=== PATIENT | female | born 1940 | race Caucasian/White ===

== ENCOUNTER 2016-03-03 14:52 | Emergency (ER) | payer OTHER ==
[~2016-03-03] VITALS: Ht 167.6 cm; Wt 75.0 kg
[2016-03-03 14:55] VITALS: BP 178/78; PULSE 103; RESP 14; TEMP 98.2; O2SAT 95
--- NOTE | 2016-03-03 16:08 | PD ---
Physical Exam Time Seen by Provider: 16:04 Narrative 75 year old female presents to ED for evaluation of R arm pain and swelling. Diagnosed with clavicle fracture 4 days ago, but had been injured months ago. Pt was placed in a sling and noticed RUE redness and swelling worsening since last night. [place] chilled no fever. Nausea with vomiting over last 24 hours. Hx of R hip replacement, htn, hypercholesteremia, hypothyroid, copd, gerd. Data Data Last Documented VS Vital Signs Date Time Temp Pulse Resp B/P Pulse Ox O2 Delivery O2 Flow Rate FiO2 03/03/16 18:22 75 18 166/72 96 Room Air 03/03/16 14:55 98.2 Orders Electrocardiogram (03/03/16 16:08) Complete Blood Count With Diff (03/03/16 16:08) Comprehensive Metabolic Panel (03/03/16 16:08) Prothrombin Time / Inr (Pt) (03/03/16 16:08) Act Partial Throm Time (Ptt) (03/03/16 16:08) Lactic Acid Sepsis Protocol (03/03/16 16:08) Magnesium (Mg) (03/03/16 16:08) Ckmb (Isoenzyme) Profile (03/03/16 16:08) Troponin I (03/03/16 16:08) Urinalysis - C+S If Indicated (03/03/16 16:08) Influenzae A/B Antigen (03/03/16 16:08) Blood Culture (03/03/16 16:08) Chest, Single Ap (03/03/16 16:08) Us Arm Venous Doppler (03/03/16 ) Ct Thorax/ Chest W Iv Contrast (03/03/16 17:42) Acetamin-Hydrocod 325-10 Mg ([place] 10-32 (03/03/16 19:15) Labs Laboratory Tests Test 03/03/16 18:30 Lactic Acid Level 2.4 mmol/L MDM Medical Record Reviewed: Yes Supervised Visit with OLYA: No Narrative Course WORK UP INITIATED IN TRIAGE Condition: Stable Minerva Christian Mar 03, 2016 16:07
--- NOTE | 2016-03-03 17:26 | RADRPT ---
EXAM DATE/TIME: 03/03/2016 17:10 [facility] COMPARISON: No previous studies available for comparison. INDICATIONS : Fever and short of breath. MEDICAL HISTORY : Tuberculosis. SURGICAL HISTORY : None. ENCOUNTER: Initial ACUITY: 3 days PAIN SCORE: 2/10 LOCATION: Bilateral chest FINDINGS: A single view of the chest demonstrates the lungs to be symmetrically aerated without evidence of mas s, infiltrate or effusion. The cardiomediastinal contours are unremarkable. Osseous structures are intact. CONCLUSION: Normal examination for a patient of this age. Doni Hopson MD on March 03, 2016 at 17:24 Board Certified Radiologist. This report was verified electronically.
--- NOTE | 2016-03-03 17:33 | RADRPT ---
EXAM DATE/TIME: 03/03/2016 16:36 [facility] COMPARISON: No previous studies available for comparison. INDICATIONS : Swelling. MEDICAL HISTORY : Pain in right arm. SURGICAL HISTORY : Back surgery. ENCOUNTER: Initial ACUITY: 4 - 6 months PAIN SCORE: 9/10 LOCATION: Right arm FINDINGS: There is spontaneous flow documented in the brachial, basilic, cephalic, axillary, and subclavian vei ns. The vessels are compressible and augmentation response is documented. No filling defects are se en. The flow is phasic with respiration. Direction of flow in the jugular vein is caudal. CONCLUSION: No evidence of DVT. No evidence of superficial thrombosis. Екатерина Velez MD on March 03, 2016 at 17:30 Board Certified Radiologist. This report was verified electronically.
[2016-03-03 18:22] VITALS: BP 166/72; PULSE 75; RESP 18; O2SAT 96
--- NOTE | 2016-03-03 18:42 | PD ---
HPI Chief Complaint: Injury Time Seen by Provider: 17:42 Travel History International Travel<30 days: No Contact w/Intl Traveler<30days: No Traveled to known affect area: No History of Present Illness HPI 75-year-old female with history of asthma, previous MD, had a fall several weeks ago, and has had a hip fracture, states that a few days ago she felt a crack in her clavicle area and had been seen, was found to have a clavicle fracture, and over last few days she has had increased swelling on her clavicle area and increased swelling of her right arm. She denies any chest pains, shortness of breath, fevers, or any other symptoms. She and daughter concerned that the right arm is swelling and the right clavicle area swelling. Modifying Factors: None Associated Signs & Symptoms: Swelling of the right clavicle area and arm swelling after clavicle fracture Risk Factors: None PFSH Past Medical History Asthma: Yes Blood Disorders: No Myocardial Infarction: Yes (10 years ago 2006?) Tetanus Vaccination: > 5 Years Influenza Vaccination: No ?: Not Past Surgical History Appendectomy: Yes Cholecystectomy: Yes Hysterectomy: Yes Social History Alcohol Use: No Tobacco Use: Yes (ppd) Substance Use: No Allergies-Medications (Allergen,Severity, Reaction): Coded Allergies: Penicillin (Verified Allergy, Unknown, RASH, 03/03/16) Reported Meds & Prescriptions Reported Meds & Active Scripts Active Review of Systems Except as stated in HPI: all other systems reviewed are Neg Physical Exam Narrative GENERAL: Well-nourished, well-developed elderly white female patient in no acute distress. SKIN: Warm and dry. HEAD: Normocephalic. EYES: No scleral icterus. No injection or drainage. NECK: Supple, trachea midline. CARDIOVASCULAR: Regular rate and rhythm without murmurs, gallops, or rubs. CHEST: There is significant edema, erythema, tenderness on palpation of the right clavicle area especially above the clavicle. No retractions or use of accessory muscles. RESPIRATORY: Breath sounds equal bilaterally. No accessory muscle use. GASTROINTESTINAL: Abdomen soft, non-tender, nondistended. MUSCULOSKELETAL: No cyanosis, or edema. BACK: Nontender without obvious deformity. No CVA tenderness. EXTREMITIES: Right arm is notable for significant edema, neurovascularly intact. Data Data Last Documented VS Vital Signs Date Time Temp Pulse Resp B/P Pulse Ox O2 Delivery O2 Flow Rate FiO2 1/18/17 18:22 75 18 166/72 96 Room Air 03/03/16 14:55 98.2 Orders Electrocardiogram (03/03/16 16:08) Complete Blood Count With Diff (03/03/16 16:08) Comprehensive Metabolic Panel (03/03/16 16:08) Prothrombin Time / Inr (Pt) (03/03/16 16:08) Act Partial Throm Time (Ptt) (03/03/16 16:08) Lactic Acid Sepsis Protocol (03/03/16 16:08) Magnesium (Mg) (03/03/16 16:08) Ckmb (Isoenzyme) Profile (03/03/16 16:08) Troponin I (03/03/16 16:08) Urinalysis - C+S If Indicated (03/03/16 16:08) Influenzae A/B Antigen (03/03/16 16:08) Blood Culture (03/03/16 16:08) Chest, Single Ap (03/03/16 16:08) Us Arm Venous Doppler (03/03/16 ) Ct Thorax/ Chest W Iv Contrast (03/03/16 17:42) MDM Medical Decision Making Medical Screen Exam Complete: Yes Emergency Medical Condition: Yes Medical Record Reviewed: Yes Interpretation(s) Last 24 hours Impressions Chest X-Ray 03/03/16 1608 Signed Impressions: Service Date/Time: Thursday, March 03, 2016 17:10 - CONCLUSION: Normal examination for a patient of this age. Doni Hopson MD Upper Extremity Ultrasound 03/03/16 0000 Signed Impressions: Service Date/Time: Thursday, March 03, 2016 16:36 - CONCLUSION: No evidence of DVT. No evidence of superficial thrombosis. Екатерина Velez MD Differential Diagnosis Right clavicle area swelling, tenderness, edemareactive changes secondary to clavicle fracture versus osteomyelitis versus abscess formation versus DVT of the right arm Narrative Course Patient was initially seen by nurse practitioner and initial lab work was ordered and ultrasound ordered. Chest x-ray and ultrasound did not show any signs of acute changes. CT was ordered for further evaluation of the area. Physician Communication Physician Communication Case is signed out to Dr. Desai at 7 PM pending workup. Diagnosis Primary Impression: Pain of right clavicle Condition: Stable Wing Justice MD Mar 03, 2016 18:42
[2016-03-03 19:00] VITALS: BP 144/73; PULSE 81; RESP 18; O2SAT 97
[2016-03-03] MEDS ORDERED: ACETAMINOPHEN/HYDROcodone 325 MG/10 MG TAB PO ONE (19:15)
--- NOTE | 2016-03-03 19:58 | PD ---
Physical Exam Date Seen by Provider: Mar 03, 2016 Time Seen by Provider: 19:10 Narrative Care assumed at 1900 pending evaluation of a right shoulder injury. Patient reports she fell 3 days ago and injured her right shoulder. She comes in today complaining with increasing pain, swelling, redness. On exam, she has a pretty significant swelling over the right midclavicular area with erythema and warmth of the overlying skin. She is distally neurovascularly intact. She has limited range of motion of her right shoulder secondary to pain. Data Data Last Documented VS Vital Signs Date Time Temp Pulse Resp B/P Pulse Ox O2 Delivery O2 Flow Rate FiO2 03/03/16 18:22 75 18 166/72 96 Room Air 03/03/16 14:55 98.2 Orders Electrocardiogram (03/03/16 16:08) Complete Blood Count With Diff (03/03/16 16:08) Comprehensive Metabolic Panel (03/03/16 16:08) Prothrombin Time / Inr (Pt) (03/03/16 16:08) Act Partial Throm Time (Ptt) (03/03/16 16:08) Lactic Acid Sepsis Protocol (03/03/16 16:08) Magnesium (Mg) (03/03/16 16:08) Ckmb (Isoenzyme) Profile (03/03/16 16:08) Troponin I (03/03/16 16:08) Urinalysis - C+S If Indicated (03/03/16 16:08) Influenzae A/B Antigen (03/03/16 16:08) Blood Culture (03/03/16 16:08) Chest, Single Ap (03/03/16 16:08) Us Arm Venous Doppler (03/03/16 ) Ct Thorax/ Chest W Iv Contrast (03/03/16 17:42) Acetamin-Hydrocod 325-10 Mg ([place] 10-32 (03/03/16 19:15) Lactic Acid Sepsis Protocol (03/03/16 20:42) Blood Culture (03/03/16 20:42) Cefepime Inj (Maxipime Inj) (03/03/16 20:45) Iohexol 350 Inj (Omnipaque 350 Inj) (03/03/16 21:04) Labs Laboratory Tests Test 03/03/16 03/03/16 03/03/16 03/03/16 18:30 18:50 18:51 21:10 Lactic Acid Level 2.4 mmol/L 1.2 mmol/L White Blood Count 9.2 TH/MM3 Red Blood Count 4.28 MIL/MM3 Hemoglobin 11.6 GM/DL Hematocrit 35.5 % Mean Corpuscular Volume 82.9 FL Mean Corpuscular Hemoglobin 27.1 PG Mean Corpuscular Hemoglobin 32.7 % Concent Red Cell Distribution Width 19.5 % Platelet Count 230 TH/MM3 Mean Platelet Volume 10.0 FL Neutrophils (%) (Auto) 64.4 % Lymphocytes (%) (Auto) 22.9 % Monocytes (%) (Auto) 10.7 % Eosinophils (%) (Auto) 1.1 % Basophils (%) (Auto) 0.9 % Neutrophils # (Auto) 5.9 TH/MM3 Lymphocytes # (Auto) 2.1 TH/MM3 Monocytes # (Auto) 1.0 TH/MM3 Eosinophils # (Auto) 0.1 TH/MM3 Basophils # (Auto) 0.1 TH/MM3 CBC Comment AUTO DIFF Differential Comment AUTO DIFF CONFIRMED Prothrombin Time 10.1 SEC Prothromb Time International 0.9 RATIO Ratio Activated Partial 22.3 SEC Thromboplast Time Sodium Level 134 MEQ/L Potassium Level 3.9 MEQ/L Chloride Level 99 MEQ/L Carbon Dioxide Level 27.7 MEQ/L Anion Gap 7 MEQ/L Blood Urea Nitrogen 9 MG/DL Creatinine 0.69 MG/DL Estimat Glomerular Filtration 83 ML/MIN Rate Random Glucose 118 MG/DL Calcium Level 8.0 MG/DL Magnesium Level 1.7 MG/DL Total Bilirubin 0.1 MG/DL Aspartate Amino Transf 19 U/L (AST/SGOT) Alanine Aminotransferase 18 U/L (ALT/SGPT) Alkaline Phosphatase 147 U/L Total Creatine Kinase 72 U/L Troponin I 0.02 NG/ML Total Protein 6.1 GM/DL Albumin 2.5 GM/DL Urine Color YELLOW Urine Turbidity CLEAR Urine pH 5.5 Urine Specific [place] 1.009 Urine Protein NEG mg/dL Urine Glucose (UA) 300 mg/dL Urine Ketones NEG mg/dL Urine Occult Blood SMALL Urine Nitrite NEG Urine Bilirubin NEG Urine Urobilinogen LESS THAN 2.0 MG/DL Urine Leukocyte Esterase NEG Urine RBC 1 /hpf Urine WBC 1 /hpf Urine Squamous Epithelial <1 /hpf Cells Microscopic Urinalysis Comment CATH-CULT NOT IND MDM Medical Record Reviewed: Yes (I have a record from [facility] from February 29, 2016. Patient was seen there with a clavicular fracture. She had plain films that confirmed the fracture. She was discharged on Percocet and with a sling. There is no mention in their records of a mass in her lungs.) Supervised Visit with OLYA: No Narrative Course Patient is here for evaluation of right shoulder injury. She has a negative chest x-ray but a midclavicular fracture is visible on the chest x-ray. Right upper extremity ultrasound was negative for DVT. She has a CT of the shoulder pending. She also has routine lab work pending. CBC has a normal white count of 9.2. Lactic acid level is elevated at 2.4. Electrolytes are normal. UA is negative. Since her lactic acid level is elevated and since she has redness and warmth of the skin over her right clavicle, I will go ahead and give her a dose of cefepime. Her CT shows a spiculated mass in the left upper lobe compatible with bronchogenic carcinoma. She also has a 6 mm nodule in the left lower lobe. I do not believe that this is a known diagnosis. The patient has not recently been seen at this facility. She has most recently been seen at [facility] in [facility]. We are attempting to obtain those records. The patient does report that she feels perfectly fine going home. She states that she has a good relationship with her primary care physician and can see him right away should of this. She states that she has never been told anything about a mass in her lungs. She denies any respiratory difficulty. Her only complaint is her shoulder. I will recheck her lactic acid level. If it is trending down, I feel comfortable sending her home. Repeat lactic acid is 1.2. Diagnosis Primary Impression: Pain of right clavicle Additional Impressions: Mass of left lung Cellulitis of chest wall Patient Instructions: Cellulitis (ED), General Instructions Additional Instruction: See your doctor without fail in the near future regarding a mass noted in your left lung on CT scan. Med/Other Pt SpecificInfo: Prescription(s) given Scripts Cephalexin (Keflex)500 Mg Xic052 Mg PO Q8H #30 CAP Ref 0 Prov:Jasmin Desai MD 03/03/16 Disposition: DISCHARGE HOME Condition: Stable Jasmin Desai MD Mar 03, 2016 19:58
[2016-03-03 20:16] LABS: BLOOD, URINE SMALL (NEG); COMMENT (UR) CATH-CULT NOT IND; CULTURE IF INDICATED CATH CULTURE NOT IND; GLUCOSE,URINE 300 mg/dL (NEG); KETONE, URINE NEG (NEG); NITRITE,URINE NEG (NEG); PH, URINE 5.5 (5.0-8.5); SQUAMOUS EPITHELIAL CELL URINE <1 /hpf (0-5); URINE COLOR YELLOW (YELLW/STRAW)
[2016-03-03 20:17] LABS: AUTOMATED NEUTROPHIL # 5.9 TH/MM3 (1.8-7.7); BASOPHIL # 0.1 TH/MM3 (0-0.2); BASOPHIL % 0.9 % (0.0-2.0); EOSINOPHIL # 0.1 TH/MM3 (0-0.4); EOSINOPHIL % 1.1 % (0.0-4.0); HEMATOCRIT 35.5 % (35.0-46.0); LYMPH % 22.9 % (9.0-44.0); LYMPHOCYTE # 2.1 TH/MM3 (1.0-4.8); MEAN CELL VOLUME 82.9 FL (80.0-100.0); MEAN CORPUSCULAR HEMOGLOBIN 27.1 PG (27.0-34.0); MEAN CORPUSCULAR HGB CONC 32.7 % (32.0-36.0); MONO % 10.7 % (0.0-8.0); NEUT % 64.4 % (16.0-70.0); PLATELET COUNT 230 TH/MM3 (150-450); RED BLOOD COUNT 4.28 MIL/MM3 (4.00-5.30); RED CELL DISTRIBUTION WIDTH 19.5 % (11.6-17.2); WHITE BLOOD COUNT 9.2 TH/MM3 (4.0-11.0)
[2016-03-03 20:19] LABS: HEMO FLAGS AUTO DIFF
[2016-03-03 20:28] LABS: APTT (PATIENT) 22.3 SEC (24.3-30.1); INTERNATIONAL NORMALIZED RATIO 0.9 RATIO; PROTHROMBIN TIME - PATIENT 10.1 SEC (9.8-11.6)
[2016-03-03 20:36] LABS: ANION GAP 7 MEQ/L (5-15); AST (GOT) 19 U/L (15-37); BICARBONATE 27.7 MEQ/L (21.0-32.0); BLOOD UREA NITROGEN 9 MG/DL (7-18); CHLORIDE 99 MEQ/L (98-107); GLOMERULAR FILTRATION RATE 83 ML/MIN (>89); MAGNESIUM 1.7 MG/DL (1.5-2.5); POTASSIUM 3.9 MEQ/L (3.5-5.1); SODIUM (NA) 134 MEQ/L (136-145)
[2016-03-03 20:40] LABS: ALKALINE PHOSPHATASE 147 U/L (45-117); ALT (GPT) 18 U/L (10-53); TOTAL BILIRUBIN ADULT 0.1 MG/DL (0.2-1.0)
[2016-03-03] MEDS ORDERED: CEFEPIME INJ 2,000 MG in SODIUM CHLORIDE 0.9% INJ 100 ML IV ONE (20:45)
[2016-03-03 20:47] LABS: CREATINE KINASE 72 U/L (26-192)
[2016-03-03 21:00] VITALS: BP 140/72; PULSE 85; RESP 18
[2016-03-03 21:00] LABS: SCAN/DIFF AUTO DIFF CONFIRMED
[2016-03-03] MEDS ORDERED: IOHEXOL 350 MG/ML 10 ML VIAL (for RAD DIAG) IV ONE (21:04)
[2016-03-03 21:10] LABS: LACTIC ACID GHOST NOT REPORTABLE
--- NOTE | 2016-03-03 21:13 | RADRPT ---
EXAM DATE/TIME: 03/03/2016 20:58 [facility] COMPARISON: No previous studies available for comparison. INDICATIONS : Right clavicle swelling and known fracture. Evaluate for abscess. IV CONTRAST: 70 cc Omnipaque 350 (iohexol) IV RADIATION DOSE: 9.08 CTDIvol (mGy) MEDICAL HISTORY : Myocardial infarction. asthma SURGICAL HISTORY : Cholecystectomy. ENCOUNTER: Initial ACUITY: 1 day PAIN SCALE: 10/10 LOCATION: Right chest TECHNIQUE: Volumetric scanning of the chest was performed. Using automated exposure control and adjustment of t he mA and/or kV according to patient size, radiation dose was kept as low as reasonably achievable to obtain optimal diagnostic quality images. FINDINGS: LUNGS: There is a mass in the left upper lobe abutting the mediastinum measuring 3.5 x 3.3 x 3.3 cm. Moderat e emphysema. There is a 6 mm nodule in superior segment left lower lobe. PLEURA: There is no pleural thickening or pleural effusion. MEDIASTINUM: The heart and great vessels demonstrate no acute abnormality. There is no mediastinal or hilar lymph adenopathy. AXILLAE: Within normal limits. No lymphadenopathy. SKELETAL: Within normal limits for patient age. MISCELLANEOUS: The visualized upper abdominal organs demonstrate no acute abnormality. CONCLUSION: 1. Spiculated mass left upper lobe abutting the mediastinum consistent with bronchogenic carcinoma. 2. 6 mm nodule in the superior segment left lower lobe. 3. Emphysema without infiltrate. Baljit Rockwell MD on March 03, 2016 at 21:06 Board Certified Radiologist. This report was verified electronically.
[2016-03-03] MEDS ORDERED: CEPH-460 PO (22:23)
--- NOTE | 2016-03-04 21:11 | EKG ---
Date Performed: 03/03/2016 Time Performed: 17:51:08 PTAGE: 75 years EKG: Sinus rhythm NORMAL ECG PREVIOUS TRACING : 03/25/2002 21.12 DOCTOR: Jose Antonio Patten Interpretating Date/Time 03/04/2016 21:05:02
[2016-03-04] MEDS ORDERED: OMEP20TA PO (22:57)
[2016-03-04] MEDS ORDERED: PRIM250T5 PO (23:27)
[2016-03-04] MEDS ORDERED: MIRT30TA PO (23:27)
[2016-03-04] MEDS ORDERED: LEVO100T5 PO (23:27)
[2016-03-04] MEDS ORDERED: DICY20TA10 PO (23:27)
[2016-03-04] MEDS ORDERED: AMLO10TA2 PO (23:27)
[2016-03-04] MEDS ORDERED: AMIT10TA6 PO (23:27)
[2016-03-04] MEDS ORDERED: LISI40TA PO (23:27)
[2016-03-04] MEDS ORDERED: DONE10TA7 PO (23:27)
[2016-03-04] MEDS ORDERED: QUET1TAB8 PO (23:27)
[2016-03-04] MEDS ORDERED: ATOR1TAB18 PO (23:27)
[2016-03-04] MEDS ORDERED: LANTINJ SQ (23:29)
[2016-03-04] MEDS ORDERED: VENTAER INH (23:29)
[2016-04-12] MEDS ORDERED: HYDR-3583 PO (14:30)
[2016-04-12] MEDS ORDERED: LORA1TAB12 PO (14:33)
[2016-04-12] MEDS ORDERED: IPRA0.02 NEB (14:35)
== END 2016-03-03 23:31 | disposition home or self-care (01) ==
LOC: NEPC 14:52
DX: M25.511 Pain in right shoulder (principal); R91.8 Other nonspecific abnormal finding of lung field; L03.313 Cellulitis of chest wall; R11.2 Nausea with vomiting, unspecified; I10 Essential (primary) hypertension; E78.00 Pure hypercholesterolemia, unspecified; E03.9 Hypothyroidism, unspecified; J44.9 Chronic obstructive pulmonary disease, unspecified; K21.9 Gastro-esophageal reflux disease without esophagitis; Z96.641 Presence of right artificial hip joint; F17.200 Nicotine dependence, unspecified, uncomplicated; X58.XXXD Exposure to other specified factors, subsequent encounter; M79.601 Pain in right arm
CPT/HCPCS: 71010; 71260; 80053; 81001; 82550; 83605; 83735; 84484; 85025; 85610; 85730; 87040; 87804; 93005; 93971; 96365; 99284; J0692; Q9967

== ENCOUNTER 2016-03-04 20:37 | Observation (INO) | payer OTHER ==
[~2016-03-04] VITALS: Ht 162.6 cm; Wt 62.0 kg
[~2016-03-04 20:37] MED LIST: CEPH-460 PO
[2016-03-04 20:39] VITALS: TEMP 98.4
[2016-03-04 21:37] VITALS: BP 181/82; PULSE 72; RESP 16; O2SAT 95
--- NOTE | 2016-03-04 21:39 | PD ---
HPI Chief Complaint: Injury Time Seen by Provider: 21:00 Travel History International Travel<30 days: No Contact w/Intl Traveler<30days: No Traveled to known affect area: No History of Present Illness HPI 75 year-old female presents to the emergency room via ambulance for evaluation of shortness of breath and worsening right clavicle pain. Patient states her pain started several months ago after she tripped and fell on her right side. At that time she broke her right hip. She states since then she has had right clavicle achiness. About 3 days ago, she bent over and picked up her small dog and heard a pop in her clavicle. Since then she has had worsening clavicle pain and swelling. Clavicle pain is worsened with any range of motion of the right upper extremity since she has now been using it normally. Pain is also worsened with deep breathing. She went to [facility] where she states they "didn't do anything" and told her that there is nothing that could be done for her fracture and discharged her with Percocet. She has run out of Percocet. Patient tried to follow-up with orthopedic surgeon but she called several different offices and none had availability. She came to this emergency room yesterday where she had a thorough workup and was discharged with sling and prescriptions for Keflex. What brought her in again today is worsening right upper extremity redness and swelling. She took one dose of Keflex and states it did not improve her symptoms which concerned her. Patient has not been wearing her sling as instructed because she lost it. Patient has history of hyperlipidemia, depression, hypertension, tremors, GERD, hypothyroidism, and headaches. According to the note written yesterday, medical records were obtained from [facility] which showed patient had a chest x-ray with positive clavicle fracture. PFSH Past Medical History Asthma: Yes Blood Disorders: No Musculoskeletal: Yes (right collar bone fx) Myocardial Infarction: Yes (10 years ago 2006?) Past Surgical History Appendectomy: Yes Cholecystectomy: Yes Hysterectomy: Yes Social History Alcohol Use: No Tobacco Use: Yes (ppd) Substance Use: No Allergies-Medications (Allergen,Severity, Reaction): Coded Allergies: Penicillin (Verified Allergy, Unknown, RASH, 03/05/16) Reported Meds & Prescriptions Reported Meds & Active Scripts Active Reported Ventolin Hfa 18 GM Inh (Albuterol Sulfate) 90 Mcg/Act Aer 2 Puff INH Q4-6H PRN Quetiapine (Quetiapine Fumarate) 100 Mg Tab 100 Mg PO HS Lisinopril 40 Mg Tab 40 Mg PO DAILY Levothyroxine (Levothyroxine Sodium) 100 Mcg Tab 100 Mcg PO DAILY Amlodipine (Amlodipine Besylate) 10 Mg Tab 10 Mg PO DAILY Atorvastatin (Atorvastatin Calcium) 80 Mg Tab 80 Mg PO DAILY PRN Dicyclomine (Dicyclomine HCl) 20 Mg Tab 20 Mg PO QID Mirtazapine 30 Mg Tab 30 Mg PO HS Donepezil 10 Mg Tab 10 Mg PO BID Amitriptyline (Amitriptyline HCl) 10 Mg Tab 10 Mg PO BID Primidone 250 Mg Tab 250 Mg PO TID Omeprazole 20 Mg Tab 20 Mg PO DAILY Review of Systems Except as stated in HPI: all other systems reviewed are Neg Physical Exam Narrative GENERAL: Well-developed, well-nourished elderly female in no acute distress. Afebrile. Ambulatory. SKIN: Warm and dry. Erythema of the forearm and hand. No increased warmth. HEAD: Atraumatic. Normocephalic. EYES: Pupils equal and round. No scleral icterus. No injection or drainage. CARDIOVASCULAR: Regular rate and rhythm. No murmur appreciated. RESPIRATORY: No accessory muscle use. Clear to auscultation. Breath sounds equal bilaterally. CHEST: Nontender throughout without deformity or crepitance. No retractions or use of accessory muscles. MUSCULOSKELETAL: No obvious deformities. No clubbing. No cyanosis. Moderate to severe edema of the right upper extremity. 2+ radial pulse. Radial, ulnar, and median nerves intact. Slight decreased strength in the right upper extremity. NEUROLOGICAL: Awake and alert. No obvious cranial nerve deficits. Motor grossly within normal limits. Normal speech. PSYCHIATRIC: Appropriate mood and affect; insight and judgment normal. Data Data Last Documented VS Vital Signs Date Time Temp Pulse Resp B/P Pulse Ox O2 Delivery O2 Flow Rate FiO2 03/04/16 22:12 75 15 141/60 95 Nasal Cannula 03/04/16 21:37 2 03/04/16 20:39 98.4 Orders Chest, Single Ap (03/04/16 ) Basic Metabolic Panel (Bmp) (03/04/16 22:00) Complete Blood Count With Diff (03/04/16 22:00) Iv Access Insert/Monitor (03/04/16 22:00) Clindamycin Inj (Cleocin Inj) (03/04/16 22:00) Splint Or Brace Apply/Monitor (03/04/16 22:05) Admit Order (Ed Use Only) (03/04/16 23:16) Labs Laboratory Tests Test 03/04/16 22:00 White Blood Count 7.5 TH/MM3 Red Blood Count 4.48 MIL/MM3 Hemoglobin 12.0 GM/DL Hematocrit 37.1 % Mean Corpuscular Volume 82.8 FL Mean Corpuscular Hemoglobin 26.9 PG Mean Corpuscular Hemoglobin 32.4 % Concent Red Cell Distribution Width 19.8 % Platelet Count 254 TH/MM3 Mean Platelet Volume 9.5 FL Neutrophils (%) (Auto) 57.7 % Lymphocytes (%) (Auto) 28.1 % Monocytes (%) (Auto) 10.4 % Eosinophils (%) (Auto) 2.5 % Basophils (%) (Auto) 1.3 % Neutrophils # (Auto) 4.3 TH/MM3 Lymphocytes # (Auto) 2.1 TH/MM3 Monocytes # (Auto) 0.8 TH/MM3 Eosinophils # (Auto) 0.2 TH/MM3 Basophils # (Auto) 0.1 TH/MM3 CBC Comment DIFF FINAL Differential Comment Sodium Level 137 MEQ/L Potassium Level 4.6 MEQ/L Chloride Level 102 MEQ/L Carbon Dioxide Level 30.6 MEQ/L Anion Gap 4 MEQ/L Blood Urea Nitrogen 8 MG/DL Creatinine 0.68 MG/DL Estimat Glomerular Filtration 84 ML/MIN Rate Random Glucose 157 MG/DL Calcium Level 8.2 MG/DL MDM Medical Decision Making Medical Screen Exam Complete: Yes Emergency Medical Condition: Yes Medical Record Reviewed: Yes Differential Diagnosis Cellulitis versus clavicle fracture versus pneumothorax Narrative Course 75-year-old female presents to the emergency room for evaluation of shortness of breath and worsening right clavicle pain. She has no history of clavicle fracture that possibly occurred 3 days ago after patient picked up her small dog. She denies any recent trauma or fall. Patient was here yesterday for the same and had a full workup including ultrasound of the right upper extremity, chest CT with contrast, and lab work. CT showed significant amounts of the left upper lobe and 6 mm nodule in the superior segment of the left lower lobe, insistent with bronchogenic carcinoma. Patient was made aware findings yesterday. Ultrasound yesterday was negative. She had a mildly elevated lactic acid yesterday but recheck was within normal limits. Patient endorses worsening edema and redness since that time. She had a dose of IV antibiotics yesterday and was discharged with Keflex. Physical exam reveals moderate to severe edema of the right upper extremity. Right upper extremity is neurovascularly intact with 2+ radial pulse. Radial, ulnar, and median nerves intact. Arm is tender to palpation. Vital signs stable. Patient is 97% on room air. Repeat chest x-ray shows no pneumothorax. CBC and BMP are unremarkable. Patient was given another dose of IV antibiotics today and arm was wrapped and placed in sling to decreased edema. She'll be admitted for cellulitis and pain control. My attending physician spoke to the admitting physician who agrees to accept the patient. Diagnosis Primary Impression: Cellulitis of left upper extremity Admitting Information Admitting Physician Requests: Observation Scripts Prednisone 20 Mg Tab40 Mg PO DAILY #1 TAB Prov:Colt Bowen 03/06/16 Insulin Glargine Inj (Lantus Solostar Pen Inj)300 Unit/3 Ml Pen8 Units SQ HS # 0 PEN Ref 0 Prov:Colt Bowen 03/06/16 Clindamycin 300 Mg Otc672 Mg PO TID #21 CAP Ref 0 Prov:Colt Bowen 03/06/16 Hydrocodone-Acetaminophen 5-325 mg Tab1 Tab PO Q6HR PRN (pain) #28 TAB Prov:Juan Jose Farrell MD 03/06/16 Condition: Stable Kat Ahn Mar 04, 2016 21:39
--- NOTE | 2016-03-04 21:41 | RADRPT ---
EXAM DATE/TIME: 03/04/2016 21:15 [facility] COMPARISON: CT THORAX W CONTRAST, March 03, 2016, 20:58. CHEST SINGLE AP, March 03, 2016, 17:10. INDICATIONS : Short of breath. MEDICAL HISTORY : None. SURGICAL HISTORY : None. ENCOUNTER: Initial ACUITY: 2 days PAIN SCORE: 8/10 LOCATION: Bilateral chest FINDINGS: A single view of the chest demonstrates the lungs to be symmetrically aerated without evidence of mas s, infiltrate or effusion. The cardiomediastinal contours are unremarkable. Osseous structures are intact. CONCLUSION: No acute cardiopulmonary disease demonstrated. 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 No evidence of developing pneumonia. Chinedu Macias MD on March 04, 2016 at 21:39 Board Certified Radiologist. This report was verified electronically.
[2016-03-04] MEDS ORDERED: CLINDAMYCIN INJ 600 MG in SODIUM CHLORIDE 0.9% INJ 100 ML IV ONE (22:00)
[2016-03-04 22:12] VITALS: BP 141/60; PULSE 75; RESP 15; O2SAT 95
[2016-03-04 22:18] LABS: AUTOMATED NEUTROPHIL # 4.3 TH/MM3 (1.8-7.7); BASOPHIL # 0.1 TH/MM3 (0-0.2); BASOPHIL % 1.3 % (0.0-2.0); EOSINOPHIL # 0.2 TH/MM3 (0-0.4); EOSINOPHIL % 2.5 % (0.0-4.0); HEMATOCRIT 37.1 % (35.0-46.0); HEMO FLAGS DIFF FINAL; LYMPH % 28.1 % (9.0-44.0); LYMPHOCYTE # 2.1 TH/MM3 (1.0-4.8); MEAN CELL VOLUME 82.8 FL (80.0-100.0); MEAN CORPUSCULAR HEMOGLOBIN 26.9 PG (27.0-34.0); MEAN CORPUSCULAR HGB CONC 32.4 % (32.0-36.0); MONO % 10.4 % (0.0-8.0); NEUT % 57.7 % (16.0-70.0); PLATELET COUNT 254 TH/MM3 (150-450); RED BLOOD COUNT 4.48 MIL/MM3 (4.00-5.30); RED CELL DISTRIBUTION WIDTH 19.8 % (11.6-17.2); WHITE BLOOD COUNT 7.5 TH/MM3 (4.0-11.0)
[2016-03-04 22:36] LABS: BICARBONATE 30.6 MEQ/L (21.0-32.0); POTASSIUM 4.6 MEQ/L (3.5-5.1)
[2016-03-04] MEDS ORDERED: OMEP20TA PO (22:57)
--- NOTE | 2016-03-04 23:25 | HHI.HP ---
[facility] Service [facility] Primary Care Physician Katlyn Heaton MD Admission Diagnosis R upper extremity cellulitis Diagnoses: Chief Complaint: Right upper extremity swelling and erythema, right clavicle fracture Travel History International Travel<30 Days: No Contact w/Intl Traveler <30 Da: No Traveled to Known Affected Are: No History of Present Illness The patient is a 75-year-old female with a medical history significant for asthma, coronary artery disease, COPD, tobacco abuse, hypertension, depression. She presented to the emergency room with complaint of worsening right arm swelling and erythema. The patient was seen in the emergency room yesterday for the same. However she reports that the swelling over the right clavicle and swelling and erythema of the arm is getting worse. Patient has been unable to obtain a follow-up appointment with an orthopedic surgeon. The patient was diagnosed with cellulitis yesterday and was given Keflex. She took one dose of the Keflex but did not note any improvement. Patient states she lost her sling and has not been wearing it as instructed. Since arrival to the emergency room , she was put in a new sling. The arm has been wrapped. She denies fevers but endorsed chills. Review of Systems Constitutional: DENIES: Fever, Chills Musculoskeletal: COMPLAINS OF: Joint pain, Joint Swelling Integumentary: COMPLAINS OF: Rash Other All other systems reviewed and are negative. Past Family Social History Past Medical History asthma, coronary artery disease, COPD, tobacco abuse, hypertension, depression Past Surgical History Appendectomy Cholecystectomy Hysterectomy Reported Medications Reported Meds & Active Scripts Active Keflex (Cephalexin) 500 Mg Cap 500 Mg PO Q8H Reported Lantus Solostar Pen Inj (Insulin Glargine) 300 Unit/3 Ml Pen 3 Ml SQ Ventolin Hfa 18 GM Inh (Albuterol Sulfate) 90 Mcg/Act Aer 2 Puff INH Q4-6H PRN Quetiapine (Quetiapine Fumarate) 100 Mg Tab 100 Mg PO HS Lisinopril 40 Mg Tab 40 Mg PO DAILY Levothyroxine (Levothyroxine Sodium) 100 Mcg Tab 100 Mcg PO DAILY Amlodipine (Amlodipine Besylate) 10 Mg Tab 10 Mg PO DAILY Atorvastatin (Atorvastatin Calcium) 80 Mg Tab 80 Mg PO DAILY PRN Dicyclomine (Dicyclomine HCl) 20 Mg Tab 20 Mg PO QID Mirtazapine 30 Mg Tab 30 Mg PO HS Donepezil 10 Mg Tab 10 Mg PO BID Amitriptyline (Amitriptyline HCl) 10 Mg Tab 10 Mg PO BID Primidone 250 Mg Tab 250 Mg PO TID Omeprazole 20 Mg Tab 20 Mg PO DAILY Allergies: Coded Allergies: Penicillin (Verified Allergy, Unknown, RASH, 03/03/16) Family History Reviewed and noncontributory. Social History Patient smokes a pack of cigarettes per day. She denies alcohol or illicit drugs. Physical Exam Vital Signs Vital Signs Date Time Temp Pulse Resp B/P Pulse Ox O2 Delivery O2 Flow Rate FiO2 03/04/16 22:12 75 15 141/60 95 Nasal Cannula 03/04/16 21:37 72 16 181/82 95 Nasal Cannula 2 03/04/16 20:39 98.4 Physical Exam GENERAL: This is a well-nourished, well-developed patient, in no apparent distress. SKIN: Right upper extremity with erythema extending up to the shoulders. There is erythema over the medial clavicle. HEAD: Atraumatic. Normocephalic. EYES: Pupils equal round and reactive. ENT: Nose without drainage. Uvula midline. Airway patent. NECK: Trachea midline. No JVD or lymphadenopathy. Supple, nontender, no meningeal signs. CARDIOVASCULAR: Regular rate and rhythm without murmurs, gallops, or rubs. RESPIRATORY: Clear to auscultation. Breath sounds equal bilaterally. No wheezes , rales, or rhonchi. GASTROINTESTINAL: Abdomen soft, non-tender, nondistended. No hepato-splenomegaly , or palpable masses. No guarding. MUSCULOSKELETAL: Right arm is in a sling. Neurovascularly intact distally. Limited range of motion of the right shoulder due to pain. NEUROLOGICAL: Awake and alert. Normal speech. Laboratory Laboratory Tests Test 03/04/16 22:00 White Blood Count 7.5 Red Blood Count 4.48 Hemoglobin 12.0 Hematocrit 37.1 Mean Corpuscular Volume 82.8 Mean Corpuscular Hemoglobin 26.9 Mean Corpuscular Hemoglobin 32.4 Concent Red Cell Distribution Width 19.8 Platelet Count 254 Mean Platelet Volume 9.5 Neutrophils (%) (Auto) 57.7 Lymphocytes (%) (Auto) 28.1 Monocytes (%) (Auto) 10.4 Eosinophils (%) (Auto) 2.5 Basophils (%) (Auto) 1.3 Neutrophils # (Auto) 4.3 Lymphocytes # (Auto) 2.1 Monocytes # (Auto) 0.8 Eosinophils # (Auto) 0.2 Basophils # (Auto) 0.1 CBC Comment DIFF FINAL Differential Comment Sodium Level 137 Potassium Level 4.6 Chloride Level 102 Carbon Dioxide Level 30.6 Anion Gap 4 Blood Urea Nitrogen 8 Creatinine 0.68 Estimat Glomerular Filtration 84 Rate Random Glucose 157 Calcium Level 8.2 Result Diagram: 03/04/16219903/04/162199 Imaging Last Impressions Chest X-Ray 03/04/16 0000 Signed Impressions: Service Date/Time: , March 04, 2016 21:15 - CONCLUSION: No acute cardiopulmonary disease demonstrated. 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 No evidence of developing pneumonia. Chinedu Macias MD Assessment and Plan Problem List: (1) Right clavicle fracture ICD Code: S42.001A Status: Acute (2) Cellulitis of right upper extremity ICD Code: L03.113 Status: Acute (3) Mass of left lung ICD Code: R91.8 Status: Acute (4) Diabetes ICD Code: E11.9 Status: Acute (5) Hypertension ICD Code: I10 Status: Acute (6) Dementia ICD Code: F03.90 Status: Acute (7) Hypothyroid ICD Code: E03.9 Status: Acute Assessment and Plan 75-year-old female with: Right upper extremity cellulitis and edema: Suspect dependent edema due to restriction of shoulder movement from clavicle fracture, now with cellulitis. No signs of systemic infection - Continue clindamycin. - Wrap arm to help with edema. Right clavicle fracture: - Consult Orthopedics. - Pain control. Mass of left lung: The patient understand this needs to be followed up outpatient with Pulmonology. She understand she will need a biopsy for definitive diagnosis. - I stressed the importance of following up outpatient. Consider discussing with her daughter in AM to ensure clear understanding. Diabetes: Sliding scale insulin with Accu-Cheks. Continue home medications for the chronic conditions listed under the problem list including hypothyroidism, dementia, hypertension GI prophylaxis: Stool softener PRN constipation. DVT PPx: SCDs Discussed Condition With Dr. Johnson. Maritza Saleh MD Mar 04, 2016 23:25
[2016-03-04] MEDS ORDERED: LISI40TA PO (23:27)
[2016-03-04] MEDS ORDERED: PRIM250T5 PO (23:27)
[2016-03-04] MEDS ORDERED: ATOR1TAB18 PO (23:27)
[2016-03-04] MEDS ORDERED: LEVO100T5 PO (23:27)
[2016-03-04] MEDS ORDERED: MIRT30TA PO (23:27)
[2016-03-04] MEDS ORDERED: AMLO10TA2 PO (23:27)
[2016-03-04] MEDS ORDERED: AMIT10TA6 PO (23:27)
[2016-03-04] MEDS ORDERED: QUET1TAB8 PO (23:27)
[2016-03-04] MEDS ORDERED: DICY20TA10 PO (23:27)
[2016-03-04] MEDS ORDERED: DONE10TA7 PO (23:27)
[2016-03-04] MEDS ORDERED: VENTAER INH (23:29)
[2016-03-04] MEDS ORDERED: LANTINJ SQ (23:29)
[2016-03-05] VITALS (8 sets, daily range): BP systolic 135–178; BP diastolic 60–86; PULSE 70–93; RESP 14–24; TEMP 97.8–98.8; O2SAT 91–98
[2016-03-05] MEDS ORDERED: SODIUM CHLORIDE 0.9% FLUSH 5 ML FLUSH IV PRN (05:30)
[2016-03-05] MEDS ORDERED: GLUCAGON 1 MG/ML VIAL OTHER PRN (05:45)
[2016-03-05] MEDS ORDERED: RESP: ALBUTEROL 2.5 MG/IPRATROPIUM 0.5 MG NEB (PRN) NEB (05:45)
[2016-03-05] MEDS ORDERED: DEXTROSE 50% IN WATER 50 ML VIAL(D50) IV PUSH PRN (05:45)
[2016-03-05] MEDS ORDERED: ATORVASTATIN 80 MG TAB PO PRN (05:45)
[2016-03-05] MEDS: CLINDAMYCIN INJ 600 MG in SODIUM CHLORIDE 0.9% INJ 100 ML IV SCH ×3 (06:20→22:00)
[2016-03-05] MEDS: LEVOTHYROXINE SODIUM 100 MCG TAB PO SCH (06:20)
[2016-03-05] MEDS ORDERED: INSULIN ASPART SUPPLEMENTAL SCALE SQ SCH (07:00)
[2016-03-05] MEDS: SODIUM CHLORIDE 0.9% FLUSH 5 ML FLUSH IV SCH ×2 (08:23→21:00)
[2016-03-05] MEDS ORDERED: NALOXONE HCL 0.4 MG/ML AMP IV PRN (09:45)
[2016-03-05] MEDS ORDERED: ENALAPRILAT 1.25 MG/ML VIAL IV PRN (10:00)
[2016-03-05] MEDS ORDERED: hydrALAZINE HCL 20 MG/ML VIAL IV PRN (10:00)
[2016-03-05] MEDS ORDERED: ACETAMINOPHEN 325 MG TAB PO PRN (10:00)
[2016-03-05] MEDS ORDERED: BISACODYL 10 MG SUPP PR PRN (10:00)
[2016-03-05] MEDS ORDERED: cloNIDine HCL 0.1 MG TAB PO PRN (10:00)
[2016-03-05] MEDS: ACETAMINOPHEN/HYDROcodone 325 MG/5 MG TAB PO PRN ×2 (10:10→15:06)
[2016-03-05] MEDS: LISINOPRIL 20 MG TAB PO SCH (10:10)
[2016-03-05] MEDS: DOCUSATE SODIUM 100 MG CAP PO SCH ×2 (10:10→22:00)
[2016-03-05] MEDS: DONEPEZIL HCL 5 MG TAB PO SCH ×2 (10:37→21:00)
[2016-03-05] MEDS: DICYCLOMINE HCL 20 MG TAB PO SCH ×4 (10:37→21:00)
[2016-03-05] MEDS: INSULIN ASPART SUPPLEMENTAL SCALE SQ SCH ×3 (11:00→21:00)
[2016-03-05] MEDS ORDERED: MAGNESIUM HYDROXIDE SUSP 30 ML CUP PO PRN (11:00)
[2016-03-05] MEDS ORDERED: SENNOSIDES 8.6 MG TAB PO PRN (11:00)
[2016-03-05] MEDS ORDERED: ONDANSETRON HCL 4 MG/2 ML VIAL IVP PRN (11:00)
--- NOTE | 2016-03-05 11:04 | HHI.PR ---
Subjective Remarks Follow up for RUE cellulitis and right clavicle fracture. The patient reports continue pain at the right clavicle and right arm, currently in sling. No fevers but does report chills. She also complains of some shortness of breath and wheezing over the past 2 days. She has hx of COPD. Objective Vitals Vital Signs Date Time Temp Pulse Resp B/P Pulse Ox O2 Delivery O2 Flow Rate FiO2 03/05/16 08:17 98.0 92 22 178/78 96 Room Air 03/05/16 06:08 83 24 154/67 95 Room Air 03/05/16 01:38 70 14 166/81 95 Nasal Cannula 2 03/04/16 22:12 75 15 141/60 95 Nasal Cannula 03/04/16 21:37 72 16 181/82 95 Nasal Cannula 2 03/04/16 20:39 98.4 Result Diagram: 03/04/16219903/04/162199 Imaging Last Impressions Chest X-Ray 03/04/16 0000 Signed Impressions: Service Date/Time: February 21:15 - CONCLUSION: No acute cardiopulmonary disease demonstrated. 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 No evidence of developing pneumonia. Chinedu Macias MD Objective Remarks GENERAL: Well-nourished, well-developed elderly female patient in [facility]. SKIN: Warm and dry. Right posterior upper arm with erythema/edema/warmth. HEAD: Normocephalic. Atraumatic. EYES: Pupils equal and round. No scleral icterus. No injection or drainage. ENT: No nasal bleeding or discharge. Mucous membranes pink and moist. NECK: Supple. Trachea midline. CARDIOVASCULAR: Regular rate and rhythm. S1, S2 noted. No murmur appreciated. RESPIRATORY: No accessory muscle use. Diffuse expiratory wheezing. Breath sounds equal bilaterally. GASTROINTESTINAL: Abdomen soft, non-tender, nondistended. Normoactive bowel sounds x4. MUSCULOSKELETAL: No obvious deformities. Right arm in sling, right clavicle TTP with overlying edema, RUE with diffuse edema and ecchymosis. NEUROLOGICAL: Awake and alert. No obvious cranial nerve deficits. Motor grossly within normal limits. Normal speech. PSYCHIATRIC: Appropriate mood and affect; insight and judgment normal. Medications and IVs Current Medications Medications (Trade) Dose Ordered Sig/Shade Route Start Time Stop Time Status Last Admin (NS Flush) 2 ml BID IV 03/05/16 09:00 03/05/16 08:23 (NS Flush) 2 ml UNSCH PRN IV 03/05/16 05:30 ([place] 5-325 Mg) 1 tab Q4H PRN PO 03/05/16 05:30 03/05/16 10:10 (Elavil) 10 mg BID PO 03/05/16 09:00 03/05/16 12:19 (Lipitor) 80 mg DAILY PRN PO 03/05/16 05:45 03/05/16 10:10 (Bentyl) 20 mg QID PO 03/05/16 09:00 03/05/16 10:37 (Aricept) 10 mg BID PO 03/05/16 09:00 03/05/16 10:37 (Synthroid) 100 mcg DAILY@06 PO 03/05/16 06:00 03/05/16 06:20 (Prinivil) 40 mg DAILY PO 03/05/16 09:00 03/05/16 10:10 (Mysoline) 250 mg TID PO 03/05/16 09:00 03/05/16 12:19 (D50w (Vial) Inj) 25 ml UNSCH PRN IV PUSH 03/05/16 05:45 Glucagon 1 mg 1 mg UNSCH PRN OTHER 03/05/16 05:45 (Cleocin Inj/NS Inj) 104 ml @ 208 mls/hr Q8H IV 03/05/16 06:00 03/05/16 06:20 (Vasotec Inj) 1.25 mg Q6H PRN IV 03/05/16 10:00 (Apresoline Inj) 10 mg Q6H PRN IV 03/05/16 10:00 (Catapres) 0.1 mg Q6H PRN PO 03/05/16 10:00 (Tylenol) 650 mg Q4H PRN PO 03/05/16 10:00 (Zofran Inj) 4 mg Q6H PRN IVP 03/05/16 11:00 (Dulcolax Supp) 10 mg DAILY PRN AL 03/05/16 10:00 (Colace) 100 mg Q12H PO 03/05/16 10:00 03/05/16 10:10 (Milk Of Magnesia Liq) 30 ml Q12H PRN PO 03/05/16 11:00 (Senokot) 17.2 mg Q12H PRN PO 03/05/16 11:00 (Narcan Inj) 0.4 mg UNSCH PRN IV 03/05/16 09:45 (Norvasc) 10 mg DAILY PO 03/06/16 09:00 (Remeron) 30 mg HS PO 03/05/16 21:00 (Protonix) 20 mg DAILY PO 03/06/16 09:00 (SEROquel) 100 mg HS PO 03/05/16 21:00 (Levemir Inj) 16 units HS SQ 03/05/16 21:00 Urinary Catheter: No Vascular Central Line Catheter: No A/P Problem List: (1) Right clavicle fracture ICD Code: S42.001A Status: Acute (2) Cellulitis of right upper extremity ICD Code: L03.113 Status: Acute (3) Mass of left lung ICD Code: R91.8 Status: Acute (4) Diabetes ICD Code: E11.9 Status: Acute (5) Hypertension ICD Code: I10 Status: Acute (6) Dementia ICD Code: F03.90 Status: Acute (7) Hypothyroid ICD Code: E03.9 Status: Acute Assessment and Plan 75-year-old female with hx of asthma, CAD, COPD, tobacco abuse, HTN, depression , presents with: Right upper extremity cellulitis and edema: Suspect dependent edema due to restriction of shoulder movement from clavicle fracture, now with cellulitis on posterior RUE. No signs of systemic infection. Continue clindamycin. Right clavicle fracture: Consult Orthopedics, recommends conservative management, f/up in 1 week for repeat imaging. Pain control with [place] prn. Continue Sling. Elevation. Mass of left lung: The patient understand this needs to be followed up outpatient with Pulmonology. She understand she will need a biopsy for definitive diagnosis. I again stressed the importance of following up outpatient. COPD Exacerbation: with wheezing on exam, SOB x2days. Start on Duonebs qid shade and Albuterol neb q4h prn. Give Prednisone 40mg daily x3days. Diabetes: Resume patient's Lantus 16u hs. Sliding scale insulin with Accu- Cheks. Check HgbA1c. HTN: chronic, continue patient's Lisinopril, Norvasc. Hypothyroidism: chronic, continue patient's levothyroxine. HLD: chronic, continue patient's statin. Depression: chronic, continue patient's amitriptyline, mirtazapine, seroquel. Dementia: chronic, continue patient's Aricept. GI prophylaxis: Stool softener PRN constipation. DVT PPx: SCDs Written by Kati Yap, acting as scribe for Dr. Farrell on 03/05/16 at 11: 04. The documentation accurately reflects the work performed [id number] by me on at 1104 Kati Yap PA-C Mar 05, 2016 11:04 Juan Jose Farrell MD Mar 05, 2016 17:51
[2016-03-05] MEDS ORDERED: RESP: ALBUTEROL 0.63 MG/3 ML NEB (PRN) NEB (11:15)
[2016-03-05] MEDS: RESP: ALBUTEROL 2.5 MG/IPRATROPIUM 0.5 MG NEB (SCH) NEB ×3 (12:00→20:00)
[2016-03-05] MEDS: PRIMIDONE 250 MG TAB PO SCH ×4 (12:01→18:15)
[2016-03-05] MEDS: AMITRIPTYLINE HCL 10 MG TAB PO SCH ×2 (12:19→21:00)
--- NOTE | 2016-03-05 16:28 | MB ---
cc: PEREZ DEMARCO M.D. DATE OF CONSULTATION: 03/05/2016. REASON FOR CONSULTATION: Right clavicle fracture. HISTORY OF PRESENT ILLNESS: The patient is a 75-year-old female who has history of significant COPD, tobacco abuse, coronary artery disease, asthma, hypertension and depression. The patient has a somewhat complex history. She describes to me that several months ago she had an injury which required operative fixation of her right hip by Dr. Deras then had noted some problems with the back which required cement stabilization. She says that she "maybe injured the right shoulder at that time", although upon questioning she tells me that she did not have a lot of pain about the right shoulder up until about four days ago when she said she was bending over to waste picker her little dog and felt a pop. She presented to [facility]. She was diagnosed with cellulitis and a chest x-ray had diagnosed her with a clavicle fracture. She denies any numbness or tingling radiating to the right upper extremity but she does describe swelling about the right upper extremity which she says does seem to be getting better with motion of the fingers. REVIEW OF SYSTEMS: A twelve-point review of systems is negative except as noted in the history of present illness. PAST MEDICAL HISTORY: Medical history is as above. PAST SURGICAL HISTORY: 1. Appendectomy. 2. Cholecystectomy. 3. Hysterectomy. 4. Right hip surgery. FAMILY HISTORY: Noncontributory. MEDICATIONS: See the chart. ALLERGIES: PENICILLIN. SOCIAL HISTORY: The patient smokes a pack a day. PHYSICAL EXAMINATION: VITAL SIGNS: The patient's temperature is 98.0, pulse 75, blood pressure 141/60. GENERAL: She is awake, alert and oriented x3. She is not any significant distress, but when she does breathe, she does so with a deep breath as if she does have some trouble with achieving a full breath and this is consistent with her diagnosis of COPD. She is rather thin. She is wearing a sling. HEAD, EYES, EARS, NOSE, THROAT: Head is atraumatic. Extraocular muscles intact. Oropharynx is clear with moist mucous membranes. NECK: The neck is supple. HEART: Regular rate and rhythm. LUNGS: Clear to auscultation. ABDOMEN: The abdomen is soft, nontender and nondistended. RIGHT UPPER EXTREMITY: Evaluation of the clavicle shows that she has in the medial third of the clavicle some swelling of at least a mild degree with some minimal to mild overlying hyperemia. There is no evidence of penetration of the skin from the bone or impending penetration. The right upper extremity does have swelling of at least a mild degree. She actually moves the fingers well on the right hand. She has 2+ radial pulse. Normal sensation about the right upper extremity. LABORATORY DATA: White cell count 7.5, hematocrit 37.1, platelets 254,000. Creatinine is 0.68. IMAGING STUDIES: Chest x-ray: I reviewed the results of the images and also of the report and shows that the medial third of the clavicle has a transverse fracture which is mildly to moderately displaced. IMPRESSION: 1. Right clavicle fracture of the medial third mildly to moderately displaced likely acute. 2. Recent history of cellulitis of the right upper extremity, minimal. 3. COPD. DECISION-MAKING: I feel that we can proceed with conservative management for the clavicle fracture. She will continue with the sling. I advised her to continue to work on digital range of motion to help reduce swelling in the hand. She is being treated for a mild cellulitis by the admitting physician. I would like to see this patient in the office about a week to repeat x-rays of the right clavicle two views. The patient understands that if there is further displacement, then surgical management could be considered. All questions have been answered. MD DANNY Puga/MYNOR /3:13 PM /4:12 PM
[2016-03-05 16:47] LABS: HEMOGLOBIN A1a 0.9 %; HEMOGLOBIN A1b 0.9 %; HEMOGLOBIN Ao 82.5 %; HEMOGLOBIN F 1.2 %; HEMOGLOBIN LA1C 2.2 %; HEMOGLOBIN P3 7.5 %
[2016-03-05] MEDS: predniSONE 20 MG TAB PO SCH (19:06)
[2016-03-05] MEDS ORDERED: MIRTAZAPINE 15 MG TAB PO SCH (21:00)
[2016-03-05] MEDS ORDERED: INSULIN DETEMIR 100 UNITS/ML VIAL SQ SCH (21:00)
[2016-03-05] MEDS ORDERED: QUEtiapine FUMARATE 100 MG TAB PO SCH (21:00)
[2016-03-06 03:41] VITALS: BP 167/71; PULSE 67; RESP 18; TEMP 97.9; O2SAT 96
[2016-03-06] MEDS: ACETAMINOPHEN/HYDROcodone 325 MG/5 MG TAB PO PRN (06:00)
[2016-03-06] MEDS: LEVOTHYROXINE SODIUM 100 MCG TAB PO SCH (06:00)
[2016-03-06] MEDS: CLINDAMYCIN INJ 600 MG in SODIUM CHLORIDE 0.9% INJ 100 ML IV SCH (06:00)
[2016-03-06] MEDS: INSULIN ASPART SUPPLEMENTAL SCALE SQ SCH (07:00)
[2016-03-06 07:25] VITALS: RESP 16
[2016-03-06] MEDS: RESP: ALBUTEROL 2.5 MG/IPRATROPIUM 0.5 MG NEB (SCH) NEB ×2 (07:42→11:56)
[2016-03-06] MEDS: predniSONE 20 MG TAB PO SCH (08:45)
[2016-03-06] MEDS: AMITRIPTYLINE HCL 10 MG TAB PO SCH (08:46)
[2016-03-06] MEDS: DONEPEZIL HCL 5 MG TAB PO SCH (08:46)
[2016-03-06] MEDS: PRIMIDONE 250 MG TAB PO SCH (08:46)
[2016-03-06] MEDS: DOCUSATE SODIUM 100 MG CAP PO SCH (08:46)
[2016-03-06] MEDS: LISINOPRIL 20 MG TAB PO SCH (08:46)
[2016-03-06] MEDS: DICYCLOMINE HCL 20 MG TAB PO SCH (08:46)
[2016-03-06] MEDS ORDERED: PANTOPRAZOLE SOD 20 MG DELAYED RELEASE TAB PO SCH (09:00)
[2016-03-06] MEDS: SODIUM CHLORIDE 0.9% FLUSH 5 ML FLUSH IV SCH (09:00)
[2016-03-06] MEDS ORDERED: HYDR-3516 PO (09:24)
--- NOTE | 2016-03-06 09:25 | HHI.DCPOC ---
Discharge Care Plan Diagnosis: (1) Cellulitis of right upper extremity (2) Right clavicle fracture Your Health Problems Are: Difficulty with ADL Exercise Tolerance Goals to Promote Your Health * To prevent worsening of your condition and complications * To maintain your health at the optimal level Directions to Meet Your Goals Take your medications as prescribed Follow your dietary instruction Follow activity as directed Keep your appointments as scheduled Take your immunizations and boosters as scheduled If your symptoms worsen call your PCP, if no PCP go to Urgent Care Center or Emergency Room Smoking is Dangerous to Your Health. Avoid second hand smoke Call the 24-hour hour crisis hotline for domestic abuse at Juan Jose Farrell MD Mar 06, 2016 09:25
--- NOTE | 2016-03-06 09:26 | HHI.FF ---
Face to Face Verification Diagnosis: (1) Right clavicle fracture (2) Cellulitis of right upper extremity Physical Therapy Order: Evaluate and Treat, Improve ambulation, Strength and gait training I have seen patient Lupe Craig on 03/06/16. My clinical findings support the need for the requested home health care services because: Deconditioned w/ increased weakness I certify that my clinical findings support that this patient is homebound because: Unsafe to leave home unassisted Juan Jose Farrell MD Mar 06, 2016 09:26
--- NOTE | 2016-03-06 09:27 | HHI.PR ---
Subjective Remarks Follow up for RUE cellulitis and clavicle fracture. Patient feels well today. She's been ambulating. She denies any shortness of breath. She says she checks her blood sugars 3 or 4 times a week and has never noted any hypoglycemia. She reports right upper extremity swelling has improved. She lives at home with her daughter. Objective Vitals Vital Signs Date Time Temp Pulse Resp B/P Pulse Ox O2 Delivery O2 Flow Rate FiO2 03/06/16 07:25 16 03/06/16 03:41 97.9 67 18 167/71 96 03/05/16 23:10 98.8 78 20 167/86 91 03/05/16 20:15 97.8 80 20 147/60 91 03/05/16 17:30 97.8 81 19 138/62 97 03/05/16 16:24 93 22 135/63 98 Room Air 03/05/16 12:05 83 18 141/63 94 Room Air Result Diagram: 03/04/16219903/04/162199 Imaging Last Impressions Chest X-Ray 03/04/16 0000 Signed Impressions: Service Date/Time: February 21:15 - CONCLUSION: No acute cardiopulmonary disease demonstrated. 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 No evidence of developing pneumonia. Chinedu Macias MD Objective Remarks GENERAL: Well-developed well-nourished. In no acute distress. SKIN: Warm and dry. Erythema in the right upper extremity. HEENT: Normocephalic. Pupils equal and round. Mucous membranes pink and moist. CARDIOVASCULAR: Regular rate and rhythm. No murmur appreciated. RESPIRATORY: No accessory muscle use. Clear to auscultation. Breath sounds equal bilaterally. No wheezing. GASTROINTESTINAL: Abdomen soft, non-tender, nondistended. Bowel sounds x4. MUSCULOSKELETAL: Right upper extremity in a sling with improving erythema and edema. No clubbing or cyanosis. No edema. NEUROLOGICAL: Awake and alert. No focal neurological deficits. Moves upper and lower extremities spontaneously. Normal speech. PSYCHIATRIC: Appropriate mood and affect; insight and judgment normal. A/P Problem List: (1) Right clavicle fracture ICD Code: S42.001A Status: Acute (2) Cellulitis of right upper extremity ICD Code: L03.113 Status: Acute (3) Mass of left lung ICD Code: R91.8 Status: Acute (4) Diabetes ICD Code: E11.9 Status: Acute (5) Hypertension ICD Code: I10 Status: Acute (6) Dementia ICD Code: F03.90 Status: Acute (7) Hypothyroid ICD Code: E03.9 Status: Acute Assessment and Plan 75-year-old female with hx of asthma, CAD, COPD, tobacco abuse, HTN, depression , presents with: Right upper extremity cellulitis and edema: Suspect dependent edema due to restriction of shoulder movement from clavicle fracture, now with cellulitis on posterior RUE. No signs of systemic infection. Improving. Continue clindamycin. Right clavicle fracture: Consult Orthopedics, recommends conservative management, f/up in 1 week for repeat imaging. Pain control with [place] prn. Continue Sling. Elevation. PT eval. Mass of left lung: The patient understand this needs to be followed up outpatient with Pulmonology. Importance of follow-up emphasized to the patient. COPD Exacerbation: with wheezing on exam, SOB x2days. Started on Duonebs qid marga and Albuterol neb q4h prn. Giving Prednisone 40mg daily x3days. Improving. Diabetes: Well controlled. Hemoglobin A1c 5.5. Recommend to decrease patient' s Lantus 16u hs to 8 units and follow-up with PCP. Sliding scale insulin with Accu-Cheks. HTN: chronic, continue patient's Lisinopril, Norvasc. Hypothyroidism: chronic, continue patient's levothyroxine. HLD: chronic, continue patient's statin. Depression: chronic, continue patient's amitriptyline, mirtazapine, seroquel. Dementia: chronic, continue patient's Aricept. GI prophylaxis: Stool softener PRN constipation. DVT PPx: SCDs Written by Colt Bowen, acting as scribe for Dr. Farrell on 03/06/16 at 09:24. The documentation accurately reflects the work performed [id number] by me on at 0924. Discharge Planning Discharge home with home health care Condition on discharge: Improved Heart healthy diabetic Diet as tolerated Regular activity Rx written: [place], clinda and prednisone Follow-up with primary care physician and orthopedic surgery in 3 days Colt Bowen Mar 06, 2016 09:27 Juan Jose Farrell MD Mar 06, 2016 15:14
[2016-03-06] MEDS ORDERED: INFLUENZA VIRUS VACCINE (QUADRIVALENT) 0.5 ML SYR IM ONE (10:00)
[2016-03-06] MEDS ORDERED: PRED20 PO (10:42)
[2016-03-06] MEDS ORDERED: CLIN1CAP6 PO (10:42)
[2016-03-06] MEDS ORDERED: LANTINJ SQ (10:42)
[2016-04-12] MEDS ORDERED: HYDR-3583 PO (14:30)
[2016-04-12] MEDS ORDERED: LORA1TAB12 PO (14:33)
[2016-04-12] MEDS ORDERED: IPRA0.02 NEB (14:35)
== END 2016-03-06 12:50 | disposition home or self-care (01) ==
LOC: NEPC 20:37 → NEDA 23:17 → NEDH 03-05 03:19 → UNDODISOB 03-05 14:22 → NEPGCP 03-05 17:25
PROVIDERS: ADMIT Internal Medicine; ATTEND Internal Medicine
DX: S42.001A Fracture of unspecified part of right clavicle, initial encounter for closed fracture (principal); L03.113 Cellulitis of right upper limb; L03.114 Cellulitis of left upper limb; R91.8 Other nonspecific abnormal finding of lung field; E11.9 Type 2 diabetes mellitus without complications; I10 Essential (primary) hypertension; I25.10 Atherosclerotic heart disease of native coronary artery without angina pectoris; I25.2 Old myocardial infarction; F03.90 Unspecified dementia, unspecified severity, without behavioral disturbance, psychotic disturbance, mood disturbance, and anxiety; F32.9 Major depressive disorder, single episode, unspecified; E03.9 Hypothyroidism, unspecified; J44.1 Chronic obstructive pulmonary disease with (acute) exacerbation; J45.909 Unspecified asthma, uncomplicated; E78.5 Hyperlipidemia, unspecified; K21.9 Gastro-esophageal reflux disease without esophagitis; F17.210 Nicotine dependence, cigarettes, uncomplicated; Z23 Encounter for immunization; Z79.84 Long term (current) use of oral hypoglycemic drugs; W19.XXXA Unspecified fall, initial encounter
CPT/HCPCS: 71010; 80048; 82948; 83036; 85025; 94640; 94664; 96365; 97162; 99285; G0378; G8987; G8988; J1815; J2405; J7512; Q2038; 90686

== ENCOUNTER → 2016-03-30 | Outpatient (CLI) | payer OTHER ==
[~2016-03-30] MED LIST changes: +AMIT10TA6 PO; +AMLO10TA2 PO; +ASPI-110 PO; +ATOR1TAB18 PO; +CARV3.125 PO; -CEPH-460 PO; +CLIN1CAP6 PO; +DICY20TA10 PO; +DOCU1CAP39 PO; +DONE10TA7 PO; +FLUC200T2 PO; +FOLI1TAB4 PO; +HYDR-3366 PO; +HYDR-3516 PO; +HYDR-3583 PO; +HYDR25TA5 PO; +IPRA0.02 NEB; +IPRASOL NEB; +LACT PO; +LANTINJ SQ; +LEVA500T PO; +LEVO100T5 PO; +LEVOTAB PO; +LISI40TA PO; +LORA1TAB12 PO; +METH2.5T PO; +MIRT30TA PO; +NOVOLOGSS SQ; +OMEP20TA PO; +OYST250T4 PO; +PRED10 PO; +PRED20 PO; +PRIM250T5 PO; +QUET1TAB8 PO; +SENN8.6T15 PO; +VENTAER INH; +VITA100064 PO; +WALKER WHEELS/F1 MIS; +WHEEMIS3; +XARE10TA PO; +ZITHTAB PO; +ZOFR4TAB PO; +ZOFR4TAB3 SL
--- NOTE | 2016-04-06 14:43 | RADRPT ---
EXAM DATE/TIME: 03/30/2016 00:00 [facility] COMPARISON: CT THORAX W CONTRAST, March 03, 2016, 20:58. INDICATIONS : Left lung biopsy FINDINGS: Review of the recent CT of the chest demonstrates a 3.5 cm centrally located mass which appears to coles rround and possibly involve the left lower lobe bronchus. Bronchoscopy with special attention to the left lower lobe bronchus appears to be the safest way for possible diagnosis as there would be increa sed risk of excessive hemorrhage during percutaneous biopsy due to the close proximity to large centr al pulmonary vasculature. RECOMMENDATION: Bronchoscopy is recommended initially with special attention to the left lower lobe bronchus for poss ible biopsy of the centrally located mass. Darwin Dumont MD on April 06, 2016 at 14:35 Board Certified Radiologist. This report was verified electronically.
== END ==
LOC: HRAD 09:11
PROVIDERS: ATTEND Specialist
DX: R91.8 Other nonspecific abnormal finding of lung field (principal)
CPT/HCPCS: 76140

== ENCOUNTER → 2016-04-12 | Day surgery (SDC) | payer OTHER ==
--- NOTE | 2016-04-08 12:26 | MH ---
cc: ARLYN RUELAS M.D., ARJUN D. MD DATE OF ADMISSION: 04/12/2016 DATE OF : 1940 REASON FOR ADMISSION/CHIEF COMPLAINT CT-guided left hilar mass biopsy. HISTORY OF PRESENT ILLNESS Ms. Craig is a 75-year-old female who has a history of a fall. She had a broken collar bone and a hip fracture. She had hip surgery done. She also had spine surgery done. She had a CT scan of the chest done at [facility] which shows a spiculated mass in the left upper lobe abutting the mediastinum consistent with bronchogenic carcinoma. She has no fever or chills. No night sweats. No nausea or vomiting. PAST MEDICAL HISTORY 1. Hypertension. 2. Coronary artery disease status post OK. 3. Diabetes mellitus. 4. Coronary artery disease. 5. Congestive heart failure. 6. History of Crohn's disease. 7. History of depression. MEDICATIONS 1. Primidone 200 mg three times a day. 2. Lipitor 80 mg a day. 3. Lisinopril 40 mg a day. 4. Dicyclomine 20 mg a day. 5. Donepezil 10 mg a day. 6. Prilosec once a day. 7. Amlodipine 10 mg a day. 8. Levothyroxine 100 mcg a day. 10.Quetiapine 100 mg a day. 11.Lasix 40 mg a day. ALLERGIES She is allergic to PENICILLIN. SOCIAL HISTORY She has a 50-year history of smoking one pack a day, which she cut down to 10 cigarettes a day. No alcohol use. She is a retired cook. FAMILY HISTORY She is a , lives with a medical leader. She has five children. Mother with heart failure. Father with pneumonia. REVIEW OF SYSTEMS She feels weak, uses a walker. No DVT or pulmonary embolism. No seizure, stroke or epilepsy. PHYSICAL EXAMINATION GENERAL: An elderly female not in acute distress. VITAL SIGNS: Blood pressure 130/62, heart rate 71, respirations 16. Weight 146 pounds. Oxygen saturation 95%. HEENT: Pupils are equal and reactive to light. She has bilateral cataract. Oral mucosa and nasal mucosa normal. NECK: JVP not raised. CHEST: Equal bilaterally. No rhonchi. CARDIOVASCULAR: S1, S2 normal. ABDOMEN: Benign. EXTREMITIES: No edema. IMPRESSION 1. Right hilar mass concerning for bronchogenic carcinoma. 2. COPD. 3. DM. 4. Recent hip fracture. 5. Coronary artery disease status post OK. PLAN I discussed with the patient and her medical leader we will need a CT-guided biopsy. I explained the procedure and the complications including complication of anesthesia, pneumothorax requiring chest tube, bleeding complication, injury to blood vessels, lungs and nerves, arrhythmia, hypoxia, and the possibility of non-diagnostic biopsy. She will be scheduled for CT-guided biopsy at [facility]. MD LETTY Smith/DICK /11:57 PM /12:25 PM MTDD
[~2016-04-12] VITALS: Ht 162.6 cm; Wt 65.7 kg
[~2016-04-12] MED LIST changes: +*RESP: ALBUTEROL 2.5 MG/3 ML NEB (PRN) PERIprocedural Use ONLY NEB ONE; -CLIN1CAP6 PO; +EPINEPHrine HCL (1:1000) 1 MG/ML VIAL ONE; -LANTINJ SQ; +LIDOCAINE 2%/EPINEPHrine 1:100,000 30ML MDV ONE; +LIDOCAINE HCL 2% 50 ML VIAL ONE; +ONDANSETRON HCL 4 MG/2 ML VIAL IV PUSH ONE; +PROPOFOL 200 MG/20 ML AMP IV ONE; +SODIUM CHLORIDE 0.9% 20 ML VIAL ONE
[2016-04-12 14:40] VITALS: BP 184/77; PULSE 73; RESP 16; TEMP 97.8; O2SAT 95
[2016-04-12 15:01] LABS: AUTOMATED NEUTROPHIL # 2.3 TH/MM3 (1.8-7.7); BASOPHIL # 0.1 TH/MM3 (0-0.2); BASOPHIL % 1.6 % (0.0-2.0); EOSINOPHIL # 0.2 TH/MM3 (0-0.4); EOSINOPHIL % 3.7 % (0.0-4.0); HEMATOCRIT 36.4 % (35.0-46.0); HEMO FLAGS DIFF FINAL; LYMPH % 34.1 % (9.0-44.0); LYMPHOCYTE # 1.7 TH/MM3 (1.0-4.8); MEAN CELL VOLUME 81.3 FL (80.0-100.0); MEAN CORPUSCULAR HEMOGLOBIN 25.9 PG (27.0-34.0); MEAN CORPUSCULAR HGB CONC 31.9 % (32.0-36.0); MONO % 13.8 % (0.0-8.0); NEUT % 46.8 % (16.0-70.0); PLATELET COUNT 281 TH/MM3 (150-450); RED BLOOD COUNT 4.47 MIL/MM3 (4.00-5.30); RED CELL DISTRIBUTION WIDTH 18.4 % (11.6-17.2)
[2016-04-12 15:17] LABS: APTT (PATIENT) 27.3 SEC (24.3-30.1)
[2016-04-12 15:20] LABS: PROTHROMBIN TIME - PATIENT 10.6 SEC (9.8-11.6)
--- NOTE | 2016-04-12 17:22 | RADRPT ---
EXAM DATE/TIME: 04/12/2016 16:49 [facility] COMPARISON: CT THORAX W CONTRAST, March 03, 2016, 20:58. CT BIOPSY CONSULT W/OUTSIDE F ILMS, March 30, 2016, 0:00. CHEST SINGLE AP, March 04, 2016, 21:15. INDICATIONS : Evaluate for pneumothorax post bronchoscopy MEDICAL HISTORY : Lung mass SURGICAL HISTORY : None. ENCOUNTER: Initial ACUITY: 1 day PAIN SCORE: 0/10 LOCATION: Bilateral chest FINDINGS: There is no pneumothorax. Minimal consolidative changes are seen in the left base. Th e right lung is clear. Heart and pulmonary vascularity CONCLUSION: Consolidative changes in left base. Ilya Connor MD FACR on April 12, 2016 at 17:09 Board Certified Radiologist. This report was verified electronically.
[2016-04-12 19:00] VITALS: BP 159/75; PULSE 65; RESP 16; O2SAT 92
--- NOTE | 2016-04-12 22:25 | MR ---
cc: ARLYN RUELAS M.D., ARJUN D. MD DATE 04/12/2016 PROCEDURE Bronchoscopy. PREOPERATIVE DIAGNOSIS Left lung mass. POSTOPERATIVE DIAGNOSIS Mass obstructing the left lower lobe bronchus. PROCEDURE Informed consent was obtained from the patient. The procedure, including complications of anesthesia, pneumothorax requiring chest tube, bleeding complication, injury to the blood vessels, lungs, nerves, arrhythmia, Hypoxia. She consented for the procedure. The patient brought to the operating room. Under general anesthesia endotracheal tube was placed by the anesthesiologist. Bronchoscopy done through the endotracheal tube. Main carrol is sharp. Bronchoscope advanced into the right lung. Right upper, middle and lower lobe were visualized. No endobronchial or mucosal lesion was seen. Then the bronchoscope was pulled back and advanced to the left lung. There is a mass seen near the left upper lobe obstructing the entrance to the left lower lobe. Left upper lobe subsegments were present. Left lower lobe needle could not be seen. Brushing, biopsy and washings and transbronchial needle aspirations were done from the mass. She had a small amount of bleeding which was controlled with saline and epinephrine lavage. Biopsy sent for pathology. Brushings sent for cytology. Washings sent for cytology, routine culture, AFB fungal culture and transbronchial needle aspiration sent for cytology. She tolerated the procedure well. Postprocedure chest x-ray ordered to rule out pneumothorax. MD LETTY Smith/KARLIE /4:40 PM /10:12 PM [facility] CENTERLeighann
== END | disposition home or self-care (01) ==
LOC: HSDC 13:51
PROVIDERS: ATTEND Specialist
DX: C34.32 Malignant neoplasm of lower lobe, left bronchus or lung (principal); F17.210 Nicotine dependence, cigarettes, uncomplicated
CPT/HCPCS: 00520; 31623; 31629; 71010; 85025; 85610; 85730; 87015; 87070; 87102; 87116; 87205; 87206; 88112; 88305; 88341; 88342; 94664; J0171; J2405; J7613; 88307

== ENCOUNTER 2016-05-04 06:22 | Day surgery (SDC) | payer OTHER ==
[~2016-05-04] VITALS: Ht 162.6 cm; Wt 65.5 kg
[~2016-05-04 06:22] MED LIST changes: -*RESP: ALBUTEROL 2.5 MG/3 ML NEB (PRN) PERIprocedural Use ONLY NEB ONE; -ASPI-110 PO; -CARV3.125 PO; -DOCU1CAP39 PO; -EPINEPHrine HCL (1:1000) 1 MG/ML VIAL ONE; -FLUC200T2 PO; -FOLI1TAB4 PO; -HYDR-3366 PO; -HYDR-3516 PO; -HYDR25TA5 PO; -IPRASOL NEB; -LACT PO; -LEVA500T PO; -LEVOTAB PO; -LIDOCAINE 2%/EPINEPHrine 1:100,000 30ML MDV ONE; -LIDOCAINE HCL 2% 50 ML VIAL ONE; -METH2.5T PO; -NOVOLOGSS SQ; -ONDANSETRON HCL 4 MG/2 ML VIAL IV PUSH ONE; -OYST250T4 PO; -PRED10 PO; -PRED20 PO; -PROPOFOL 200 MG/20 ML AMP IV ONE; -SENN8.6T15 PO; -SODIUM CHLORIDE 0.9% 20 ML VIAL ONE; -VITA100064 PO; -WALKER WHEELS/F1 MIS; -WHEEMIS3; -XARE10TA PO; -ZITHTAB PO; -ZOFR4TAB PO; -ZOFR4TAB3 SL
[2016-05-04 06:57] VITALS: BP 189/79; PULSE 86; RESP 20; TEMP 97.6; O2SAT 92
[2016-05-04] MEDS ORDERED: SODIUM CHLORIDE 0.9% 1000 ML IV SCH (07:15)
[2016-05-04] MEDS ORDERED: MUPIROCIN 2% OINT 1 APPLIC/GM SYR EACH NARE SCH (07:15)
[2016-05-04] MEDS ORDERED: CHLORHEXIDINE GLUCONATE 2 % 1 PACK (2 CLOTHS) TOPICAL SCH (07:15)
[2016-05-04] MEDS ORDERED: VANCOMYCIN 1000 MG/NS 250 ML - implanted port/tunneled catheter IV SCH ×2 (07:15)
[2016-05-04] MEDS ORDERED: POVIDONE IODINE 5% (ANTISEPSIS KIT) 4 APPLICATIONS EACH NARE SCH (07:15)
[2016-05-04] MEDS ORDERED: ASPI-110 PO (07:17)
[2016-05-04] MEDS ORDERED: VITA100064 PO (07:17)
[2016-05-04] MEDS ORDERED: LEVOTAB PO (07:18)
[2016-05-04] MEDS ORDERED: ZOFR4TAB PO (07:18)
[2016-05-04] MEDS ORDERED: METH2.5T PO (07:18)
[2016-05-04] MEDS ORDERED: FOLI1TAB4 PO (07:18)
[2016-05-04 07:47] LABS: AUTOMATED NEUTROPHIL # 5.2 TH/MM3 (1.8-7.7); BASOPHIL # 0.1 TH/MM3 (0-0.2); BASOPHIL % 0.8 % (0.0-2.0); EOSINOPHIL # 0.1 TH/MM3 (0-0.4); EOSINOPHIL % 1.7 % (0.0-4.0); HEMATOCRIT 34.6 % (35.0-46.0); HEMO FLAGS DIFF FINAL; LYMPH % 15.9 % (9.0-44.0); LYMPHOCYTE # 1.2 TH/MM3 (1.0-4.8); MEAN CELL VOLUME 81.5 FL (80.0-100.0); MEAN CORPUSCULAR HEMOGLOBIN 26.5 PG (27.0-34.0); MEAN CORPUSCULAR HGB CONC 32.5 % (32.0-36.0); MONO % 9.3 % (0.0-8.0); NEUT % 72.3 % (16.0-70.0); PLATELET COUNT 229 TH/MM3 (150-450); RED BLOOD COUNT 4.24 MIL/MM3 (4.00-5.30); RED CELL DISTRIBUTION WIDTH 18.7 % (11.6-17.2); WHITE BLOOD COUNT 7.2 TH/MM3 (4.0-11.0)
[2016-05-04 07:59] LABS: APTT (PATIENT) 27.5 SEC (24.3-30.1)
[2016-05-04] MEDS ORDERED: LIDOCAINE 1%/EPINEPHrine 1:100,000 SOLN 20 ML VIAL ONE (08:37)
[2016-05-04] MEDS ORDERED: MIDAZOLAM HCL 5 MG/5 ML VIAL IV ONE (08:57)
[2016-05-04] MEDS ORDERED: fentaNYL CITRATE 250 MCG/5 ML AMP IV ONE (08:58)
[2016-05-04 09:30] VITALS: BP 141/65; PULSE 77; RESP 20; TEMP 97.8; O2SAT 88
[2016-05-04 09:45] VITALS: BP 155/60; PULSE 82; RESP 20; O2SAT 89
[2016-05-04 10:00] VITALS: BP 150/64; PULSE 84; RESP 20; O2SAT 89
[2016-05-04 10:30] VITALS: BP 126/59; PULSE 79; RESP 20; O2SAT 90
--- NOTE | 2016-05-04 10:41 | RADRPT ---
EXAM DATE/TIME: 05/04/2016 08:12 [facility] COMPARISON: No previous studies available for comparison. INDICATIONS : Patient with lung cancer in need of port placement for treatment. MEDICAL HISTORY : Anemia Angina Asthmia Diabetes CAD COPD HTN Thyroid disease Rheumatoid arthritis Osteoarthritis Osteoporosis Colitis Hx of Crohn's disease SURGICAL HISTORY : Cholecystectomy Colonoscopy Rt hip, Knee and collar bone surgery Sacrum Appendectomy Cholecystectomy Hiatal hernia Tonsillectomy Hysterectomy ENCOUNTER: Initial ACUITY: 2 months PAIN SCORE: 0/10 FLUORO TIME: 0.6 minutes IMAGE SERIES: 0 SEDATION TIME: 30 minutes ACCESS: Right internal jugular vein SEDATION: 1.) 5 mg midazolam (Versed) IV 2.) 250 mcg fentanyl (Sublimaze) IV Prophylactic antibiotics were administered with appropriate pre-procedure timing. Vancomycin within 2 hours of procedure, Ancef (or alternative) within 1 hour of procedure. DEVICE: 1. 8 Brazilian single lumen Nvraix-p-ysan PROCEDURE : 1. Continuous pulse oximetry and EKG monitoring. 2. Intravenous conscious sedation. 3. Ultrasound guidance for venous access. 4. Fluoroscopic guided implantable central venous port placement. The patient was placed supine. The neck was prepped in sterile fashion. Full sterile technique was u sed, including cap, mask, sterile gloves and gown, and a large sterile sheet. Hand hygiene and 2% ch lorhexidine Betadine was utilized per protocol for cutaneous antisepsis with appropriate dry time for site. The skin and subcutaneous tissues were infiltrated with local anesthetic solution. Under direct ultrasound guidance, central venous access was accomplished in the targeted vessel. The ultrasound images depicting access guidance were stored and saved to PACS for permanent record. A s ubcutaneous pocket was created using blunt dissection. The port was introduced to the pocket. The c atheter tubing was fed through a subcutaneous tunnel to the venotomy site. The catheter tubing was c ut to a suitable length and then was introduced through a valved Peel-Away sheath and positioned with catheter tubing tip at the cavo-atrial junction level. The pocket incision was closed with subcutic ular Vicryl suture. Steri-Strips were applied. The port was flushed and locked with heparin solutio n per protocol. Sterile dressing was applied to the site. The patient tolerated the procedure well. Conscious sedation was performed with the prescribed dosages and duration as above in the presence of an independent trained radiology nurse to assist in the monitoring of the patient. EKG and oximetry remained stable throughout the procedure. The patient tolerated the procedure well and there were no complications. The patient was sent to post anesthesia recovery in stable condition. CONCLUSION: Uncomplicated ultrasound and fluoroscopic guided implanted central venous port catheter placement as described in detail above. An 8 Brazilian Power port was placed. Chinedu Neri MD on May 04, 2016 at 10:37 Board Certified Radiologist. This report was verified electronically.
--- NOTE | 2016-05-04 11:28 | PD.RAD ---
Post Procedure Progress Note Pre Procedure Diagnosis: (1) Lung cancer Post Procedure Diagnosis: (1) Lung cancer Procedure Date: May 04, 2016 Supervising Radiologist: Chinedu Neri Proceduralist/Assist: RT Mary Ellen(R)(CV) Anesthesia: Local, Conscious Sedation Plan of Activity Patient to Unit: ROPU Patient Condition: Good See PACS Report for procedural detail/treatment Central Venous Access Device Procedure 1 Right Internal Jugular Infusaport Placement single lumen Trinidadian: 8 Chinedu Neri MD May 04, 2016 11:28
[2016-05-04] MEDS ORDERED: SODIUM CHLORIDE 0.9% FLUSH 5 ML FLUSH IVF PRN (11:30)
== END 2016-05-04 12:00 | disposition home or self-care (01) ==
LOC: HROP 06:22 → HRIP 06:34 → HROP 12:00
PROVIDERS: ATTEND Internal Medicine
DX: Z45.2 Encounter for adjustment and management of vascular access device (principal); C34.90 Malignant neoplasm of unspecified part of unspecified bronchus or lung; I25.10 Atherosclerotic heart disease of native coronary artery without angina pectoris; I10 Essential (primary) hypertension; J44.9 Chronic obstructive pulmonary disease, unspecified; E11.9 Type 2 diabetes mellitus without complications; E07.9 Disorder of thyroid, unspecified; M06.9 Rheumatoid arthritis, unspecified; M81.0 Age-related osteoporosis without current pathological fracture; K50.90 Crohn's disease, unspecified, without complications; Z90.710 Acquired absence of both cervix and uterus; Z79.01 Long term (current) use of anticoagulants
CPT/HCPCS: 36561; 76937; 77001; 85025; 85610; 85730; 99152; 99153; C1788; J1642; J2250; J3010; J3370; J7030; J7050

== ENCOUNTER 2016-05-17 11:41 | Emergency (ER) | payer OTHER ==
[2016-05-17] VITALS (8 sets, daily range): BP systolic 143–174; BP diastolic 63–98; PULSE 72–93; RESP 23–30; TEMP 98; O2SAT 94–99
[~2016-05-17] VITALS: Ht 162.6 cm; Wt 65.0 kg
[~2016-05-17 11:41] MED LIST changes: +ASPI-110 PO; -DICY20TA10 PO; +FOLI1TAB4 PO; +LEVOTAB PO; +METH2.5T PO; -MIRT30TA PO; -QUET1TAB8 PO; +VITA100064 PO; +ZOFR4TAB PO
--- NOTE | 2016-05-17 11:52 | PD ---
Physical Exam Date Seen by Provider: May 17, 2016 Time Seen by Provider: 11:48 Narrative 75 Y/ O WF WITH METASTATIC LUNG CA TO BONES AND POSSIBLE KIDNEY. PT EXTREMELY WEAK. TOLD TO COME TO ED FOR EVAL. TOO SICK FOR CHEMO. PT WITH N/V/ COUGHING UP BLOOD. VSS SAT 94%. PT AWAITING BED PLACEMENT. Data Data Last Documented VS Vital Signs Date Time Temp Pulse Resp B/P Pulse Ox O2 Delivery O2 Flow Rate FiO2 05/17/16 11:42 98.0 93 28 144/65 94 Room Air [facility] Medical Record Reviewed: Yes Supervised Visit with OLYA: Yes Tyler Case May 17, 2016 11:52
--- NOTE | 2016-05-17 12:22 | PD ---
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 The patient states that she has had nausea and vomiting for several weeks secondary to the cancer however over the past 3 days it has significantly worsened. States she's been unable to keep down any food or fluids even with taking Zofran and Compazine. She is also complaining of abdominal pain in the lower abdomen for the past several days. States that she' s had worsening shortness of breath over the past 4-5 days, significantly worsened this morning. She has a productive cough and feels as though she has chest congestion. She has had blood-tinged sputum, last occurred 3 days ago. Denies fever, chills, chest pain, lightheadedness, dizziness. States that she has a port in place and was scheduled to begin chemotherapy tomorrow. Oncologist is Dr. Walter. No other complaints. PFSH Past Medical History Asthma: Yes Blood Disorders: No Cancer: No Cardiovascular Problems: Yes (Chol, 3 OR's 15 yrs ago, Cath/echo done at that time, stress test 3 yrs ago) High Cholesterol: Yes COPD: Yes Diabetes: No (6) Endocrine: Yes Genitourinary: Yes (incontinence intermittenly) Hepatitis: No Hiatal Hernia: Yes 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) Musculoskeletal: Yes (R collar bone fx, R knee fx, R Hip, tailbone) Neurologic: Yes (seizures) Psychiatric: Yes (depression/anxiety) Reproductive: No Respiratory: Yes (copd) Myocardial Infarction: Yes (10 years ago 2006?) Sleep Apnea: No Thyroid Disease: Yes (on med) Past Surgical History Abdominal Surgery: Yes (lucinda, appe) AICD: No Appendectomy: Yes Body Medical Devices: rods to right hip Cardiac Surgery: No Cholecystectomy: Yes Ear Surgery: No Eye Surgery: No Genitourinary Surgery: No Gynecologic Surgery: Yes (total hysterectomy) Hysterectomy: Yes Joint Replacement: No Oral Surgery: Yes (dentures, tonsillectomy) Pacemaker: No Thoracic Surgery: No Social History Alcohol Use: No Tobacco Use: Yes (ppd) Substance Use: No Allergies-Medications (Allergen,Severity, Reaction): Coded Allergies: Grass (Verified Allergy, Unknown, RUNNY NOSE, NASAL, 05/17/16) Penicillin (Verified Allergy, Unknown, RASH, 05/17/16) Wheat (Verified Allergy, Unknown, 05/17/16) Morphine (Verified Adverse Reaction, Mild, NAUSEA, 05/17/16) Reported Meds & Prescriptions Reported Meds & Active Scripts Active Zithromax Z-Delfino (Azithromycin) 250 Mg Dspk 250 Mg PO DIRECTED 500 MG (2 tabs) day 1, then 1 tab days 2-5. Zofran Odt (Ondansetron Odt) 4 Mg Tab 4 Mg SL Q6HR PRN Reported Zofran (Ondansetron HCl) 4 Mg Tab 4 Mg PO Q6HR PRN Methotrexate 2.5 Mg Tab 7.5 Mg PO Q7D ON MONDAYS Levocetirizine 5 Mg Tab 5 Mg PO DAILY Folate (Folic Acid) 1 Mg Tab 1 Mg PO DAILY Vitamin D (Cholecalciferol) 1,000 Unit Tab 1,000 Units PO DAILY Aspirin 81 (Aspirin) 81 Mg Tabdr 81 Mg PO DAILY Ipratropium Neb (Ipratropium Moneta) 0.5 Mg/2.5 Ml Amp 0.5 Mg NEB Q8HR PRN Lorazepam 1 Mg Tab 1 Mg PO DAILY PRN Hydrocodone-Acetaminophen 10-325 mg Tab 1 Tab PO Q6H PRN Ventolin Hfa 18 GM Inh (Albuterol Sulfate) 90 Mcg/Act Aer 2 Puff INH Q4-6H PRN Lisinopril 40 Mg Tab 40 Mg PO DAILY Levothyroxine (Levothyroxine Sodium) 100 Mcg Tab 100 Mcg PO DAILY Amlodipine (Amlodipine Besylate) 10 Mg Tab 10 Mg PO DAILY Atorvastatin (Atorvastatin Calcium) 80 Mg Tab 80 Mg PO HS Donepezil 10 Mg Tab 10 Mg PO DAILY Amitriptyline (Amitriptyline HCl) 10 Mg Tab 10 Mg PO BID Primidone 250 Mg Tab 250 Mg PO TID Omeprazole 20 Mg Tab 20 Mg PO DAILY Review of Systems Except as stated in HPI: all other systems reviewed are Neg Physical Exam Narrative GENERAL: Well-nourished and well-developed elderly female patient in no acute distress. SKIN: Warm and dry. HEAD: Normocephalic and atraumatic. EYES: No injection, drainage, or hyphema noted. PERRLA. EOMI. ENT: No nasal drainage noted. Oropharynx is clear. NECK: Supple and the trachea is midline. CARDIOVASCULAR: Regular rate and rhythm. RESPIRATORY: Bilateral wheezing with crackles at bases. No accessory muscle use. Speaking in full sentences. GASTROINTESTINAL: Tenderness to palpation of right lower quadrant, left lower quadrant and right upper quadrant. No rebound tenderness or guarding. Abdomen is soft and nondistended. MUSCULOSKELETAL: No obvious deformities, swelling, cyanosis, or ecchymosis is present throughout the upper and lower extremities. Patient has full range of motion without any signs of neurovascular compromise. NEUROLOGICAL: Awake, alert, and oriented. Normal speech and gait. Cranial nerves are grossly intact. Data Data Last Documented VS Vital Signs Date Time Temp Pulse Resp B/P Pulse Ox O2 Delivery O2 Flow Rate FiO2 05/17/16 13:30 80 28 146/63 99 Nasal Cannula 2 05/17/16 11:42 98.0 Orders Electrocardiogram (05/17/16 12:18) Complete Blood Count With Diff (05/17/16 12:18) Comprehensive Metabolic Panel (05/17/16 12:18) Prothrombin Time / Inr (Pt) (05/17/16 12:18) Act Partial Throm Time (Ptt) (05/17/16 12:18) Lactic Acid Sepsis Protocol (05/17/16 12:18) Lipase (05/17/16 12:18) Urinalysis - C+S If Indicated (05/17/16 12:18) Influenzae A/B Antigen (05/17/16 12:18) Blood Culture (05/17/16 12:18) Chest, Single Ap (05/17/16 12:18) Ecg Monitoring (05/17/16 12:18) Iv Access Insert/Monitor (05/17/16 12:18) Oximetry (05/17/16 12:18) Oxygen Administration (05/17/16 12:18) Albuterol-Ipratropium Neb (Duoneb Neb) (05/17/16 12:30) Ct Pulmonary Angiogram (05/17/16 12:18) Ct Abd/Pel W Iv Contrast(Rout) (05/17/16 12:18) Ondansetron Inj (Zofran Inj) (05/17/16 13:15) Sodium Chlor 0.9% 1000 Ml Inj (Ns 1000 M (05/17/16 13:01) Hydromorphone Pf Inj (Dilaudid Pf Inj) (05/17/16 13:15) Iohexol 350 Inj (Omnipaque 350 Inj) (05/17/16 15:15) Heparin Central Flush (Heparin Central F (05/17/16 15:15) Ondansetron Inj (Zofran Inj) (05/17/16 16:15) Sodium Chlor 0.9% 1000 Ml Inj (Ns 1000 M (05/17/16 16:09) Diet Regular Basic (05/17/16 Dinner) Labs Laboratory Tests Test 05/17/16 05/17/16 05/17/16 11:30 11:37 15:30 White Blood Count 7.4 TH/MM3 Red Blood Count 4.18 MIL/MM3 Hemoglobin 11.2 GM/DL Hematocrit 34.2 % Mean Corpuscular Volume 81.7 FL Mean Corpuscular Hemoglobin 26.8 PG Mean Corpuscular Hemoglobin 32.8 % Concent Red Cell Distribution Width 18.3 % Platelet Count 248 TH/MM3 Mean Platelet Volume 8.9 FL Neutrophils (%) (Auto) 73.4 % Lymphocytes (%) (Auto) 16.7 % Monocytes (%) (Auto) 8.3 % Eosinophils (%) (Auto) 0.6 % Basophils (%) (Auto) 1.0 % Neutrophils # (Auto) 5.5 TH/MM3 Lymphocytes # (Auto) 1.2 TH/MM3 Monocytes # (Auto) 0.6 TH/MM3 Eosinophils # (Auto) 0.0 TH/MM3 Basophils # (Auto) 0.1 TH/MM3 CBC Comment DIFF FINAL Differential Comment Prothrombin Time 10.7 SEC Prothromb Time International 1.0 RATIO Ratio Activated Partial 27.4 SEC Thromboplast Time Sodium Level 135 MEQ/L Potassium Level 4.1 MEQ/L Chloride Level 99 MEQ/L Carbon Dioxide Level 26.0 MEQ/L Anion Gap 10 MEQ/L Blood Urea Nitrogen 11 MG/DL Creatinine 0.61 MG/DL Estimat Glomerular Filtration 96 ML/MIN Rate Random Glucose 136 MG/DL Calcium Level 8.5 MG/DL Total Bilirubin 0.2 MG/DL Aspartate Amino Transf 23 U/L (AST/SGOT) Alanine Aminotransferase 19 U/L (ALT/SGPT) Alkaline Phosphatase 150 U/L Total Protein 6.0 GM/DL Albumin 2.7 GM/DL Lipase 98 U/L Lactic Acid Level 1.1 mmol/L Urine Color LIGHT-YELLOW Urine Turbidity CLEAR Urine pH 5.5 Urine Specific [place] 1.008 Urine Protein NEG mg/dL Urine Glucose (UA) NEG mg/dL Urine Ketones NEG mg/dL Urine Occult Blood TRACE Urine Nitrite NEG Urine Bilirubin NEG Urine Urobilinogen LESS THAN 2.0 MG/DL Urine Leukocyte Esterase NEG Urine RBC LESS THAN 1 /hpf Urine WBC LESS THAN 1 /hpf Urine Squamous Epithelial <1 /hpf Cells Microscopic Urinalysis Comment CATH-CULT NOT IND MDM Medical Decision Making Medical Screen Exam Complete: Yes Emergency Medical Condition: Yes Differential Diagnosis Pneumonia versus diverticulitis versus colitis versus gastroenteritis versus dehydration versus electrolyte abnormality versus PE Narrative Course 75-year-old female with a history of metastatic lung cancer presents to the emergency department for evaluation of shortness of breath, cough, nausea, vomiting and abdominal pain. Patient is afebrile. She is tachycardic with a heart rate of 93 bpm. Respiratory rate is increased at 28. Oxygen saturation is 94% on room air. IV access is obtained, labs were drawn and sent. Patient is placed on cardiac telemetry and pulse oximetry monitoring. Patient is administered duo nebs, IV fluids, Zofran and pain medication. Chest x-ray has been ordered and is pending. CT pulmonary angiogram and CT of the abdomen and pelvis has been ordered and is pending. Chest x-ray shows left basilar consolidative changes. CBC shows anemia with hemoglobin 11.2, hematocrit 34.2. CMP is unremarkable, shows an elevated alkaline phosphatase. Coags are unremarkable. Influenza swab is negative. Urinalysis is unremarkable. CT pulmonary angiogram is negative for PE, shows probable obstructing mass with collapse of the left lower lobe and a left adrenal mass. COPD changes. CT of the abdomen and pelvis shows left lower lab mass consistent with known diagnosis of small cell carcinoma and presumed adrenal metastases. Labs are reassuring and imaging does not show any acute abnormalities, shows the known cancer and metastases. The patient's symptoms are likely secondary to her cancer diagnosis. I discussed this with the patient. She is feeling much better after having fluids, nebulizers and antiemetics. Lungs are now clear without wheezes. The patient would like to go home rather than be kept in the hospital which I think is reasonable. She's been able to eat a full meal and drink fluids without any emesis. She is stable for discharge to home. We'll prescribe her a short course of steroids and a Z-Delfino for her mild COPD exacerbation and antiemetics. Instructed to keep her appointment with her oncologist tomorrow and to follow up with her PCP. Patient verbalizes understanding and agreement with treatment plan. I discussed the case with my attending physician Dr. Trent who is aware of the patients history, physical examination findings, and treatment plan. Diagnosis Primary Impression: Nausea and vomiting Qualified Code: R11.2 - Non-intractable vomiting with nausea, unspecified vomiting type Additional Impressions: COPD exacerbation Metastatic lung cancer (metastasis from lung to other site) Qualified Code: C34.92 - Metastatic lung cancer (metastasis from lung to other site), left Referrals: Primary Care Physician Patient Instructions: General Instructions Additional Instructions: Use your nebulizers every 4-6 hours. Take medications as prescribed. Follow-up with your oncologist and PCP. Return to the ED for any acute worsening of symptoms. Med/Other Pt SpecificInfo: Prescription(s) given Scripts Prednisone 20 Mg Tab20 Mg PO BID 5 Days Ref 0 Prov:Brynn Trent MD 05/17/16 Azithromycin (Zithromax Z-Delfino)250 Mg [id number] Mg PO DIRECTED #1 DSPK Ref 0 500 MG (2 tabs) day 1, then 1 tab days 2-5. Prov:Brynn Trent MD 05/17/16 Ondansetron Odt (Zofran Odt)4 Mg Tab4 Mg SL Q6HR PRN (Nausea/Vomiting) #30 TAB Ref 0 Prov:Brynn Trent MD 05/17/16 Disposition: 01 DISCHARGE HOME Condition: Stable Effie Light May 17, 2016 12:22
[2016-05-17] MEDS: RESP: ALBUTEROL 2.5 MG/IPRATROPIUM 0.5 MG NEB (SCH) INH ×2 (12:35→12:36)
[2016-05-17] MEDS ORDERED: SODIUM CHLOR 0.9% 1000 ML INJ 1,000 ML IV SCH ×2 (13:01→16:09)
--- NOTE | 2016-05-17 13:07 | RADRPT ---
EXAM DATE/TIME: 05/17/2016 12:38 [facility] COMPARISON: CT BIOPSY CONSULT W/OUTSIDE FILMS, March 30, 2016, 0:00. CT THORAX W CONTRAST, March 03, 2016, 20:58. CHEST SINGLE AP, April 12, 2016, 16:49. INDICATIONS : Patient states cough. MEDICAL HISTORY : None. SURGICAL HISTORY : [id number] ENCOUNTER: Initial ACUITY: 2 days PAIN SCORE: 0/10 LOCATION: Bilateral chest FINDINGS: Right chest port is present in satisfactory position. There is consolidative change at the left base with some volume loss and leftward cardiac shift. Left upper lung is grossly clear. Right lung is robinson ssly clear. CONCLUSION: Left basilar consolidative changes. Chinedu Neri MD on May 17, 2016 at 13:03 Board Certified Radiologist. This report was verified electronically.
[2016-05-17] MEDS ORDERED: ONDANSETRON HCL 4 MG/2 ML VIAL IVP ONE ×2 (13:15→16:15)
[2016-05-17] MEDS ORDERED: HYDROmorphone HCL PF 1 MG/ML VIAL IV PUSH ONE (13:15)
[2016-05-17 13:16] LABS: AUTOMATED NEUTROPHIL # 5.5 TH/MM3 (1.8-7.7); BASOPHIL # 0.1 TH/MM3 (0-0.2); EOSINOPHIL % 0.6 % (0.0-4.0); HEMATOCRIT 34.2 % (35.0-46.0); HEMO FLAGS DIFF FINAL; LYMPH % 16.7 % (9.0-44.0); LYMPHOCYTE # 1.2 TH/MM3 (1.0-4.8); MEAN CELL VOLUME 81.7 FL (80.0-100.0); MEAN CORPUSCULAR HEMOGLOBIN 26.8 PG (27.0-34.0); MEAN CORPUSCULAR HGB CONC 32.8 % (32.0-36.0); MONO % 8.3 % (0.0-8.0); NEUT % 73.4 % (16.0-70.0); PLATELET COUNT 248 TH/MM3 (150-450); RED BLOOD COUNT 4.18 MIL/MM3 (4.00-5.30); RED CELL DISTRIBUTION WIDTH 18.3 % (11.6-17.2); WHITE BLOOD COUNT 7.4 TH/MM3 (4.0-11.0)
[2016-05-17 13:26] LABS: APTT (PATIENT) 27.4 SEC (24.3-30.1); PROTHROMBIN TIME - PATIENT 10.7 SEC (9.8-11.6)
[2016-05-17 13:36] LABS: ANION GAP 10 MEQ/L (5-15); AST (GOT) 23 U/L (15-37); BLOOD UREA NITROGEN 11 MG/DL (7-18); CHLORIDE 99 MEQ/L (98-107); GLOMERULAR FILTRATION RATE 96 ML/MIN (>89); POTASSIUM 4.1 MEQ/L (3.5-5.1); SODIUM (NA) 135 MEQ/L (136-145)
[2016-05-17 13:39] LABS: ALKALINE PHOSPHATASE 150 U/L (45-117); ALT (GPT) 19 U/L (10-53); TOTAL BILIRUBIN ADULT 0.2 MG/DL (0.2-1.0)
[2016-05-17] MEDS ORDERED: IOHEXOL 350 MG/ML 10 ML VIAL (for RAD DIAG) IV ONE (15:15)
--- NOTE | 2016-05-17 15:20 | RADRPT ---
EXAM DATE/TIME: 05/17/2016 14:43 [facility] COMPARISON: CT THORAX W CONTRAST, March 03, 2016, 20:58. CT BIOPSY CONSULT W/OUTSIDE FILMS, March 30, 2016, 0:00. INDICATIONS : Shortness of breath with chest pain. IV CONTRAST: 74 cc Omnipaque 350 (iohexol) IV ; Cumulative dose for multiple exams. RADIATION DOSE: 8.83 CTDIvol (mGy) MEDICAL HISTORY : Carcinoma, lung. Hypertension. Chronic obstructive pulmonary disease.Hiatal hernia SURGICAL HISTORY : Appendectomy. Cholecystectomy.Hysterectomy. ENCOUNTER: Initial ACUITY: 4 - 6 days PAIN SCALE: 9/10 LOCATION: chest TECHNIQUE: Volumetric scanning of the chest was performed using a pulmonary embolism protocol MIP images were re constructed. Using automated exposure control and adjustment of the mA and/or kV according to patien t size, radiation dose was kept as low as reasonably achievable to obtain optimal diagnostic quality images. FINDINGS: The examination is of good diagnostic quality. No pulmonary embolus is identified. There are the hear t is normal in size. There is no pericardial effusion. The exam demonstrates a large area of consolidation in the left lower lobe. There is abnormal appeari ng calcifications seen associated with this. There is concern for a partially calcified central mass. . Bronchoscopy is warranted for further assessment. The patient had a known mass in this area on prev ious CT dated 03/03/16. The remainder of the pulmonary parenchyma demonstrates COPD changes but is otherwise clear. The visualized bony structures demonstrate degenerative changes are otherwise intact. There is limited visualization of the upper abdomen. Of concern, the exam demonstrates a 3.5 x 2.5 cm left adrenal mass. This is concerning for metastatic disease to the left adrenal. CONCLUSION: 1. No pulmonary embolus identified. 2. Probable obstructing mass with collapse of the left lower lobe. 3. 2.4 x 3.5 cm left adrenal mass. 4. COPD changes. Felix Connor MD on May 17, 2016 at 15:13 Board Certified Radiologist. This report was verified electronically.
--- NOTE | 2016-05-17 16:07 | RADRPT ---
EXAM DATE/TIME: 05/17/2016 14:49 [facility] COMPARISON: No previous studies available for comparison. INDICATIONS : Mid abdomen pain. IV CONTRAST: 74 cc Omnipaque 350 (iohexol) IV ; Cumulative dose for multiple exams. ORAL CONTRAST: No oral contrast ingested. RADIATION DOSE: 12.11 CTDIvol (mGy) MEDICAL HISTORY : Carcinoma, lung. Hypertension. Chronic obstructive pulmonary disease.hiatal her alexis SURGICAL HISTORY : Appendectomy. Cholecystectomy. Hysterectomy. ENCOUNTER: Initial ACUITY: 4 - 6 days PAIN SCALE: 9/10 LOCATION: Abdomen TECHNIQUE: Volumetric scanning of the abdomen and pelvis was performed. Using automated exposure control and adjustment of the mA and/or kV according to patient size, radiation dose was kept as low as reasonably achievable to obtain optimal diagnostic quality images. FINDINGS: There are consolidative changes in the left lower lobe. The right lung is clear. The l iver is free of focal defects. Spleen and pancreas are unremarkable. There is a 3.4 cm left adrenal mass suspicious for a metastatic deposit. Cysts are seen in the right kidney, the largest measuring 3.8 cm. The second largest measures 2.9 cm. Extensive vascular calcifications are noted. Review of bone windows reveals degenerative changes in the thoracolumbar spine. There is no evidence of metastatic disease. The patient has had previous kyphoplasty involving the sacrum bilaterally. CONCLUSION: 1. 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 2. 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 Ilya Connor MD FACR on May 17, 2016 at 15:57 Board Certified Radiologist. This report was verified electronically.
[2016-05-17 16:12] LABS: BLOOD, URINE TRACE (NEG); GLUCOSE,URINE NEG (NEG); KETONE, URINE NEG (NEG); NITRITE,URINE NEG (NEG); PH, URINE 5.5 (5.0-8.5); SQUAMOUS EPITHELIAL CELL URINE <1 /hpf (0-5); URINE COLOR LIGHT-YELLOW (YELLW/STRAW)
[2016-05-17 16:14] LABS: COMMENT (UR) CATH-CULT NOT IND; CULTURE IF INDICATED CATH CULTURE NOT IND
[2016-05-17] MEDS ORDERED: ZITHTAB PO (17:31)
[2016-05-17] MEDS ORDERED: ZOFR4TAB3 SL (17:31)
[2016-05-17] MEDS ORDERED: PRED20 PO (17:34)
[2016-05-17] MEDS ORDERED: SODIUM CHLORIDE 0.9% FLUSH 10 ML FLUSH IVF PRN (18:15)
--- NOTE | 2016-05-18 10:47 | EKG ---
Date Performed: 05/17/2016 Time Performed: 12:50:38 PTAGE: 75 years EKG: Sinus rhythm POSSIBLE ANTERIOR MYOCARDIAL INFARCTION ABNORMAL ECG Compared to prior tracing no significant change PREVIOUS TRACING : 03/03/2016 17.51 DOCTOR: Ailyn Macias Interpretating Date/Time 05/18/2016 10:41:07
== END 2016-05-17 18:33 | disposition home or self-care (01) ==
LOC: NEPC 11:41
DX: C34.92 Malignant neoplasm of unspecified part of left bronchus or lung (principal); C79.51 Secondary malignant neoplasm of bone; F17.200 Nicotine dependence, unspecified, uncomplicated
CPT/HCPCS: 71010; 71275; 74177; 80053; 81001; 83605; 83690; 85025; 85610; 85730; 87040; 87804; 93005; 94640; 94664; 96361; 96374; 96375; 96376; 99285; J1170; J1642; J2405; J7030; Q9967

== ENCOUNTER 2016-05-25 21:53 | Inpatient (IN) | payer OTHER, MEDICARE ==
[~2016-05-25] VITALS: Ht 162.6 cm; Wt 65.0 kg
[~2016-05-25 21:53] MED LIST changes: +PRED20 PO; +ZITHTAB PO; +ZOFR4TAB3 SL
[2016-05-25 22:24] VITALS: BP 187/75; PULSE 83; RESP 20; TEMP 98.5; O2SAT 95
[2016-05-25] MEDS ORDERED: LEVA500T PO (22:39)
[2016-05-25] MEDS ORDERED: HYDROmorphone HCL PF 1 MG/ML VIAL IV PUSH ONE (22:45)
[2016-05-25] MEDS ORDERED: SODIUM CHLORIDE 0.9% FLUSH 10 ML FLUSH IV FLUSH PRN ×2 (22:45→23:45)
[2016-05-25 23:14] VITALS: BP 156/69; PULSE 76; RESP 20; TEMP 98; O2SAT 98
[2016-05-25 23:18] LABS: BASOPHIL % 0.1 % (0.0-2.0); HEMATOCRIT 32.5 % (35.0-46.0); HEMO FLAGS DIFF FINAL; LYMPH % 4.9 % (9.0-44.0); LYMPHOCYTE # 0.5 TH/MM3 (1.0-4.8); MEAN CELL VOLUME 80.2 FL (80.0-100.0); MEAN CORPUSCULAR HGB CONC 32.4 % (32.0-36.0); MONO % 3.4 % (0.0-8.0); NEUT % 91.6 % (16.0-70.0); PLATELET COUNT 256 TH/MM3 (150-450); RED BLOOD COUNT 4.06 MIL/MM3 (4.00-5.30); RED CELL DISTRIBUTION WIDTH 17.9 % (11.6-17.2); WHITE BLOOD COUNT 9.8 TH/MM3 (4.0-11.0)
[2016-05-25 23:20] LABS: APTT (PATIENT) 27.9 SEC (24.3-30.1)
[2016-05-25 23:22] LABS: BLOOD, URINE SMALL (NEG); COMMENT (UR) CATH-CULT NOT IND; CULTURE IF INDICATED CATH CULTURE NOT IND; GLUCOSE,URINE NEG (NEG); KETONE, URINE NEG (NEG); NITRITE,URINE NEG (NEG); PH, URINE 6.5 (5.0-8.5); URINE COLOR LIGHT-YELLOW (YELLW/STRAW)
[2016-05-25 23:26] LABS: ALT (GPT) 25 U/L (10-53); ANION GAP 10 MEQ/L (5-15); AST (GOT) 22 U/L (15-37); BICARBONATE 25.5 MEQ/L (21.0-32.0); BLOOD UREA NITROGEN 12 MG/DL (7-18); CHLORIDE 97 MEQ/L (98-107); GLOMERULAR FILTRATION RATE 70 ML/MIN (>89); POTASSIUM 4.5 MEQ/L (3.5-5.1); SODIUM (NA) 132 MEQ/L (136-145)
--- NOTE | 2016-05-25 23:26 | RADRPT ---
EXAM DATE/TIME: 05/25/2016 23:01 [facility] COMPARISON: CT ABDOMEN & PELVIS W CONTRAST, May 17, 2016, 14:49. INDICATIONS : Fall today. MEDICAL HISTORY : None. SURGICAL HISTORY : Left hip replacement. ENCOUNTER: Initial ACUITY: 1 day PAIN SCORE: 0/10 LOCATION: Right hip FINDINGS: Examination of the left hip was performed with AP Pelvis. Intertrochanteric fracture left proximal fe mur. There is prominent lucency likely osteopenia. There is cement seen along the sacrum bilaterally. Its medullary sera the right proximal femur.. The acetabulum is grossly intact. CONCLUSION: Mildly displaced fracture through the intertrochanteric region of the left hip. Baljit Rockwell MD on May 25, 2016 at 23:23 Board Certified Radiologist. This report was verified electronically.
[2016-05-25 23:29] LABS: ALKALINE PHOSPHATASE 139 U/L (45-117); TOTAL BILIRUBIN ADULT 0.3 MG/DL (0.2-1.0)
--- NOTE | 2016-05-25 23:32 | RADRPT ---
EXAM DATE/TIME: 05/25/2016 23:02 [facility] COMPARISON: CHEST SINGLE AP, May 17, 2016, 12:38. INDICATIONS : Shortness of breath. MEDICAL HISTORY : Carcinoma, lung. Hypertension SURGICAL HISTORY : Infusaport ENCOUNTER: Initial ACUITY: 1 day PAIN SCORE: Non-responsive. LOCATION: Bilateral chest FINDINGS: A single view of the chest demonstrates mild volume loss and left lower lobe atelectasis. [address] unchanged.The cardiomediastinal contours are unremarkable. Right clavicular fracture. CONCLUSION: Left lower lobe atelectasis unchanged. Baljit Rockwell MD on May 25, 2016 at 23:25 Board Certified Radiologist. This report was verified electronically.
--- NOTE | 2016-05-25 23:35 | PD ---
HPI Chief Complaint: Fall Time Seen by Provider: 22:31 Travel History International Travel<30 days: No Contact w/Intl Traveler<30days: No Traveled to known affect area: No History of Present Illness HPI 76-year-old female here by ambulance for evaluation of left hip pain. The patient states that she was walking with her walker when she fell on a [place], landing onto her left side/buttocks. She now has significant pain in her left hip. Pain is constant, severe, worse with movement and palpation. She denies pain in any other joint or extremity. She denies head injury or LOC. No head neck or back pain. Patient reports that last month she had her right hip repaired by Dr. Deras and prefers to see him should she have another hip fracture. 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) Musculoskeletal: Yes (R collar bone fx, R knee fx, R Hip, tailbone) Neurologic: Yes Psychiatric: Yes (depression/anxiety) Reproductive: No Respiratory: Yes Immunizations Current: Yes Myocardial Infarction: Yes (10 years ago 2006?) Seizures: Yes Sleep Apnea: No Thyroid Disease: Yes (on med) Tetanus Vaccination: Unknown Influenza Vaccination: Yes Menopausal: Yes Past Surgical History Abdominal Surgery: Yes (lucinda, appe) AICD: No Appendectomy: Yes Body Medical Devices: rods to right hip Cardiac Surgery: No Cholecystectomy: Yes Ear Surgery: No Eye Surgery: No Genitourinary Surgery: No Gynecologic Surgery: Yes (total hysterectomy) Hysterectomy: Yes Joint Replacement: No Oral Surgery: Yes (dentures) Pacemaker: No Thoracic Surgery: No Other Surgery: Yes (HIP SX) Social History Alcohol Use: No Tobacco Use: No (quit a week ago ) Substance Use: No Allergies-Medications (Allergen,Severity, Reaction): Coded Allergies: Grass (Verified Allergy, Unknown, RUNNY NOSE, NASAL, 05/17/16) Penicillin (Verified Allergy, Unknown, RASH, 05/17/16) Wheat (Verified Allergy, Unknown, 05/17/16) Morphine (Verified Adverse Reaction, Mild, NAUSEA, 05/17/16) Reported Meds & Prescriptions Reported Meds & Active Scripts Active Prednisone 20 Mg Tab 20 Mg PO BID 5 Days Zofran Odt (Ondansetron Odt) 4 Mg Tab 4 Mg SL Q6HR PRN Reported Levaquin (Levofloxacin) 500 Mg Tab 500 Mg PO DAILY Methotrexate 2.5 Mg Tab 7.5 Mg PO Q7D ON MONDAYS Levocetirizine 5 Mg Tab 5 Mg PO DAILY Folate (Folic Acid) 1 Mg Tab 1 Mg PO DAILY Vitamin D (Cholecalciferol) 1,000 Unit Tab 1,000 Units PO DAILY Ipratropium Neb (Ipratropium [place]) 0.5 Mg/2.5 Ml Amp 0.5 Mg NEB Q8HR PRN Lorazepam 1 Mg Tab 1 Mg PO DAILY PRN Hydrocodone-Acetaminophen 10-325 mg Tab 1 Tab PO Q6H PRN Ventolin Hfa 18 GM Inh (Albuterol Sulfate) 90 Mcg/Act Aer 2 Puff INH Q4-6H PRN Lisinopril 40 Mg Tab 40 Mg PO DAILY Levothyroxine (Levothyroxine Sodium) 100 Mcg Tab 100 Mcg PO DAILY Amlodipine (Amlodipine Besylate) 10 Mg Tab 10 Mg PO DAILY Atorvastatin (Atorvastatin Calcium) 80 Mg Tab 80 Mg PO HS Donepezil 10 Mg Tab 10 Mg PO DAILY Amitriptyline (Amitriptyline HCl) 10 Mg Tab 10 Mg PO BID Primidone 250 Mg Tab 250 Mg PO TID Omeprazole 20 Mg Tab 20 Mg PO DAILY Review of Systems Except as stated in HPI: all other systems reviewed are Neg Physical Exam Narrative GENERAL: Pleasant, well-developed, well-nourished, awake, alert, no acute distress. SKIN: Focused skin assessment warm/dry. No lacerations, abrasions, or ecchymosis. HEAD: Atraumatic. Normocephalic. EYES: Pupils equal and round. No scleral icterus. No injection or drainage. ENT: Mucous membranes pink and moist. NECK: Trachea midline. No JVD. No midline vertebral step-off or tenderness. CARDIOVASCULAR: Regular rate and rhythm. Distal pulses brisk and equal bilaterally. RESPIRATORY: No accessory muscle use. Clear to auscultation. Breath sounds equal bilaterally. GASTROINTESTINAL: Abdomen soft, non-tender, nondistended. Hepatic and splenic margins not palpable. MUSCULOSKELETAL: Left lower extremity with shortening and external rotation with pain at the hip with log rolling and axial loading. Left knee is without obvious deformity, without tenderness. Left foot and ankle without obvious deformity and without tenderness. NEUROLOGICAL: Awake and alert. No obvious cranial nerve deficits. Motor grossly within normal limits. Normal speech. PSYCHIATRIC: Appropriate mood and affect; insight and judgment normal. Data Data Last Documented VS Vital Signs Date Time Temp Pulse Resp B/P Pulse Ox O2 Delivery O2 Flow Rate FiO2 05/25/16 23:14 98.0 76 20 156/69 98 Nasal Cannula 2 Orders Complete Blood Count With Diff (05/25/16 22:36) Comprehensive Metabolic Panel (05/25/16 22:36) Prothrombin Time / Inr (Pt) (05/25/16 22:36) Act Partial Throm Time (Ptt) (05/25/16 22:36) Urinalysis - C+S If Indicated (05/25/16 22:36) Iv Access Insert/Monitor (05/25/16 22:36) Ecg Monitoring (05/25/16 22:36) Oximetry (05/25/16 22:36) Sodium Chloride 0.9% Flush (Ns Flush) (05/25/16 22:45) Chest, Single Ap (05/25/16 ) Hydromorphone Pf Inj (Dilaudid Pf Inj) (05/25/16 22:45) Hip, Uni(Ap&Lat) W Ap Pelvis (05/25/16 ) Urinary Catheter Insert/Apply (05/25/16 23:14) Admit Order (Ed Use Only) (05/25/16 23:35) Consult Orthopedic (05/25/16 ) Labs Laboratory Tests Test 05/25/16 05/25/16 22:45 22:50 Urine Color LIGHT-YELLOW Urine Turbidity CLEAR Urine pH 6.5 Urine Specific [place] 1.009 Urine Protein NEG mg/dL Urine Glucose (UA) NEG mg/dL Urine Ketones NEG mg/dL Urine Occult Blood SMALL Urine Nitrite NEG Urine Bilirubin NEG Urine Urobilinogen LESS THAN 2.0 MG/DL Urine Leukocyte Esterase NEG Urine RBC 3 /hpf Urine WBC LESS THAN 1 /hpf Microscopic Urinalysis Comment CATH-CULT NOT IND White Blood Count 9.8 TH/MM3 Red Blood Count 4.06 MIL/MM3 Hemoglobin 10.5 GM/DL Hematocrit 32.5 % Mean Corpuscular Volume 80.2 FL Mean Corpuscular Hemoglobin 26.0 PG Mean Corpuscular Hemoglobin 32.4 % Concent Red Cell Distribution Width 17.9 % Platelet Count 256 TH/MM3 Mean Platelet Volume 8.5 FL Neutrophils (%) (Auto) 91.6 % Lymphocytes (%) (Auto) 4.9 % Monocytes (%) (Auto) 3.4 % Eosinophils (%) (Auto) 0.0 % Basophils (%) (Auto) 0.1 % Neutrophils # (Auto) 9.0 TH/MM3 Lymphocytes # (Auto) 0.5 TH/MM3 Monocytes # (Auto) 0.3 TH/MM3 Eosinophils # (Auto) 0.0 TH/MM3 Basophils # (Auto) 0.0 TH/MM3 CBC Comment DIFF FINAL Differential Comment Prothrombin Time 11.0 SEC Prothromb Time International 1.0 RATIO Ratio Activated Partial 27.9 SEC Thromboplast Time Sodium Level 132 MEQ/L Potassium Level 4.5 MEQ/L Chloride Level 97 MEQ/L Carbon Dioxide Level 25.5 MEQ/L Anion Gap 10 MEQ/L Blood Urea Nitrogen 12 MG/DL Creatinine 0.80 MG/DL Estimat Glomerular Filtration 70 ML/MIN Rate Random Glucose 151 MG/DL Calcium Level 8.1 MG/DL Total Bilirubin 0.3 MG/DL Aspartate Amino Transf 22 U/L (AST/SGOT) Alanine Aminotransferase 25 U/L (ALT/SGPT) Alkaline Phosphatase 139 U/L Total Protein 6.0 GM/DL Albumin 2.7 GM/DL [facility] Medical Decision Making Medical Screen Exam Complete: Yes Emergency Medical Condition: Yes Differential Diagnosis Left hip fracture, pelvic fracture Narrative Course Vital signs show heart rate 83, blood pressure 187/75, pulse ox 95% on room air , oral temp of 98.5F. CBC shows WBCs 9.8, hemoglobin 10.5, hematocrit 32.5, platelets 256, neutrophils 91.6%. CMP is remarkable for sodium 132, chloride 97, otherwise essentially unremarkable. UA is not suggestive of UTI. Left hip/pelvic x-ray: Mildly displaced fracture through the intertrochanteric region of the left hip. Patient prefers to be seen by orthopedic surgeon Dr. Deras as he operated on her right hip recently. Case discussed with on-call orthopedic surgeon Dr. Mcbride who recommends medical admission with orthopedic consultation. Case discussed with hospitalist Dr. Tanner who will admit the patient to her service. Diagnosis Primary Impression: Fracture, intertrochanteric, left femur Qualified Code: S72.142A - Fracture, intertrochanteric, left femur, closed, initial encounter Admitting Information Admitting Physician Requests: Admit Shan Vora MD May 25, 2016 23:35
[2016-05-25] MEDS ORDERED: HYDROmorphone HCL PF 1 MG/ML VIAL IV PUSH PRN (23:45)
[2016-05-25] MEDS ORDERED: NALOXONE HCL 0.4 MG/ML AMP IV PRN (23:45)
[2016-05-26] VITALS (11 sets, daily range): BP systolic 138–180; BP diastolic 65–84; PULSE 81–97; RESP 16–22; TEMP 96.9–99.1; O2SAT 90–98
--- NOTE | 2016-05-26 03:05 | HHI.HP ---
[facility] Katlyn Heaton MD Admission Diagnosis closed left intertrochanteric fracture Diagnoses: Chief Complaint: fall with hip fracture Travel History International Travel<30 Days: No Contact w/Intl Traveler <30 Da: No Traveled to Known Affected Are: No History of Present Illness This is a 76 year old female patient with a past medical history which includes : anemia, angina, anxiety, arthritis, Asthma, lung cancer, CAD s/o CA, COPD, colitis, hypertension, kidney stones, migraine, osteoarthritis, osteoporosis, rheumatoid arthritis and hypothyroidism. Patient presents to the emergency department today after she had a trip and fall over her daughter's dog. Patient landed on her buttock area. Patient reports pain and inability to bear weight on her left lower extremity. Pain located permanently in the left hip area denies radiation. Hip and pelvic x-ray revealed mildly displaced fracture through the intertrochanteric region of the left hip. Patient denies feeling dizzy lightheaded chest pain shortness of breath prior to the fall. Patient denies head trauma or loss of consciousness from the bone. Patient does report she has had nausea and vomiting lately. In review of prior turning patient was seen 05/12/2016 as well as 05/17/2016 for nausea and vomiting. This nausea and vomiting appears to be chronic at this point likely secondary to lung CA. Patient does report she has shortness of breath and cough productive of white phlegm does have history COPD and lung cancer. CXR: reveals L basilar atelectasis which again appears chronic. The patient reports to his dysuria urinalysis reviewed and does not indicate urinary tract infection. Patient denies chest pain. Of note patient has right-sided port reports she was supposed to start chemotherapy tomorrow. Follows with Dr. Tracy for lung CA. Review of Systems Except as stated in HPI: all other systems reviewed are Neg Past Family Social History Past Medical History Anemia Angina Anxiety Arthritis Asthma Cancer Cardiovascular Disease Cataracts Chronic Obstructive Pulmonary Disease Colitis Heart Attack/CA Heart Disease Hemorrhoids Hypertension Kidney Stones Migraine Osteoarthritis Osteoporosis Pneumonia Rheumatoid Arthritis Thyroid Disease Past Surgical History Cataract removal Cholecystectomy Colonoscopy Hip surgery right Hysterectomy - complete Reported Medications Prednisone 20 Mg Tab 20 Mg PO BID 5 Days Zofran Odt (Ondansetron Odt) 4 Mg Tab 4 Mg SL Q6HR PRN Levaquin (Levofloxacin) 500 Mg Tab 500 Mg PO DAILY Methotrexate 2.5 Mg Tab 7.5 Mg PO Q7D ON MONDAYS Levocetirizine 5 Mg Tab 5 Mg PO DAILY Folate (Folic Acid) 1 Mg Tab 1 Mg PO DAILY Vitamin D (Cholecalciferol) 1,000 Unit Tab 1,000 Units PO DAILY Ipratropium Neb (Ipratropium [employer]) 0.5 Mg/2.5 Ml Amp 0.5 Mg NEB Q8HR PRN Lorazepam 1 Mg Tab 1 Mg PO DAILY PRN Hydrocodone-Acetaminophen 10-325 mg Tab 1 Tab PO Q6H PRN Ventolin Hfa 18 GM Inh (Albuterol Sulfate) 90 Mcg/Act Aer 2 Puff INH Q4-6H PRN Lisinopril 40 Mg Tab 40 Mg PO DAILY Levothyroxine (Levothyroxine Sodium) 100 Mcg Tab 100 Mcg PO DAILY Amlodipine (Amlodipine Besylate) 10 Mg Tab 10 Mg PO DAILY Atorvastatin (Atorvastatin Calcium) 80 Mg Tab 80 Mg PO HS Donepezil 10 Mg Tab 10 Mg PO DAILY Amitriptyline (Amitriptyline HCl) 10 Mg Tab 10 Mg PO BID Primidone 250 Mg Tab 250 Mg PO TID Omeprazole 20 Mg Tab 20 Mg PO DAILY Allergies: Coded Allergies: Grass (Verified Allergy, Unknown, RUNNY NOSE, NASAL, 05/17/16) Penicillin (Verified Allergy, Unknown, RASH, 05/17/16) Wheat (Verified Allergy, Unknown, 05/17/16) Morphine (Verified Adverse Reaction, Mild, NAUSEA, 05/17/16) Active Ordered Medications Current Medications Medications (Trade) Dose Ordered Sig/Shade Route Start Time Stop Time Status Last Admin (NS Flush) 2 ml UNSCH PRN IV FLUSH 05/25/16 23:45 (NS Flush) 2 ml BID IV FLUSH 05/26/16 09:00 (Zofran Inj) 4 mg Q6H PRN IVP 05/25/16 23:45 (Narcan Inj) 0.4 mg UNSCH PRN IV 05/25/16 23:45 (Dilaudid Pf Inj) 0.2 mg Q4H PRN IV PUSH 05/25/16 23:45 Family History mother at age 65. father at age 72. has 3 brothers: 1 brother with Spina bifida and one with DM and "heart problems " Social History . She is a daily smoker who has smoked for 40 years, reports only smokes occasional at this time. denies ETOH use Physical Exam Vital Signs Vital Signs Date Time Temp Pulse Resp B/P Pulse Ox O2 Delivery O2 Flow Rate FiO2 05/26/16 00:15 96.9 81 18 138/65 98 05/25/16 23:48 20 05/25/16 23:14 98.0 76 20 156/69 98 Nasal Cannula 2 05/25/16 23:14 20 05/25/16 22:24 98.5 83 20 187/75 95 Physical Exam GENERAL: This is a frail appearing 76 year old female patient, appears to have hip pain SKIN: No rashes, ecchymoses or lesions. Cool and dry. HEAD: Atraumatic. Normocephalic. No temporal or scalp tenderness. EYES: Extraocular motions intact. No scleral icterus. No injection or drainage. CARDIOVASCULAR: Regular rate and rhythm without murmurs, gallops, or rubs. RESPIRATORY: scattered expiratory wheezing GASTROINTESTINAL: Abdomen soft, non-tender, nondistended. No guarding. NEUROLOGICAL: Awake and alert. Sensory grossly within normal limits. Left lower extremity ROM limited secondary to pain. Normal speech. Laboratory Laboratory Tests Test 05/25/16 05/25/16 22:45 22:50 Urine Color LIGHT-YELLOW Urine Turbidity CLEAR Urine pH 6.5 Urine Specific [place] 1.009 Urine Protein NEG Urine Glucose (UA) NEG Urine Ketones NEG Urine Occult Blood SMALL Urine Nitrite NEG Urine Bilirubin NEG Urine Urobilinogen LESS THAN 2.0 Urine Leukocyte Esterase NEG Urine RBC 3 Urine WBC LESS THAN 1 Microscopic Urinalysis Comment CATH-CULT NOT IND White Blood Count 9.8 Red Blood Count 4.06 Hemoglobin 10.5 Hematocrit 32.5 Mean Corpuscular Volume 80.2 Mean Corpuscular Hemoglobin 26.0 Mean Corpuscular Hemoglobin 32.4 Concent Red Cell Distribution Width 17.9 Platelet Count 256 Mean Platelet Volume 8.5 Neutrophils (%) (Auto) 91.6 Lymphocytes (%) (Auto) 4.9 Monocytes (%) (Auto) 3.4 Eosinophils (%) (Auto) 0.0 Basophils (%) (Auto) 0.1 Neutrophils # (Auto) 9.0 Lymphocytes # (Auto) 0.5 Monocytes # (Auto) 0.3 Eosinophils # (Auto) 0.0 Basophils # (Auto) 0.0 CBC Comment DIFF FINAL Differential Comment Prothrombin Time 11.0 Prothromb Time International 1.0 Ratio Activated Partial 27.9 Thromboplast Time Sodium Level 132 Potassium Level 4.5 Chloride Level 97 Carbon Dioxide Level 25.5 Anion Gap 10 Blood Urea Nitrogen 12 Creatinine 0.80 Estimat Glomerular Filtration 70 Rate Random Glucose 151 Calcium Level 8.1 Total Bilirubin 0.3 Aspartate Amino Transf 22 (AST/SGOT) Alanine Aminotransferase 25 (ALT/SGPT) Alkaline Phosphatase 139 Total Protein 6.0 Albumin 2.7 Result Diagram: 05/25/160 05/25/16 2250 Imaging Last Impressions Hip and Pelvis X-Ray 05/25/16 0000 Signed Impressions: Service Date/Time: Wednesday, May 25, 2016 23:01 - CONCLUSION: Mildly displaced fracture through the intertrochanteric region of the left hip. Baljit Rockwell MD Chest X-Ray 05/25/16 0000 Signed Impressions: Service Date/Time: Wednesday, May 25, 2016 23:02 - CONCLUSION: Left lower lobe atelectasis unchanged. Baljit Rockwell MD Assessment and Plan Assessment and Plan This is a 76 year old female patient with a past medical history which includes : anemia, angina, anxiety, arthritis, Asthma, lung cancer, CAD s/o CA, COPD, colitis, hypertension, kidney stones, migraine, osteoarthritis, osteoporosis, rheumatoid arthritis and hypothyroidism. Patient presents to the emergency department today after she had a trip and fall over her daughter's dog. Patient landed on her buttock area. Patient reports pain and inability to bear weight on her left lower extremity. Pain located permanently in the left hip area denies radiation. Hip and pelvic x-ray revealed mildly displaced fracture through the intertrochanteric region of the left hip. Left hip fracture- acute status post fall nonweightbearing, nothing by mouth Consult orthopedic surgery- plan for surgical intervention in the morning with Dr. Braeden Cleary for pain Chronic nausea and vomiting- likely secondary to cancer patient was seen 05/12/2016 as well as 05/17/2016 for nausea and vomiting. Continue Zofran as needed for nausea and vomiting Patient had CT abdomen and pelvis with contrast May 18, 2016 left lower lobe mass consistent with known diagnosis of small cell carcinoma, presumed adrenal metastasis. No acute findings Shortness of breath and cough productive of white phlegm with history of COPD and lung cancer CXR: reveals L basilar atelectasis appears chronic. Lung CA followed by Dr. Tarcy was planning to start chemotherapy tomorrow Duo nebs every 6 hours scheduled and as needed Dysuria urinalysis reviewed and does not indicate urinary tract infection. Other chronic medical conditions which appears stable included Rheumatoid arthritis, hypertension, GERD, hypothyroidism, anxiety and hyperlipidemia- continue home medications. DVT prophylaxis with SCDs planned surgical intervention this a.m. Further DVT prophylaxis per orthopedic surgery Discussed with ER provider, nursing and patient Written by Luly Kennedy, acting as scribe for Dr. Tanner on 05/26/16 at 03: 38. All or portions of this note were transcribed by scribe [Luly Kennedy]. I, Dr. Sushma Tanner personally performed the history, physical exam, and medical decision making; and confirmed the accuracy of the information in the transcribed note. Authenticated by Dr. Sushma Tanner on 05/26/16 at 03:38. This patient is a high risk patient for surgical intervention. Likely she will have a difficult time post intubation. Physician Certification 2 Midnight Certification Type: Admission for Inpatient Services Order for Inpatient Services The services are ordered in accordance with Medicare regulations or non- Medicare payer requirements, as applicable. In the case of services not specified as inpatient-only, they are appropriately provided as inpatient services in accordance with the 2-midnight benchmark. Estimated LOS (days): 4 days is the estimated time the patient will need to remain in the hospital, assuming treatment plan goals are met and no additional complications. Post-Hospital Plan: Not yet determined Luly Kennedy May 26, 2016 03:05 Sushma Tanner MD May 26, 2016 07:04
[2016-05-26] MEDS ORDERED: LORazepam 1 MG TAB PO PRN (03:45)
[2016-05-26] MEDS: HYDROmorphone HCL PF 1 MG/ML VIAL IV PUSH PRN ×2 (04:57→08:36)
[2016-05-26] MEDS: LEVOTHYROXINE SODIUM 100 MCG TAB PO SCH (05:00)
[2016-05-26] MEDS: RESP: ALBUTEROL 2.5 MG/IPRATROPIUM 0.5 MG NEB (PRN) NEB (05:11)
[2016-05-26 07:12] LABS: AUTOMATED NEUTROPHIL # 6.8 TH/MM3 (1.8-7.7); BASOPHIL % 0.3 % (0.0-2.0); HEMATOCRIT 31.6 % (35.0-46.0); HEMO FLAGS DIFF FINAL; LYMPH % 14.6 % (9.0-44.0); LYMPHOCYTE # 1.3 TH/MM3 (1.0-4.8); MEAN CELL VOLUME 80.7 FL (80.0-100.0); MEAN CORPUSCULAR HEMOGLOBIN 25.8 PG (27.0-34.0); MONO % 8.1 % (0.0-8.0); PLATELET COUNT 249 TH/MM3 (150-450); RED BLOOD COUNT 3.91 MIL/MM3 (4.00-5.30); RED CELL DISTRIBUTION WIDTH 18.1 % (11.6-17.2); WHITE BLOOD COUNT 8.8 TH/MM3 (4.0-11.0)
[2016-05-26 07:25] LABS: BICARBONATE 25.6 MEQ/L (21.0-32.0); POTASSIUM 4.5 MEQ/L (3.5-5.1)
--- NOTE | 2016-05-26 08:38 | MB ---
cc: BARI HERRERA DATE OF CONSULTATION: 05/26/2016 REASON FOR CONSULTATION Left hip intertrochanteric fracture. CONSULTING PHYSICIAN Dr. Louis Johnson. HISTORY OF PRESENT ILLNESS Lupe is a 76-year-old female who has a history of anemia, angina, anxiety, arthritis, asthma, lung cancer, coronary artery disease, COPD, hypertension, arthritis, osteoporosis, hypothyroidism. She had a fall yesterday. She tripped over her daughter's dog. She landed on her left hip. She had immediate left hip pain. She was unable to stand or ambulate. She presented to the emergency room where x-rays revealed a left hip intertrochanteric fracture. She states that she is currently scheduled to start undergoing chemotherapy this week for her lung cancer. She is currently awake and alert on the fifth floor. Her only complaint is her left hip. Pain is worse with movement and is improved with rest. She denies any hip pain prior to her fall. PAST MEDICAL HISTORY ILLNESSES 1. Anemia. 2. Angina. 3. Coronary artery disease. 4. Asthma. 5. Cancer. 6. Cataract. 7. COPD. 8. Hypertension. 9. Migraines. 10. Osteoporosis. 11. Hypothyroidism. 12. Rheumatoid arthritis. SURGERIES 1. Cataract surgery. 2. Cholecystectomy. 3. Colonoscopy. 4. Right hip IM nail. 5. Hysterectomy. MEDICATIONS Medications include: 1. Prednisone. 2. Zofran. 3. Levaquin. 4. Folate. 5. Vitamin D. 6. Lorazepam. 7. Ventolin. 8. Lisinopril. 9. Levothyroxine. 10. Amlodipine. 11. Donepezil. 12. Amitriptyline. 13. Primidone. 14. Omeprazole. ALLERGIES PENICILLIN AND MORPHINE. FAMILY HISTORY Family history is positive for cardiac problems in her mother and father and spina bifida in her brother. SOCIAL HISTORY The patient is . She has a 40 pack-year history of smoking. She denies alcohol use. REVIEW OF SYSTEMS The patient denies headache, visual changes, neck pain, abdominal pain, nausea, vomiting or recent weight loss, numbness or tingling of extremities. She has had productive cough. She complains of left hip pain. PHYSICAL EXAMINATION GENERAL: The patient is a thin 76-year-old female in no acute distress. She is awake and alert. VITAL SIGNS: Temperature 97.6, pulse 87, respirations 22, blood pressure 180/75, O2 sat 93% on 2 liters nasal cannula. HEAD: The patient is normocephalic. Pupils are equal. NECK: Soft, nontender. Trachea is midline. ABDOMEN: Soft, nontender, nondistended. EXTREMITIES: Examination of bilateral upper extremities reveals no pain with shoulder, elbow or wrist motion. She has intact sensation in all fingers. She has good cap refill in all fingers. Skin is intact to both hands. Radial pulses are palpable. Examination of right leg reveals no significant pain with hip, knee or ankle motion. Skin is intact. Dorsalis pedis pulses palpable. Sensation is intact. Examination of left leg reveals pain with any hip motion. She has no tenderness around her knee, tibia or ankle. Skin is intact. Dorsalis pedis pulses palpable. Sensation is intact. X-RAYS X-rays of the left hip were reviewed. X-rays reveal a displaced left hip intertrochanteric fracture. IMPRESSION 1. History of lung cancer. 2. Hypertension. 3. Coronary artery disease. 4. COPD. 5. Left hip intertrochanteric fracture. 6. Osteoporosis. PLAN Treatment options were discussed with the patient. At this point I would recommend left hip reduction, intramedullary nail fixation. Risks of surgery include bleeding, infection, injuries to arteries, nerves and blood vessels, nonunion, malunion, painful hardware as well as medical complications including blood clot, stroke, heart attack and . All questions were answered. I will plan on surgery today. A mid-level provider in my office (nurse practitioner or physician dietitian assistant) may see this patient on follow-up visits and continue to implement the objectives of this plan including: Starting or adjusting medications, injections , cast application, orthotics, brace application, physical therapy, radiological studies (including x-ray, MRI, CT, ultrasound, bone scan), vascular studies, neurologic studies, specialist consultation, and proceeding with surgical management, as appropriate. MD ELISHA Kenney/JAYME /8:12 AM /8:20 AM SÁNCHEZ
[2016-05-26] MEDS ORDERED: predniSONE 20 MG TAB PO SCH (09:00)
[2016-05-26] MEDS: FOLIC ACID 1 MG TAB PO SCH (09:00)
[2016-05-26] MEDS: AMITRIPTYLINE HCL 10 MG TAB PO SCH ×2 (09:00→20:10)
[2016-05-26] MEDS: PRIMIDONE 250 MG TAB PO SCH ×3 (09:00→17:59)
[2016-05-26] MEDS: LISINOPRIL 20 MG TAB PO SCH (09:00)
[2016-05-26] MEDS: PANTOPRAZOLE SOD 20 MG DELAYED RELEASE TAB PO SCH (09:00)
[2016-05-26] MEDS: DONEPEZIL HCL 5 MG TAB PO SCH (09:00)
[2016-05-26] MEDS ORDERED: SODIUM CHLORIDE 0.9% FLUSH 10 ML FLUSH IV FLUSH SCH (09:00)
[2016-05-26] MEDS: RESP: ALBUTEROL 2.5 MG/IPRATROPIUM 0.5 MG NEB (SCH) NEB ×3 (09:11→19:40)
[2016-05-26] MEDS ORDERED: VANCOMYCIN HCL 1000 MG VIAL ONE (11:20)
[2016-05-26] MEDS ORDERED: GENTAMICIN SULFATE 80 MG/2 ML VIAL ONE (11:20)
[2016-05-26] MEDS ORDERED: ceFAZolin INJ 1,000 MG VIAL ONE (11:20)
[2016-05-26] MEDS ORDERED: BUPIVACAINE/EPINEPHRINE 0.25% PF 10 ML VIAL ONE (11:20)
[2016-05-26] MEDS ORDERED: SODIUM CHLOR 0.9% 250 ML INJ 250 ML ONE (11:21)
--- NOTE | 2016-05-26 11:35 | PD.OP ---
cc: Hermes Harris MD Operative Report Date of Surgery: May 26, 2016 Preoperative Diagnosis: Displaced left hip intertrochanteric fracture Postoperative Diagnosis: Procedure: Left hip reduction and intramedullary nail fixation Anesthesia: Gen. Surgeon: Hermes Harris Financial Service Representative(s): TALA Ferrari PA-C The surgical procedure was assisted by my physician energy assistant. My P.A. presence was necessary throughout this case for the manipulation and positioning of the surgical extremity. My P.A. was assisting me throughout the duration of this procedure. The skill set of a physician energy assistant was medically necessary to complete this procedure. During the surgical case the rn medical surgical was working at the back table and the physician energy assistant was directly assisting me. Operation and Findings: Implants used: [11]mm x [360]mm Synthes TFNA troch nail Plan of activity: Weight-bear as tolerated Patient was seen and evaluated preoperatively. The patient has significant hip pain from proximal femur fracture. The risk and benefits of surgery were discussed in depth with the patient to include bleeding, infection, nonunion, malunion, need for hip replacement, painful hardware, as well as medical competitions including blood clots, stroke, heart attack, and . Informed consent was obtained. Operative site was marked. Patient was brought to the operating room and placed on fracture table. IV sedation was administered by anesthesiologist. Timeout procedure was performed. Hip and leg were prepped with alcohol followed by DuraPrep and draped in the usual sterile fashion. IV antibiotics were given prior to incision. Procedure began with reduction of fracture. Traction was applied. The leg was manipulated to achieve reduction. Excellent reduction was achieved. Fluoroscopy was used to confirm reduction. A three inch incision was made proximal to the trochanter. Subcutaneous tissue was dissected bluntly. Guidepin was placed at the tip of the trochanter and advanced into the femoral canal. Fluoroscopy confirmed appropriate guidepin placement. A opening reamer was placed over the guidepin. A long ball tipped guide pin was now placed down the femoral canal into the center of the distal femur. The nail length was now measured. Fluoroscopy confirmed appropriate guidepin placement. Flexible reamers were now passed over the guidepin to ream the intramedullary canal. The Synthes TFNA nail was attached to the insertion handle. Nail was now placed over the guidepin into the femoral canal. Fluoroscopy confirmed appropriate nail placement. A second incision was made over the lateral thigh. Cannulas were placed through the insertion handle down to the femur. Guidepin was now placed through the femoral nail into the center of the femoral head. Fluoroscopy confirmed appropriate guidepin placement. Screw length was measured. Cannulated drill was placed over the guidepin. Appropriate length lag screw was now placed. Traction was released and compression was applied. The set screw was now tightened in dynamic mode. Next, using perfect [place] technique two distal interlocking screws were placed. Screw holes were predrilled and screw lengths were measured. Final fluoroscopy revealed well aligned fracture with well-placed hardware. Incision was closed with 3-0 Vicryl and neisha. Sterile dressings were applied. Patient was awakened and transferred to recovery room. Hermes Harris MD May 26, 2016 11:35
[2016-05-26] MEDS ORDERED: MIDAZOLAM HCL 2 MG/2 ML VIAL ONE (11:43)
[2016-05-26] MEDS ORDERED: DEXAMETHASONE SOD PHOS 4 MG/ML VIAL ONE (11:43)
[2016-05-26] MEDS ORDERED: MORPHINE SULFATE 4 MG/ML INJ IV PUSH PRN (11:45)
[2016-05-26] MEDS ORDERED: SODIUM CHLORIDE 0.9% FLUSH 5 ML FLUSH IVF PRN (11:45)
[2016-05-26] MEDS ORDERED: *RESP: ALBUTEROL 2.5 MG/3 ML NEB (PRN) PERIprocedural Use ONLY NEB ONE (12:59)
[2016-05-26] MEDS ORDERED: ERGOCALCIFEROL (VIT D2) 50,000 UNIT CAP PO ONE (13:00)
[2016-05-26] MEDS ORDERED: fentaNYL CITRATE 250 MCG/5 ML AMP ONE (13:03)
--- NOTE | 2016-05-26 13:38 | RADRPT ---
EXAM DATE/TIME: 05/26/2016 12:24 [facility] COMPARISON: No previous studies available for comparison. INDICATIONS : ORIF left femur long troch nail. MEDICAL HISTORY : Carcinoma, lung. SURGICAL HISTORY : None. ENCOUNTER: Subsequent ACUITY: 2 days PAIN SCORE: Non-responsive. LOCATION: Left femur. FINDINGS: 4 views of left femur emonstrate antegrade intramedullary sera placement with a single distal interloc mychal screw and proximal trochanteric nail across the left proximal femur fracture. There is good alig nment. CONCLUSION: Postoperative changes. Moris Bonilla MD on May 26, 2016 at 13:36 Board Certified Radiologist. This report was verified electronically.
[2016-05-26] MEDS ORDERED: DO NOT ADM ANY ANTICOAGULANT DRUGS PRN (13:45)
[2016-05-26] MEDS ORDERED: *ENALAPRILAT 1.25 MG/ML VIAL PERIprocedural Use ONLY ONE ×2 (13:50→14:32)
[2016-05-26] MEDS ORDERED: PHENYLEPH/NS 1000 MCG/10 ML SYR IV ONE (13:50)
[2016-05-26] MEDS ORDERED: ONDANSETRON HCL 4 MG/2 ML VIAL IV PUSH ONE (13:50)
[2016-05-26] MEDS ORDERED: PROPOFOL 200 MG/20 ML AMP IV ONE (13:50)
--- NOTE | 2016-05-26 14:21 | RADRPT ---
EXAM DATE/TIME: 05/26/2016 14:54 [facility] COMPARISON: No previous studies available for comparison. INDICATIONS : Shortness of breath. MEDICAL HISTORY : None. SURGICAL HISTORY : None. ENCOUNTER: Initial ACUITY: 2 days PAIN SCORE: Non-responsive. LOCATION: chest FINDINGS: Cardiomegaly with consolidative opacity in the left lower lobe. Right felipe catheter tip overlies the SVC. Right lung is clear. CONCLUSION: Left lower lobe consolidation identified. Moris Bonilla MD on May 26, 2016 at 14:09 Board Certified Radiologist. This report was verified electronically.
[2016-05-26] MEDS: CALCIUM/VITAMIN D 250 MG/125 U TAB PO SCH ×2 (16:03→17:59)
[2016-05-26] MEDS: ACETAMINOPHEN/HYDROcodone 325 MG/7.5 MG TAB PO PRN (20:10)
[2016-05-26] MEDS: ATORVASTATIN 80 MG TAB PO SCH (20:10)
[2016-05-26] MEDS: SODIUM CHLORIDE 0.9% FLUSH 5 ML FLUSH IVF SCH (20:11)
[2016-05-27] VITALS (10 sets, daily range): BP systolic 140–190; BP diastolic 63–79; PULSE 69–91; RESP 16–23; TEMP 97.5–99; O2SAT 92–98
[2016-05-27] MEDS: SODIUM CHLORIDE 0.65% NASAL SPRAY 45 ML BTL EACH NARE PRN (00:19)
[2016-05-27] MEDS: ONDANSETRON HCL 4 MG/2 ML VIAL IVP PRN ×2 (02:02→22:59)
[2016-05-27] MEDS: LEVOTHYROXINE SODIUM 100 MCG TAB PO SCH (04:07)
[2016-05-27] MEDS: ACETAMINOPHEN/HYDROcodone 325 MG/7.5 MG TAB PO PRN ×5 (04:08→20:21)
[2016-05-27 07:10] LABS: HEMATOCRIT 27.9 % (35.0-46.0); MEAN CELL VOLUME 80.7 FL (80.0-100.0); MEAN CORPUSCULAR HEMOGLOBIN 26.2 PG (27.0-34.0); MEAN CORPUSCULAR HGB CONC 32.5 % (32.0-36.0); PLATELET COUNT 159 TH/MM3 (150-450); RED BLOOD COUNT 3.46 MIL/MM3 (4.00-5.30); RED CELL DISTRIBUTION WIDTH 18.1 % (11.6-17.2); REVIEW FLAG FINAL; WHITE BLOOD COUNT 6.7 TH/MM3 (4.0-11.0)
[2016-05-27 07:20] LABS: BICARBONATE 26.4 MEQ/L (21.0-32.0); MAGNESIUM 1.7 MG/DL (1.5-2.5)
[2016-05-27] MEDS: RESP: ALBUTEROL 2.5 MG/IPRATROPIUM 0.5 MG NEB (SCH) NEB ×3 (08:42→20:07)
[2016-05-27] MEDS: SODIUM CHLORIDE 0.9% FLUSH 5 ML FLUSH IVF SCH ×2 (09:00→20:14)
[2016-05-27] MEDS: PRIMIDONE 250 MG TAB PO SCH ×3 (09:00→17:04)
[2016-05-27] MEDS: LISINOPRIL 20 MG TAB PO SCH (09:40)
[2016-05-27] MEDS: CALCIUM/VITAMIN D 250 MG/125 U TAB PO SCH ×3 (09:40→17:03)
[2016-05-27] MEDS: DONEPEZIL HCL 5 MG TAB PO SCH (09:41)
[2016-05-27] MEDS: CHOLECALCIFEROL (VIT D3) 5000 UNIT CAP PO SCH (09:41)
[2016-05-27] MEDS: AMITRIPTYLINE HCL 10 MG TAB PO SCH ×2 (09:41→20:14)
[2016-05-27] MEDS: PANTOPRAZOLE SOD 20 MG DELAYED RELEASE TAB PO SCH (09:41)
[2016-05-27] MEDS: FOLIC ACID 1 MG TAB PO SCH (09:41)
--- NOTE | 2016-05-27 10:27 | PD.ORT.PN ---
Subjective Subjective Remarks Resting comfortably with no new complaints Objective Vitals Vital Signs Date Time Temp Pulse Resp B/P Pulse Ox O2 Delivery O2 Flow Rate FiO2 05/27/16 08:42 Venturi Mask 6.00 50 05/27/16 08:00 98.5 78 22 190/79 92 05/27/16 04:01 98.3 91 16 170/64 92 05/27/16 02:32 85 05/27/16 00:14 98.6 83 17 158/63 94 05/26/16 21:22 93 Venturi Mask 05/26/16 20:49 Venturi Mask 6.00 35 05/26/16 20:49 92 Venturi Mask 05/26/16 20:48 98.9 92 16 158/69 92 05/26/16 20:27 90 05/26/16 20:18 99.1 97 16 174/84 96 05/26/16 19:40 90 Nasal Cannula 3.00 05/26/16 18:42 Nasal Cannula 3.00 05/26/16 15:46 97.9 96 17 152/65 92 05/26/16 15:35 94 15 95 Nasal Cannula 3 05/26/16 15:30 98.2 95 15 149/75 95 Nasal Cannula 3 05/26/16 15:15 93 15 150/73 94 Nasal Cannula 3 05/26/16 15:00 92 15 157/75 93 Nasal Cannula 3 05/26/16 14:45 88 15 167/78 92 Nasal Cannula 3 05/26/16 14:30 87 15 181/89 97 Bi-Pap 05/26/16 14:15 86 14 177/85 96 Bi-Pap 05/26/16 14:00 88 14 178/86 95 Bi-Pap 05/26/16 13:45 86 14 180/85 92 Bi-Pap 05/26/16 13:45 94 50 05/26/16 13:40 87 13 88 Nasal Cannula 4 05/26/16 13:30 85 13 170/69 94 Simple Mask 10 05/26/16 13:15 87 12 170/72 93 Simple Mask 10 05/26/16 13:00 88 12 165/82 93 Simple Mask 10 05/26/16 12:50 98.7 84 15 153/86 92 Simple Mask 10 I/O 05/26/16 05/26/16 05/26/16 05/27/16 05/27/16 4/13/17 07:00 15:00 23:00 07:00 15:00 23:00 Intake Total 500 ml 290 ml 570 ml Output Total 550 ml 100 ml 975 ml 950 ml Balance -550 ml 400 ml -685 ml -380 ml Intake Oral 240 ml 360 ml IV Total 50 ml 210 ml Other 500 ml Output Urine Total 550 ml 975 ml 950 ml Estimated Blood Loss 100 ml # Voids 0 # Bowel Movements 0 0 0 Result Diagram: 05/27/16 0630 05/27/16629 Imaging Last 72 hours Impressions Femur X-Ray 05/26/16 0000 Signed Impressions: Service Date/Time: Thursday, May 26, 2016 12:24 - CONCLUSION: Postoperative changes. Moris Bonilla MD Chest X-Ray 05/26/16 Signed Impressions: Service Date/Time: Thursday, May 26, 2016 14:54 - CONCLUSION: Left lower lobe consolidation identified. Moris Bonilla MD Hip and Pelvis X-Ray 05/25/16 Signed Impressions: Service Date/Time: Wednesday, May 25, 2016 23:01 - CONCLUSION: Mildly displaced fracture through the intertrochanteric region of the left hip. Baljit Rockwell MD Chest X-Ray 05/25/16 0000 Signed Impressions: Service Date/Time: Wednesday, May 25, 2016 23:02 - CONCLUSION: Left lower lobe atelectasis unchanged. Baljit Rockwell MD Objective Remarks Left lower extremity: Clean dry dressings intact. Minimal swelling. No pain with knee or ankle range of motion. Distally she has intact sensation with capillary refills Assessment & Plan Assessment and Plan Left intertrochanteric femur fracture status post intramedullary sera fixation POD 1 Weightbearing as tolerated left lower extremity Daily dressing changes beginning POD 2 Incentive spirometry Lovenox DC planning to rehabilitation Louis Patel Jr. May 27, 2016 10:27
[2016-05-27] MEDS ORDERED: WALKER WHEELS/F1 MIS (10:28)
[2016-05-27] MEDS ORDERED: XARE10TA PO (10:30)
[2016-05-27] MEDS ORDERED: HYDR-3366 PO (10:30)
[2016-05-27] MEDS: ENOXAPARIN SODIUM 30 MG/0.3 ML SYRINGE SQ SCH (12:00)
--- NOTE | 2016-05-27 17:11 | HHI.PR ---
Subjective Remarks The patient said she was having some shortness of breath. She said she has been having a cough and mucus production. She says her pain was poorly controlled at this time. She says she had a fall recently and broke her other hip as well as her tailbone. She has been ambulating with an assistive device. Discussed with nursing. Objective Vitals Vital Signs Date Time Temp Pulse Resp B/P Pulse Ox O2 Delivery O2 Flow Rate FiO2 05/27/16 12:00 97.5 69 22 171/70 97 05/27/16 08:42 Auto Vent 6.00 50 05/27/16 08:00 98.5 78 22 190/79 92 05/27/16 04:01 98.3 91 16 170/64 92 05/27/16 02:32 85 05/27/16 00:14 98.6 83 17 158/63 94 05/26/16 21:22 93 Venturi Mask 05/26/16 20:49 Venturi Mask 6.00 35 05/26/16 20:49 92 Venturi Mask 05/26/16 20:48 98.9 92 16 158/69 92 05/26/16 20:27 90 05/26/16 20:18 99.1 97 16 174/84 96 05/26/16 19:40 90 Nasal Cannula 3.00 05/26/16 18:42 Nasal Cannula 3.00 I/O 05/26/16 05/26/16 05/26/16 05/27/16 05/27/16 05/27/16 07:00 15:00 23:00 07:00 15:00 23:00 Intake Total 500 ml 290 ml 570 ml 829 ml Output Total 550 ml 100 ml 975 ml 950 ml Balance -550 ml 400 ml -685 ml -380 ml 829 ml Intake Oral 240 ml 360 ml IV Total 50 ml 210 ml 829 ml Other 500 ml Output Urine Total 550 ml 975 ml 950 ml Estimated Blood Loss 100 ml # Voids 0 # Bowel Movements 0 0 0 Result Diagram: 05/27/1630 05/27/1630 Imaging Last Impressions Femur X-Ray 05/26/16 0000 Signed Impressions: Service Date/Time: Thursday, May 26, 2016 12:24 - CONCLUSION: Postoperative changes. Moris Bonilla MD Chest X-Ray 05/26/16 0000 Signed Impressions: Service Date/Time: Thursday, May 26, 2016 14:54 - CONCLUSION: Left lower lobe consolidation identified. Moris Bonilla MD Hip and Pelvis X-Ray 05/25/16 0000 Signed Impressions: Service Date/Time: Wednesday, May 25, 2016 23:01 - CONCLUSION: Mildly displaced fracture through the intertrochanteric region of the left hip. Baljit Rockwell MD Objective Remarks GENERAL: Resting comfortably. SKIN: No rashes, ecchymoses or lesions. Cool and dry. HEAD: Atraumatic. Normocephalic. No temporal or scalp tenderness. EYES: Extraocular motions intact. No scleral icterus. No injection or drainage. CARDIOVASCULAR: Regular rate and rhythm without murmurs, gallops, or rubs. RESPIRATORY: Scattered expiratory wheezing. GASTROINTESTINAL: Abdomen soft, non-tender, nondistended. No guarding. NEUROLOGICAL: Awake and alert. Sensory grossly within normal limits. Left lower extremity ROM limited secondary to pain. Normal speech. PSYCH: Mood and affect appropriate. Procedures Left hip fracture repair. Medications and IVs Current Medications Medications (Trade) Dose Ordered Sig/Shade Route Start Time Stop Time Status Last Admin (Zofran Inj) 4 mg Q6H PRN IVP 05/25/16 23:45 05/27/16 02:02 (Narcan Inj) 0.4 mg UNSCH PRN IV 05/25/16 23:45 (Elavil) 10 mg BID PO 05/26/16 09:00 05/27/16 09:41 (Norvasc) 10 mg DAILY PO 05/26/16 09:00 05/27/16 09:41 (Lipitor) 80 mg HS PO 05/26/16 21:00 05/26/16 20:10 (Aricept) 10 mg DAILY PO 05/26/16 09:00 05/27/16 09:41 (Synthroid) 100 mcg DAILY@0600 PO 05/26/16 06:00 05/27/16 04:07 (Ativan) 1 mg DAILY PRN PO 05/26/16 03:45 05/26/16 20:10 (Mysoline) 250 mg TID PO 05/26/16 09:00 05/27/16 14:10 (Prinivil) 40 mg DAILY PO 05/26/16 09:00 05/27/16 09:40 (Protonix) 20 mg DAILY PO 05/26/16 09:00 05/27/16 09:41 (Dilaudid Pf Inj) 0.5 mg Q3HR PRN IV PUSH 05/26/16 05:00 05/26/16 08:36 (Folate) 1 mg DAILY PO 05/26/16 09:00 05/27/16 09:41 (NS Flush) 2 ml UNSCH PRN IVF 05/26/16 11:45 (NS Flush) 2 ml BID IVF 05/26/16 21:00 05/27/16 09:00 (Lovenox Inj) 30 mg Q24H SQ 05/27/16 12:00 05/27/16 12:00 (Oscal-D 250-125) 250 mg TID PO 05/26/16 14:00 05/27/16 17:03 (Benadryl) 25 mg Q6H PRN PO 05/26/16 11:45 ([place] 7.5-325 Mg) 1 tab Q3H PRN PO 05/26/16 11:45 05/27/16 17:04 ([place] 7.5-325 Mg) 2 tab Q6H PRN PO 05/26/16 11:45 (Morphine Inj) 3 mg Q3H PRN IV PUSH 05/26/16 11:45 (Vitamin D3) 5,000 units DAILY PO 05/27/16 09:00 05/27/16 09:41 ([place] Darci [place]) 2 spray Q4H PRN EACH NARE 05/26/16 20:45 05/27/16 00:19 A/P Assessment and Plan This is a 76 year old female patient with a past medical history which includes : anemia, angina, anxiety, arthritis, Asthma, lung cancer, CAD s/o VA, COPD, colitis, hypertension, kidney stones, migraine, osteoarthritis, osteoporosis, rheumatoid arthritis and hypothyroidism. Patient presents to the emergency department after she had a trip and fall over her daughter's dog. Patient reports pain and inability to bear weight on her left lower extremity. Hip and pelvic x-ray revealed mildly displaced fracture through the intertrochanteric region of the left hip. Left hip fracture Status post mechanical fall. S/p repair 05/26/16. - weightbearing, wound care and anticoagulation per orthopedic surgery. - pain control with a bowel regimen. - incentive spirometry. - physical therapy. Acute respiratory failure The pt has lung cancer and COPD. Currently on a ventimask and desaturating quite easily. CXR with left base consolidation which has been noted on prior imaging. Pt with symptoms of cough and mucous production. - transfer to ICU for closer monitoring and BiPAP if needed. - start meropenem and vancomycin to treat for post obstructive pneumonia. The pt has been recently hospitalized. - blood and sputum cultures pending. - pulmonology consult pending. - standing nebs. - start Solumedrol. - swallow eval as the pt does endorse some difficulty with swallowing. Lung cancer Pt was to start chemotherapy as an outpt. - oncology consult requested. - treatment as above. HTN Exacerbated by pain and respiratory distress. - continue antihypertensive regimen. - pain control and breathing treatments as above. - hydralazine as needed. PPx: Per orthopedic surgery. Discharge Planning Transfer to ICU as the pt desaturates easily and may need BiPAP. Louis Johnson DO May 27, 2016 17:10
[2016-05-27] MEDS ORDERED: Vancomycin Consult Pharmacy 1 EA OTHER SCH (17:45)
[2016-05-27] MEDS ORDERED: hydrALAZINE HCL 20 MG/ML VIAL IV PUSH PRN (17:45)
[2016-05-27] MEDS ORDERED: ASP: Documented allergy to Penicillins or Cephalosporins XX PRN (17:45)
[2016-05-27] MEDS ORDERED: MEROPENEM INJ 1,000 MG in SODIUM CHLORIDE 0.9% INJ 100 ML IV SCH (17:45)
[2016-05-27] MEDS ORDERED: MISCELLANEOUS PHARMACY INFORMATION XX PRN (17:45)
[2016-05-27] MEDS: methylPREDNISolone SOD SUCC 40 MG/1 ML VIAL IV PUSH SCH ×2 (19:01→23:48)
[2016-05-27] MEDS: VANCOMYCIN INJ 1,250 MG in SODIUM CHLOR 0.9% 250 ML INJ 250 ML IV SCH (19:02)
[2016-05-27] MEDS: SENNOSIDES 8.6 MG TAB PO SCH (19:08)
[2016-05-27] MEDS: DOCUSATE SODIUM 100 MG CAP PO SCH (20:14)
[2016-05-27] MEDS: CEFEPIME INJ 2,000 MG in SODIUM CHLORIDE 0.9% INJ 100 ML IV SCH (20:14)
[2016-05-27] MEDS: ATORVASTATIN 80 MG TAB PO SCH (20:14)
[2016-05-27] MEDS: HYDROmorphone HCL PF 1 MG/ML VIAL IV PUSH PRN (23:00)
[2016-05-28] VITALS (16 sets, daily range): BP systolic 113–183; BP diastolic 61–81; PULSE 57–92; RESP 17–26; TEMP 97.7–98.9; O2SAT 96–100
[2016-05-28] MEDS: ACETAMINOPHEN/HYDROcodone 325 MG/7.5 MG TAB PO PRN (02:13)
[2016-05-28] MEDS: CEFEPIME INJ 2,000 MG in SODIUM CHLORIDE 0.9% INJ 100 ML IV SCH ×3 (04:23→20:02)
[2016-05-28] MEDS: ONDANSETRON HCL 4 MG/2 ML VIAL IVP PRN ×2 (04:27→20:18)
[2016-05-28] MEDS: HYDROmorphone HCL PF 1 MG/ML VIAL IV PUSH PRN ×4 (04:27→20:18)
[2016-05-28 05:46] LABS: HEMATOCRIT 24.8 % (35.0-46.0); MEAN CELL VOLUME 80.1 FL (80.0-100.0); MEAN CORPUSCULAR HEMOGLOBIN 25.9 PG (27.0-34.0); MEAN CORPUSCULAR HGB CONC 32.3 % (32.0-36.0); PLATELET COUNT 132 TH/MM3 (150-450); RED BLOOD COUNT 3.09 MIL/MM3 (4.00-5.30); REVIEW FLAG FINAL; WHITE BLOOD COUNT 6.1 TH/MM3 (4.0-11.0)
--- NOTE | 2016-05-28 05:50 | MB ---
cc: LONI IVEY DATE OF CONSULTATION 05/27/2016 REASON FOR CONSULTATION Pneumonia. HISTORY OF PRESENT ILLNESS Mrs. Craig is a 76-year-old female with multiple medical problems including lung cancer for which she is to start chemotherapy, had fallen at home and sustained a fracture of the left hip which was surgically repaired. She did well immediately postoperatively, however, developed increasing shortness of breath, chest x-ray evidence of pneumonia. I am asked to see her at this time for same. PAST MEDICAL HISTORY 1. Lung cancer for chemotherapy as above. 2. COPD. 3. Hypertension. 4. Hypothyroidism. 5. Rheumatoid arthritis. 6. Coronary artery disease. 7. Chronic anemia. PREVIOUS SURGERIES 1. Hysterectomy. 2. Cataract surgery. 3. Cholecystectomy. 4. Colonoscopy. 5. Previous right hip intramedullary nail. MEDICATIONS AT HOME 1. Prednisone. 2. Zofran. 3. Prednisone. 4. Lorazepam. 5. Ventolin. 6. Lisinopril. 7. Levothyroxine. 8. Amlodipine. 9. Amitriptyline. 10. Primidone. 11. Omeprazole. ALLERGIES PENICILLIN. MORPHINE. SOCIAL HISTORY 40 pack years. Not smoking at present. Does not drink any alcohol. Does not use drugs. . SYSTEMS REVIEW A 12-point review of systems as per HPI and Past History, otherwise negative. PHYSICAL EXAMINATION GENERAL: The patient is alert. VITAL SIGNS: Temperature 99, pulse 80, respiration 20, blood pressure 140/70. Oxygen saturation 96% on 50% inspired oxygen fraction. HEENT: Exam unremarkable. EYES: Without icterus. NECK: Without adenopathy or thyroid enlargement. CHEST: Scattered rhonchi bilaterally. CARDIAC EXAM: PMI distant. S1, S2 audible. No murmur, no rub. ABDOMEN: Lax. Audible bowel sounds. EXTREMITIES: No clubbing, cyanosis or edema. LABORATORY DATA Chest x-ray - Left lower lobe pneumonia. White count 6.7, hemoglobin 9, hematocrit 27.9, platelets 159,000. Sodium 131, potassium 4.0. INR 1.0. BUN 7, creatinine 0.5. IMPRESSION 1. Left lower lobe pneumonia. 2. COPD. 3. Coronary artery disease. 4. Hypertension. 5. Hypothyroidism. 6. Rheumatoid arthritis. PLAN The patient has been started on antibiotic therapy and appropriately so. Bronchodilator therapy will be continued. The patient's chest x-ray will be followed and, depending on her progress, will proceed further. I do thank you for asking to partake in Mrs. Craig's care. Sincerely MD MARIAM Hernandez/BAHMAN /8:04 PM /5:32 AM
[2016-05-28] MEDS: RESP: ALBUTEROL 2.5 MG/IPRATROPIUM 0.5 MG NEB (PRN) NEB (05:58)
[2016-05-28 06:01] LABS: BICARBONATE 28.9 MEQ/L (21.0-32.0); MAGNESIUM 1.8 MG/DL (1.5-2.5); POTASSIUM 4.5 MEQ/L (3.5-5.1)
[2016-05-28] MEDS: LEVOTHYROXINE SODIUM 100 MCG TAB PO SCH (06:59)
[2016-05-28] MEDS: methylPREDNISolone SOD SUCC 40 MG/1 ML VIAL IV PUSH SCH ×3 (06:59→17:26)
[2016-05-28 07:11] LABS: CALCIUM-PROTEIN CORRECTED 9.1 MG/DL (8.5-10.1)
--- NOTE | 2016-05-28 08:10 | PD.ORT.PN ---
Subjective Subjective Remarks POD 2 s/p IMN left hip doing well. pain controlled Objective Vitals Vital Signs Date Time Temp Pulse Resp B/P Pulse Ox O2 Delivery O2 Flow Rate FiO2 05/28/16 07:00 100 Nasal Cannula 3.00 05/28/16 06:00 60 05/28/16 05:49 100 Nasal Cannula 3.00 05/28/16 04:31 97 Venturi Mask 6.00 50 05/28/16 04:00 66 05/28/16 04:00 98.4 87 19 113/81 99 05/28/16 02:00 61 05/28/16 00:00 98.9 66 20 148/61 100 05/28/16 00:00 66 05/27/16 22:00 Venturi Mask 50 05/27/16 22:00 98.5 74 23 157/67 98 05/27/16 22:00 76 05/27/16 20:58 78 05/27/16 20:09 98 Venturi Mask 6.00 50 05/27/16 19:40 98.2 77 22 154/69 96 05/27/16 18:50 Venturi Mask 05/27/16 16:00 99.0 79 23 140/77 96 05/27/16 12:00 97.5 69 22 171/70 97 05/27/16 11:30 97 Venturi Mask 50 05/27/16 08:42 Auto Vent 6.00 50 I/O 05/27/16 05/27/16 05/27/16 05/28/16 05/28/16 05/28/16 07:00 15:00 23:00 07:00 15:00 23:00 Intake Total 570 ml 1329 ml 1095 ml 644 ml Output Total 950 ml Balance -380 ml 1329 ml 1095 ml 644 ml Intake Oral 360 ml 500 ml 510 ml IV Total 210 ml 829 ml 585 ml 644 ml Output Urine Total 950 ml # Voids 3 3 5 # Bowel Movements 0 0 0 Result Diagram: 05/28/16 0516 05/28/16 0516 Imaging Last 72 hours Impressions Femur X-Ray 05/26/16 0000 Signed Impressions: Service Date/Time: Thursday, May 26, 2016 12:24 - CONCLUSION: Postoperative changes. Moris Bonilla MD Chest X-Ray 4/12/17 0000 Signed Impressions: Service Date/Time: Thursday, May 26, 2016 14:54 - CONCLUSION: Left lower lobe consolidation identified. Moris Bonilla MD Hip and Pelvis X-Ray 05/25/16 0000 Signed Impressions: Service Date/Time: Wednesday, May 25, 2016 23:01 - CONCLUSION: Mildly displaced fracture through the intertrochanteric region of the left hip. Baljit Rockwell MD Chest X-Ray 05/25/16 0000 Signed Impressions: Service Date/Time: Wednesday, May 25, 2016 23:02 - CONCLUSION: Left lower lobe atelectasis unchanged. Baljit Rockwell MD Objective Remarks Left lower extremity: Clean dry dressings intact. Minimal swelling. No pain with knee or ankle range of motion. Distally she has intact sensation with capillary refills Assessment & Plan Assessment and Plan 1) Left intertrochanteric femur fracture status post intramedullary sera fixation POD 2 Weightbearing as tolerated left lower extremity Daily dressing changes beginning POD 2 Incentive spirometry Lovenox DC planning to rehabilitation f/u with [facility] or [facility] in 2 weeks Osmar Taylor May 28, 2016 08:10
[2016-05-28] MEDS: CALCIUM/VITAMIN D 250 MG/125 U TAB PO SCH ×3 (08:17→17:26)
[2016-05-28] MEDS: PANTOPRAZOLE SOD 20 MG DELAYED RELEASE TAB PO SCH (08:17)
[2016-05-28] MEDS: SODIUM CHLORIDE 0.9% FLUSH 5 ML FLUSH IVF SCH ×2 (08:17→20:03)
[2016-05-28] MEDS: DONEPEZIL HCL 5 MG TAB PO SCH (08:18)
[2016-05-28] MEDS: DOCUSATE SODIUM 100 MG CAP PO SCH ×2 (08:18→20:02)
[2016-05-28] MEDS: CHOLECALCIFEROL (VIT D3) 5000 UNIT CAP PO SCH (08:18)
[2016-05-28] MEDS: LISINOPRIL 20 MG TAB PO SCH (08:18)
[2016-05-28] MEDS: FOLIC ACID 1 MG TAB PO SCH (08:18)
[2016-05-28] MEDS: SENNOSIDES 8.6 MG TAB PO SCH (08:18)
[2016-05-28] MEDS: AMITRIPTYLINE HCL 10 MG TAB PO SCH ×2 (08:21→20:02)
[2016-05-28] MEDS: RESP: ALBUTEROL 2.5 MG/IPRATROPIUM 0.5 MG NEB (SCH) NEB ×3 (08:52→20:42)
[2016-05-28] MEDS: PRIMIDONE 250 MG TAB PO SCH ×3 (09:00→17:26)
--- NOTE | 2016-05-28 10:36 | HHI.PR ---
Subjective Remarks The patient said that she was breathing better. She did endorse some anxiety. She also says she was constipated. She said her pain was a little bit better controlled. Nursing was at the bedside. Objective Vitals Vital Signs Date Time Temp Pulse Resp B/P Pulse Ox O2 Delivery O2 Flow Rate FiO2 05/28/16 08:54 99 Nasal Cannula 3.00 05/28/16 07:00 100 Nasal Cannula 3.00 05/28/16 06:00 60 05/28/16 05:49 100 Nasal Cannula 3.00 05/28/16 04:31 97 Venturi Mask 6.00 50 05/28/16 04:00 66 05/28/16 04:00 98.4 87 19 113/81 99 05/28/16 02:00 61 05/28/16 00:00 98.9 66 20 148/61 100 05/28/16 00:00 66 05/27/16 22:00 Venturi Mask 50 05/27/16 22:00 98.5 74 23 157/67 98 05/27/16 22:00 76 05/27/16 20:58 78 05/27/16 20:09 98 Venturi Mask 6.00 50 05/27/16 19:40 98.2 77 22 154/69 96 05/27/16 18:50 Venturi Mask 05/27/16 16:00 99.0 79 23 140/77 96 05/27/16 12:00 97.5 69 22 171/70 97 05/27/16 11:30 97 Venturi Mask 50 I/O 05/27/16 05/27/16 05/27/16 05/28/16 05/28/16 05/28/16 07:00 15:00 23:00 07:00 15:00 23:00 Intake Total 570 ml 1329 ml 1095 ml 644 ml Output Total 950 ml Balance -380 ml 1329 ml 1095 ml 644 ml Intake Oral 360 ml 500 ml 510 ml IV Total 210 ml 829 ml 585 ml 644 ml Output Urine Total 950 ml # Voids 3 3 5 # Bowel Movements 0 0 0 Result Diagram: 05/28/16 0516 05/28/16 0516 Imaging Last Impressions Femur X-Ray 05/26/16 0000 Signed Impressions: Service Date/Time: Thursday, May 26, 2016 12:24 - CONCLUSION: Postoperative changes. Moris A. Chad, MD Chest X-Ray 05/26/16 0000 Signed Impressions: Service Date/Time: Thursday, May 26, 2016 14:54 - CONCLUSION: Left lower lobe consolidation identified. Moris Bonilla MD Hip and Pelvis X-Ray 05/25/16 0000 Signed Impressions: Service Date/Time: Wednesday, May 25, 2016 23:01 - CONCLUSION: Mildly displaced fracture through the intertrochanteric region of the left hip. Baljit Rockwell MD Objective Remarks GENERAL: Resting comfortably. SKIN: No rashes, ecchymoses or lesions. Cool and dry. HEAD: Atraumatic. Normocephalic. No temporal or scalp tenderness. EYES: Extraocular motions intact. No scleral icterus. No injection or drainage. CARDIOVASCULAR: Regular rate and rhythm without murmurs, gallops, or rubs. RESPIRATORY: Scattered expiratory wheezing. GASTROINTESTINAL: Abdomen soft, non-tender, nondistended. No guarding or rebound. NEUROLOGICAL: Awake and alert. Sensory grossly within normal limits. Left lower extremity ROM limited secondary to pain. Normal speech. PSYCH: Mood and affect appropriate. Procedures Left hip fracture repair. Medications and IVs Current Medications Medications (Trade) Dose Ordered Sig/Shade Route Start Time Stop Time Status Last Admin (Zofran Inj) 4 mg Q6H PRN IVP 05/25/16 23:45 05/28/16 04:27 (Narcan Inj) 0.4 mg UNSCH PRN IV 05/25/16 23:45 (Elavil) 10 mg BID PO 05/26/16 09:00 05/28/16 08:21 (Norvasc) 10 mg DAILY PO 05/26/16 09:00 05/28/16 08:18 (Lipitor) 80 mg HS PO 05/26/16 21:00 05/27/16 20:14 (Aricept) 10 mg DAILY PO 05/26/16 09:00 05/28/16 08:18 (Synthroid) 100 mcg DAILY@0600 PO 05/26/16 06:00 05/28/16 06:59 (Mysoline) 250 mg TID PO 05/26/16 09:00 05/27/16 14:10 (Prinivil) 40 mg DAILY PO 05/26/16 09:00 05/28/16 08:18 (Protonix) 20 mg DAILY PO 05/26/16 09:00 05/28/16 08:17 (Folate) 1 mg DAILY PO 05/26/16 09:00 05/28/16 08:18 (NS Flush) 2 ml UNSCH PRN IVF 05/26/16 11:45 (NS Flush) 2 ml BID IVF 05/26/16 21:00 05/28/16 08:17 (Lovenox Inj) 30 mg Q24H SQ 05/27/16 12:00 05/27/16 12:00 (Oscal-D 250-125) 250 mg TID PO 05/26/16 14:00 05/28/16 08:17 (Benadryl) 25 mg Q6H PRN PO 05/26/16 11:45 (Walker 7.5-325 Mg) 1 tab Q3H PRN PO 05/26/16 11:45 05/28/16 02:13 (Walker 7.5-325 Mg) 2 tab Q6H PRN PO 05/26/16 11:45 (Morphine Inj) 3 mg Q3H PRN IV PUSH 05/26/16 11:45 (Vitamin D3) 5,000 units DAILY PO 05/27/16 09:00 05/28/16 08:18 ([place] Darci Childress) 2 spray Q4H PRN EACH NARE 05/26/16 20:45 05/27/16 00:19 Hydralazine HCl 10 mg 10 mg Q6HR PRN IV PUSH 05/27/16 17:45 Pharmacy Profile Note 0 ml @ 0 mls/hr UNSCH OTHER 05/27/16 17:45 (Vancomycin Inj/ NS 250 ml Inj) 250 ml @ 250 mls/hr Q24H IV 05/27/16 18:00 05/27/16 19:02 (SoluMEDROL INJ) 40 mg Q6HR IV PUSH 05/27/16 18:00 05/28/16 06:59 (Colace) 100 mg BID PO 05/27/16 21:00 05/28/16 08:18 (Senokot) 17.2 mg DAILY PO 05/27/16 18:00 05/28/16 08:18 Miscellaneous Information SPECIFIC LAB TO BE JOSE... ONCE ONCE .XX 05/30/16:45 05/30/16 17:46 (Maxipime Inj/NS Inj) 100 ml @ 200 mls/hr Q8H IV 05/27/16 20:00 05/28/16 04:23 (Dilaudid Pf Inj) 1 mg Q3HR PRN IV PUSH 05/28/16 08:15 05/28/16 08:44 (Mucinex Er) 1,200 mg BID PO 05/28/16 10:30 UNV (Miralax) 17 gm DAILY PO 05/28/16 10:30 UNV (Xanax) 0.25 mg Q6H PRN PO 05/28/16 10:30 UNV A/P Assessment and Plan This is a 76 year old female patient with a past medical history which includes : anemia, angina, anxiety, arthritis, Asthma, lung cancer, CAD s/o IA, COPD, colitis, hypertension, kidney stones, migraine, osteoarthritis, osteoporosis, rheumatoid arthritis and hypothyroidism. Patient presents to the emergency department after she had a trip and fall over her daughter's dog. Patient reports pain and inability to bear weight on her left lower extremity. Hip and pelvic x-ray revealed mildly displaced fracture through the intertrochanteric region of the left hip. Left hip fracture Status post mechanical fall. S/p repair 05/26/16. - weightbearing, wound care and anticoagulation per orthopedic surgery. Cleared for discharge by surgery. - pain control with a bowel regimen. - incentive spirometry. - physical and occupational therapy. - Follow CBC and transfuse as needed. Acute respiratory failure The pt has lung cancer and COPD. Currently on a ventimask and desaturating quite easily. CXR with left base consolidation which has been noted on prior imaging. Pt with symptoms of cough and mucous production. Pulmonology consult appreciated. - Wean oxygen and start BiPAP if needed. - start cefepime and vancomycin to treat for post obstructive pneumonia. The pt has been recently hospitalized. - blood and sputum cultures pending. - standing nebs. - Continue Solumedrol. - swallow eval as the pt does endorse some difficulty with swallowing. Lung cancer Pt was to start chemotherapy as an outpt. - oncology consult requested. - treatment as above. HTN Exacerbated by pain and respiratory distress. Relatively well-controlled 05/28. - continue antihypertensive regimen. - pain control and breathing treatments as above. - hydralazine as needed. PPx: Per orthopedic surgery. Discharge Planning Hopefully discharged to SNF in 1-2 days. Louis Johnson DO May 28, 2016 10:36
[2016-05-28] MEDS: INSULIN ASPART SUPPLEMENTAL SCALE SQ SCH ×3 (11:00→20:03)
[2016-05-28] MEDS: CARVEDILOL 3.125 MG TAB PO SCH ×2 (12:13→20:02)
[2016-05-28] MEDS: POLYETHYLENE GLYCOL 17 GM PKG PO SCH (12:13)
[2016-05-28] MEDS: ENOXAPARIN SODIUM 30 MG/0.3 ML SYRINGE SQ SCH (12:13)
[2016-05-28] MEDS: guaiFENesin E.R. 600 MG TAB PO SCH ×2 (12:14→20:02)
--- NOTE | 2016-05-28 13:02 | MB ---
cc: MARÍA FELIPE DATE OF CONSULTATION: 05/28/2016. REASON FOR CONSULTATION: Patient with a history of extensive stage small-cell lung cancer who presents with hip fracture. CHIEF COMPLAINT: Fall, leg pain, dyspnea. HISTORY OF PRESENT ILLNESS: Ms. Craig is a 76-year-old female who has history of small-cell lung cancer which was diagnosed in early 2015. She was found to have a spiculated mass in the left upper lobe abutting the mediastinum. A CT-guided biopsy confirmed small cell lung cancer. She was to begin systemic chemotherapy. Unfortunately the patient had a fall after she tripped over her daughter's dog. She landed on her hip and had excruciating pain and inability to bear weight on the left lower extremity. She presented to the emergency department and was found to have a mildly displaced fracture to the intertrochanteric region of the left hip. The patient was seen by orthopedic surgery and has undergone left intertrochanteric femur repair status post intramedullary sera fixation. The patient was desaturating with low oxygen levels and was transferred to be the intensive care unit for close observation. She is currently on Ventimask and requiring 6 liters of Ventimask to keep her oxygen levels at the 97%. I have reviewed her chest x-ray and there is a left lower lobe consolidation. She has not had any fevers since her admission. She denies any headaches, no blurry vision. No dysphagia. No chest pain, no abdominal pain. REVIEW OF SYSTEMS: A comprehensive 14-point review of systems was completed which is negative except as described in the history of present illness. PAST MEDICAL HISTORY: 1. Small-cell lung cancer. 2. Coronary artery disease. 3. COPD. 4. Tobacco abuse. 5. History of colitis. 6. Hypertension. 7. Rheumatoid arthritis. 8. Osteoarthritis. PAST SURGICAL HISTORY: 1. Cataract surgery. 2. Cholecystectomy. 3. Colonoscopy. 4. Right hip surgery. 5. Left hip surgery. 6. Complete hysterectomy. 7. Lung biopsy. MEDICATIONS: 1. Cefepime 2 grams IV q. 8 hours. 2. Vancomycin 1250 milligrams q. 24 hours. 3. Solu-Medrol 40 IV q. 6 hours. 4. Senna 17.2 milligrams one tablet p.o. daily. 5. Lovenox 30 subcutaneous daily. 6. Atorvastatin 80 milligrams p.o. at bedtime. 7. Vitamin D3 5000 units daily. 8. Brantley 7.5 / 325 milligrams one tablet p.o. q. 3 hours PRN. 9. Morphine 3 milligrams IV q. 3 hours. 10. Norvasc 10 milligrams one tablet p.o. daily. 11. Aricept 10 milligrams one tablet p.o. daily. 12. Primidone 250 milligrams one tablet p.o. twice a day. 13. Lisinopril 40 milligrams one tablet p.o. daily. 14. Protonix 20 milligrams one tablet p.o. daily. 15. Folic acid 1 milligram p.o. daily. 16. DuoNeb. 17. Levothyroxine 100 micrograms one tablet p.o. daily. 18. Zofran 4 milligrams IV q. 6 hours. 19. Narcan 0.4 IV as needed. ALLERGIES: 1. MORPHINE. 2. PENICILLIN. 3. WHEAT. FAMILY HISTORY: Family history was reviewed and is noncontributory to this admission. SOCIAL HISTORY: She is a smoker. She rarely drinks alcohol. No illicit drug use. PHYSICAL EXAMINATION: VITAL SIGNS: Blood pressure is 113/81, pulse is in the 60s, temperature is 98.4. 02 saturations are 99% now on 3 liters of nasal cannula. GENERAL: Acutely ill elderly patient in no apparent distress. HEAD, EYES, EARS, NOSE, THROAT: Pupils are equal, round and reactive to light. Extraocular muscles intact. No oral thrush. No oral lesions. NECK: The neck is supple. No jugular venous distention. No bruits. No lymphadenopathy. CHEST: Rhonchi in the left lower lobe, scattered wheezes bilateral upper lobes on inspiration and expiration. CARDIAC: S1-S2. Regular rate and rhythm. ABDOMEN: The abdomen is soft, nontender and nondistended. Bowel sounds are present. EXTREMITIES: Without any edema, erythema or cyanosis. SKIN: Without any petechiae, lesions or bruises. NEUROLOGIC: No focal deficit. LABS: WBC 6.1, hemoglobin 8, platelet count 132. Serum chemistries show sodium of 131, potassium 4.5, chloride 98, CO2 28.9, anion gap is 4, BUN is 7, creatinine is 0.49, GFR is 123 glucose is 168, calcium 7.9, total protein is 5.1. IMAGING STUDIES: Chest x-ray was reviewed. ASSESSMENT AND PLAN: This is 76-year-old female with a diagnosis of small-cell lung cancer, COPD, tobacco abuse, coronary artery disease, history of myocardial infarction, hypertension, history of osteoarthritis, history of colitis and hypothyroidism who presents to the emergency department after a fall and was found to have left hip fracture. She has undergone intramedullary sera fixation. 1. Status post fall and left hip fracture status post surgery with intramedullary sera fixation. The patient is doing okay after the surgery. Continue physical therapy. The patient will need to be discharged to rehab; however, she is currently having a pneumonia and respiratory difficulty. Will need to monitor her in the next one to two days to see if she improves. 2. Small cell lung cancer. If her oxygen saturations do not improve, we may have to give her chemotherapy while inpatient. Small cell lung cancer is highly responsive to chemotherapy. Rapid debulking of the disease in the lung may help improve her respiratory status. 3. Borderline normocytic anemia. Obtain anemia studies. Transfuse to keep hemoglobin greater than 7.5. 4. Mild thrombocytopenia. Platelet count 132,000. Continue to monitor. 5. DVT prophylaxis status post hip surgery. Continue Lovenox injections. Thank you for allowing me to participate in the care of this patient. I will continue to follow this patient along. MD DAGMAR Rinaldi/MYNOR /10:49 AM /12:44 PM SÁNCHEZ
--- NOTE | 2016-05-28 13:58 | HHI.PR ---
Subjective Remarks LESS SOB AMBULATING Objective Vital Signs Date Time Temp Pulse Resp B/P Pulse Ox O2 Delivery O2 Flow Rate FiO2 05/28/16 12:00 70 05/28/16 12:00 98.0 70 17 139/65 100 05/28/16 10:00 92 05/28/16 08:54 99 Nasal Cannula 3.00 05/28/16 08:00 78 05/28/16 08:00 97.8 78 26 183/74 96 05/28/16 07:00 100 Nasal Cannula 3.00 05/28/16 06:00 60 05/28/16 05:49 100 Nasal Cannula 3.00 05/28/16 04:31 97 Venturi Mask 6.00 50 05/28/16 04:00 66 05/28/16 04:00 98.4 87 19 113/81 99 05/28/16 02:00 61 05/28/16 00:00 98.9 66 20 148/61 100 05/28/16 00:00 66 05/27/16 22:00 Venturi Mask 50 05/27/16 22:00 98.5 74 23 157/67 98 05/27/16 22:00 76 05/27/16 20:58 78 05/27/16 20:09 98 Venturi Mask 6.00 50 05/27/16 19:40 98.2 77 22 154/69 96 05/27/16 18:50 Venturi Mask 05/27/16 16:00 99.0 79 23 140/77 96 I/O 05/27/16 05/27/16 05/27/16 05/28/16 05/28/16 05/28/16 07:00 15:00 23:00 07:00 15:00 23:00 Intake Total 570 ml 1329 ml 1095 ml 644 ml Output Total 950 ml Balance -380 ml 1329 ml 1095 ml 644 ml Intake Oral 360 ml 500 ml 510 ml IV Total 210 ml 829 ml 585 ml 644 ml Output Urine Total 950 ml # Voids 3 3 5 # Bowel Movements 0 0 0 Result Diagram: 05/28/16 0516 05/28/16 0516 Objective Remarks GENERAL: SKIN: Warm and dry. HEAD: Atraumatic. Normocephalic. EYES: Pupils equal and round. No scleral icterus. No injection or drainage. ENT: No nasal bleeding or discharge. Mucous membranes pink and moist. NECK: Trachea midline. No JVD. CARDIOVASCULAR: Regular rate and rhythm. RESPIRATORY: No accessory muscle use ,scattered ronchi CASTROINTESTINAL: Abdomen soft, non-tender, nondistended. Hepatic and splenic margins not palpable. MUSCULOSKELETAL: Extremities without clubbing, cyanosis, or edema. No obvious deformities. NEUROLOGICAL: Awake and alert. No obvious cranial nerve deficits. Motor grossly within normal limits. Five out of 5 muscle strength in the arms and legs. Normal speech. PSYCHIATRIC: Appropriate mood and affect; insight and judgment normal. Assessment and Plan Assessment and Plan ASSESSMENT pna copd PLAN O2 ANTIBIOTICS BRONCHODILATOR THERAPY Chandler Arteaga MD May 28, 2016 13:58
[2016-05-28] MEDS: VANCOMYCIN INJ 1,250 MG in SODIUM CHLOR 0.9% 250 ML INJ 250 ML IV SCH (17:26)
[2016-05-28] MEDS: ATORVASTATIN 80 MG TAB PO SCH (20:02)
[2016-05-29] VITALS (11 sets, daily range): BP systolic 135–185; BP diastolic 60–89; PULSE 58–114; RESP 14–23; TEMP 97–98.2; O2SAT 94–100
[2016-05-29] MEDS: methylPREDNISolone SOD SUCC 40 MG/1 ML VIAL IV PUSH SCH ×5 (02:35→23:19)
[2016-05-29] MEDS: ONDANSETRON HCL 4 MG/2 ML VIAL IVP PRN (02:35)
[2016-05-29] MEDS: HYDROmorphone HCL PF 1 MG/ML VIAL IV PUSH PRN ×2 (02:36→10:11)
[2016-05-29] MEDS: CEFEPIME INJ 2,000 MG in SODIUM CHLORIDE 0.9% INJ 100 ML IV SCH ×3 (03:43→20:41)
[2016-05-29] MEDS: ALPRAZolam 0.25 MG TAB PO PRN ×2 (03:44→09:48)
[2016-05-29] MEDS: diphenhydrAMINE HCL 25 MG CAP PO PRN (03:45)
[2016-05-29] MEDS: LEVOTHYROXINE SODIUM 100 MCG TAB PO SCH (06:33)
[2016-05-29 06:42] LABS: HEMATOCRIT 24.7 % (35.0-46.0); MEAN CELL VOLUME 79.9 FL (80.0-100.0); MEAN CORPUSCULAR HEMOGLOBIN 26.8 PG (27.0-34.0); MEAN CORPUSCULAR HGB CONC 33.5 % (32.0-36.0); PLATELET COUNT 165 TH/MM3 (150-450); RED BLOOD COUNT 3.09 MIL/MM3 (4.00-5.30); RED CELL DISTRIBUTION WIDTH 17.8 % (11.6-17.2); REVIEW FLAG FINAL; WHITE BLOOD COUNT 6.8 TH/MM3 (4.0-11.0)
[2016-05-29] MEDS: INSULIN ASPART SUPPLEMENTAL SCALE SQ SCH ×4 (07:00→20:37)
[2016-05-29 07:09] LABS: BICARBONATE 28.9 MEQ/L (21.0-32.0); MAGNESIUM 1.8 MG/DL (1.5-2.5); POTASSIUM 4.6 MEQ/L (3.5-5.1)
[2016-05-29] MEDS: RESP: ALBUTEROL 2.5 MG/IPRATROPIUM 0.5 MG NEB (SCH) NEB ×3 (08:02→20:25)
[2016-05-29] MEDS: DOCUSATE SODIUM 100 MG CAP PO SCH ×2 (09:46→20:36)
[2016-05-29] MEDS: POLYETHYLENE GLYCOL 17 GM PKG PO SCH (09:46)
[2016-05-29] MEDS: FOLIC ACID 1 MG TAB PO SCH (09:46)
[2016-05-29] MEDS: SODIUM CHLORIDE 0.9% FLUSH 5 ML FLUSH IVF SCH ×2 (09:46→20:41)
[2016-05-29] MEDS: CHOLECALCIFEROL (VIT D3) 5000 UNIT CAP PO SCH (09:47)
[2016-05-29] MEDS: CARVEDILOL 3.125 MG TAB PO SCH ×2 (09:47→20:37)
[2016-05-29] MEDS: PRIMIDONE 250 MG TAB PO SCH ×3 (09:47→18:54)
[2016-05-29] MEDS: CALCIUM/VITAMIN D 250 MG/125 U TAB PO SCH ×3 (09:47→18:54)
[2016-05-29] MEDS: DONEPEZIL HCL 5 MG TAB PO SCH (09:47)
[2016-05-29] MEDS: guaiFENesin E.R. 600 MG TAB PO SCH ×2 (09:47→20:37)
[2016-05-29] MEDS: AMITRIPTYLINE HCL 10 MG TAB PO SCH ×2 (09:48→20:37)
[2016-05-29] MEDS: PANTOPRAZOLE SOD 20 MG DELAYED RELEASE TAB PO SCH (09:48)
[2016-05-29] MEDS: LISINOPRIL 20 MG TAB PO SCH (09:48)
[2016-05-29] MEDS: SENNOSIDES 8.6 MG TAB PO SCH (09:48)
--- NOTE | 2016-05-29 12:03 | PD.ONC.PN ---
Subjective Subjective Remarks Afebrile overnight. patient complaining of some low back pain and shortness of breath. Per nurse, no overnight events. Objective Data Date Time Temp Pulse Resp B/P Pulse Ox O2 Delivery O2 Flow Rate FiO2 05/29/16 10:00 68 05/29/16 08:02 96 Nasal Cannula 2.00 05/29/16 08:00 97.9 60 21 171/87 94 05/29/16 08:00 60 05/29/16 07:00 95 Nasal Cannula 2.00 05/29/16 06:00 66 05/29/16 04:00 98.0 58 19 172/75 99 05/29/16 04:00 58 05/29/16 02:00 61 05/29/16 00:00 61 05/29/16 00:00 98.2 61 14 135/60 100 05/28/16 22:00 61 05/28/16 20:44 96 Nasal Cannula 2.00 05/28/16 20:00 57 05/28/16 20:00 97.7 66 25 154/75 100 05/28/16 19:00 Nasal Cannula 2.00 05/28/16 18:00 66 05/28/16 16:00 72 05/28/16 16:00 98.1 72 20 147/65 98 05/28/16 14:00 74 05/28/16 12:00 70 05/28/16 12:00 98.0 70 17 139/65 100 05/29/16 05/29/16 05/29/16 07:00 15:00 23:00 Intake Total 506 ml Balance 506 ml Result Diagram: 05/29/16 0605/29/16 0600 Laboratory Results Laboratory Tests Test 05/29/16 06:00 White Blood Count 6.8 TH/MM3 Red Blood Count 3.09 MIL/MM3 Hemoglobin 8.3 GM/DL Hematocrit 24.7 % Mean Corpuscular Volume 79.9 FL Mean Corpuscular Hemoglobin 26.8 PG Mean Corpuscular Hemoglobin 33.5 % Concent Red Cell Distribution Width 17.8 % Platelet Count 165 TH/MM3 Mean Platelet Volume 8.8 FL Sodium Level 131 MEQ/L Potassium Level 4.6 MEQ/L Chloride Level 97 MEQ/L Carbon Dioxide Level 28.9 MEQ/L Anion Gap 5 MEQ/L Blood Urea Nitrogen 9 MG/DL Creatinine 0.44 MG/DL Estimat Glomerular Filtration 139 ML/MIN Rate Random Glucose 140 MG/DL Calcium Level 8.3 MG/DL Magnesium Level 1.8 MG/DL Culture Results Microbiology Date/Time Procedure Status Source Growth 05/27/16 20:00 Aerobic Blood Culture - Preliminary Resulted Blood Other NO GROWTH IN 2 DAYS 05/27/16 20:00 Anaerobic Blood Culture - Preliminary Resulted Blood Other NO GROWTH IN 2 DAYS 05/27/16 20:15 Aerobic Blood Culture - Preliminary Resulted Blood Other NO GROWTH IN 2 DAYS 05/27/16 20:15 Anaerobic Blood Culture - Preliminary Resulted Blood Other NO GROWTH IN 2 DAYS 05/29/16 02:03 Gram Stain - Final Resulted Sputum Expectorated Sputum 05/29/16 02:03 Sputum Culture Resulted Sputum Expectorated Sputum Pending Administered Medications Medications (Trade) Dose Ordered Sig/Shade Route PRN Reason Start Time Stop Time Status Last Admin Dose Admin Ondansetron HCl (Zofran Inj) 4 mg Q6H PRN IVP NAUSEA OR VOMITING 05/25/16 23:45 05/29/16 02:35 Amitriptyline HCl (Elavil) 10 mg BID PO 05/26/16 09:00 05/29/16 09:48 Amlodipine Besylate (Norvasc) 10 mg DAILY PO 05/26/16 09:00 05/29/16 09:48 Atorvastatin Calcium (Lipitor) 80 mg HS PO 05/26/16 21:00 05/28/16 20:02 Donepezil HCl (Aricept) 10 mg DAILY PO 05/26/16 09:00 05/29/16 09:47 Levothyroxine Sodium (Synthroid) 100 mcg DAILY@0600 PO 05/26/16 06:00 05/29/16 06:33 Primidone (Mysoline) 250 mg TID PO 05/26/16 09:00 05/29/16 09:47 Lisinopril (Prinivil) 40 mg DAILY PO 05/26/16 09:00 05/29/16 09:48 Pantoprazole Sodium (Protonix) 20 mg DAILY PO 05/26/16 09:00 05/29/16 09:48 Folic Acid (Folate) 1 mg DAILY PO 05/26/16 09:00 05/29/16 09:46 IV Flush (NS Flush) 2 ml BID IVF 05/26/16 21:00 05/29/16 09:46 Enoxaparin Sodium (Lovenox Inj) 30 mg Q24H SQ 05/27/16 12:00 05/28/16 12:13 Calcium/Vitamin D (Oscal-D 250-125) 250 mg TID PO 05/26/16 14:00 05/29/16 09:47 Diphenhydramine HCl (Benadryl) 25 mg Q6H PRN PO ITCHING 05/26/16 11:45 05/29/16 03:45 Acetaminophen/ Hydrocodone Bitart ([place]son 7.5-325 Mg) 1 tab Q3H PRN PO pain 2<5 05/26/16 11:45 05/28/16 02:13 Cholecalciferol (Vitamin D3) 5,000 units DAILY PO 05/27/16 09:00 05/29/16 09:47 Sodium Chloride 2 spray 2 spray Q4H PRN EACH NARE NASAL CONGESTION 05/26/16 20:45 05/27/16 00:19 Vancomycin HCl/ Sodium Chloride (Vancomycin Inj/ NS 250 ml Inj) 250 ml @ 250 mls/hr Q24H IV 05/27/16 18:00 05/28/16 17:26 Methylprednisolone Sodium Succinate (SoluMEDROL INJ) 40 mg Q6HR IV PUSH 05/27/16 18:00 05/29/16 06:33 Docusate Sodium (Colace) 100 mg BID PO 05/27/16 21:00 05/29/16 09:46 Sennosides 17.2 mg 17.2 mg DAILY PO 05/27/16 18:00 05/29/16 09:48 Cefepime HCl/ Sodium Chloride (Maxipime Inj/NS Inj) 100 ml @ 200 mls/hr Q8H IV 05/27/16 20:00 05/29/16 03:43 Hydromorphone HCl (Dilaudid Pf Inj) 1 mg Q3HR PRN IV PUSH Breakthrough pain 05/28/16 08:15 05/29/16 10:11 Guaifenesin (Mucinex Er) 1,200 mg BID PO 05/28/16 11:00 05/29/16 09:47 Polyethylene Glycol (Miralax) 17 gm DAILY PO 05/28/16 11:00 05/29/16 09:46 Alprazolam (Xanax) 0.25 mg Q6H PRN PO Anxiety 05/28/16 10:30 05/29/16 09:48 Carvedilol (Coreg) 3.125 mg Q12HR PO 05/28/16 11:00 05/29/16 09:47 Objective Remarks GENERAL: Pleasant frail patient, sitting up in bed on 2L O2 via NC SKIN: Warm and dry. HEAD: Normocephalic. EYES: No injection or drainage. NECK: Supple, trachea midline. CARDIOVASCULAR: +S1/S2, tachy RESPIRATORY: diminished at bases, occasional rhonchi GASTROINTESTINAL: Abdomen soft, non-tender, nondistended. EXTREMITIES: No cyanosis NEUROLOGICAL: awake and alert, normal speech Assessment/Plan Problem List: (1) Metastatic lung cancer (metastasis from lung to other site) Status: Acute Plan: --diagnosed in early 2015. --She was found to have a spiculated mass in the left upper lobe abutting the mediastinum. --CT-guided biopsy confirmed small cell lung cancer. She was to begin systemic chemotherapy but was admitted with fracture -- If her oxygen saturations do not improve, we may have to give her chemotherapy while inpatient. Small cell lung cancer is highly responsive to chemotherapy. Rapid debulking of the disease in the lung may help improve her respiratory status. (2) Fracture, intertrochanteric, left femur Status: Acute Plan: --s/p intramedullary sera fixation. --will need to be discharged to rehab (3) Anemia Status: Acute Plan: --Transfuse to keep hemoglobin greater than 7.5. --await iron studies Assessment 76y/o female with a history of extensive stage small-cell lung cancer admitted with hip fracture. h/o Small-cell lung cancer. Coronary artery disease. COPD. Tobacco abuse. History of colitis. Hypertension. Rheumatoid arthritis. Osteoarthritis. HPI: the patient had a fall after she tripped over her daughter's dog. presented to the emergency department and was found to have a mildly displaced fracture to the intertrochanteric region of the left hip. The patient was seen by orthopedic surgery and has undergone left intertrochanteric femur repair status post intramedullary sera fixation. The patient was desaturating with low oxygen levels and was transferred to be the intensive care unit for close observation. chest x-ray showed a left lower lobe consolidation. Plan 1. monitor O2 saturation 2. continue Lovenox for DVT prophylaxis 3. await iron studies 4. may start chemotherapy if hypoxia persists. Attending Statement The exam, history, and the medical decision-making described in the above note were completed with the assistance of the mid-level provider. I reviewed and agree with the findings presented. I attest that I had a [id number] encounter with the patient on the same day, and personally performed and documented my assessment and findings in the medical record. Problem Qualifiers (1) Fracture, intertrochanteric, left femur: Qualified Code: S72.142A - Fracture, intertrochanteric, left femur, closed, initial encounter Dorcas Evans May 29, 2016 12:03 Evangelist Tracy MD May 29, 2016 23:59
[2016-05-29 12:17] LABS: TRANSFERRIN IRON PROFILE 181 MG/DL (200-360)
[2016-05-29] MEDS: ENOXAPARIN SODIUM 30 MG/0.3 ML SYRINGE SQ SCH (12:26)
--- NOTE | 2016-05-29 12:56 | HHI.PR ---
Subjective Remarks LESS SOB AMBULATING Objective Vital Signs Date Time Temp Pulse Resp B/P Pulse Ox O2 Delivery O2 Flow Rate FiO2 05/29/16 10:41 22 05/29/16 10:00 68 05/29/16 08:02 96 Nasal Cannula 2.00 05/29/16 08:00 97.9 60 21 171/87 94 05/29/16 08:00 60 05/29/16 07:00 95 Nasal Cannula 2.00 05/29/16 06:00 66 05/29/16 04:00 98.0 58 19 172/75 99 05/29/16 04:00 58 05/29/16 02:00 61 05/29/16 00:00 61 05/29/16 00:00 98.2 61 14 135/60 100 05/28/16 22:00 61 05/28/16 20:44 96 Nasal Cannula 2.00 05/28/16 20:00 57 05/28/16 20:00 97.7 66 25 154/75 100 05/28/16 19:00 Nasal Cannula 2.00 05/28/16 18:00 66 05/28/16 16:00 72 05/28/16 16:00 98.1 72 20 147/65 98 05/28/16 14:00 74 I/O 05/28/16 05/28/16 05/28/16 05/29/16 05/29/16 05/29/16 07:00 15:00 23:00 07:00 15:00 23:00 Intake Total 644 ml 1071 ml 565 ml 506 ml Output Total 450 ml 250 ml Balance 644 ml 621 ml 315 ml 506 ml Intake Oral 720 ml 240 ml 420 ml IV Total 644 ml 351 ml 325 ml 86 ml Output Urine Total 450 ml 250 ml # Voids 5 2 4 # Bowel Movements 0 0 0 0 Result Diagram: 05/29/16 0605/29/16 06 Objective Remarks GENERAL: SKIN: Warm and dry. HEAD: Atraumatic. Normocephalic. EYES: Pupils equal and round. No scleral icterus. No injection or drainage. ENT: No nasal bleeding or discharge. Mucous membranes pink and moist. NECK: Trachea midline. No JVD. CARDIOVASCULAR: Regular rate and rhythm. RESPIRATORY: No accessory muscle use ,scattered ronchi CASTROINTESTINAL: Abdomen soft, non-tender, nondistended. Hepatic and splenic margins not palpable. MUSCULOSKELETAL: Extremities without clubbing, cyanosis, or edema. No obvious deformities. NEUROLOGICAL: Awake and alert. No obvious cranial nerve deficits. Motor grossly within normal limits. Five out of 5 muscle strength in the arms and legs. Normal speech. PSYCHIATRIC: Appropriate mood and affect; insight and judgment normal. Assessment and Plan Assessment and Plan ASSESSMENT pna copd PLAN O2 ANTIBIOTICS BRONCHODILATOR THERAPY f/u cxray Chandler Arteaga MD May 29, 2016 12:56
--- NOTE | 2016-05-29 13:21 | HHI.PR ---
Subjective Remarks The patient said she still has some shortness of breath. She has not had a bowel movement yet. Her family was at the bedside. She said she was told she might start chemotherapy while in the hospital. Discussed with nursing. Objective Vitals Vital Signs Date Time Temp Pulse Resp B/P Pulse Ox O2 Delivery O2 Flow Rate FiO2 05/29/16 10:41 22 05/29/16 10:00 68 05/29/16 08:02 96 Nasal Cannula 2.00 05/29/16 08:00 97.9 60 21 171/87 94 05/29/16 08:00 60 05/29/16 07:00 95 Nasal Cannula 2.00 05/29/16 06:00 66 05/29/16 04:00 98.0 58 19 172/75 99 05/29/16 04:00 58 05/29/16 02:00 61 05/29/16 00:00 61 05/29/16 00:00 98.2 61 14 135/60 100 05/28/16 22:00 61 05/28/16 20:44 96 Nasal Cannula 2.00 05/28/16 20:00 57 05/28/16 20:00 97.7 66 25 154/75 100 05/28/16 19:00 Nasal Cannula 2.00 05/28/16 18:00 66 05/28/16 16:00 72 05/28/16 16:00 98.1 72 20 147/65 98 05/28/16 14:00 74 I/O 05/28/16 05/28/16 05/28/16 05/29/16 05/29/16 05/29/16 07:00 15:00 23:00 07:00 15:00 23:00 Intake Total 644 ml 1071 ml 565 ml 506 ml Output Total 450 ml 250 ml Balance 644 ml 621 ml 315 ml 506 ml Intake Oral 720 ml 240 ml 420 ml IV Total 644 ml 351 ml 325 ml 86 ml Output Urine Total 450 ml 250 ml # Voids 5 2 4 # Bowel Movements 0 0 0 0 Result Diagram: 05/29/16 0600 05/29/16 0600 Imaging Last Impressions Femur X-Ray 05/26/16 0000 Signed Impressions: Service Date/Time: Thursday, May 26, 2016 12:24 - CONCLUSION: Postoperative changes. Moris Bonilla MD Chest X-Ray 05/26/16 0000 Signed Impressions: Service Date/Time: Thursday, May 26, 2016 14:54 - CONCLUSION: Left lower lobe consolidation identified. Moris Bonilla MD Hip and Pelvis X-Ray 05/25/16 0000 Signed Impressions: Service Date/Time: Wednesday, May 25, 2016 23:01 - CONCLUSION: Mildly displaced fracture through the intertrochanteric region of the left hip. Baljit Rockwell MD Objective Remarks GENERAL: Resting comfortably. SKIN: No rashes, ecchymoses or lesions. Cool and dry. HEAD: Atraumatic. Normocephalic. No temporal or scalp tenderness. EYES: Extraocular motions intact. No scleral icterus. No injection or drainage. CARDIOVASCULAR: Regular rate and rhythm without murmurs, gallops, or rubs. RESPIRATORY: Scattered expiratory wheezing. GASTROINTESTINAL: Abdomen soft, non-tender, nondistended. No guarding or rebound. MUSCULOSKELETAL: Left lower extremity with bandages and tender to palpation. NEUROLOGICAL: Awake and alert. Sensory grossly within normal limits. Left lower extremity ROM limited secondary to pain. Normal speech. PSYCH: Mood and affect appropriate. Procedures Left hip fracture repair. Medications and IVs Current Medications Medications (Trade) Dose Ordered Sig/Shade Route Start Time Stop Time Status Last Admin (Zofran Inj) 4 mg Q6H PRN IVP 05/25/16 23:45 05/29/16 02:35 (Narcan Inj) 0.4 mg UNSCH PRN IV 05/25/16 23:45 (Elavil) 10 mg BID PO 05/26/16 09:00 05/29/16 09:48 (Norvasc) 10 mg DAILY PO 05/26/16 09:00 05/29/16 09:48 (Lipitor) 80 mg HS PO 05/26/16 21:00 05/28/16 20:02 (Aricept) 10 mg DAILY PO 05/26/16 09:00 05/29/16 09:47 (Synthroid) 100 mcg DAILY@0600 PO 05/26/16 06:00 05/29/16 06:33 (Mysoline) 250 mg TID PO 05/26/16 09:00 05/29/16 12:26 (Prinivil) 40 mg DAILY PO 05/26/16 09:00 05/29/16 09:48 (Protonix) 20 mg DAILY PO 05/26/16 09:00 05/29/16 09:48 (Folate) 1 mg DAILY PO 05/26/16 09:00 05/29/16 09:46 (NS Flush) 2 ml UNSCH PRN IVF 05/26/16 11:45 (NS Flush) 2 ml BID IVF 05/26/16 21:00 05/29/16 09:46 (Lovenox Inj) 30 mg Q24H SQ 05/27/16 12:00 05/29/16 12:26 (Oscal-D 250-125) 250 mg TID PO 05/26/16 14:00 05/29/16 12:26 (Benadryl) 25 mg Q6H PRN PO 05/26/16 11:45 05/29/16 03:45 ([place] 7.5-325 Mg) 1 tab Q3H PRN PO 05/26/16 11:45 05/28/16 02:13 ([place] 7.5-325 Mg) 2 tab Q6H PRN PO 05/26/16 11:45 (Morphine Inj) 3 mg Q3H PRN IV PUSH 05/26/16 11:45 (Vitamin D3) 5,000 units DAILY PO 05/27/16 09:00 05/29/16 09:47 ([place] Darci [place]) 2 spray Q4H PRN EACH NARE 05/26/16 20:45 05/27/16 00:19 Hydralazine HCl 10 mg 10 mg Q6HR PRN IV PUSH 05/27/16 17:45 Pharmacy Profile Note 0 ml @ 0 mls/hr UNSCH OTHER 05/27/16 17:45 (Vancomycin Inj/ NS 250 ml Inj) 250 ml @ 250 mls/hr Q24H IV 05/27/16 18:00 05/28/16 17:26 (SoluMEDROL INJ) 40 mg Q6HR IV PUSH 05/27/16 18:00 05/29/16 12:26 (Colace) 100 mg BID PO 05/27/16 21:00 05/29/16 09:46 (Senokot) 17.2 mg DAILY PO 05/27/16 18:00 05/29/16 09:48 Miscellaneous Information SPECIFIC LAB TO BE JOSE... ONCE ONCE .XX 05/30/16 17:45 05/30/16 17:46 (Maxipime Inj/NS Inj) 100 ml @ 200 mls/hr Q8H IV 05/27/16 20:00 05/29/16 12:26 (Dilaudid Pf Inj) 1 mg Q3HR PRN IV PUSH 05/28/16 08:15 05/29/16 10:11 (Mucinex Er) 1,200 mg BID PO 05/28/16 11:00 05/29/16 09:47 (Miralax) 17 gm DAILY PO 05/28/16 11:00 05/29/16 09:46 (Xanax) 0.25 mg Q6H PRN PO 05/28/16 10:30 05/29/16 09:48 (Coreg) 3.125 mg Q12HR PO 05/28/16 11:00 05/29/16 09:47 A/P Assessment and Plan This is a 76 year old female patient with a past medical history which includes : anemia, angina, anxiety, arthritis, Asthma, lung cancer, CAD s/o SD, COPD, colitis, hypertension, kidney stones, migraine, osteoarthritis, osteoporosis, rheumatoid arthritis and hypothyroidism. Patient presents to the emergency department after she had a trip and fall over her daughter's dog. Patient reports pain and inability to bear weight on her left lower extremity. Hip and pelvic x-ray revealed mildly displaced fracture through the intertrochanteric region of the left hip. Left hip fracture Status post mechanical fall. S/p repair 05/26/16. - weightbearing, wound care and anticoagulation per orthopedic surgery. Cleared for discharge by surgery. - pain control with a bowel regimen. - incentive spirometry. - physical and occupational therapy. - Follow CBC and transfuse as needed. Stable. Acute respiratory failure The pt has lung cancer and COPD. Currently on a ventimask and desaturating quite easily. CXR with left base consolidation which has been noted on prior imaging. Pt with symptoms of cough and mucous production. Pulmonology consult appreciated. - Wean oxygen and start BiPAP if needed. - start cefepime and vancomycin to treat for post obstructive pneumonia. - blood and sputum cultures pending. - standing nebs. - Continue Solumedrol. - Repeat chest x-ray pending. Lung cancer Pt was to start chemotherapy as an outpt. Oncology consult appreciated. - treatment as above. - Oncology considering starting chemotherapy inpatient. HTN Exacerbated by pain and respiratory distress. Not well-controlled 05/29. - continue antihypertensive regimen. - pain control and breathing treatments as above. - hydralazine as needed. PPx: Per orthopedic surgery. Discharge Planning Transfer to [facility]. Louis Johnson DO May 29, 2016 13:21
[2016-05-29] MEDS ORDERED: LACTULOSE SYRUP 20 GM/30 ML CUP PO ONE (13:30)
--- NOTE | 2016-05-29 14:32 | RADRPT ---
EXAM DATE/TIME: 05/29/2016 14:07 [place] COMPARISON: CHEST SINGLE AP, May 26, 2016, 14:54. INDICATIONS : Cough MEDICAL HISTORY : Carcinoma, lung. SURGICAL HISTORY : Hip fracture, Infusaport ENCOUNTER: Initial ACUITY: 4 - 6 days PAIN SCORE: 2/10 LOCATION: Bilateral chest FINDINGS: Left lung base consolidation and not changed. Right IJ [id number] is present with tip overlapping the expected region of the SVC. Heart and mediastinum are unremarkable for technique. There are ather osclerotic calcifications of the aorta due to chronic atherosclerotic disease. CONCLUSION: No change in left lung base consolidation. Chio Sanchez MD on May 29, 2016 at 14:30 Board Certified Radiologist. This report was verified electronically.
[2016-05-29] MEDS: VANCOMYCIN INJ 1,250 MG in SODIUM CHLOR 0.9% 250 ML INJ 250 ML IV SCH (18:54)
[2016-05-29] MEDS: ATORVASTATIN 80 MG TAB PO SCH (20:36)
[2016-05-29] MEDS: ACETAMINOPHEN/HYDROcodone 325 MG/7.5 MG TAB PO PRN (22:16)
[2016-05-29] MEDS: SODIUM CHLORIDE 0.65% NASAL SPRAY 45 ML BTL EACH NARE PRN (23:25)
[2016-05-29] MEDS: RESP: ALBUTEROL 2.5 MG/IPRATROPIUM 0.5 MG NEB (PRN) NEB (23:44)
[2016-05-30] VITALS (13 sets, daily range): BP systolic 147–188; BP diastolic 69–79; PULSE 53–97; RESP 19–23; TEMP 96.3–97.6; O2SAT 94–98
[2016-05-30] MEDS: ONDANSETRON HCL 4 MG/2 ML VIAL IVP PRN (03:30)
[2016-05-30] MEDS: CEFEPIME INJ 2,000 MG in SODIUM CHLORIDE 0.9% INJ 100 ML IV SCH ×3 (03:31→21:36)
[2016-05-30] MEDS: HYDROmorphone HCL PF 1 MG/ML VIAL IV PUSH PRN ×3 (03:37→17:25)
[2016-05-30] MEDS: ACETAMINOPHEN/HYDROcodone 325 MG/7.5 MG TAB PO PRN ×3 (04:20→21:37)
[2016-05-30] MEDS: methylPREDNISolone SOD SUCC 40 MG/1 ML VIAL IV PUSH SCH ×3 (05:56→17:25)
[2016-05-30] MEDS: LEVOTHYROXINE SODIUM 100 MCG TAB PO SCH (05:56)
[2016-05-30] MEDS: INSULIN ASPART SUPPLEMENTAL SCALE SQ SCH ×4 (06:02→21:35)
[2016-05-30] MEDS: RESP: ALBUTEROL 2.5 MG/IPRATROPIUM 0.5 MG NEB (SCH) NEB ×3 (07:38→19:31)
[2016-05-30] MEDS: PRIMIDONE 250 MG TAB PO SCH ×3 (08:13→17:25)
[2016-05-30] MEDS: CARVEDILOL 3.125 MG TAB PO SCH ×2 (08:13→21:37)
[2016-05-30] MEDS: SENNOSIDES 8.6 MG TAB PO SCH (08:13)
[2016-05-30] MEDS: LISINOPRIL 20 MG TAB PO SCH (08:13)
[2016-05-30] MEDS: DOCUSATE SODIUM 100 MG CAP PO SCH ×2 (08:13→21:37)
[2016-05-30] MEDS: guaiFENesin E.R. 600 MG TAB PO SCH ×2 (08:14→21:37)
[2016-05-30] MEDS: FOLIC ACID 1 MG TAB PO SCH (08:14)
[2016-05-30] MEDS: CHOLECALCIFEROL (VIT D3) 5000 UNIT CAP PO SCH (08:14)
[2016-05-30] MEDS: PANTOPRAZOLE SOD 20 MG DELAYED RELEASE TAB PO SCH (08:14)
[2016-05-30] MEDS: CALCIUM/VITAMIN D 250 MG/125 U TAB PO SCH ×3 (08:14→17:25)
[2016-05-30] MEDS: AMITRIPTYLINE HCL 10 MG TAB PO SCH ×2 (08:14→21:37)
[2016-05-30] MEDS: DONEPEZIL HCL 5 MG TAB PO SCH (08:14)
[2016-05-30] MEDS: POLYETHYLENE GLYCOL 17 GM PKG PO SCH (08:15)
[2016-05-30] MEDS: SODIUM CHLORIDE 0.9% FLUSH 5 ML FLUSH IVF SCH ×2 (09:00→21:37)
[2016-05-30] MEDS ORDERED: BISACODYL 10 MG SUPP RECTAL ONE (11:00)
--- NOTE | 2016-05-30 11:27 | HHI.PR ---
Subjective Remarks The patient said that she did not get much sleep. She said her breathing was poorly this morning. She said she still has not had a bowel movement. She says she has not been eating well. She denies any fever. Family at the bedside. Objective Vitals Vital Signs Date Time Temp Pulse Resp B/P Pulse Ox O2 Delivery O2 Flow Rate FiO2 05/30/16 10:45 97 188/76 05/30/16 08:32 Nasal Cannula 2.00 50 05/30/16 07:50 96.3 56 20 185/79 97 05/30/16 07:40 96 Nasal Cannula 2.00 05/30/16 06:31 56 05/30/16 04:00 97.2 71 23 147/69 95 05/30/16 00:00 97.1 78 21 148/69 94 05/29/16 21:20 Nasal Cannula 2.00 Humidified 05/29/16 20:29 98 Nasal Cannula 2.00 05/29/16 20:00 97.0 69 22 185/79 95 05/29/16 16:00 97.0 61 16 156/63 97 05/29/16 12:00 98.2 69 23 147/89 98 05/29/16 12:00 114 I/O 05/29/16 05/29/16 05/29/16 05/30/16 05/30/16 05/30/16 07:00 15:00 23:00 07:00 15:00 23:00 Intake Total 506 ml 786 ml 480 ml 720 ml Output Total 500 ml Balance 506 ml 286 ml 480 ml 720 ml Intake Oral 420 ml 600 ml 480 ml 720 ml IV Total 86 ml 186 ml Output Urine Total 500 ml # Voids 4 2 5 # Bowel Movements 0 0 Result Diagram: 05/29/16 0600 05/29/16 0600 Imaging Last Impressions Chest X-Ray 05/29/16 0000 Signed Impressions: Service Date/Time: Sunday, May 29, 2016 14:07 - CONCLUSION: No change in left lung base consolidation. Chio Sanchez MD Femur X-Ray 05/26/16 0000 Signed Impressions: Service Date/Time: Thursday, May 26, 2016 12:24 - CONCLUSION: Postoperative changes. Moris Bonilla MD Hip and Pelvis X-Ray 05/25/16 0000 Signed Impressions: Service Date/Time: Wednesday, May 25, 2016 23:01 - CONCLUSION: Mildly displaced fracture through the intertrochanteric region of the left hip. Baljit Rockwell MD Objective Remarks GENERAL: Resting comfortably. SKIN: No rashes, ecchymoses or lesions. Cool and dry. HEAD: Atraumatic. Normocephalic. No temporal or scalp tenderness. EYES: Extraocular motions intact. No scleral icterus. No injection or drainage. CARDIOVASCULAR: Regular rate and rhythm without murmurs, gallops, or rubs. RESPIRATORY: Diffuse expiratory wheezing. GASTROINTESTINAL: Abdomen soft, non-tender, nondistended. No guarding or rebound. MUSCULOSKELETAL: Left lower extremity with bandages and tender to palpation. NEUROLOGICAL: Awake and alert. Sensory grossly within normal limits. Left lower extremity ROM limited secondary to pain. Normal speech. PSYCH: Mood and affect appropriate. Procedures Left hip fracture repair. Medications and IVs Current Medications Medications (Trade) Dose Ordered Sig/Shade Route Start Time Stop Time Status Last Admin (Zofran Inj) 4 mg Q6H PRN IVP 05/25/16 23:45 05/30/16 03:30 (Narcan Inj) 0.4 mg UNSCH PRN IV 05/25/16 23:45 (Elavil) 10 mg BID PO 05/26/16 09:00 05/30/16 08:14 (Norvasc) 10 mg DAILY PO 05/26/16 09:00 05/30/16 08:14 (Lipitor) 80 mg HS PO 05/26/16 21:00 05/29/16 20:36 (Aricept) 10 mg DAILY PO 05/26/16 09:00 05/30/16 08:14 (Synthroid) 100 mcg DAILY@0600 PO 05/26/16 06:00 05/30/16 05:56 (Mysoline) 250 mg TID PO 05/26/16 09:00 05/30/16 08:13 (Prinivil) 40 mg DAILY PO 05/26/16 09:00 05/30/16 08:13 (Protonix) 20 mg DAILY PO 05/26/16 09:00 05/30/16 08:14 (Folate) 1 mg DAILY PO 05/26/16 09:00 05/30/16 08:14 (NS Flush) 2 ml UNSCH PRN IVF 05/26/16 11:45 (NS Flush) 2 ml BID IVF 05/26/16 21:00 05/29/16 20:41 (Lovenox Inj) 30 mg Q24H SQ 05/27/16 12:00 05/29/16 12:26 (Oscal-D 250-125) 250 mg TID PO 05/26/16 14:00 05/30/16 08:14 (Benadryl) 25 mg Q6H PRN PO 05/26/16 11:45 05/29/16 03:45 ([place] 7.5-325 Mg) 1 tab Q3H PRN PO 05/26/16 11:45 05/28/16 02:13 ([place] 7.5-325 Mg) 2 tab Q6H PRN PO 05/26/16 11:45 05/30/16 04:20 (Morphine Inj) 3 mg Q3H PRN IV PUSH 05/26/16 11:45 (Vitamin D3) 5,000 units DAILY PO 05/27/16 09:00 05/30/16 08:14 ([place] Dacri [place]) 2 spray Q4H PRN EACH NARE 05/26/16 20:45 05/29/16 23:25 Hydralazine HCl 10 mg 10 mg Q6HR PRN IV PUSH 05/27/16 17:45 Pharmacy Profile Note 0 ml @ 0 mls/hr UNSCH OTHER 05/27/16 17:45 (Vancomycin Inj/ NS 250 ml Inj) 250 ml @ 250 mls/hr Q24H IV 05/27/16 18:00 05/29/16 18:54 (SoluMEDROL INJ) 40 mg Q6HR IV PUSH 05/27/16 18:00 05/30/16 05:56 (Colace) 100 mg BID PO 05/27/16 21:00 05/30/16 08:13 (Senokot) 17.2 mg DAILY PO 05/27/16 18:00 05/30/16 08:13 Miscellaneous Information SPECIFIC LAB TO BE JOSE... ONCE ONCE .XX 05/30/16 17:45 05/30/16 17:46 (Maxipime Inj/NS Inj) 100 ml @ 200 mls/hr Q8H IV 05/27/16 20:00 05/30/16 03:31 (Dilaudid Pf Inj) 1 mg Q3HR PRN IV PUSH 05/28/16 08:15 05/30/16 08:27 (Mucinex Er) 1,200 mg BID PO 05/28/16 11:00 05/30/16 08:14 (Miralax) 17 gm DAILY PO 05/28/16 11:00 05/30/16 08:15 (Xanax) 0.25 mg Q6H PRN PO 05/28/16 10:30 05/29/16 09:48 (Coreg) 3.125 mg Q12HR PO 05/28/16 11:00 05/30/16 08:13 ([place]) 0.1 mg Q6H PRN PO 05/29/16 18:00 (Vasotec Inj) 1.25 mg Q6H PRN IV PUSH 05/29/16 18:00 A/P Assessment and Plan This is a 76 year old female patient with a past medical history which includes : anemia, angina, anxiety, arthritis, Asthma, lung cancer, CAD s/o MS, COPD, colitis, hypertension, kidney stones, migraine, osteoarthritis, osteoporosis, rheumatoid arthritis and hypothyroidism. Patient presents to the emergency department after she had a trip and fall over her daughter's dog. Patient reports pain and inability to bear weight on her left lower extremity. Hip and pelvic x-ray revealed mildly displaced fracture through the intertrochanteric region of the left hip. Left hip fracture Status post mechanical fall. S/p repair 05/26/16. - weightbearing, wound care and anticoagulation per orthopedic surgery. Cleared for discharge by surgery. - pain control with a bowel regimen. - incentive spirometry. - physical and occupational therapy. - Follow CBC and transfuse as needed. Stable. Acute respiratory failure/ HCAP The pt has lung cancer and COPD. Currently on a ventimask and desaturating quite easily. CXR with left base consolidation which has been noted on prior imaging. Pt with symptoms of cough and mucous production. Pulmonology consult appreciated. - Wean oxygen and start BiPAP if needed. - start cefepime and vancomycin to treat for post obstructive pneumonia. - blood and sputum cultures pending. NGTD. - standing nebs. - Continue Solumedrol 40 mg IV q6h. Lung cancer Pt was to start chemotherapy as an outpt. Oncology consult appreciated. - treatment as above. - Oncology considering starting chemotherapy inpatient. HTN Exacerbated by pain and respiratory distress. Not well-controlled 05/30. - continue antihypertensive regimen including amlodipine and lisinopril. Add HCTZ 05/30. - pain control and breathing treatments as above. - clonidine and Vasotec as needed. Constipation Pt has not had a bowel movement despite bowel regimen. - Dulcolax suppository. - continue bowel regimen. PPx: Per orthopedic surgery. Discharge Planning Awaiting clinical improvement. Louis Johnson DO May 30, 2016 11:27
[2016-05-30] MEDS: HYDROCHLOROTHIAZIDE 25 MG TAB PO SCH (12:11)
[2016-05-30] MEDS: ENOXAPARIN SODIUM 30 MG/0.3 ML SYRINGE SQ SCH (12:11)
--- NOTE | 2016-05-30 12:45 | HHI.PR ---
Subjective Remarks LESS SOB AMBULATING Objective Vital Signs Date Time Temp Pulse Resp B/P Pulse Ox O2 Delivery O2 Flow Rate FiO2 05/30/16 10:45 97 188/76 05/30/16 08:32 Nasal Cannula 2.00 50 05/30/16 07:50 96.3 56 20 185/79 97 05/30/16 07:40 96 Nasal Cannula 2.00 05/30/16 06:31 56 05/30/16 04:00 97.2 71 23 147/69 95 05/30/16 00:00 97.1 78 21 148/69 94 05/29/16 21:20 Nasal Cannula 2.00 Humidified 05/29/16 20:29 98 Nasal Cannula 2.00 05/29/16 20:00 97.0 69 22 185/79 95 05/29/16 16:00 97.0 61 16 156/63 97 I/O 05/29/16 05/29/16 05/29/16 05/30/16 05/30/16 05/30/16 07:00 15:00 23:00 07:00 15:00 23:00 Intake Total 506 ml 786 ml 480 ml 720 ml Output Total 500 ml Balance 506 ml 286 ml 480 ml 720 ml Intake Oral 420 ml 600 ml 480 ml 720 ml IV Total 86 ml 186 ml Output Urine Total 500 ml # Voids 4 2 5 # Bowel Movements 0 0 Result Diagram: 05/29/16 0600 05/29/16 0600 Objective Remarks GENERAL: SKIN: Warm and dry. HEAD: Atraumatic. Normocephalic. EYES: Pupils equal and round. No scleral icterus. No injection or drainage. ENT: No nasal bleeding or discharge. Mucous membranes pink and moist. NECK: Trachea midline. No JVD. CARDIOVASCULAR: Regular rate and rhythm. RESPIRATORY: No accessory muscle use ,scattered ronchi CASTROINTESTINAL: Abdomen soft, non-tender, nondistended. Hepatic and splenic margins not palpable. MUSCULOSKELETAL: Extremities without clubbing, cyanosis, or edema. No obvious deformities. NEUROLOGICAL: Awake and alert. No obvious cranial nerve deficits. Motor grossly within normal limits. Five out of 5 muscle strength in the arms and legs. Normal speech. PSYCHIATRIC: Appropriate mood and affect; insight and judgment normal. Assessment and Plan Assessment and Plan ASSESSMENT pna copd PLAN O2 ANTIBIOTICS BRONCHODILATOR THERAPY f/u cxray Chandler Arteaga MD May 30, 2016 12:45
[2016-05-30] MEDS: VANCOMYCIN INJ 1,250 MG in SODIUM CHLOR 0.9% 250 ML INJ 250 ML IV SCH (17:26)
[2016-05-30] MEDS ORDERED: PHARMACY ORDERED LAB ONE (17:45)
[2016-05-30] MEDS: ATORVASTATIN 80 MG TAB PO SCH (21:38)
[2016-05-30] MEDS: diphenhydrAMINE HCL 25 MG CAP PO PRN (21:54)
--- NOTE | 2016-05-30 22:08 | PD.ONC.PN ---
Subjective Subjective Remarks unable to sleep at night. still very weak and unsteady on feet denies any dyspnea no fever/cough/congestion Objective Data Date Time Temp Pulse Resp B/P Pulse Ox O2 Delivery O2 Flow Rate FiO2 05/30/16 20:00 97.6 69 19 174/72 96 05/30/16 19:31 98 Nasal Cannula 2.00 05/30/16 17:12 98 Nasal Cannula 2.00 05/30/16 15:50 97.6 74 20 164/71 98 05/30/16 11:50 96.9 62 20 173/72 98 05/30/16 10:45 97 188/76 05/30/16 08:32 Nasal Cannula 2.00 50 05/30/16 08:00 53 05/30/16 07:50 96.3 56 20 185/79 97 05/30/16 07:40 96 Nasal Cannula 2.00 05/30/16 06:31 56 05/30/16 04:00 97.2 71 23 147/69 95 05/30/16 00:00 97.1 78 21 148/69 94 05/30/16 05/30/16 05/30/16 07:00 15:00 23:00 Intake Total 720 ml 440 ml Balance 720 ml 440 ml Result Diagram: 05/29/16 0600 05/29/16 0600 Laboratory Results Laboratory Tests Test 05/30/16 17:30 Vancomycin Level Trough 5.9 MCG/ML Culture Results Microbiology Date/Time Procedure Status Source Growth 05/29/16 02:03 Gram Stain - Final Resulted Sputum Expectorated Sputum 05/29/16 02:03 Sputum Culture - Preliminary Resulted Sputum Expectorated Sputum HEAVY GROWTH NORMAL RESPIRATORY BRUCE... Administered Medications Medications (Trade) Dose Ordered Sig/Shade Route PRN Reason Start Time Stop Time Status Last Admin Dose Admin Ondansetron HCl (Zofran Inj) 4 mg Q6H PRN IVP NAUSEA OR VOMITING 05/25/16 23:45 05/30/16 03:30 Amitriptyline HCl (Elavil) 10 mg BID PO 05/26/16 09:00 05/30/16 21:37 Amlodipine Besylate (Norvasc) 10 mg DAILY PO 05/26/16 09:00 05/30/16 08:14 Atorvastatin Calcium (Lipitor) 80 mg HS PO 05/26/16 21:00 05/30/16 21:38 Donepezil HCl (Aricept) 10 mg DAILY PO 05/26/16 09:00 05/30/16 08:14 Levothyroxine Sodium (Synthroid) 100 mcg DAILY@0600 PO 05/26/16 06:00 05/30/16 05:56 Primidone (Mysoline) 250 mg TID PO 05/26/16 09:00 05/30/16 17:25 Lisinopril (Prinivil) 40 mg DAILY PO 05/26/16 09:00 05/30/16 08:13 Pantoprazole Sodium (Protonix) 20 mg DAILY PO 05/26/16 09:00 05/30/16 08:14 Folic Acid (Folate) 1 mg DAILY PO 05/26/16 09:00 05/30/16 08:14 IV Flush (NS Flush) 2 ml BID IVF 05/26/16 21:00 05/30/16 21:37 Enoxaparin Sodium (Lovenox Inj) 30 mg Q24H SQ 05/27/16 12:00 05/30/16 12:11 Calcium/Vitamin D (Oscal-D 250-125) 250 mg TID PO 05/26/16 14:00 05/30/16 17:25 Diphenhydramine HCl (Benadryl) 25 mg Q6H PRN PO ITCHING/ insomnia 05/26/16 11:45 05/30/16 21:54 Acetaminophen/ Hydrocodone Bitart ([place] 7.5-325 Mg) 1 tab Q3H PRN PO pain 2<5 05/26/16 11:45 05/28/16 02:13 Acetaminophen/ Hydrocodone Bitart ([place] 7.5-325 Mg) 2 tab Q6H PRN PO pain 6<10 05/26/16 11:45 05/30/16 21:37 Cholecalciferol (Vitamin D3) 5,000 units DAILY PO 05/27/16 09:00 05/30/16 08:14 Sodium Chloride ([place] Darci [place]) 2 spray Q4H PRN EACH NARE NASAL CONGESTION 05/26/16 20:45 05/29/16 23:25 Methylprednisolone Sodium Succinate (SoluMEDROL INJ) 40 mg Q6HR IV PUSH 05/27/16 18:00 05/30/16 17:25 Docusate Sodium (Colace) 100 mg BID PO 05/27/16 21:00 05/30/16 21:37 Sennosides 17.2 mg 17.2 mg DAILY PO 05/27/16 18:00 05/30/16 08:13 Cefepime HCl/ Sodium Chloride (Maxipime Inj/NS Inj) 100 ml @ 200 mls/hr Q8H IV 05/27/16 20:00 05/30/16 21:36 Hydromorphone HCl (Dilaudid Pf Inj) 1 mg Q3HR PRN IV PUSH Breakthrough pain 05/28/16 08:15 05/30/16 17:25 Guaifenesin (Mucinex Er) 1,200 mg BID PO 05/28/16 11:00 05/30/16 21:37 Polyethylene Glycol (Miralax) 17 gm DAILY PO 05/28/16 11:00 05/30/16 08:15 Alprazolam (Xanax) 0.25 mg Q6H PRN PO Anxiety 05/28/16 10:30 05/29/16 09:48 Carvedilol (Coreg) 3.125 mg Q12HR PO 05/28/16 11:00 05/30/16 21:37 Hydrochlorothiazide (Hydrodiuril) 25 mg DAILY PO 05/30/16 11:30 05/30/16 12:11 Objective Remarks GENERAL: weak, nad SKIN: Warm and dry. NECK: Supple, trachea midline. No JVD or lymphadenopathy. LYMPHATIC: No adenopathy. CARDIOVASCULAR: Regular rate and rhythm without murmurs. RESPIRATORY: Breath sounds equal bilaterally. No accessory muscle use. GASTROINTESTINAL: Abdomen soft, non-tender, nondistended. EXTREMITIES: No cyanosis, or edema. left lateral thigh dressing in place Assessment/Plan Problem List: (1) Metastatic lung cancer (metastasis from lung to other site) Status: Acute Plan: --diagnosed in early 2015. --She was found to have a spiculated mass in the left upper lobe abutting the mediastinum. --CT-guided biopsy confirmed small cell lung cancer. She was to begin systemic chemotherapy but was admitted with fracture -- If her oxygen saturations do not improve, we may have to give her chemotherapy while inpatient. Small cell lung cancer is highly responsive to chemotherapy. Rapid debulking of the disease in the lung may help improve her respiratory status. (2) Fracture, intertrochanteric, left femur Status: Acute Plan: --s/p intramedullary sera fixation. --will need to be discharged to rehab (3) Anemia Status: Acute Plan: --Transfuse to keep hemoglobin greater than 7.5. --await iron studies Assessment 76y/o female with a history of extensive stage small-cell lung cancer admitted with hip fracture. h/o Small-cell lung cancer. Coronary artery disease. COPD. Tobacco abuse. History of colitis. Hypertension. Rheumatoid arthritis. Osteoarthritis. HPI: the patient had a fall after she tripped over her daughter's dog. presented to the emergency department and was found to have a mildly displaced fracture to the intertrochanteric region of the left hip. The patient was seen by orthopedic surgery and has undergone left intertrochanteric femur repair status post intramedullary sera fixation. The patient was desaturating with low oxygen levels and was transferred to be the intensive care unit for close observation. chest x-ray showed a left lower lobe consolidation. Plan 1. On abx /steroids for PNA/COPD exacerbation 2. Continue physical therapy 3. Plan to give therapy for small cell lung carcinoma which is very responsive to chemotherapy/otherwise there will be delay in treatment outpatient. Small cell carcinoma has rapid doubling time. . Problem Qualifiers (1) Fracture, intertrochanteric, left femur: Qualified Code: S72.142A - Fracture, intertrochanteric, left femur, closed, initial encounter Evangelist Tracy MD May 30, 2016 22:08
[2016-05-31] VITALS (10 sets, daily range): BP systolic 152–197; BP diastolic 70–86; PULSE 63–81; RESP 18–22; TEMP 96.5–98.9; O2SAT 90–97
[2016-05-31] MEDS: methylPREDNISolone SOD SUCC 40 MG/1 ML VIAL IV PUSH SCH ×5 (00:27→23:19)
[2016-05-31] MEDS: RESP: ALBUTEROL 2.5 MG/IPRATROPIUM 0.5 MG NEB (PRN) NEB (01:16)
[2016-05-31] MEDS: CEFEPIME INJ 2,000 MG in SODIUM CHLORIDE 0.9% INJ 100 ML IV SCH ×3 (04:27→20:41)
[2016-05-31] MEDS: ONDANSETRON HCL 4 MG/2 ML VIAL IVP PRN (04:27)
[2016-05-31] MEDS: ACETAMINOPHEN/HYDROcodone 325 MG/7.5 MG TAB PO PRN ×3 (04:28→20:40)
[2016-05-31] MEDS: INSULIN ASPART SUPPLEMENTAL SCALE SQ SCH ×4 (04:30→20:41)
[2016-05-31 05:26] LABS: AUTOMATED NEUTROPHIL # 5.9 TH/MM3 (1.8-7.7); BASOPHIL % 0.1 % (0.0-2.0); HEMATOCRIT 25.2 % (35.0-46.0); HEMO FLAGS DIFF FINAL; LYMPH % 8.9 % (9.0-44.0); LYMPHOCYTE # 0.6 TH/MM3 (1.0-4.8); MEAN CELL VOLUME 79.8 FL (80.0-100.0); MEAN CORPUSCULAR HEMOGLOBIN 26.9 PG (27.0-34.0); MEAN CORPUSCULAR HGB CONC 33.7 % (32.0-36.0); MONO % 6.5 % (0.0-8.0); NEUT % 84.5 % (16.0-70.0); PLATELET COUNT 205 TH/MM3 (150-450); RED BLOOD COUNT 3.16 MIL/MM3 (4.00-5.30); WHITE BLOOD COUNT 6.9 TH/MM3 (4.0-11.0)
[2016-05-31] MEDS: VANCOMYCIN 1,000 MG/NS 250 ML IV SCH ×4 (06:06→18:22)
[2016-05-31] MEDS: LEVOTHYROXINE SODIUM 100 MCG TAB PO SCH (06:06)
[2016-05-31] MEDS: RESP: ALBUTEROL 2.5 MG/IPRATROPIUM 0.5 MG NEB (SCH) NEB ×3 (07:55→19:33)
[2016-05-31] MEDS: DOCUSATE SODIUM 100 MG CAP PO SCH ×2 (08:46→20:40)
[2016-05-31] MEDS: FOLIC ACID 1 MG TAB PO SCH (08:46)
[2016-05-31] MEDS: DONEPEZIL HCL 5 MG TAB PO SCH (08:46)
[2016-05-31] MEDS: HYDROCHLOROTHIAZIDE 25 MG TAB PO SCH (08:46)
[2016-05-31] MEDS: SENNOSIDES 8.6 MG TAB PO SCH (08:46)
[2016-05-31] MEDS: guaiFENesin E.R. 600 MG TAB PO SCH ×2 (08:46→20:40)
[2016-05-31] MEDS: CHOLECALCIFEROL (VIT D3) 5000 UNIT CAP PO SCH (08:46)
[2016-05-31] MEDS: LISINOPRIL 20 MG TAB PO SCH (08:47)
[2016-05-31] MEDS: POLYETHYLENE GLYCOL 17 GM PKG PO SCH (08:47)
[2016-05-31] MEDS: PRIMIDONE 250 MG TAB PO SCH ×3 (08:47→18:22)
[2016-05-31] MEDS: CALCIUM/VITAMIN D 250 MG/125 U TAB PO SCH ×3 (08:47→18:22)
[2016-05-31] MEDS: AMITRIPTYLINE HCL 10 MG TAB PO SCH ×2 (08:47→20:40)
[2016-05-31] MEDS: PANTOPRAZOLE SOD 20 MG DELAYED RELEASE TAB PO SCH (08:47)
[2016-05-31] MEDS: CARVEDILOL 3.125 MG TAB PO SCH ×2 (08:53→20:40)
[2016-05-31] MEDS ORDERED: METHOTREXATE 2.5 MG TAB PO SCH (09:00)
[2016-05-31] MEDS: SODIUM CHLORIDE 0.9% FLUSH 5 ML FLUSH IVF SCH ×2 (09:00→20:42)
--- NOTE | 2016-05-31 10:59 | HHI.PR ---
Subjective Remarks The patient says she still has not had a bowel movement. She has not been sleeping well. She says her breathing is still rather poor. She said she did just walk with physical therapy. No other acute complaints. She was not sure when she would be starting chemotherapy. Objective Vitals Vital Signs Date Time Temp Pulse Resp B/P Pulse Ox O2 Delivery O2 Flow Rate FiO2 05/31/16 08:59 Nasal Cannula 2.00 50 05/31/16 08:00 96.5 68 20 197/73 94 05/31/16 07:57 96 Nasal Cannula 2.00 05/31/16 05:57 18 05/31/16 04:00 96.5 71 22 174/72 94 05/31/16 00:00 96.8 72 21 173/86 95 05/30/16 21:37 Nasal Cannula 2.00 50 05/30/16 20:00 97.6 69 19 174/72 96 05/30/16 19:50 55 05/30/16 19:31 98 Nasal Cannula 2.00 05/30/16 17:12 98 Nasal Cannula 2.00 05/30/16 15:50 97.6 74 20 164/71 98 05/30/16 11:50 96.9 62 20 173/72 98 I/O 05/30/16 05/30/16 05/30/16 05/31/16 05/31/16 05/31/16 07:00 15:00 23:00 07:00 15:00 23:00 Intake Total 720 ml 440 ml 480 ml 240 ml Output Total 1050 ml 750 ml Balance 720 ml 440 ml -570 ml -510 ml Intake Oral 720 ml 440 ml 480 ml 240 ml Output Urine Total 1050 ml 750 ml # Voids 5 4 1 1 # Bowel Movements 0 Result Diagram: 05/31/16 0425 05/31/16 0425 Imaging Last Impressions Chest X-Ray 05/29/16 0000 Signed Impressions: Service Date/Time: Sunday, May 29, 2016 14:07 - CONCLUSION: No change in left lung base consolidation. Chio Sanchez MD Femur X-Ray 05/26/16 0000 Signed Impressions: Service Date/Time: Thursday, May 26, 2016 12:24 - CONCLUSION: Postoperative changes. Moris Bonilla MD Hip and Pelvis X-Ray 05/25/16 0000 Signed Impressions: Service Date/Time: Wednesday, May 25, 2016 23:01 - CONCLUSION: Mildly displaced fracture through the intertrochanteric region of the left hip. Baljit Rockwell MD Objective Remarks GENERAL: Resting comfortably. SKIN: No rashes, ecchymoses or lesions. Cool and dry. HEAD: Atraumatic. Normocephalic. No temporal or scalp tenderness. EYES: Extraocular motions intact. No scleral icterus. No injection or drainage. CARDIOVASCULAR: Regular rate and rhythm without murmurs, gallops, or rubs. RESPIRATORY: Diffuse expiratory wheezing. GASTROINTESTINAL: Abdomen soft, non-tender, nondistended. No guarding or rebound. MUSCULOSKELETAL: Left lower extremity with bandages and tender to palpation. NEUROLOGICAL: Awake and alert. Sensory grossly within normal limits. Left lower extremity ROM limited secondary to pain. Normal speech. PSYCH: Mood and affect appropriate. Procedures Left hip fracture repair. Medications and IVs Current Medications Medications (Trade) Dose Ordered Sig/Shade Route Start Time Stop Time Status Last Admin (Zofran Inj) 4 mg Q6H PRN IVP 05/25/16 23:45 05/31/16 04:27 (Narcan Inj) 0.4 mg UNSCH PRN IV 05/25/16 23:45 (Elavil) 10 mg BID PO 05/26/16 09:00 05/31/16 08:47 (Norvasc) 10 mg DAILY PO 05/26/16 09:00 05/31/16 08:46 (Lipitor) 80 mg HS PO 05/26/16 21:00 05/30/16 21:38 (Aricept) 10 mg DAILY PO 05/26/16 09:00 05/31/16 08:46 (Synthroid) 100 mcg DAILY@0600 PO 05/26/16 06:00 05/31/16 06:06 (Mysoline) 250 mg TID PO 05/26/16 09:00 05/31/16 08:47 (Prinivil) 40 mg DAILY PO 05/26/16 09:00 05/31/16 08:47 (Protonix) 20 mg DAILY PO 05/26/16 09:00 05/31/16 08:47 (Folate) 1 mg DAILY PO 05/26/16 09:00 05/31/16 08:46 (NS Flush) 2 ml UNSCH PRN IVF 05/26/16 11:45 (NS Flush) 2 ml BID IVF 05/26/16 21:00 05/30/16 21:37 (Lovenox Inj) 30 mg Q24H SQ 05/27/16 12:00 05/30/16 12:11 (Oscal-D 250-125) 250 mg TID PO 05/26/16 14:00 05/31/16 08:47 (Benadryl) 25 mg Q6H PRN PO 05/26/16 11:45 05/30/16 21:54 ([place] 7.5-325 Mg) 1 tab Q3H PRN PO 05/26/16 11:45 05/28/16 02:13 ([place] 7.5-325 Mg) 2 tab Q6H PRN PO 05/26/16 11:45 05/31/16 04:28 (Morphine Inj) 3 mg Q3H PRN IV PUSH 05/26/16 11:45 (Vitamin D3) 5,000 units DAILY PO 05/27/16 09:00 05/31/16 08:46 ([place]) 2 spray Q4H PRN EACH NARE 05/26/16 20:45 05/29/16 23:25 Hydralazine HCl 10 mg 10 mg Q6HR PRN IV PUSH 05/27/16 17:45 (Vancomycin Consult Pharmacy) 0 ml @ 0 mls/hr UNSCH OTHER 05/27/16 17:45 (SoluMEDROL INJ) 40 mg Q6HR IV PUSH 05/27/16 18:00 05/31/16 04:36 (Colace) 100 mg BID PO 05/27/16 21:00 05/31/16 08:46 Sennosides 17.2 mg 17.2 mg DAILY PO 05/27/16 18:00 05/31/16 08:46 (Maxipime Inj/NS Inj) 100 ml @ 200 mls/hr Q8H IV 05/27/16 20:00 05/31/16 04:27 (Dilaudid Pf Inj) 1 mg Q3HR PRN IV PUSH 05/28/16 08:15 05/30/16 17:25 (Mucinex Er) 1,200 mg BID PO 05/28/16 11:00 05/31/16 08:46 (Miralax) 17 gm DAILY PO 05/28/16 11:00 05/31/16 08:47 (Xanax) 0.25 mg Q6H PRN PO 05/28/16 10:30 05/29/16 09:48 (Coreg) 3.125 mg Q12HR PO 05/28/16 11:00 05/31/16 08:53 (Catapres) 0.1 mg Q6H PRN PO 05/29/16 18:00 (Vasotec Inj) 1.25 mg Q6H PRN IV PUSH 05/29/16 18:00 Hydrochlorothiazide 25 mg 25 mg DAILY PO 05/30/16 11:30 05/31/16 08:46 (Vancomycin Inj/ NS 250 ml Inj) 250 ml @ 250 mls/hr Q12H IV 05/31/16 06:00 05/31/16 06:06 Miscellaneous Information SPECIFIC LAB TO BE JOSE... ONCE ONCE .XX 06/01/16 05:45 06/01/16 05:46 (Venofer Inj/NS Inj) 110 ml @ 110 mls/hr DAILY IV 05/31/16 10:00 06/02/16 09:59 A/P Assessment and Plan This is a 76 year old female patient with a past medical history which includes : anemia, angina, anxiety, arthritis, Asthma, lung cancer, CAD s/o [place], COPD, colitis, hypertension, kidney stones, migraine, osteoarthritis, osteoporosis, rheumatoid arthritis and hypothyroidism. Patient presents to the emergency department after she had a trip and fall over her daughter's dog. Patient reports pain and inability to bear weight on her left lower extremity. Hip and pelvic x-ray revealed mildly displaced fracture through the intertrochanteric region of the left hip. Left hip fracture Status post mechanical fall. S/p repair 05/26/16. - weightbearing, wound care and anticoagulation per orthopedic surgery. Cleared for discharge by surgery. - pain control with a bowel regimen. - incentive spirometry. - physical and occupational therapy. - Follow CBC and transfuse as needed. Stable. Acute respiratory failure/ HCAP The pt has lung cancer and COPD. Currently on a ventimask and desaturating quite easily. CXR with left base consolidation which has been noted on prior imaging. Pt with symptoms of cough and mucous production. Pulmonology consult appreciated. - Wean oxygen and start BiPAP if needed. - continue cefepime and vancomycin to treat for post obstructive pneumonia. - blood and sputum cultures pending. NGTD. - standing nebs. - Continue Solumedrol 40 mg IV q6h. Lung cancer Pt was to start chemotherapy as an outpt. Oncology consult appreciated. - treatment as above. - Oncology planning on starting chemotherapy inpatient. HTN Exacerbated by pain and respiratory distress. Not well-controlled 05/31. - continue antihypertensive regimen including amlodipine and lisinopril. Added HCTZ 05/30. - pain control and breathing treatments as above. - clonidine and Vasotec as needed. Constipation Pt has not had a bowel movement despite bowel regimen. S/p Dulcolax suppository. - continue bowel regimen. Add Fleets enema. PPx: Per orthopedic surgery. Discharge Planning Awaiting clinical improvement. Louis Johnson DO May 31, 2016 10:59
[2016-05-31] MEDS ORDERED: SOD PHOSPHATE/SOD BIPHOSPHATE (ADULT) ENEMA 133ML RECTAL ONE (11:00)
[2016-05-31] MEDS: IRON SUCROSE INJ 200 MG in SODIUM CHLORIDE 0.9% INJ 100 ML IV SCH (11:05)
[2016-05-31] MEDS: ENOXAPARIN SODIUM 30 MG/0.3 ML SYRINGE SQ SCH (11:30)
[2016-05-31] MEDS: HYDROmorphone HCL PF 1 MG/ML VIAL IV PUSH PRN (15:49)
--- NOTE | 2016-05-31 17:13 | HHI.PR ---
Subjective Remarks LESS SOB AMBULATING Objective Vital Signs Date Time Temp Pulse Resp B/P Pulse Ox O2 Delivery O2 Flow Rate FiO2 05/31/16 12:00 96.7 63 18 155/70 97 05/31/16 08:59 Nasal Cannula 2.00 50 05/31/16 08:00 96.5 68 20 197/73 94 05/31/16 07:57 96 Nasal Cannula 2.00 05/31/16 05:57 18 05/31/16 04:00 96.5 71 22 174/72 94 05/31/16 00:00 96.8 72 21 173/86 95 05/30/16 21:37 Nasal Cannula 2.00 50 05/30/16 20:00 97.6 69 19 174/72 96 05/30/16 19:50 55 05/30/16 19:31 98 Nasal Cannula 2.00 I/O 05/30/16 05/30/16 05/30/16 05/31/16 05/31/16 05/31/16 07:00 15:00 23:00 07:00 15:00 23:00 Intake Total 720 ml 440 ml 480 ml 240 ml 600 ml Output Total 1050 ml 750 ml Balance 720 ml 440 ml -570 ml -510 ml 600 ml Intake Oral 720 ml 440 ml 480 ml 240 ml 600 ml Output Urine Total 1050 ml 750 ml # Voids 5 4 1 1 5 # Bowel Movements 0 Result Diagram: 05/31/16 0425 05/31/16 042 Objective Remarks GENERAL: SKIN: Warm and dry. HEAD: Atraumatic. Normocephalic. EYES: Pupils equal and round. No scleral icterus. No injection or drainage. ENT: No nasal bleeding or discharge. Mucous membranes pink and moist. NECK: Trachea midline. No JVD. CARDIOVASCULAR: Regular rate and rhythm. RESPIRATORY: No accessory muscle use ,scattered ronchi CASTROINTESTINAL: Abdomen soft, non-tender, nondistended. Hepatic and splenic margins not palpable. MUSCULOSKELETAL: Extremities without clubbing, cyanosis, or edema. No obvious deformities. NEUROLOGICAL: Awake and alert. No obvious cranial nerve deficits. Motor grossly within normal limits. Five out of 5 muscle strength in the arms and legs. Normal speech. PSYCHIATRIC: Appropriate mood and affect; insight and judgment normal. Assessment and Plan Assessment and Plan ASSESSMENT pna copd PLAN O2 ANTIBIOTICS BRONCHODILATOR THERAPY f/u cxray Chandler,Chandler Shabazz MD May 31, 2016 17:13
[2016-05-31] MEDS: ATORVASTATIN 80 MG TAB PO SCH (20:40)
[2016-05-31] MEDS: ZOLPIDEM TARTRATE 5 MG TAB PO PRN (21:12)
--- NOTE | 2016-05-31 22:18 | PD.ONC.PN ---
Subjective Subjective Remarks weak/dyspnea when she moves around has a cough constipated no fevers/no chills d/w rn Objective Data Date Time Temp Pulse Resp B/P Pulse Ox O2 Delivery O2 Flow Rate FiO2 05/31/16 20:30 97.6 79 18 152/70 92 05/31/16 19:35 95 Nasal Cannula 2.00 05/31/16 16:00 98.9 73 20 155/70 90 05/31/16 12:00 96.7 63 18 155/70 97 05/31/16 09:33 81 05/31/16 08:59 Nasal Cannula 2.00 50 05/31/16 08:00 96.5 68 20 197/73 94 05/31/16 07:57 96 Nasal Cannula 2.00 05/31/16 05:57 18 05/31/16 04:00 96.5 71 22 174/72 94 05/31/16 00:00 96.8 72 21 173/86 95 05/31/16 05/31/16 05/31/16 07:00 15:00 23:00 Intake Total 240 ml 600 ml Output Total 750 ml Balance -510 ml 600 ml Result Diagram: 05/31/16 0425 05/31/16 0425 Laboratory Results Laboratory Tests Test 05/31/16 04:25 White Blood Count 6.9 TH/MM3 Red Blood Count 3.16 MIL/MM3 Hemoglobin 8.5 GM/DL Hematocrit 25.2 % Mean Corpuscular Volume 79.8 FL Mean Corpuscular Hemoglobin 26.9 PG Mean Corpuscular Hemoglobin 33.7 % Concent Red Cell Distribution Width 18.0 % Platelet Count 205 TH/MM3 Mean Platelet Volume 8.5 FL Neutrophils (%) (Auto) 84.5 % Lymphocytes (%) (Auto) 8.9 % Monocytes (%) (Auto) 6.5 % Eosinophils (%) (Auto) 0.0 % Basophils (%) (Auto) 0.1 % Neutrophils # (Auto) 5.9 TH/MM3 Lymphocytes # (Auto) 0.6 TH/MM3 Monocytes # (Auto) 0.5 TH/MM3 Eosinophils # (Auto) 0.0 TH/MM3 Basophils # (Auto) 0.0 TH/MM3 CBC Comment DIFF FINAL Differential Comment Creatinine 0.53 MG/DL Estimat Glomerular Filtration 112 ML/MIN Rate Culture Results Microbiology Date/Time Procedure Status Source Growth 05/29/16 02:03 Gram Stain - Final Complete Sputum Expectorated Sputum 05/29/16 02:03 Sputum Culture - Final Complete Sputum Expectorated Sputum HEAVY GROWTH NORMAL RESPIRATORY BRUCE Administered Medications Medications (Trade) Dose Ordered Sig/Shade Route PRN Reason Start Time Stop Time Status Last Admin Dose Admin Ondansetron HCl (Zofran Inj) 4 mg Q6H PRN IVP NAUSEA OR VOMITING 05/25/16 23:45 05/31/16 04:27 Amitriptyline HCl (Elavil) 10 mg BID PO 05/26/16 09:00 05/31/16 20:40 Amlodipine Besylate (Norvasc) 10 mg DAILY PO 05/26/16 09:00 05/31/16 08:46 Atorvastatin Calcium (Lipitor) 80 mg HS PO 05/26/16 21:00 05/31/16 20:40 Donepezil HCl (Aricept) 10 mg DAILY PO 05/26/16 09:00 05/31/16 08:46 Levothyroxine Sodium (Synthroid) 100 mcg DAILY@0600 PO 05/26/16 06:00 05/31/16 06:06 Primidone (Mysoline) 250 mg TID PO 05/26/16 09:00 05/31/16 18:22 Lisinopril (Prinivil) 40 mg DAILY PO 05/26/16 09:00 05/31/16 08:47 Pantoprazole Sodium (Protonix) 20 mg DAILY PO 05/26/16 09:00 05/31/16 08:47 Folic Acid (Folate) 1 mg DAILY PO 05/26/16 09:00 05/31/16 08:46 IV Flush (NS Flush) 2 ml BID IVF 05/26/16 21:00 05/31/16 20:42 Enoxaparin Sodium (Lovenox Inj) 30 mg Q24H SQ 05/27/16 12:00 05/31/16 11:30 Calcium/Vitamin D (Oscal-D 250-125) 250 mg TID PO 05/26/16 14:00 05/31/16 18:22 Diphenhydramine HCl (Benadryl) 25 mg Q6H PRN PO ITCHING/ insomnia 05/26/16 11:45 05/30/16 21:54 Acetaminophen/ Hydrocodone Bitart ([place] 7.5-325 Mg) 1 tab Q3H PRN PO pain 2<5 05/26/16 11:45 05/28/16 02:13 Acetaminophen/ Hydrocodone Bitart ([place] 7.5-325 Mg) 2 tab Q6H PRN PO pain 6<10 05/26/16 11:45 05/31/16 20:40 Cholecalciferol (Vitamin D3) 5,000 units DAILY PO 05/27/16 09:00 05/31/16 08:46 Sodium Chloride ([place]) 2 spray Q4H PRN EACH NARE NASAL CONGESTION 05/26/16 20:45 05/29/16 23:25 Methylprednisolone Sodium Succinate (SoluMEDROL INJ) 40 mg Q6HR IV PUSH 05/27/16 18:00 05/31/16 18:26 Docusate Sodium (Colace) 100 mg BID PO 05/27/16 21:00 05/31/16 20:40 Sennosides 17.2 mg 17.2 mg DAILY PO 05/27/16 18:00 05/31/16 08:46 Cefepime HCl/ Sodium Chloride (Maxipime Inj/NS Inj) 100 ml @ 200 mls/hr Q8H IV 05/27/16 20:00 05/31/16 20:41 Hydromorphone HCl (Dilaudid Pf Inj) 1 mg Q3HR PRN IV PUSH Breakthrough pain 05/28/16 08:15 05/31/16 15:49 Guaifenesin (Mucinex Er) 1,200 mg BID PO 05/28/16 11:00 05/31/16 20:40 Polyethylene Glycol (Miralax) 17 gm DAILY PO 05/28/16 11:00 05/31/16 08:47 Alprazolam (Xanax) 0.25 mg Q6H PRN PO Anxiety 05/28/16 10:30 05/29/16 09:48 Carvedilol (Coreg) 3.125 mg Q12HR PO 05/28/16 11:00 05/31/16 20:40 Hydrochlorothiazide 25 mg 25 mg DAILY PO 05/30/16 11:30 05/31/16 08:46 Vancomycin HCl 1000 mg/Sodium Chloride 250 ml @ 250 mls/hr Q12H IV 05/31/16 06:00 05/31/16 18:22 Iron Sucrose/ Sodium Chloride (Venofer Inj/NS Inj) 110 ml @ 110 mls/hr DAILY IV 05/31/16 10:00 06/02/16 09:59 05/31/16 11:05 Zolpidem Tartrate (Ambien) 5 mg HS PRN PO Insomnia 05/31/16 11:00 05/31/16 21:12 Objective Remarks GENERAL: chronically ill appearing SKIN: Warm and dry. NECK: Supple, trachea midline. No JVD or lymphadenopathy. LYMPHATIC: No adenopathy. CARDIOVASCULAR: Regular rate and rhythm without murmurs. RESPIRATORY: scattered wheezing. decreased bs LLL GASTROINTESTINAL: Abdomen soft, non-tender, nondistended. EXTREMITIES: No cyanosis, or edema. . Assessment/Plan Problem List: (1) Metastatic lung cancer (metastasis from lung to other site) Status: Acute Plan: --diagnosed in early 2015. --She was found to have a spiculated mass in the left upper lobe abutting the mediastinum. --CT-guided biopsy confirmed small cell lung cancer. She was to begin systemic chemotherapy but was admitted with fracture -- If her oxygen saturations do not improve, we may have to give her chemotherapy while inpatient. Small cell lung cancer is highly responsive to chemotherapy. Rapid debulking of the disease in the lung may help improve her respiratory status. (2) Fracture, intertrochanteric, left femur Status: Acute Plan: --s/p intramedullary sera fixation. --will need to be discharged to rehab (3) Anemia Status: Acute Plan: --Transfuse to keep hemoglobin greater than 7.5. --await iron studies Assessment 76y/o female with a history of extensive stage small-cell lung cancer admitted with hip fracture. h/o Small-cell lung cancer. Coronary artery disease. COPD. Tobacco abuse. History of colitis. Hypertension. Rheumatoid arthritis. Osteoarthritis. HPI: the patient had a fall after she tripped over her daughter's dog. presented to the emergency department and was found to have a mildly displaced fracture to the intertrochanteric region of the left hip. The patient was seen by orthopedic surgery and has undergone left intertrochanteric femur repair status post intramedullary sera fixation. The patient was desaturating with low oxygen levels and was transferred to be the intensive care unit for close observation. chest x-ray showed a left lower lobe consolidation. Plan 1. Continue abx /steroids for PNA/COPD exacerbation 2. Continue physical therapy 3. Plan to give therapy by Tuesday/ for small cell lung carcinoma which is very responsive to chemotherapy/otherwise there will be delay in treatment outpatient. Small cell carcinoma has rapid doubling time. 4.Microcytic Anemia-- Iron deficient--will give iron sucrose X 3 . Problem Qualifiers (1) Fracture, intertrochanteric, left femur: Qualified Code: S72.142A - Fracture, intertrochanteric, left femur, closed, initial encounter Evangelist Tracy MD May 31, 2016 22:18
[2016-06-01] VITALS (9 sets, daily range): BP systolic 144–192; BP diastolic 66–75; PULSE 59–86; RESP 16–22; TEMP 97–98.1; O2SAT 92–98
[2016-06-01] MEDS: ONDANSETRON HCL 4 MG/2 ML VIAL IVP PRN ×2 (03:02→11:18)
[2016-06-01] MEDS: CEFEPIME INJ 2,000 MG in SODIUM CHLORIDE 0.9% INJ 100 ML IV SCH ×3 (03:03→20:40)
[2016-06-01] MEDS: ACETAMINOPHEN/HYDROcodone 325 MG/7.5 MG TAB PO PRN ×3 (03:13→17:36)
[2016-06-01] MEDS: methylPREDNISolone SOD SUCC 40 MG/1 ML VIAL IV PUSH SCH ×2 (05:36→20:41)
[2016-06-01] MEDS: HYDROmorphone HCL PF 1 MG/ML VIAL IV PUSH PRN ×3 (05:36→20:43)
[2016-06-01] MEDS: LEVOTHYROXINE SODIUM 100 MCG TAB PO SCH (05:39)
[2016-06-01] MEDS: VANCOMYCIN 1,000 MG/NS 250 ML IV SCH ×4 (05:42→17:54)
[2016-06-01] MEDS ORDERED: PHARMACY ORDERED LAB ONE ×2 (05:45→17:45)
[2016-06-01] MEDS: INSULIN ASPART SUPPLEMENTAL SCALE SQ SCH ×4 (06:02→22:50)
--- NOTE | 2016-06-01 06:37 | RADRPT ---
EXAM DATE/TIME: 06/01/2016 06:10 [facility] COMPARISON: CHEST SINGLE AP, May 29, 2016, 14:07. INDICATIONS : Short of breath, evaluate pneumonia MEDICAL HISTORY : Carcinoma, lung. hip fracture SURGICAL HISTORY : ORIF left femur, infusaport ENCOUNTER: Subsequent ACUITY: 1 week PAIN SCORE: 8/10 LOCATION: Bilateral chest FINDINGS: A single view of the chest demonstrates the lungs remain grossly clear. Left hemidiaphragm is slightl y elevated. Right-sided [id number] catheter in good position. There again is a healing right sided clavicular fracture. Upper lungs are clear. The cardiomediastinal contours are unremarkable. [place] us structures are intact. CONCLUSION: Stable appearance of the chest without concerning infiltrate or mass. Ray Ma MD on June 01, 2016 at 6:35 Board Certified Radiologist. This report was verified electronically.
[2016-06-01] MEDS: RESP: ALBUTEROL 2.5 MG/IPRATROPIUM 0.5 MG NEB (SCH) NEB ×3 (07:34→20:30)
--- NOTE | 2016-06-01 08:13 | HHI.PR ---
Subjective Remarks LESS SOB AMBULATING Objective Vital Signs Date Time Temp Pulse Resp B/P Pulse Ox O2 Delivery O2 Flow Rate FiO2 06/01/16 07:35 95 Nasal Cannula 2.00 06/01/16 04:00 97.0 64 18 162/70 93 06/01/16 00:00 97.6 68 18 162/71 94 05/31/16 21:10 Nasal Cannula 2.00 50 05/31/16 21:10 75 05/31/16 20:30 97.6 79 18 152/70 92 05/31/16 19:35 95 Nasal Cannula 2.00 05/31/16 16:00 98.9 73 20 155/70 90 05/31/16 12:00 96.7 63 18 155/70 97 05/31/16 09:33 81 05/31/16 08:59 Nasal Cannula 2.00 50 I/O 05/31/16 05/31/16 05/31/16 06/01/16 06/01/16 06/01/16 07:00 15:00 23:00 07:00 15:00 23:00 Intake Total 240 ml 600 ml 600 ml 240 ml Output Total 750 ml 1100 ml 1800 ml Balance -510 ml 600 ml -500 ml -1560 ml Intake Oral 240 ml 600 ml 600 ml 240 ml Output Urine Total 750 ml 1100 ml 1800 ml # Voids 1 5 Result Diagram: 05/31/1642405/31/16424 Objective Remarks GENERAL: SKIN: Warm and dry. HEAD: Atraumatic. Normocephalic. EYES: Pupils equal and round. No scleral icterus. No injection or drainage. ENT: No nasal bleeding or discharge. Mucous membranes pink and moist. NECK: Trachea midline. No JVD. CARDIOVASCULAR: Regular rate and rhythm. RESPIRATORY: No accessory muscle use ,scattered ronchi CASTROINTESTINAL: Abdomen soft, non-tender, nondistended. Hepatic and splenic margins not palpable. MUSCULOSKELETAL: Extremities without clubbing, cyanosis, or edema. No obvious deformities. NEUROLOGICAL: Awake and alert. No obvious cranial nerve deficits. Motor grossly within normal limits. Five out of 5 muscle strength in the arms and legs. Normal speech. PSYCHIATRIC: Appropriate mood and affect; insight and judgment normal. Assessment and Plan Assessment and Plan ASSESSMENT pna , CXRAY CLEAR copd PLAN O2 ANTIBIOTICS BRONCHODILATOR THERAPY Chandler Arteaga MD Jun 01, 2016 08:12
[2016-06-01] MEDS: SODIUM CHLORIDE 0.9% FLUSH 5 ML FLUSH IVF SCH ×2 (09:00→20:43)
[2016-06-01] MEDS ORDERED: MINERAL OIL ENEMA 118 ML BTL RECTAL ONE (09:15)
[2016-06-01] MEDS ORDERED: MAGNESIUM CITRATE SOLN 300 ML BTL PO ONE (09:15)
--- NOTE | 2016-06-01 09:42 | HHI.PR ---
Subjective Remarks The patient was resting comfortably in bed. She says she still has not had a bowel movement. She is passing gas. She denies abdominal pain. She is tolerating a diet. She has been working with physical therapy. She says her breathing is okay. She is anticipating chemotherapy to start soon. Discussed with nursing. Objective Vitals Vital Signs Date Time Temp Pulse Resp B/P Pulse Ox O2 Delivery O2 Flow Rate FiO2 06/01/16 08:00 98.1 59 18 166/73 97 06/01/16 07:35 95 Nasal Cannula 2.00 06/01/16 04:00 97.0 64 18 162/70 93 06/01/16 00:00 97.6 68 18 162/71 94 05/31/16 21:10 Nasal Cannula 2.00 50 05/31/16 21:10 75 05/31/16 20:30 97.6 79 18 152/70 92 05/31/16 19:35 95 Nasal Cannula 2.00 05/31/16 16:00 98.9 73 20 155/70 90 05/31/16 12:00 96.7 63 18 155/70 97 05/31/16 09:33 81 I/O 05/31/16 05/31/16 05/31/16 06/01/16 06/01/16 06/01/16 07:00 15:00 23:00 07:00 15:00 23:00 Intake Total 240 ml 600 ml 600 ml 240 ml Output Total 750 ml 1100 ml 1800 ml Balance -510 ml 600 ml -500 ml -1560 ml Intake Oral 240 ml 600 ml 600 ml 240 ml Output Urine Total 750 ml 1100 ml 1800 ml # Voids 1 5 Result Diagram: 05/31/16 0425 05/31/16 0425 Imaging Last Impressions Chest X-Ray 06/01/16 0000 Signed Impressions: Service Date/Time: Wednesday, June 01, 2016 06:10 - CONCLUSION: Stable appearance of the chest without concerning infiltrate or mass. Ray Ma MD Femur X-Ray 05/26/16 0000 Signed Impressions: Service Date/Time: Thursday, May 26, 2016 12:24 - CONCLUSION: Postoperative changes. Moris Bonilla MD Hip and Pelvis X-Ray 05/25/16 0000 Signed Impressions: Service Date/Time: Wednesday, May 25, 2016 23:01 - CONCLUSION: Mildly displaced fracture through the intertrochanteric region of the left hip. Baljit Rockwell MD Objective Remarks GENERAL: Resting comfortably. SKIN: No rashes, ecchymoses or lesions. Cool and dry. HEAD: Atraumatic. Normocephalic. No temporal or scalp tenderness. EYES: Extraocular motions intact. No scleral icterus. No injection or drainage. CARDIOVASCULAR: Regular rate and rhythm without murmurs, gallops, or rubs. RESPIRATORY: Diffuse expiratory wheezing. GASTROINTESTINAL: Abdomen soft, non-tender, nondistended. No guarding or rebound. + bowel sounds. MUSCULOSKELETAL: Left lower extremity with bandages and tender to palpation. NEUROLOGICAL: Awake and alert. Sensory grossly within normal limits. Left lower extremity ROM limited secondary to pain. Normal speech. PSYCH: Mood and affect appropriate. Procedures Left hip fracture repair. Medications and IVs Current Medications Medications (Trade) Dose Ordered Sig/Shade Route Start Time Stop Time Status Last Admin (Zofran Inj) 4 mg Q6H PRN IVP 05/25/16 23:45 06/01/16 03:02 (Narcan Inj) 0.4 mg UNSCH PRN IV 05/25/16 23:45 (Elavil) 10 mg BID PO 05/26/16 09:00 05/31/16 20:40 (Norvasc) 10 mg DAILY PO 05/26/16 09:00 05/31/16 08:46 (Lipitor) 80 mg HS PO 05/26/16 21:00 05/31/16 20:40 (Aricept) 10 mg DAILY PO 05/26/16 09:00 05/31/16 08:46 (Synthroid) 100 mcg DAILY@0600 PO 05/26/16 06:00 06/01/16 05:39 (Mysoline) 250 mg TID PO 05/26/16 09:00 05/31/16 18:22 (Prinivil) 40 mg DAILY PO 05/26/16 09:00 05/31/16 08:47 (Protonix) 20 mg DAILY PO 05/26/16 09:00 05/31/16 08:47 (Folate) 1 mg DAILY PO 05/26/16 09:00 05/31/16 08:46 (NS Flush) 2 ml UNSCH PRN IVF 05/26/16 11:45 (NS Flush) 2 ml BID IVF 05/26/16 21:00 05/31/16 20:42 (Lovenox Inj) 30 mg Q24H SQ 05/27/16 12:00 05/31/16 11:30 (Oscal-D 250-125) 250 mg TID PO 05/26/16 14:00 05/31/16 18:22 (Benadryl) 25 mg Q6H PRN PO 05/26/16 11:45 05/30/16 21:54 ([place] 7.5-325 Mg) 1 tab Q3H PRN PO 05/26/16 11:45 05/28/16 02:13 ([place] 7.5-325 Mg) 2 tab Q6H PRN PO 05/26/16 11:45 06/01/16 03:13 (Morphine Inj) 3 mg Q3H PRN IV PUSH 05/26/16 11:45 (Vitamin D3) 5,000 units DAILY PO 05/27/16 09:00 05/31/16 08:46 ([place] Darci [place]) 2 spray Q4H PRN EACH NARE 05/26/16 20:45 05/29/16 23:25 Hydralazine HCl 10 mg 10 mg Q6HR PRN IV PUSH 05/27/16 17:45 (Vancomycin Consult Pharmacy) 0 ml @ 0 mls/hr UNSCH OTHER 05/27/16 17:45 (SoluMEDROL INJ) 40 mg Q6HR IV PUSH 05/27/16 18:00 06/01/16 05:36 (Colace) 100 mg BID PO 05/27/16 21:00 05/31/16 20:40 Sennosides 17.2 mg 17.2 mg DAILY PO 05/27/16 18:00 05/31/16 08:46 (Maxipime Inj/NS Inj) 100 ml @ 200 mls/hr Q8H IV 05/27/16 20:00 06/01/16 03:03 (Dilaudid Pf Inj) 1 mg Q3HR PRN IV PUSH 05/28/16 08:15 06/01/16 05:36 (Mucinex Er) 1,200 mg BID PO 05/28/16 11:00 05/31/16 20:40 (Miralax) 17 gm DAILY PO 05/28/16 11:00 05/31/16 08:47 (Xanax) 0.25 mg Q6H PRN PO 05/28/16 10:30 05/29/16 09:48 (Coreg) 3.125 mg Q12HR PO 05/28/16 11:00 05/31/16 20:40 (Catapres) 0.1 mg Q6H PRN PO 05/29/16 18:00 (Vasotec Inj) 1.25 mg Q6H PRN IV PUSH 05/29/16 18:00 Hydrochlorothiazide 25 mg 25 mg DAILY PO 05/30/16 11:30 05/31/16 08:46 Vancomycin HCl 1000 mg/Sodium Chloride 250 ml @ 250 mls/hr Q12H IV 05/31/16 06:00 06/01/16 05:42 (Venofer Inj/NS Inj) 110 ml @ 110 mls/hr DAILY IV 05/31/16 10:00 06/02/16 09:59 05/31/16 11:05 (Ambien) 5 mg HS PRN PO 05/31/16 11:00 05/31/16 21:12 (Fleet Mineral Oil Enema) 118 ml ONCE ONCE RECTAL 06/01/16 09:15 06/01/16 09:16 UNV (Citroma Liq) 300 ml ONCE ONCE PO 06/01/16 09:15 06/01/16 09:16 UNV A/P Assessment and Plan This is a 76 year old female patient with a past medical history which includes : anemia, angina, anxiety, arthritis, Asthma, lung cancer, CAD s/o DC, COPD, colitis, hypertension, kidney stones, migraine, osteoarthritis, osteoporosis, rheumatoid arthritis and hypothyroidism. Patient presents to the emergency department after she had a trip and fall over her daughter's dog. Patient reports pain and inability to bear weight on her left lower extremity. Hip and pelvic x-ray revealed mildly displaced fracture through the intertrochanteric region of the left hip. Left hip fracture Status post mechanical fall. S/p repair 05/26/16. - weightbearing, wound care and anticoagulation per orthopedic surgery. Cleared for discharge by surgery. - pain control with a bowel regimen. - incentive spirometry. - physical and occupational therapy. - Follow CBC and transfuse as needed. Stable. Acute respiratory failure/ HCAP The pt has lung cancer and COPD. Currently on a ventimask and desaturating quite easily. CXR with left base consolidation which has been noted on prior imaging. Pt with symptoms of cough and mucous production. Pulmonology consult appreciated. Repeat CXR 06/01 stable. - Wean oxygen and start BiPAP if needed. - continue cefepime and vancomycin to treat for post obstructive pneumonia. - blood and sputum cultures pending. NGTD. - standing nebs. - wean Solumedrol 40 mg IV BID. - follow up with pulmonology. Lung cancer Pt was to start chemotherapy as an outpt. Oncology consult appreciated. - treatment as above. - Oncology planning on starting chemotherapy inpatient, either Tuesday or . HTN Exacerbated by pain and respiratory distress. Not well-controlled 06/01. - continue antihypertensive regimen including amlodipine and lisinopril. Added HCTZ 05/30. - pain control and breathing treatments as above. - clonidine and Vasotec as needed. Constipation Pt has not had a bowel movement despite bowel regimen. S/p Dulcolax suppository and Fleets enema. - continue bowel regimen. Add mineral oil enema and magnesium citrate 06/01 PPx: Per orthopedic surgery. Discharge Planning Awaiting chemotherapy to start. Louis Johnson DO Jun 01, 2016 09:42
[2016-06-01] MEDS: IRON SUCROSE INJ 200 MG in SODIUM CHLORIDE 0.9% INJ 100 ML IV SCH (10:47)
[2016-06-01] MEDS: SENNOSIDES 8.6 MG TAB PO SCH (10:48)
[2016-06-01] MEDS: FOLIC ACID 1 MG TAB PO SCH (10:48)
[2016-06-01] MEDS: DONEPEZIL HCL 5 MG TAB PO SCH (10:48)
[2016-06-01] MEDS: LISINOPRIL 20 MG TAB PO SCH (10:48)
[2016-06-01] MEDS: DOCUSATE SODIUM 100 MG CAP PO SCH ×2 (10:49→20:41)
[2016-06-01] MEDS: PANTOPRAZOLE SOD 20 MG DELAYED RELEASE TAB PO SCH (10:49)
[2016-06-01] MEDS: CARVEDILOL 3.125 MG TAB PO SCH ×2 (10:49→20:42)
[2016-06-01] MEDS: PRIMIDONE 250 MG TAB PO SCH ×3 (10:49→17:35)
[2016-06-01] MEDS: HYDROCHLOROTHIAZIDE 25 MG TAB PO SCH (10:49)
[2016-06-01] MEDS: CHOLECALCIFEROL (VIT D3) 5000 UNIT CAP PO SCH (10:49)
[2016-06-01] MEDS: AMITRIPTYLINE HCL 10 MG TAB PO SCH ×2 (10:50→20:41)
[2016-06-01] MEDS: guaiFENesin E.R. 600 MG TAB PO SCH ×2 (10:50→20:43)
[2016-06-01] MEDS: CALCIUM/VITAMIN D 250 MG/125 U TAB PO SCH ×3 (10:50→17:35)
[2016-06-01] MEDS: POLYETHYLENE GLYCOL 17 GM PKG PO SCH (10:50)
[2016-06-01] MEDS: ENOXAPARIN SODIUM 30 MG/0.3 ML SYRINGE SQ SCH (10:51)
--- NOTE | 2016-06-01 11:34 | PD.ONC.PN ---
Subjective Subjective Remarks Afebrile overnight. patient continuing to require supplemental O2. Was able to walk 20 feet with PT yesterday. + cough. Objective Data Date Time Temp Pulse Resp B/P Pulse Ox O2 Delivery O2 Flow Rate FiO2 06/01/16 08:00 98.1 59 18 166/73 97 06/01/16 07:35 95 Nasal Cannula 2.00 06/01/16 04:00 97.0 64 18 162/70 93 06/01/16 00:00 97.6 68 18 162/71 94 05/31/16 21:10 Nasal Cannula 2.00 50 05/31/16 21:10 75 05/31/16 20:30 97.6 79 18 152/70 92 05/31/16 19:35 95 Nasal Cannula 2.00 05/31/16 16:00 98.9 73 20 155/70 90 05/31/16 12:00 96.7 63 18 155/70 97 06/01/16 06/01/16 06/01/16 07:00 15:00 23:00 Intake Total 240 ml Output Total 1800 ml Balance -1560 ml Result Diagram: 05/31/16 0425 05/31/16 0425 Laboratory Results Laboratory Tests Test 06/01/16 08:40 Vancomycin Level Trough 8.0 MCG/ML Imaging Studies Last 24 hours Impressions Chest X-Ray 06/01/16 0000 Signed Impressions: Service Date/Time: Wednesday, June 01, 2016 06:10 - CONCLUSION: Stable appearance of the chest without concerning infiltrate or mass. Ray Ma MD Administered Medications Medications (Trade) Dose Ordered Sig/Shade Route PRN Reason Start Time Stop Time Status Last Admin Dose Admin Ondansetron HCl (Zofran Inj) 4 mg Q6H PRN IVP NAUSEA OR VOMITING 05/25/16 23:45 06/01/16 11:18 Amitriptyline HCl (Elavil) 10 mg BID PO 05/26/16 09:00 06/01/16 10:50 Amlodipine Besylate (Norvasc) 10 mg DAILY PO 05/26/16 09:00 06/01/16 10:49 Atorvastatin Calcium (Lipitor) 80 mg HS PO 05/26/16 21:00 05/31/16 20:40 Donepezil HCl (Aricept) 10 mg DAILY PO 05/26/16 09:00 06/01/16 10:48 Levothyroxine Sodium (Synthroid) 100 mcg DAILY@0600 PO 05/26/16 06:00 06/01/16 05:39 Primidone (Mysoline) 250 mg TID PO 05/26/16 09:00 06/01/16 10:49 Lisinopril (Prinivil) 40 mg DAILY PO 05/26/16 09:00 06/01/16 10:48 Pantoprazole Sodium (Protonix) 20 mg DAILY PO 05/26/16 09:00 06/01/16 10:49 Folic Acid (Folate) 1 mg DAILY PO 05/26/16 09:00 06/01/16 10:48 IV Flush (NS Flush) 2 ml BID IVF 05/26/16 21:00 06/01/16 09:00 Enoxaparin Sodium (Lovenox Inj) 30 mg Q24H SQ 05/27/16 12:00 06/01/16 10:51 Calcium/Vitamin D (Oscal-D 250-125) 250 mg TID PO 05/26/16 14:00 06/01/16 10:50 Diphenhydramine HCl (Benadryl) 25 mg Q6H PRN PO ITCHING/ insomnia 05/26/16 11:45 05/30/16 21:54 Acetaminophen/ Hydrocodone Bitart ([place] 7.5-325 Mg) 1 tab Q3H PRN PO pain 2<5 05/26/16 11:45 05/28/16 02:13 Acetaminophen/ Hydrocodone Bitart ([place] 7.5-325 Mg) 2 tab Q6H PRN PO pain 6<10 05/26/16 11:45 06/01/16 11:12 Cholecalciferol (Vitamin D3) 5,000 units DAILY PO 05/27/16 09:00 06/01/16 10:49 Sodium Chloride ([place] Darci [place]) 2 spray Q4H PRN EACH NARE NASAL CONGESTION 05/26/16 20:45 05/29/16 23:25 Docusate Sodium (Colace) 100 mg BID PO 05/27/16 21:00 06/01/16 10:49 Sennosides 17.2 mg 17.2 mg DAILY PO 05/27/16 18:00 06/01/16 10:48 Cefepime HCl/ Sodium Chloride (Maxipime Inj/NS Inj) 100 ml @ 200 mls/hr Q8H IV 05/27/16 20:00 06/01/16 10:50 Hydromorphone HCl (Dilaudid Pf Inj) 1 mg Q3HR PRN IV PUSH Breakthrough pain 05/28/16 08:15 06/01/16 05:36 Guaifenesin (Mucinex Er) 1,200 mg BID PO 05/28/16 11:00 06/01/16 10:50 Polyethylene Glycol (Miralax) 17 gm DAILY PO 05/28/16 11:00 06/01/16 10:50 Alprazolam (Xanax) 0.25 mg Q6H PRN PO Anxiety 05/28/16 10:30 05/29/16 09:48 Carvedilol (Coreg) 3.125 mg Q12HR PO 05/28/16 11:00 06/01/16 10:49 Hydrochlorothiazide 25 mg 25 mg DAILY PO 05/30/16 11:30 06/01/16 10:49 Vancomycin HCl 1000 mg/Sodium Chloride 250 ml @ 250 mls/hr Q12H IV 05/31/16 06:00 06/01/16 05:42 Iron Sucrose/ Sodium Chloride (Venofer Inj/NS Inj) 110 ml @ 110 mls/hr DAILY IV 05/31/16 10:00 06/02/16 09:59 06/01/16 10:47 Zolpidem Tartrate (Ambien) 5 mg HS PRN PO Insomnia 05/31/16 11:00 05/31/16 21:12 Objective Remarks GENERAL: Pleasant patient, sitting up in bed in nad on room air. pulse-ox at bedside shows O2=89%, so her O2 was re-placed. SKIN: Warm and dry. HEAD: Normocephalic. EYES: No injection or drainage. NECK: Supple, trachea midline. CARDIOVASCULAR: +S1/S2, tachy RESPIRATORY: diminished at bases, occasional rhonchi GASTROINTESTINAL: Abdomen soft, non-tender, nondistended. EXTREMITIES: No cyanosis NEUROLOGICAL: awake and alert, normal speech. moving extremities. Assessment/Plan Problem List: (1) Metastatic lung cancer (metastasis from lung to other site) Status: Acute Plan: --diagnosed in early 2015. --She was found to have a spiculated mass in the left upper lobe abutting the mediastinum. --CT-guided biopsy confirmed small cell lung cancer. She was to begin systemic chemotherapy but was admitted with fracture -- If her oxygen saturations do not improve, we may have to give her chemotherapy while inpatient. Small cell lung cancer is highly responsive to chemotherapy. Rapid debulking of the disease in the lung may help improve her respiratory status. (2) Fracture, intertrochanteric, left femur Status: Acute Plan: --s/p intramedullary sera fixation. --will need to be discharged to rehab (3) Anemia Status: Acute Plan: --Transfuse to keep hemoglobin greater than 7.5. --iron sucrose given Assessment 76y/o female with a history of extensive stage small-cell lung cancer admitted with hip fracture. h/o Small-cell lung cancer. Coronary artery disease. COPD. Tobacco abuse. History of colitis. Hypertension. Rheumatoid arthritis. Osteoarthritis. HPI: the patient had a fall after she tripped over her daughter's dog. presented to the emergency department and was found to have a mildly displaced fracture to the intertrochanteric region of the left hip. The patient was seen by orthopedic surgery and has undergone left intertrochanteric femur repair status post intramedullary sera fixation. The patient was desaturating with low oxygen levels and was transferred to be the intensive care unit for close observation. chest x-ray showed a left lower lobe consolidation. she was started on antibiotics and steroids. Her lung function improved and she was transferred to med/surg floor. Plan 1. monitor CBC, CMP 2. plan to give chemotherapy inpatient tomorrow--Carboplatin and Etoposide-- order form in chart. 3. continue antibiotics and steroids. Attending Statement The exam, history, and the medical decision-making described in the above note were completed with the assistance of the mid-level provider. I reviewed and agree with the findings presented. I attest that I had a [id number] encounter with the patient on the same day, and personally performed and documented my assessment and findings in the medical record. Feels fatigued and week. Anemia persists. Will benefit from blood transfusion prior to chemotherapy Transfuse 2 units of pRBC plans for treatment in am. Carboplatin Day1 /Etoposide Day 1 monitor daily cbc/cmp/mag/phosp Neupogen injections post treatment to prevent neutropenia d/w patient discussed risks and benefits d/w rn Problem Qualifiers (1) Fracture, intertrochanteric, left femur: Qualified Code: S72.142A - Fracture, intertrochanteric, left femur, closed, initial encounter Dorcas Evans Jun 01, 2016 11:34 Evangelist Tracy MD Jun 01, 2016 22:45
[2016-06-01] MEDS ORDERED: METOCLOPRAMIDE HCL 10 MG/2 ML VIAL IV PUSH ONE (13:00)
[2016-06-01] MEDS: ALPRAZolam 0.25 MG TAB PO PRN (19:16)
[2016-06-01] MEDS: ZOLPIDEM TARTRATE 5 MG TAB PO PRN ×2 (20:41→20:42)
[2016-06-01] MEDS: ATORVASTATIN 80 MG TAB PO SCH (20:42)
[2016-06-02] VITALS (14 sets, daily range): BP systolic 122–197; BP diastolic 58–100; PULSE 56–72; RESP 16–20; TEMP 96.2–98.1; O2SAT 91–96
[2016-06-02] MEDS ORDERED: diphenhydrAMINE HCL 25 MG CAP PO SCH
[2016-06-02] MEDS ORDERED: ACETAMINOPHEN 325 MG TAB PO SCH
[2016-06-02] MEDS: cloNIDine HCL 0.1 MG TAB PO PRN ×2 (02:37→11:39)
[2016-06-02] MEDS: ONDANSETRON HCL 4 MG/2 ML VIAL IVP PRN ×2 (03:33→21:14)
[2016-06-02] MEDS: CEFEPIME INJ 2,000 MG in SODIUM CHLORIDE 0.9% INJ 100 ML IV SCH ×3 (05:27→21:15)
[2016-06-02] MEDS: LEVOTHYROXINE SODIUM 100 MCG TAB PO SCH (05:29)
[2016-06-02] MEDS ORDERED: PHARMACY ORDERED LAB ONE (05:45)
[2016-06-02] MEDS: INSULIN ASPART SUPPLEMENTAL SCALE SQ SCH ×4 (06:13→21:28)
[2016-06-02] MEDS ORDERED: diphenhydrAMINE HCL 25 MG CAP PO PRN (06:30)
[2016-06-02] MEDS ORDERED: ACETAMINOPHEN 325 MG TAB PO PRN (06:30)
[2016-06-02] MEDS: VANCOMYCIN 1,000 MG/NS 250 ML IV SCH ×2 (06:31)
[2016-06-02] MEDS: ENALAPRILAT 1.25 MG/ML VIAL IV PUSH PRN (06:32)
[2016-06-02] MEDS: RESP: ALBUTEROL 2.5 MG/IPRATROPIUM 0.5 MG NEB (SCH) NEB ×3 (08:00→19:26)
[2016-06-02] MEDS: CHOLECALCIFEROL (VIT D3) 5000 UNIT CAP PO SCH (08:34)
[2016-06-02] MEDS: SENNOSIDES 8.6 MG TAB PO SCH (08:34)
[2016-06-02] MEDS: PRIMIDONE 250 MG TAB PO SCH ×3 (08:34→18:23)
[2016-06-02] MEDS: CALCIUM/VITAMIN D 250 MG/125 U TAB PO SCH ×3 (08:34→18:23)
[2016-06-02] MEDS: AMITRIPTYLINE HCL 10 MG TAB PO SCH ×2 (08:34→21:15)
[2016-06-02] MEDS: PANTOPRAZOLE SOD 20 MG DELAYED RELEASE TAB PO SCH (08:34)
[2016-06-02] MEDS: FOLIC ACID 1 MG TAB PO SCH (08:34)
[2016-06-02] MEDS: guaiFENesin E.R. 600 MG TAB PO SCH ×2 (08:34→21:15)
[2016-06-02] MEDS: DOCUSATE SODIUM 100 MG CAP PO SCH ×2 (08:34→21:15)
[2016-06-02] MEDS: HYDROCHLOROTHIAZIDE 25 MG TAB PO SCH (08:34)
[2016-06-02] MEDS: methylPREDNISolone SOD SUCC 40 MG/1 ML VIAL IV PUSH SCH ×2 (08:35→21:14)
[2016-06-02] MEDS: CARVEDILOL 3.125 MG TAB PO SCH ×2 (08:35→21:15)
[2016-06-02] MEDS: LISINOPRIL 20 MG TAB PO SCH (08:35)
[2016-06-02] MEDS: SODIUM CHLORIDE 0.9% FLUSH 5 ML FLUSH IVF SCH ×2 (08:36→21:16)
[2016-06-02] MEDS: DONEPEZIL HCL 5 MG TAB PO SCH (08:38)
[2016-06-02] MEDS: POLYETHYLENE GLYCOL 17 GM PKG PO SCH (09:00)
[2016-06-02] MEDS ORDERED: FUROSEMIDE 20 MG/2 ML VIAL IV PUSH ONE (09:00)
[2016-06-02] MEDS: ACETAMINOPHEN/HYDROcodone 325 MG/7.5 MG TAB PO PRN (11:24)
[2016-06-02] MEDS: IRON SUCROSE INJ 200 MG in SODIUM CHLORIDE 0.9% INJ 100 ML IV SCH (12:00)
--- NOTE | 2016-06-02 12:12 | PD.ONC.PN ---
Subjective Subjective Remarks Afebrile overnight. Patient resting comfortably. She had some dyspnea this AM, and is receiving a breathing treatment. Tolerated pRBC infusion overnight and this morning. Objective Data Date Time Temp Pulse Resp B/P Pulse Ox O2 Delivery O2 Flow Rate FiO2 06/02/16 08:17 93 3.00 06/02/16 07:29 96.3 58 17 185/77 93 06/02/16 06:20 96.2 60 18 197/78 95 06/02/16 06:05 96.7 62 19 188/77 93 06/02/16 04:12 97.6 71 16 173/73 95 06/02/16 02:45 97.4 66 18 181/77 93 06/02/16 02:38 97.7 71 18 185/79 91 06/02/16 01:31 97.6 72 16 174/90 91 06/01/16 21:54 97.5 69 16 192/72 92 06/01/16 20:52 78 06/01/16 20:31 98 Nasal Cannula 2.00 06/01/16 20:30 91 Nasal Cannula 2.00 06/01/16 16:00 97.7 64 18 144/66 97 06/02/16 06/02/16 06/02/16 07:00 15:00 23:00 Intake Total 950 ml Output Total 800 ml 1000 ml Balance 150 ml -1000 ml Result Diagram: 05/31/16 0425 05/31/16 0425 Laboratory Results Laboratory Tests Test 06/01/16 06/01/16 06/01/16 06/02/16 17:45 23:20 23:44 05:20 Vancomycin Level Trough 10.7 MCG/ML 12.9 MCG/ML Blood Type O POSITIVE O POSITIVE Antibody Screen NEGATIVE Crossmatch Leukocyte-Reduced Red Blood Cells Blood Bank Comment Administered Medications Medications (Trade) Dose Ordered Sig/Shade Route PRN Reason Start Time Stop Time Status Last Admin Dose Admin Ondansetron HCl (Zofran Inj) 4 mg Q6H PRN IVP NAUSEA OR VOMITING 05/25/16 23:45 06/02/16 03:33 Amitriptyline HCl (Elavil) 10 mg BID PO 05/26/16 09:00 06/02/16 08:34 Amlodipine Besylate (Norvasc) 10 mg DAILY PO 05/26/16 09:00 06/02/16 08:35 Atorvastatin Calcium (Lipitor) 80 mg HS PO 05/26/16 21:00 06/01/16 20:42 Donepezil HCl (Aricept) 10 mg DAILY PO 05/26/16 09:00 06/02/16 08:38 Levothyroxine Sodium (Synthroid) 100 mcg DAILY@0600 PO 05/26/16 06:00 06/02/16 05:29 Primidone (Mysoline) 250 mg TID PO 05/26/16 09:00 06/02/16 08:34 Lisinopril (Prinivil) 40 mg DAILY PO 05/26/16 09:00 06/02/16 08:35 Pantoprazole Sodium (Protonix) 20 mg DAILY PO 05/26/16 09:00 06/02/16 08:34 Folic Acid (Folate) 1 mg DAILY PO 05/26/16 09:00 06/02/16 08:34 IV Flush (NS Flush) 2 ml BID IVF 05/26/16 21:00 06/02/16 08:36 Enoxaparin Sodium (Lovenox Inj) 30 mg Q24H SQ 05/27/16 12:00 06/01/16 10:51 Calcium/Vitamin D (Oscal-D 250-125) 250 mg TID PO 05/26/16 14:00 06/02/16 08:34 Diphenhydramine HCl (Benadryl) 25 mg Q6H PRN PO ITCHING/ insomnia 05/26/16 11:45 05/30/16 21:54 Acetaminophen/ Hydrocodone Bitart ([place] 7.5-325 Mg) 1 tab Q3H PRN PO pain 2<5 05/26/16 11:45 06/01/16 17:36 Acetaminophen/ Hydrocodone Bitart ([place] 7.5-325 Mg) 2 tab Q6H PRN PO pain 6<10 05/26/16 11:45 06/02/16 11:24 Cholecalciferol (Vitamin D3) 5,000 units DAILY PO 05/27/16 09:00 06/02/16 08:34 Sodium Chloride ([place] Darci [place]) 2 spray Q4H PRN EACH NARE NASAL CONGESTION 05/26/16 20:45 05/29/16 23:25 Docusate Sodium (Colace) 100 mg BID PO 05/27/16 21:00 06/02/16 08:34 Sennosides 17.2 mg 17.2 mg DAILY PO 05/27/16 18:00 06/02/16 08:34 Cefepime HCl/ Sodium Chloride (Maxipime Inj/NS Inj) 100 ml @ 200 mls/hr Q8H IV 05/27/16 20:00 06/02/16 05:27 Hydromorphone HCl (Dilaudid Pf Inj) 1 mg Q3HR PRN IV PUSH Breakthrough pain 05/28/16 08:15 06/01/16 20:43 Guaifenesin (Mucinex Er) 1,200 mg BID PO 05/28/16 11:00 06/02/16 08:34 Polyethylene Glycol (Miralax) 17 gm DAILY PO 05/28/16 11:00 06/01/16 10:50 Alprazolam (Xanax) 0.25 mg Q6H PRN PO Anxiety 05/28/16 10:30 06/01/16 19:16 Carvedilol (Coreg) 3.125 mg Q12HR PO 05/28/16 11:00 06/02/16 08:35 Clonidine (Catapres) 0.1 mg Q6H PRN PO SBP> OR = 180, DBP> OR = 100 05/29/16 18:00 06/02/16 11:39 Enalaprilat (Vasotec Inj) 1.25 mg Q6H PRN IV PUSH SBP> OR = 180, DBP> OR = 100 05/29/16 18:00 06/02/16 06:32 Hydrochlorothiazide (Hydrodiuril) 25 mg DAILY PO 05/30/16 11:30 06/02/16 08:34 Zolpidem Tartrate (Ambien) 5 mg HS PRN PO Insomnia 05/31/16 11:00 06/01/16 20:42 Methylprednisolone Sodium Succinate (SoluMEDROL INJ) 40 mg BID IV PUSH 06/01/16 21:00 06/02/16 08:35 Diphenhydramine HCl (Benadryl) 25 mg UNSCH PRN PO GIVE FOR PRE-MED BLOOD 06/02/16 06:30 06/02/16 06:40 Acetaminophen (Tylenol) 650 mg UNSCH PRN PO GIVE PRE-MD BLOOD 06/02/16 06:30 06/02/16 06:40 Objective Remarks GENERAL: Pleasant female, sitting up in bed receiving breathing treatment. SKIN: Warm and dry. HEAD: Normocephalic. EYES: No injection or drainage. NECK: Supple, trachea midline. CARDIOVASCULAR: +S1/S2, tachy RESPIRATORY: diminished at bases, scattered rhonchi GASTROINTESTINAL: Abdomen soft, non-tender, nondistended. EXTREMITIES: No cyanosis NEUROLOGICAL: awake and alert, normal speech. moving extremities. Assessment/Plan Problem List: (1) Metastatic lung cancer (metastasis from lung to other site) Status: Acute Plan: --diagnosed in early 2015. --She was found to have a spiculated mass in the left upper lobe abutting the mediastinum. --CT-guided biopsy confirmed small cell lung cancer. She was to begin systemic chemotherapy but was admitted with fracture -- If her oxygen saturations do not improve, we may have to give her chemotherapy while inpatient. Small cell lung cancer is highly responsive to chemotherapy. Rapid debulking of the disease in the lung may help improve her respiratory status. (2) Fracture, intertrochanteric, left femur Status: Acute Plan: --s/p intramedullary sera fixation. --will need to be discharged to rehab (3) Anemia Status: Acute Plan: --Transfuse to keep hemoglobin greater than 7.5. --iron sucrose given Assessment 76y/o female with a history of extensive stage small-cell lung cancer admitted with hip fracture. h/o Small-cell lung cancer. Coronary artery disease. COPD. Tobacco abuse. History of colitis. Hypertension. Rheumatoid arthritis. Osteoarthritis. HPI: the patient had a fall after she tripped over her daughter's dog. presented to the emergency department and was found to have a mildly displaced fracture to the intertrochanteric region of the left hip. The patient was seen by orthopedic surgery and has undergone left intertrochanteric femur repair status post intramedullary sera fixation. The patient was desaturating with low oxygen levels and was transferred to be the intensive care unit for close observation. chest x-ray showed a left lower lobe consolidation. she was started on antibiotics and steroids. Her lung function improved and she was transferred to med/surg floor. Plan 1. monitor CBC, CMP 2. chemotherapy today Attending Statement The exam, history, and the medical decision-making described in the above note were completed with the assistance of the mid-level provider. I reviewed and agree with the findings presented. I attest that I had a [id number] encounter with the patient on the same day, and personally performed and documented my assessment and findings in the medical record. Small cell lung cancer begin treatment with Carboplatin and etoposide D#1 chemotherapy orders signed Hb improved today encourage ambulation supplement meals with ensure d/w rn Problem Qualifiers (1) Fracture, intertrochanteric, left femur: Qualified Code: S72.142A - Fracture, intertrochanteric, left femur, closed, initial encounter Dorcas Evans Jun 02, 2016 12:12 Evangelist Tracy MD Jun 02, 2016 22:47
--- NOTE | 2016-06-02 12:58 | HHI.PR ---
Subjective Remarks Patient reports she is feeling okay this morning. She had some difficulty with breathing overnight but that resolved this morning. She denies any chest pain. Stable on 2 L nasal cannula. Objective Vitals Vital Signs Date Time Temp Pulse Resp B/P Pulse Ox O2 Delivery O2 Flow Rate FiO2 06/02/16 08:17 93 3.00 06/02/16 07:29 96.3 58 17 185/77 93 06/02/16 06:20 96.2 60 18 197/78 95 06/02/16 06:05 96.7 62 19 188/77 93 06/02/16 04:12 97.6 71 16 173/73 95 06/02/16 02:45 97.4 66 18 181/77 93 06/02/16 02:38 97.7 71 18 185/79 91 06/02/16 01:31 97.6 72 16 174/90 91 06/01/16 21:54 97.5 69 16 192/72 92 06/01/16 20:52 78 06/01/16 20:31 98 Nasal Cannula 2.00 06/01/16 20:30 91 Nasal Cannula 2.00 06/01/16 16:00 97.7 64 18 144/66 97 I/O 06/01/16 06/01/16 06/01/16 06/02/16 06/02/16 06/02/16 07:00 15:00 23:00 07:00 15:00 23:00 Intake Total 240 ml 720 ml 1000 ml 950 ml Output Total 1800 ml 1350 ml 800 ml 1000 ml Balance -1560 ml -630 ml 1000 ml 150 ml -1000 ml Intake Oral 240 ml 720 ml 1000 ml 350 ml IV Total 250 ml Packed Cells 350 ml Output Urine Total 1800 ml 1350 ml 800 ml 1000 ml # Bowel Movements 1 0 Result Diagram: 05/31/16 0425 05/31/16 0425 Imaging Last Impressions Chest X-Ray 06/01/16 0000 Signed Impressions: Service Date/Time: Wednesday, June 01, 2016 06:10 - CONCLUSION: Stable appearance of the chest without concerning infiltrate or mass. Ray Ma MD Femur X-Ray 05/26/16 0000 Signed Impressions: Service Date/Time: Thursday, May 26, 2016 12:24 - CONCLUSION: Postoperative changes. Moris Bonilla MD Hip and Pelvis X-Ray 05/25/16 0000 Signed Impressions: Service Date/Time: Wednesday, May 25, 2016 23:01 - CONCLUSION: Mildly displaced fracture through the intertrochanteric region of the left hip. Baljit Rockwell MD Objective Remarks GENERAL: Elderly female in no apparent distress. CARDIOVASCULAR: Regular rate and rhythm without murmurs, gallops, or rubs. RESPIRATORY: Diffuse expiratory wheezing. GASTROINTESTINAL: Abdomen soft, non-tender, nondistended. No guarding or rebound. + bowel sounds. MUSCULOSKELETAL: Left lower extremity with bandages and tender to palpation. NEUROLOGICAL: Awake and alert. Sensory grossly within normal limits. Left lower extremity ROM limited secondary to pain. Normal speech. PSYCH: Mood and affect appropriate. Procedures Left hip fracture repair. A/P Assessment and Plan 76 year old female patient with a past medical history which includes: anemia, angina, anxiety, arthritis, Asthma, lung cancer, CAD s/o [place], COPD, colitis, hypertension, kidney stones, migraine, osteoarthritis, osteoporosis, rheumatoid arthritis and hypothyroidism. Patient presents to the emergency department after she had a trip and fall over her daughter's dog. Patient reports pain and inability to bear weight on her left lower extremity. Hip and pelvic x-ray revealed mildly displaced fracture through the intertrochanteric region of the left hip. Patient has known lung cancer and was supposed to start chemotherapy. She has been having respiratory difficulties year, therefore chemotherapy has been started. Left hip fracture Status post mechanical fall. S/p repair 05/26/16. - weightbearing, wound care and anticoagulation per orthopedic surgery. Cleared for discharge by surgery. - pain control with a bowel regimen. - incentive spirometry. - physical and occupational therapy. - Follow CBC and transfuse as needed. Stable. Acute respiratory failure/ HCAP The pt has lung cancer and COPD. CXR with left base consolidation which has been noted on prior imaging. Pt with symptoms of cough and mucous production. Pulmonology consult appreciated. Repeat CXR 06/01 stable. - Wean off oxygen as tolerated - continue cefepime and vancomycin to treat for post obstructive pneumonia. - blood and sputum cultures pending. NGTD. - standing nebs. - DC Solumedrol 40 mg IV BID as patient is getting dexamethasone with Chemo. - follow up with pulmonology. - Patient started on chemotherapy. Lung cancer Pt was to start chemotherapy as an outpt. Oncology consult appreciated. - treatment as above. -Chemotherapy started inpatient. - Continue respiratory support with breathing treatments and supplemental oxygen. HTN Exacerbated by pain and respiratory distress. Not well-controlled 06/01. - continue antihypertensive regimen including amlodipine and lisinopril. Added HCTZ 05/30. - pain control and breathing treatments as above. - clonidine and Vasotec as needed. Constipation Resolved. S/p Dulcolax suppository and Fleets enema. PPx: Lovenox Discharge Planning Pending improvement in respiratory status Maritza Saleh MD Jun 02, 2016 12:57
[2016-06-02 14:09] LABS: AUTOMATED NEUTROPHIL # 10.6 TH/MM3 (1.8-7.7); BASOPHIL % 0.2 % (0.0-2.0); EOSINOPHIL % 0.2 % (0.0-4.0); HEMATOCRIT 35.5 % (35.0-46.0); HEMO FLAGS DIFF FINAL; LYMPH % 5.8 % (9.0-44.0); LYMPHOCYTE # 0.7 TH/MM3 (1.0-4.8); MEAN CELL VOLUME 81.8 FL (80.0-100.0); MEAN CORPUSCULAR HEMOGLOBIN 26.2 PG (27.0-34.0); MEAN CORPUSCULAR HGB CONC 32.1 % (32.0-36.0); MONO % 5.1 % (0.0-8.0); NEUT % 88.7 % (16.0-70.0); PLATELET COUNT 201 TH/MM3 (150-450); RED BLOOD COUNT 4.34 MIL/MM3 (4.00-5.30); RED CELL DISTRIBUTION WIDTH 17.6 % (11.6-17.2)
[2016-06-02] MEDS: ENOXAPARIN SODIUM 30 MG/0.3 ML SYRINGE SQ SCH (14:25)
[2016-06-02 14:38] LABS: ALKALINE PHOSPHATASE 123 U/L (45-117); ALT (GPT) 31 U/L (10-53); ANION GAP 7 MEQ/L (5-15); AST (GOT) 29 U/L (15-37); BICARBONATE 34.3 MEQ/L (21.0-32.0); BLOOD UREA NITROGEN 12 MG/DL (7-18); CHLORIDE 91 MEQ/L (98-107); GLOMERULAR FILTRATION RATE 103 ML/MIN (>89); POTASSIUM 3.9 MEQ/L (3.5-5.1); SODIUM (NA) 132 MEQ/L (136-145); TOTAL BILIRUBIN ADULT 1.3 MG/DL (0.2-1.0)
[2016-06-02] MEDS ORDERED: GRANISETRON HCL 1 MG/ML VIAL IV PUSH ONE (16:30)
[2016-06-02] MEDS ORDERED: DEXAMETHASONE INJ 20 MG in SODIUM CHLORIDE 0.9% INJ 50 ML IV ONE (16:30)
[2016-06-02] MEDS ORDERED: SODIUM CHLOR 0.9% IV ONE (17:00)
[2016-06-02] MEDS ORDERED: CARBOPLATIN IV ONE (17:00)
[2016-06-02] MEDS: SODIUM CHLOR 0.9% 250 ML INJ 250 ML IV SCH (18:16)
[2016-06-02] MEDS: VANCOMYCIN INJ 1,250 MG in SODIUM CHLOR 0.9% 250 ML INJ 250 ML IV SCH (18:23)
--- NOTE | 2016-06-02 19:18 | HHI.PR ---
Subjective Remarks LESS SOB AMBULATING Objective Vital Signs Date Time Temp Pulse Resp B/P Pulse Ox O2 Delivery O2 Flow Rate FiO2 06/02/16 15:59 96 Nasal Cannula 3.00 06/02/16 15:50 96.4 64 20 122/58 96 06/02/16 12:35 56 162/72 06/02/16 11:50 98.1 60 20 192/85 95 06/02/16 08:25 Nasal Cannula 3.00 Humidified 06/02/16 08:17 93 3.00 06/02/16 07:29 96.3 58 17 185/77 93 06/02/16 06:20 96.2 60 18 197/78 95 06/02/16 06:05 96.7 62 19 188/77 93 06/02/16 04:12 97.6 71 16 173/73 95 06/02/16 02:45 97.4 66 18 181/77 93 06/02/16 02:38 97.7 71 18 185/79 91 06/02/16 01:31 97.6 72 16 174/90 91 06/01/16 21:54 97.5 69 16 192/72 92 06/01/16 20:52 78 06/01/16 20:31 98 Nasal Cannula 2.00 06/01/16 20:30 91 Nasal Cannula 2.00 I/O 06/01/16 06/01/16 06/01/16 06/02/16 06/02/16 06/02/16 07:00 15:00 23:00 07:00 15:00 23:00 Intake Total 240 ml 720 ml 1000 ml 950 ml 498 ml 663 ml Output Total 1800 ml 1350 ml 800 ml 1000 ml Balance -1560 ml -630 ml 1000 ml 150 ml -502 ml 663 ml Intake Oral 240 ml 720 ml 1000 ml 350 ml IV Total 250 ml 128 ml 663 ml Packed Cells 350 ml 370 ml Output Urine Total 1800 ml 1350 ml 800 ml 1000 ml # Bowel Movements 1 0 Result Diagram: 06/02/16 1345 06/02/16 1245 Objective Remarks GENERAL: SKIN: Warm and dry. HEAD: Atraumatic. Normocephalic. EYES: Pupils equal and round. No scleral icterus. No injection or drainage. ENT: No nasal bleeding or discharge. Mucous membranes pink and moist. NECK: Trachea midline. No JVD. CARDIOVASCULAR: Regular rate and rhythm. RESPIRATORY: No accessory muscle use ,scattered ronchi CASTROINTESTINAL: Abdomen soft, non-tender, nondistended. Hepatic and splenic margins not palpable. MUSCULOSKELETAL: Extremities without clubbing, cyanosis, or edema. No obvious deformities. NEUROLOGICAL: Awake and alert. No obvious cranial nerve deficits. Motor grossly within normal limits. Five out of 5 muscle strength in the arms and legs. Normal speech. PSYCHIATRIC: Appropriate mood and affect; insight and judgment normal. Assessment and Plan Assessment and Plan ASSESSMENT pna , CXRAY CLEAR copd PLAN O2 ANTIBIOTICS BRONCHODILATOR THERAPY Chandler Arteaga MD Jun 02, 2016 19:18
[2016-06-02] MEDS: ATORVASTATIN 80 MG TAB PO SCH (21:15)
[2016-06-02] MEDS: ETOPOSIDE IV SCH (21:34)
[2016-06-02] MEDS: NS IV SCH (21:34)
[2016-06-03] VITALS (10 sets, daily range): BP systolic 134–170; BP diastolic 59–74; PULSE 59–89; RESP 16–20; TEMP 96.6–98; O2SAT 93–95
[2016-06-03] MEDS: ONDANSETRON HCL 4 MG/2 ML VIAL IVP PRN ×3 (03:15→21:25)
[2016-06-03] MEDS: CEFEPIME INJ 2,000 MG in SODIUM CHLORIDE 0.9% INJ 100 ML IV SCH (04:25)
[2016-06-03 04:58] LABS: HEMATOCRIT 33.3 % (35.0-46.0); MEAN CELL VOLUME 81.1 FL (80.0-100.0); MEAN CORPUSCULAR HGB CONC 33.2 % (32.0-36.0); PLATELET COUNT 219 TH/MM3 (150-450); RED BLOOD COUNT 4.11 MIL/MM3 (4.00-5.30); RED CELL DISTRIBUTION WIDTH 17.9 % (11.6-17.2); REVIEW FLAG FINAL; WHITE BLOOD COUNT 9.2 TH/MM3 (4.0-11.0)
[2016-06-03 05:12] LABS: BICARBONATE 32.4 MEQ/L (21.0-32.0); POTASSIUM 4.3 MEQ/L (3.5-5.1)
[2016-06-03] MEDS: LEVOTHYROXINE SODIUM 100 MCG TAB PO SCH (06:18)
[2016-06-03] MEDS: VANCOMYCIN INJ 1,250 MG in SODIUM CHLOR 0.9% 250 ML INJ 250 ML IV SCH (06:18)
[2016-06-03] MEDS: INSULIN ASPART SUPPLEMENTAL SCALE SQ SCH ×4 (06:20→23:11)
[2016-06-03] MEDS: RESP: ALBUTEROL 2.5 MG/IPRATROPIUM 0.5 MG NEB (SCH) NEB (07:58)
--- NOTE | 2016-06-03 08:40 | HHI.PR ---
Subjective Remarks LESS SOB AMBULATING Objective Vital Signs Date Time Temp Pulse Resp B/P Pulse Ox O2 Delivery O2 Flow Rate FiO2 06/03/16 07:58 93 Nasal Cannula 3.00 06/03/16 04:30 97.3 72 18 161/74 94 06/03/16 04:10 94 Nasal Cannula 3.00 06/03/16 00:00 96.6 64 16 134/59 94 06/02/16 21:14 96 Nasal Cannula 3.00 06/02/16 20:38 71 06/02/16 20:18 97.3 66 16 144/73 96 06/02/16 15:59 96 Nasal Cannula 3.00 06/02/16 15:50 96.4 64 20 122/58 96 06/02/16 12:35 56 162/72 06/02/16 11:50 98.1 60 20 192/85 95 I/O 06/02/16 06/02/16 06/02/16 06/03/16 06/03/16 06/03/16 07:00 15:00 23:00 07:00 15:00 23:00 Intake Total 950 ml 1098 ml 1513 ml 630 ml Output Total 800 ml 3900 ml 600 ml 800 ml Balance 150 ml -2802 ml 913 ml -170 ml Intake Oral 350 ml 600 ml 480 ml IV Total 250 ml 128 ml 1513 ml 150 ml Packed Cells 350 ml 370 ml Output Urine Total 800 ml 3900 ml 600 ml 800 ml # Bowel Movements 0 1 Result Diagram: 06/03/1642906/03/16 043 Objective Remarks GENERAL: SKIN: Warm and dry. HEAD: Atraumatic. Normocephalic. EYES: Pupils equal and round. No scleral icterus. No injection or drainage. ENT: No nasal bleeding or discharge. Mucous membranes pink and moist. NECK: Trachea midline. No JVD. CARDIOVASCULAR: Regular rate and rhythm. RESPIRATORY: No accessory muscle use ,scattered ronchi CASTROINTESTINAL: Abdomen soft, non-tender, nondistended. Hepatic and splenic margins not palpable. MUSCULOSKELETAL: Extremities without clubbing, cyanosis, or edema. No obvious deformities. NEUROLOGICAL: Awake and alert. No obvious cranial nerve deficits. Motor grossly within normal limits. Five out of 5 muscle strength in the arms and legs. Normal speech. PSYCHIATRIC: Appropriate mood and affect; insight and judgment normal. Assessment and Plan Assessment and Plan ASSESSMENT pna , CXRAY CLEAR copd PLAN O2 ANTIBIOTICS BRONCHODILATOR THERAPY Discussed Condition With GENERAL: SKIN: Warm and dry. HEAD: Atraumatic. Normocephalic. EYES: Pupils equal and round. No scleral icterus. No injection or drainage. ENT: No nasal bleeding or discharge. Mucous membranes pink and moist. NECK: Trachea midline. No JVD. CARDIOVASCULAR: Regular rate and rhythm. RESPIRATORY: No accessory muscle use. Clear to auscultation. Breath sounds equal bilaterally. GASTROINTESTINAL: Abdomen soft, non-tender, nondistended. Hepatic and splenic margins not palpable. MUSCULOSKELETAL: Extremities without clubbing, cyanosis, or edema. No obvious deformities. NEUROLOGICAL: Awake and alert. No obvious cranial nerve deficits. Motor grossly within normal limits. Five out of 5 muscle strength in the arms and legs. Normal speech. PSYCHIATRIC: Appropriate mood and affect; insight and judgment normal. Chandler Arteaga MD Jun 03, 2016 08:40
[2016-06-03] MEDS: SODIUM CHLORIDE 0.9% FLUSH 5 ML FLUSH IVF SCH ×2 (09:00→21:18)
[2016-06-03] MEDS: SENNOSIDES 8.6 MG TAB PO SCH (09:40)
[2016-06-03] MEDS: guaiFENesin E.R. 600 MG TAB PO SCH ×2 (09:40→21:07)
[2016-06-03] MEDS: AMITRIPTYLINE HCL 10 MG TAB PO SCH ×2 (09:40→21:07)
[2016-06-03] MEDS: HYDROCHLOROTHIAZIDE 25 MG TAB PO SCH (09:40)
[2016-06-03] MEDS: CHOLECALCIFEROL (VIT D3) 5000 UNIT CAP PO SCH (09:40)
[2016-06-03] MEDS: FOLIC ACID 1 MG TAB PO SCH (09:40)
[2016-06-03] MEDS: DOCUSATE SODIUM 100 MG CAP PO SCH ×2 (09:41→21:08)
[2016-06-03] MEDS: POLYETHYLENE GLYCOL 17 GM PKG PO SCH (09:41)
[2016-06-03] MEDS: CALCIUM/VITAMIN D 250 MG/125 U TAB PO SCH ×3 (09:41→17:27)
[2016-06-03] MEDS: PANTOPRAZOLE SOD 20 MG DELAYED RELEASE TAB PO SCH (09:41)
[2016-06-03] MEDS: CARVEDILOL 3.125 MG TAB PO SCH ×2 (09:41→21:07)
[2016-06-03] MEDS: LISINOPRIL 20 MG TAB PO SCH (09:41)
[2016-06-03] MEDS: PRIMIDONE 250 MG TAB PO SCH ×3 (09:41→17:27)
[2016-06-03] MEDS: DONEPEZIL HCL 5 MG TAB PO SCH (09:41)
[2016-06-03] MEDS: methylPREDNISolone SOD SUCC 40 MG/1 ML VIAL IV PUSH SCH ×2 (09:42→21:07)
[2016-06-03] MEDS: ACETAMINOPHEN/HYDROcodone 325 MG/7.5 MG TAB PO PRN (09:59)
--- NOTE | 2016-06-03 11:55 | PD.ONC.PN ---
Subjective Subjective Remarks Afebrile overnight. Patient feeling somewhat nauseated from chemotherapy. She was able to tolerate breakfast this AM. No diarrhea. Objective Data Date Time Temp Pulse Resp B/P Pulse Ox O2 Delivery O2 Flow Rate FiO2 06/03/16 11:22 96 Nasal Cannula 3.00 06/03/16 08:00 97.2 89 16 147/67 95 06/03/16 07:58 93 Nasal Cannula 3.00 06/03/16 04:30 97.3 72 18 161/74 94 06/03/16 04:10 94 Nasal Cannula 3.00 06/03/16 00:00 96.6 64 16 134/59 94 06/02/16 21:14 96 Nasal Cannula 3.00 06/02/16 20:38 71 06/02/16 20:18 97.3 66 16 144/73 96 06/02/16 15:59 96 Nasal Cannula 3.00 06/02/16 15:50 96.4 64 20 122/58 96 06/02/16 12:35 56 162/72 06/03/16 06/03/16 06/03/16 07:00 15:00 23:00 Intake Total 630 ml Output Total 800 ml Balance -170 ml Result Diagram: 06/03/16 0430 06/03/16 0430 Laboratory Results Laboratory Tests Test 06/02/16 06/02/16 06/03/16 12:45 13:45 04:30 Sodium Level 132 MEQ/L 132 MEQ/L Potassium Level 3.9 MEQ/L 4.3 MEQ/L Chloride Level 91 MEQ/L 94 MEQ/L Carbon Dioxide Level 34.3 MEQ/L 32.4 MEQ/L Anion Gap 7 MEQ/L 6 MEQ/L Blood Urea Nitrogen 12 MG/DL 14 MG/DL Creatinine 0.57 MG/DL 0.61 MG/DL Estimat Glomerular Filtration 103 ML/MIN 95 ML/MIN Rate Random Glucose 155 MG/DL 162 MG/DL Calcium Level 8.3 MG/DL 8.2 MG/DL Total Bilirubin 1.3 MG/DL Aspartate Amino Transf 29 U/L (AST/SGOT) Alanine Aminotransferase 31 U/L (ALT/SGPT) Alkaline Phosphatase 123 U/L Total Protein 5.6 GM/DL Albumin 2.4 GM/DL White Blood Count 12.0 TH/MM3 9.2 TH/MM3 Red Blood Count 4.34 MIL/MM3 4.11 MIL/MM3 Hemoglobin 11.4 GM/DL 11.1 GM/DL Hematocrit 35.5 % 33.3 % Mean Corpuscular Volume 81.8 FL 81.1 FL Mean Corpuscular Hemoglobin 26.2 PG 27.0 PG Mean Corpuscular Hemoglobin 32.1 % 33.2 % Concent Red Cell Distribution Width 17.6 % 17.9 % Platelet Count 201 TH/MM3 219 TH/MM3 Mean Platelet Volume 8.5 FL 8.3 FL Neutrophils (%) (Auto) 88.7 % Lymphocytes (%) (Auto) 5.8 % Monocytes (%) (Auto) 5.1 % Eosinophils (%) (Auto) 0.2 % Basophils (%) (Auto) 0.2 % Neutrophils # (Auto) 10.6 TH/MM3 Lymphocytes # (Auto) 0.7 TH/MM3 Monocytes # (Auto) 0.6 TH/MM3 Eosinophils # (Auto) 0.0 TH/MM3 Basophils # (Auto) 0.0 TH/MM3 CBC Comment DIFF FINAL Differential Comment Administered Medications Medications (Trade) Dose Ordered Sig/Shade Route PRN Reason Start Time Stop Time Status Last Admin Dose Admin Ondansetron HCl (Zofran Inj) 4 mg Q6H PRN IVP NAUSEA OR VOMITING 05/25/16 23:45 06/03/16 03:15 Amitriptyline HCl (Elavil) 10 mg BID PO 05/26/16 09:00 06/03/16 09:40 Amlodipine Besylate (Norvasc) 10 mg DAILY PO 05/26/16 09:00 06/03/16 09:41 Atorvastatin Calcium (Lipitor) 80 mg HS PO 05/26/16 21:00 06/02/16 21:15 Donepezil HCl (Aricept) 10 mg DAILY PO 05/26/16 09:00 06/03/16 09:41 Levothyroxine Sodium (Synthroid) 100 mcg DAILY@0600 PO 05/26/16 06:00 06/03/16 06:18 Primidone (Mysoline) 250 mg TID PO 05/26/16 09:00 06/03/16 09:41 Lisinopril (Prinivil) 40 mg DAILY PO 05/26/16 09:00 06/03/16 09:41 Pantoprazole Sodium (Protonix) 20 mg DAILY PO 05/26/16 09:00 06/03/16 09:41 Folic Acid (Folate) 1 mg DAILY PO 05/26/16 09:00 06/03/16 09:40 IV Flush (NS Flush) 2 ml BID IVF 05/26/16 21:00 06/03/16 09:00 Enoxaparin Sodium (Lovenox Inj) 30 mg Q24H SQ 05/27/16 12:00 06/02/16 14:25 Calcium/Vitamin D (Oscal-D 250-125) 250 mg TID PO 05/26/16 14:00 06/03/16 09:41 Diphenhydramine HCl (Benadryl) 25 mg Q6H PRN PO ITCHING/ insomnia 05/26/16 11:45 05/30/16 21:54 Acetaminophen/ Hydrocodone Bitart ([place] 7.5-325 Mg) 1 tab Q3H PRN PO pain 2<5 05/26/16 11:45 06/01/16 17:36 Acetaminophen/ Hydrocodone Bitart ([place] 7.5-325 Mg) 2 tab Q6H PRN PO pain 6<10 05/26/16 11:45 06/03/16 09:59 Cholecalciferol (Vitamin D3) 5,000 units DAILY PO 05/27/16 09:00 06/03/16 09:40 Sodium Chloride (Josephine Darci [place]) 2 spray Q4H PRN EACH NARE NASAL CONGESTION 05/26/16 20:45 05/29/16 23:25 Docusate Sodium (Colace) 100 mg BID PO 05/27/16 21:00 06/03/16 09:41 Sennosides (Senokot) 17.2 mg DAILY PO 05/27/16 18:00 06/03/16 09:40 Hydromorphone HCl (Dilaudid Pf Inj) 1 mg Q3HR PRN IV PUSH Breakthrough pain 05/28/16 08:15 06/01/16 20:43 Guaifenesin (Mucinex Er) 1,200 mg BID PO 05/28/16 11:00 06/03/16 09:40 Polyethylene Glycol (Miralax) 17 gm DAILY PO 05/28/16 11:00 06/03/16 09:41 Alprazolam (Xanax) 0.25 mg Q6H PRN PO Anxiety 05/28/16 10:30 06/01/16 19:16 Carvedilol (Coreg) 3.125 mg Q12HR PO 05/28/16 11:00 06/03/16 09:41 Clonidine (Catapres) 0.1 mg Q6H PRN PO SBP> OR = 180, DBP> OR = 100 05/29/16 18:00 06/02/16 11:39 Enalaprilat (Vasotec Inj) 1.25 mg Q6H PRN IV PUSH SBP> OR = 180, DBP> OR = 100 05/29/16 18:00 06/02/16 06:32 Zolpidem Tartrate (Ambien) 5 mg HS PRN PO Insomnia 05/31/16 11:00 06/01/16 20:42 Methylprednisolone Sodium Succinate (SoluMEDROL INJ) 40 mg BID IV PUSH 06/01/16 21:00 06/03/16 09:42 Diphenhydramine HCl (Benadryl) 25 mg UNSCH PRN PO GIVE FOR PRE-MED BLOOD 06/02/16 06:30 06/02/16 06:40 Acetaminophen 650 mg 650 mg UNSCH PRN PO GIVE PRE-MD BLOOD 06/02/16 06:30 06/02/16 06:40 Sodium Chloride 250 ml @ 0 mls/hr Q24H IV 06/02/16 17:00 06/05/16 23:00 06/02/16 18:16 Etoposide/Sodium Chloride (Vepesid Inj/NS 500 ml ([place] Bag) Inj) 508.55 ml @ 508.55 mls/hr Q24H IV 06/02/16 17:30 06/04/16 18:29 06/02/16 21:34 Hydrochlorothiazide (Hydrodiuril) 50 mg DAILY PO 06/03/16 09:00 06/03/16 09:40 Objective Remarks GENERAL: Elderly female, sitting up in bed in nad. SKIN: Warm and dry. HEAD: Normocephalic. EYES: No injection or drainage. NECK: Supple, trachea midline. CARDIOVASCULAR: +S1/S2, tachy RESPIRATORY: diminished at bases, scattered rhonchi on 3L O2 via nc GASTROINTESTINAL: Abdomen soft, non-tender, nondistended. EXTREMITIES: No cyanosis NEUROLOGICAL: aox3, normal speech Assessment/Plan Problem List: (1) Metastatic lung cancer (metastasis from lung to other site) Status: Acute Plan: --diagnosed in early 2015. --She was found to have a spiculated mass in the left upper lobe abutting the mediastinum. --CT-guided biopsy confirmed small cell lung cancer. She was to begin systemic chemotherapy but was admitted with fracture --chemotherapy with carboplatin + etoposide on 06/02--06/04 (2) Fracture, intertrochanteric, left femur Status: Acute Plan: --s/p intramedullary sera fixation. --will need to be discharged to rehab (3) Anemia Status: Acute Plan: --Transfuse to keep hemoglobin greater than 7.5. --iron sucrose given Assessment 76y/o female with a history of extensive stage small-cell lung cancer admitted with hip fracture. h/o Small-cell lung cancer. Coronary artery disease. COPD. Tobacco abuse. History of colitis. Hypertension. Rheumatoid arthritis. Osteoarthritis. HPI: the patient had a fall after she tripped over her daughter's dog. presented to the emergency department and was found to have a mildly displaced fracture to the intertrochanteric region of the left hip. The patient was seen by orthopedic surgery and has undergone left intertrochanteric femur repair status post intramedullary sera fixation. The patient was desaturating with low oxygen levels and was transferred to be the intensive care unit for close observation. chest x-ray showed a left lower lobe consolidation. she was started on antibiotics and steroids. Her lung function improved and she was transferred to med/surg floor. Plan 1. monitor CBC, CMP 2. VP16 today 3. PRN zofran for nausea. Attending Statement The exam, history, and the medical decision-making described in the above note were completed with the assistance of the mid-level provider. I reviewed and agree with the findings presented. I attest that I had a [id number]-[id number] encounter with the patient on the same day, and personally performed and documented my assessment and findings in the medical record. D# 2 of Carbo/HOME INSPECTOR 16. HOME INSPECTOR 16 only today--for extensive stage small cell carcinoma of lung counts adequate anti-emetics prn magic mouthwash for mucositis check daily cbc and cmp/mag and phosp d/w rn Problem Qualifiers (1) Fracture, intertrochanteric, left femur: Qualified Code: S72.142A - Fracture, intertrochanteric, left femur, closed, initial encounter (2) Anemia: Dorcas Evans Jun 03, 2016 11:55 Evangelist Tracy MD Jun 03, 2016 23:11
[2016-06-03] MEDS: ENOXAPARIN SODIUM 30 MG/0.3 ML SYRINGE SQ SCH (12:37)
--- NOTE | 2016-06-03 13:46 | HHI.PR ---
Subjective Remarks Patient reports she is feeling okay today. No increased in shortness of breath. Currently on 3 L nasal cannula. Pain is controlled. Objective Vitals Vital Signs Date Time Temp Pulse Resp B/P Pulse Ox O2 Delivery O2 Flow Rate FiO2 06/03/16 11:22 96 Nasal Cannula 3.00 06/03/16 08:00 97.2 89 16 147/67 95 06/03/16 07:58 93 Nasal Cannula 3.00 06/03/16 04:30 97.3 72 18 161/74 94 06/03/16 04:10 94 Nasal Cannula 3.00 06/03/16 00:00 96.6 64 16 134/59 94 06/02/16 21:14 96 Nasal Cannula 3.00 06/02/16 20:38 71 06/02/16 20:18 97.3 66 16 144/73 96 06/02/16 15:59 96 Nasal Cannula 3.00 06/02/16 15:50 96.4 64 20 122/58 96 I/O 06/02/16 06/02/16 06/02/16 06/03/16 06/03/16 06/03/16 07:00 15:00 23:00 07:00 15:00 23:00 Intake Total 950 ml 1098 ml 1513 ml 630 ml Output Total 800 ml 3900 ml 600 ml 800 ml Balance 150 ml -2802 ml 913 ml -170 ml Intake Oral 350 ml 600 ml 480 ml IV Total 250 ml 128 ml 1513 ml 150 ml Packed Cells 350 ml 370 ml Output Urine Total 800 ml 3900 ml 600 ml 800 ml # Voids 3 # Bowel Movements 0 1 1 Result Diagram: 06/03/1642906/03/16 043 Objective Remarks GENERAL: Elderly female in no apparent distress. CARDIOVASCULAR: Regular rate and rhythm without murmurs, gallops, or rubs. RESPIRATORY: Diffuse rhonchi and expiratory wheezing. GASTROINTESTINAL: Abdomen soft, non-tender, nondistended. No guarding or rebound. + bowel sounds. MUSCULOSKELETAL: Left lower extremity with bandages and tender to palpation. NEUROLOGICAL: Awake and alert. Sensory grossly within normal limits. Left lower extremity ROM limited secondary to pain. Normal speech. PSYCH: Mood and affect appropriate. Procedures Left hip fracture repair. A/P Assessment and Plan 76 year old female patient with a past medical history which includes: anemia, angina, anxiety, arthritis, Asthma, lung cancer, CAD s/o [place], COPD, colitis, hypertension, kidney stones, migraine, osteoarthritis, osteoporosis, rheumatoid arthritis and hypothyroidism. Patient presents to the emergency department after she had a trip and fall over her daughter's dog. Patient reports pain and inability to bear weight on her left lower extremity. Hip and pelvic x-ray revealed mildly displaced fracture through the intertrochanteric region of the left hip. Patient has known lung cancer and was supposed to start chemotherapy. She has been having respiratory difficulties during this admission, therefore chemotherapy has been started. Left hip fracture Status post mechanical fall. S/p repair 05/26/16. - weightbearing, wound care and anticoagulation per orthopedic surgery. Cleared for discharge by surgery. - pain control with a bowel regimen. - incentive spirometry. - physical and occupational therapy. - Follow CBC and transfuse as needed. Stable. Acute respiratory failure/ HCAP The pt has lung cancer and COPD. CXR with left base consolidation which has been noted on prior imaging. Pt with symptoms of cough and mucous production. Pulmonology consult appreciated. Repeat CXR 06/01 stable. - Wean off oxygen as tolerated - continue cefepime and vancomycin to treat for post obstructive pneumonia. - blood and sputum cultures pending. NGTD. - standing nebs. - DC Solumedrol 40 mg IV BID as patient is getting dexamethasone with Chemo. - follow up with pulmonology. - Patient started on chemotherapy. Lung cancer Pt was to start chemotherapy as an outpt. Oncology following. - treatment as above. -Chemotherapy started inpatient. - Continue respiratory support with breathing treatments and supplemental oxygen. HTN Exacerbated by pain and respiratory distress. Not well-controlled 06/01. - continue antihypertensive regimen including amlodipine and lisinopril. Added HCTZ 05/30. - pain control and breathing treatments as above. - clonidine and Vasotec as needed. Constipation Resolved. S/p Dulcolax suppository and Fleets enema. PPx: Lovenox Discharge Planning Pending improvement in respiratory status. Patient currently getting chemotherapy for lung cancer. Maritza Saleh MD Jun 03, 2016 13:46
[2016-06-03] MEDS: DEXAMETHASONE INJ 10 MG in SODIUM CHLORIDE 0.9% INJ 50 ML IV SCH (17:38)
[2016-06-03] MEDS: NYSTAT/DIPHENHY/LIDO MOUTHWASH (Adult) 120ML SWISH-SWAL SCH ×2 (18:00→23:02)
[2016-06-03] MEDS: ATORVASTATIN 80 MG TAB PO SCH (21:08)
[2016-06-03] MEDS: NS IV SCH (21:22)
[2016-06-03] MEDS: ETOPOSIDE IV SCH (21:22)
[2016-06-03] MEDS: SODIUM CHLOR 0.9% 250 ML INJ 250 ML IV SCH (21:31)
[2016-06-04] VITALS (9 sets, daily range): BP systolic 144–172; BP diastolic 67–79; PULSE 49–76; RESP 15–20; TEMP 96.5–98.4; O2SAT 94–99
[2016-06-04] MEDS: ACETAMINOPHEN/HYDROcodone 325 MG/7.5 MG TAB PO PRN ×2 (02:40→10:46)
[2016-06-04] MEDS ORDERED: PHARMACY ORDERED LAB ONE (05:45)
[2016-06-04] MEDS: ONDANSETRON HCL 4 MG/2 ML VIAL IVP PRN (06:29)
[2016-06-04] MEDS: LEVOTHYROXINE SODIUM 100 MCG TAB PO SCH (06:29)
[2016-06-04] MEDS: INSULIN ASPART SUPPLEMENTAL SCALE SQ SCH ×4 (06:32→22:22)
[2016-06-04] MEDS: RESP: ALBUTEROL 2.5 MG/IPRATROPIUM 0.5 MG NEB (PRN) NEB (08:00)
[2016-06-04] MEDS: FOLIC ACID 1 MG TAB PO SCH (08:56)
[2016-06-04] MEDS: methylPREDNISolone SOD SUCC 40 MG/1 ML VIAL IV PUSH SCH ×2 (08:56→21:55)
[2016-06-04] MEDS: CHOLECALCIFEROL (VIT D3) 5000 UNIT CAP PO SCH (08:56)
[2016-06-04] MEDS: CALCIUM/VITAMIN D 250 MG/125 U TAB PO SCH ×3 (08:56→17:06)
[2016-06-04] MEDS: AMITRIPTYLINE HCL 10 MG TAB PO SCH ×2 (08:57→21:54)
[2016-06-04] MEDS: CARVEDILOL 3.125 MG TAB PO SCH ×2 (08:57→21:55)
[2016-06-04] MEDS: DOCUSATE SODIUM 100 MG CAP PO SCH ×2 (08:57→21:00)
[2016-06-04] MEDS: guaiFENesin E.R. 600 MG TAB PO SCH ×2 (08:57→21:54)
[2016-06-04] MEDS: HYDROCHLOROTHIAZIDE 25 MG TAB PO SCH (08:57)
[2016-06-04] MEDS: DONEPEZIL HCL 5 MG TAB PO SCH (08:58)
[2016-06-04] MEDS: PANTOPRAZOLE SOD 20 MG DELAYED RELEASE TAB PO SCH (08:58)
[2016-06-04] MEDS: PRIMIDONE 250 MG TAB PO SCH ×3 (08:58→19:05)
[2016-06-04] MEDS: LISINOPRIL 20 MG TAB PO SCH (08:58)
[2016-06-04] MEDS: SENNOSIDES 8.6 MG TAB PO SCH (09:02)
[2016-06-04] MEDS: POLYETHYLENE GLYCOL 17 GM PKG PO SCH (09:02)
--- NOTE | 2016-06-04 09:07 | HHI.PR ---
Subjective Remarks LESS SOB AMBULATING Objective Vital Signs Date Time Temp Pulse Resp B/P Pulse Ox O2 Delivery O2 Flow Rate FiO2 06/04/16 08:00 97 Nasal Cannula 3.00 06/04/16 04:00 96.5 55 16 150/69 97 06/04/16 00:00 98.0 62 17 172/72 98 06/03/16 21:00 95 Nasal Cannula 3.00 06/03/16 20:13 61 06/03/16 20:00 96.9 60 17 163/72 95 06/03/16 16:00 98.0 59 20 143/64 95 06/03/16 12:00 97.5 83 16 170/72 94 06/03/16 11:22 96 Nasal Cannula 3.00 06/03/16 09:16 73 I/O 06/03/16 06/03/16 06/03/16 06/04/16 06/04/16 06/04/16 07:00 15:00 23:00 07:00 15:00 23:00 Intake Total 630 ml 480 ml 750 ml 240 ml Output Total 800 ml 550 ml 200 ml 1900 ml Balance -170 ml -70 ml 550 ml -1660 ml Intake Oral 480 ml 480 ml 240 ml IV Total 150 ml 750 ml Output Urine Total 800 ml 550 ml 200 ml 1900 ml # Voids 3 1 # Bowel Movements 1 1 Result Diagram: 06/03/16 04306/03/16 0430 Objective Remarks GENERAL: SKIN: Warm and dry. HEAD: Atraumatic. Normocephalic. EYES: Pupils equal and round. No scleral icterus. No injection or drainage. ENT: No nasal bleeding or discharge. Mucous membranes pink and moist. NECK: Trachea midline. No JVD. CARDIOVASCULAR: Regular rate and rhythm. RESPIRATORY: No accessory muscle use ,scattered ronchi CASTROINTESTINAL: Abdomen soft, non-tender, nondistended. Hepatic and splenic margins not palpable. MUSCULOSKELETAL: Extremities without clubbing, cyanosis, or edema. No obvious deformities. NEUROLOGICAL: Awake and alert. No obvious cranial nerve deficits. Motor grossly within normal limits. Five out of 5 muscle strength in the arms and legs. Normal speech. PSYCHIATRIC: Appropriate mood and affect; insight and judgment normal. Assessment and Plan Assessment and Plan ASSESSMENT pna , CXRAY CLEAR copd PLAN O2 ANTIBIOTICS BRONCHODILATOR THERAPY Chandler Arteaga MD Jun 04, 2016 09:07
[2016-06-04] MEDS: NYSTAT/DIPHENHY/LIDO MOUTHWASH (Adult) 120ML SWISH-SWAL SCH ×4 (09:08→22:00)
[2016-06-04] MEDS: SODIUM CHLORIDE 0.9% FLUSH 5 ML FLUSH IVF SCH ×2 (09:08→21:00)
[2016-06-04 12:05] LABS: HEMATOCRIT 31.5 % (35.0-46.0); MEAN CELL VOLUME 82.2 FL (80.0-100.0); MEAN CORPUSCULAR HEMOGLOBIN 27.3 PG (27.0-34.0); MEAN CORPUSCULAR HGB CONC 33.2 % (32.0-36.0); PLATELET COUNT 250 TH/MM3 (150-450); RED BLOOD COUNT 3.84 MIL/MM3 (4.00-5.30); REVIEW FLAG FINAL; WHITE BLOOD COUNT 8.6 TH/MM3 (4.0-11.0)
[2016-06-04 12:22] LABS: AUTOMATED NEUTROPHIL # 11.9 TH/MM3 (1.8-7.7); BASOPHIL % 0.1 % (0.0-2.0); EOSINOPHIL % 0.2 % (0.0-4.0); HEMATOCRIT 33.2 % (35.0-46.0); HEMO FLAGS DIFF FINAL; LYMPHOCYTE # 0.5 TH/MM3 (1.0-4.8); MEAN CELL VOLUME 82.8 FL (80.0-100.0); MEAN CORPUSCULAR HEMOGLOBIN 26.7 PG (27.0-34.0); MEAN CORPUSCULAR HGB CONC 32.3 % (32.0-36.0); MONO % 3.9 % (0.0-8.0); NEUT % 91.8 % (16.0-70.0); PLATELET COUNT 223 TH/MM3 (150-450); RED BLOOD COUNT 4.01 MIL/MM3 (4.00-5.30); RED CELL DISTRIBUTION WIDTH 18.3 % (11.6-17.2); WHITE BLOOD COUNT 12.9 TH/MM3 (4.0-11.0)
[2016-06-04] MEDS: ENOXAPARIN SODIUM 30 MG/0.3 ML SYRINGE SQ SCH (12:37)
[2016-06-04 12:51] LABS: ANION GAP 5 MEQ/L (5-15); BICARBONATE 31.9 MEQ/L (21.0-32.0); BLOOD UREA NITROGEN 15 MG/DL (7-18); CHLORIDE 92 MEQ/L (98-107); GLOMERULAR FILTRATION RATE 90 ML/MIN (>89); POTASSIUM 4.2 MEQ/L (3.5-5.1); SODIUM (NA) 129 MEQ/L (136-145)
[2016-06-04 12:55] LABS: ALKALINE PHOSPHATASE 122 U/L (45-117); ALT (GPT) 25 U/L (10-53); AST (GOT) 21 U/L (15-37); TOTAL BILIRUBIN ADULT 0.5 MG/DL (0.2-1.0)
--- NOTE | 2016-06-04 12:57 | PD.ONC.PN ---
Subjective Subjective Remarks Afebrile overnight. Continuing to complain of mouth pain. Reports some improvement with the magic mouthwash. Objective Data Date Time Temp Pulse Resp B/P Pulse Ox O2 Delivery O2 Flow Rate FiO2 06/04/16 09:45 95 Nasal Cannula 3.00 06/04/16 09:45 49 06/04/16 08:00 97 Nasal Cannula 3.00 06/04/16 08:00 97.6 76 20 162/79 94 06/04/16 04:00 96.5 55 16 150/69 97 06/04/16 00:00 98.0 62 17 172/72 98 06/03/16 21:00 95 Nasal Cannula 3.00 06/03/16 20:13 61 06/03/16 20:00 96.9 60 17 163/72 95 06/03/16 16:00 98.0 59 20 143/64 95 06/04/16 06/04/16 06/04/16 07:00 15:00 23:00 Intake Total 240 ml Output Total 1900 ml Balance -1660 ml Result Diagram: 06/04/16 1144 06/03/16 0430 Laboratory Results Laboratory Tests Test 06/04/16 06/04/16 06:30 11:44 White Blood Count 8.6 TH/MM3 12.9 TH/MM3 Red Blood Count 3.84 MIL/MM3 4.01 MIL/MM3 Hemoglobin 10.5 GM/DL 10.7 GM/DL Hematocrit 31.5 % 33.2 % Mean Corpuscular Volume 82.2 FL 82.8 FL Mean Corpuscular Hemoglobin 27.3 PG 26.7 PG Mean Corpuscular Hemoglobin 33.2 % 32.3 % Concent Red Cell Distribution Width 18.0 % 18.3 % Platelet Count 250 TH/MM3 223 TH/MM3 Mean Platelet Volume 8.8 FL 8.5 FL Neutrophils (%) (Auto) 91.8 % Lymphocytes (%) (Auto) 4.0 % Monocytes (%) (Auto) 3.9 % Eosinophils (%) (Auto) 0.2 % Basophils (%) (Auto) 0.1 % Neutrophils # (Auto) 11.9 TH/MM3 Lymphocytes # (Auto) 0.5 TH/MM3 Monocytes # (Auto) 0.5 TH/MM3 Eosinophils # (Auto) 0.0 TH/MM3 Basophils # (Auto) 0.0 TH/MM3 CBC Comment DIFF FINAL Differential Comment Administered Medications Medications (Trade) Dose Ordered Sig/Shade Route PRN Reason Start Time Stop Time Status Last Admin Dose Admin Ondansetron HCl (Zofran Inj) 4 mg Q6H PRN IVP NAUSEA OR VOMITING 05/25/16 23:45 06/04/16 06:29 Amitriptyline HCl (Elavil) 10 mg BID PO 05/26/16 09:00 06/04/16 08:57 Amlodipine Besylate (Norvasc) 10 mg DAILY PO 05/26/16 09:00 06/04/16 08:57 Atorvastatin Calcium (Lipitor) 80 mg HS PO 05/26/16 21:00 06/03/16 21:08 Donepezil HCl (Aricept) 10 mg DAILY PO 05/26/16 09:00 06/04/16 08:58 Levothyroxine Sodium (Synthroid) 100 mcg DAILY@0600 PO 05/26/16 06:00 06/04/16 06:29 Primidone (Mysoline) 250 mg TID PO 05/26/16 09:00 06/04/16 12:37 Lisinopril (Prinivil) 40 mg DAILY PO 05/26/16 09:00 06/04/16 08:58 Pantoprazole Sodium (Protonix) 20 mg DAILY PO 05/26/16 09:00 06/04/16 08:58 Folic Acid (Folate) 1 mg DAILY PO 05/26/16 09:00 06/04/16 08:56 IV Flush (NS Flush) 2 ml BID IVF 05/26/16 21:00 06/04/16 09:08 Enoxaparin Sodium (Lovenox Inj) 30 mg Q24H SQ 05/27/16 12:00 06/04/16 12:37 Calcium/Vitamin D (Oscal-D 250-125) 250 mg TID PO 05/26/16 14:00 06/04/16 12:38 Diphenhydramine HCl (Benadryl) 25 mg Q6H PRN PO ITCHING/ insomnia 05/26/16 11:45 05/30/16 21:54 Acetaminophen/ Hydrocodone Bitart ([place] 7.5-325 Mg) 1 tab Q3H PRN PO pain 2<5 05/26/16 11:45 06/04/16 02:40 Acetaminophen/ Hydrocodone Bitart ([place] 7.5-325 Mg) 2 tab Q6H PRN PO pain 6<10 05/26/16 11:45 06/04/16 10:46 Cholecalciferol (Vitamin D3) 5,000 units DAILY PO 05/27/16 09:00 06/04/16 08:56 Sodium Chloride ([place] Darci [place]) 2 spray Q4H PRN EACH NARE NASAL CONGESTION 05/26/16 20:45 05/29/16 23:25 Docusate Sodium (Colace) 100 mg BID PO 05/27/16 21:00 06/04/16 08:57 Sennosides (Senokot) 17.2 mg DAILY PO 05/27/16 18:00 06/03/16 09:40 Hydromorphone HCl (Dilaudid Pf Inj) 1 mg Q3HR PRN IV PUSH Breakthrough pain 05/28/16 08:15 06/01/16 20:43 Guaifenesin (Mucinex Er) 1,200 mg BID PO 05/28/16 11:00 06/04/16 08:57 Polyethylene Glycol (Miralax) 17 gm DAILY PO 05/28/16 11:00 06/03/16 09:41 Alprazolam (Xanax) 0.25 mg Q6H PRN PO Anxiety 05/28/16 10:30 06/01/16 19:16 Carvedilol (Coreg) 3.125 mg Q12HR PO 05/28/16 11:00 06/04/16 08:57 Clonidine (Catapres) 0.1 mg Q6H PRN PO SBP> OR = 180, DBP> OR = 100 05/29/16 18:00 06/02/16 11:39 Enalaprilat (Vasotec Inj) 1.25 mg Q6H PRN IV PUSH SBP> OR = 180, DBP> OR = 100 05/29/16 18:00 06/02/16 06:32 Zolpidem Tartrate (Ambien) 5 mg HS PRN PO Insomnia 05/31/16 11:00 06/01/16 20:42 Methylprednisolone Sodium Succinate (SoluMEDROL INJ) 40 mg BID IV PUSH 06/01/16 21:00 06/04/16 08:56 Diphenhydramine HCl (Benadryl) 25 mg UNSCH PRN PO GIVE FOR PRE-MED BLOOD 06/02/16 06:30 06/02/16 06:40 Acetaminophen 650 mg 650 mg UNSCH PRN PO GIVE PRE-MD BLOOD 06/02/16 06:30 06/02/16 06:40 Sodium Chloride 250 ml @ 0 mls/hr Q24H IV 06/02/16 17:00 06/05/16 23:00 06/03/16 21:31 Etoposide 171 mg/ Sodium Chloride 508.55 ml @ 508.55 mls/hr Q24H IV 06/02/16 17:30 06/04/16 18:29 06/03/16 21:22 Dexamethasone Sodium Phosphate/ Sodium Chloride (Decadron Inj/NS Inj) 52.5 ml @ 210 mls/hr Q24H IV 06/03/16 17:00 06/04/16 17:14 06/03/16 17:38 Hydrochlorothiazide (Hydrodiuril) 50 mg DAILY PO 06/03/16 09:00 06/04/16 08:57 Multi-Ingredient Mouthwash/Gargle (Magic Mouthwash Adult Liq) 5 ml QID SWISH-SWAL 06/03/16 18:00 06/04/16 12:38 Objective Remarks GENERAL: Elderly female, sitting up in bed in [facility]. SKIN: Warm and dry. HEAD: Normocephalic. MOUTH: multiple white lesions consistent with thrush. EYES: No injection or drainage. NECK: Supple, trachea midline. CARDIOVASCULAR: +S1/S2, tachy RESPIRATORY: diminished at bases, occasional rhonchi. On supplemental O2 via [place] GASTROINTESTINAL: Abdomen soft, non-tender, nondistended. EXTREMITIES: No cyanosis NEUROLOGICAL: awake and alert, normal speech Assessment/Plan Problem List: (1) Metastatic lung cancer (metastasis from lung to other site) Status: Acute Plan: --diagnosed in early 2015. --She was found to have a spiculated mass in the left upper lobe abutting the mediastinum. --CT-guided biopsy confirmed small cell lung cancer. She was to begin systemic chemotherapy but was admitted with fracture --chemotherapy with carboplatin + etoposide on 06/02--06/04 (2) Fracture, intertrochanteric, left femur Status: Acute Plan: --s/p intramedullary sera fixation. --will need to be discharged to rehab (3) Anemia Status: Acute Plan: --Transfuse to keep hemoglobin greater than 7.5. --iron sucrose given Assessment 76y/o female with a history of extensive stage small-cell lung cancer admitted with hip fracture. h/o Small-cell lung cancer. Coronary artery disease. COPD. Tobacco abuse. History of colitis. Hypertension. Rheumatoid arthritis. Osteoarthritis. HPI: the patient had a fall after she tripped over her daughter's dog. presented to the emergency department and was found to have a mildly displaced fracture to the intertrochanteric region of the left hip. The patient was seen by orthopedic surgery and has undergone left intertrochanteric femur repair status post intramedullary sera fixation. The patient was desaturating with low oxygen levels and was transferred to be the intensive care unit for close observation. chest x-ray showed a left lower lobe consolidation. she was started on antibiotics and steroids. Her lung function improved and she was transferred to med/surg floor. Plan 1. continue magic mouthwash. start Diflucan for thrush. stop lipitor due to interaction with Diflucan. check EKG on Tuesday to monitor for QT prolongation while on Diflucan 2. last day of chemotherapy today 3. start Neupogen tomorrow evening Discharge: patient could be discharged to rehab once she has completed the Neupogen (3 days). If she can receive the Neupogen at rehab, she could be discharged tomorrow from an oncology standpoint. Attending Statement The exam, history, and the medical decision-making described in the above note were completed with the assistance of the mid-level provider. I reviewed and agree with the findings presented. I attest that I had a [id number] encounter with the patient on the same day, and personally performed and documented my assessment and findings in the medical record. D# 3 of Car[employer]/DIRECTOR SOFTWARE 16. DIRECTOR SOFTWARE 16 only today--extensive stage small cell carcinoma of lung oral mucositis/thrush-- add Diflucan Will start neupogen tomorrow Lortab for pain control d/w patient d/w rn Problem Qualifiers (1) Fracture, intertrochanteric, left femur: Qualified Code: S72.142A - Fracture, intertrochanteric, left femur, closed, initial encounter (2) Anemia: Dorcas Evans Jun 04, 2016 12:57 Evangelist Tracy MD Jun 04, 2016 22:59
--- NOTE | 2016-06-04 15:19 | HHI.PR ---
Subjective Remarks Vision seen this morning. Says she feels all right. Denies any chest pain. Reports shortness of breath is unchanged from yesterday. She does report a sore throat which is been going on for several days.. Objective Vital Signs Date Time Temp Pulse Resp B/P Pulse Ox O2 Delivery O2 Flow Rate FiO2 06/04/16 12:00 98.4 61 18 144/67 94 06/04/16 09:45 95 Nasal Cannula 3.00 06/04/16 09:45 49 06/04/16 08:00 97 Nasal Cannula 3.00 06/04/16 08:00 97.6 76 20 162/79 94 06/04/16 04:00 96.5 55 16 150/69 97 06/04/16 00:00 98.0 62 17 172/72 98 06/03/16 21:00 95 Nasal Cannula 3.00 06/03/16 20:13 61 06/03/16 20:00 96.9 60 17 163/72 95 06/03/16 16:00 98.0 59 20 143/64 95 I/O 06/03/16 06/03/16 06/03/16 06/04/16 06/04/16 06/04/16 07:00 15:00 23:00 07:00 15:00 23:00 Intake Total 630 ml 480 ml 750 ml 240 ml 720 ml Output Total 800 ml 550 ml 200 ml 1900 ml 900 ml Balance -170 ml -70 ml 550 ml -1660 ml -180 ml Intake Oral 480 ml 480 ml 240 ml 720 ml IV Total 150 ml 750 ml Output Urine Total 800 ml 550 ml 200 ml 1900 ml 900 ml # Voids 3 1 # Bowel Movements 1 1 Result Diagram: 06/04/16 1144 06/04/16 1144 Objective Remarks GENERAL: Patient sitting up on edge of bed. Appears comfortable. Alert and oriented 3. SKIN: Warm and dry. HEAD: Normocephalic. EYES: No scleral icterus. No injection or drainage. NECK: Supple, trachea midline. No JVD. Oral thrush. CARDIOVASCULAR: Regular rate and rhythm without murmurs, gallops, or rubs. RESPIRATORY: Breath sounds equal bilaterally. No accessory muscle use. GASTROINTESTINAL: Abdomen soft, non-tender, nondistended. MUSCULOSKELETAL: No cyanosis, or edema. BACK: Nontender without obvious deformity. No CVA tenderness. A/P Assessment and Plan 76 year old female patient with a past medical history which includes: anemia, angina, anxiety, arthritis, Asthma, lung cancer, CAD s/o SD, COPD, colitis, hypertension, kidney stones, migraine, osteoarthritis, osteoporosis, rheumatoid arthritis and hypothyroidism. Patient presents to the emergency department after she had a trip and fall over her daughter's dog. Patient reports pain and inability to bear weight on her left lower extremity. Hip and pelvic x-ray revealed mildly displaced fracture through the intertrochanteric region of the left hip. Patient has known lung cancer and was supposed to start chemotherapy. She has been having respiratory difficulties during this admission, therefore chemotherapy has been started. //Left hip fracture //Status post mechanical fall. S/p repair 05/26/16. - weightbearing, wound care and anticoagulation per orthopedic surgery. Cleared for discharge by surgery. - Continue pain control with a bowel regimen. -Appreciate PT/OT. Patient ambulatory. Continue to monitor. //Acute respiratory failure/ HCAP The pt has lung cancer and COPD. CXR with left base consolidation which has been noted on prior imaging. Pt with symptoms of cough and mucous production. Pulmonology consult appreciated. Repeat CXR 06/01 stable. - Wean off oxygen as tolerated - continue cefepime and vancomycin to treat for post obstructive pneumonia. - blood and sputum cultures pending. NGTD. - standing nebs. -Neurology following. Appreciate assistance. -Continue chemotherapy as per oncology. Appreciate assistance. -Continue breathing treatments, supplemental oxygen. //Lung cancer Pt was to start chemotherapy as an outpt. Oncology following. - treatment as above. -Continue chemotherapy and steroids as per oncology service. Appreciate assistance. //HTN Exacerbated by pain and respiratory distress. Not well-controlled 06/01. - continue antihypertensive regimen including amlodipine and lisinopril. Added HCTZ 05/30. - pain control and breathing treatments as above. - Blood pressure elevated, but acceptable. Continue Clonidine and Vasotec as needed. //Constipation Resolved. S/p Dulcolax suppository and Fleets enema. //Oral thrush. -06/04. Already on Magic mouthwash. Start nystatin. //Hyponatremia. Chronic during admission. -Continues relatively stable. Continue to monitor. //Hypoglycemia. Secondary to high-dose steroids. Insulin sliding scale. Continue to monitor. //PPx: Lovenox Discharge Planning Pending improvement in respiratory status. on chemotherapy -We'll need oncology clearance for transfer to SNF. Deep Ordonez MD Jun 04, 2016 15:19
[2016-06-04] MEDS: FLUCONAZOLE 200 MG TAB PO SCH (17:06)
[2016-06-04] MEDS: ACETAMINOPHEN/HYDROcodone 325 MG/5 MG TAB PO PRN ×2 (17:22→22:06)
[2016-06-04] MEDS: NYSTATIN SUSP 500,000 U/5 ML CUP SWISH-SWAL SCH ×2 (19:05→21:54)
[2016-06-04] MEDS: DEXAMETHASONE INJ 10 MG in SODIUM CHLORIDE 0.9% INJ 50 ML IV SCH (21:49)
[2016-06-04] MEDS: NS IV SCH (22:44)
[2016-06-04] MEDS: ETOPOSIDE IV SCH (22:44)
[2016-06-04] MEDS: SODIUM CHLOR 0.9% 250 ML INJ 250 ML IV SCH (23:46)
[2016-06-05] VITALS (10 sets, daily range): BP systolic 123–179; BP diastolic 59–79; PULSE 53–66; RESP 15–18; TEMP 96.3–97.3; O2SAT 93–99
[2016-06-05] MEDS: ACETAMINOPHEN/HYDROcodone 325 MG/5 MG TAB PO PRN ×3 (05:05→22:13)
[2016-06-05] MEDS: LEVOTHYROXINE SODIUM 100 MCG TAB PO SCH (05:05)
[2016-06-05] MEDS: INSULIN ASPART SUPPLEMENTAL SCALE SQ SCH ×4 (05:10→22:44)
[2016-06-05] MEDS: ENALAPRILAT 1.25 MG/ML VIAL IV PUSH PRN (05:27)
[2016-06-05] MEDS: PRIMIDONE 250 MG TAB PO SCH ×3 (08:23→17:24)
[2016-06-05] MEDS: guaiFENesin E.R. 600 MG TAB PO SCH ×2 (08:23→22:14)
[2016-06-05] MEDS: DONEPEZIL HCL 5 MG TAB PO SCH (08:23)
[2016-06-05] MEDS: ONDANSETRON HCL 4 MG/2 ML VIAL IVP PRN ×2 (08:23→14:40)
[2016-06-05] MEDS: HYDROCHLOROTHIAZIDE 25 MG TAB PO SCH (08:23)
[2016-06-05] MEDS: LISINOPRIL 20 MG TAB PO SCH (08:24)
[2016-06-05] MEDS: FOLIC ACID 1 MG TAB PO SCH (08:24)
[2016-06-05] MEDS: POLYETHYLENE GLYCOL 17 GM PKG PO SCH (08:24)
[2016-06-05] MEDS: PANTOPRAZOLE SOD 20 MG DELAYED RELEASE TAB PO SCH (08:27)
[2016-06-05] MEDS: CALCIUM/VITAMIN D 250 MG/125 U TAB PO SCH ×3 (08:27→17:24)
[2016-06-05] MEDS: NYSTAT/DIPHENHY/LIDO MOUTHWASH (Adult) 120ML SWISH-SWAL SCH ×4 (08:27→22:13)
[2016-06-05] MEDS: NYSTATIN SUSP 500,000 U/5 ML CUP SWISH-SWAL SCH ×4 (08:27→22:13)
[2016-06-05] MEDS: CHOLECALCIFEROL (VIT D3) 5000 UNIT CAP PO SCH (08:27)
[2016-06-05] MEDS: DOCUSATE SODIUM 100 MG CAP PO SCH ×2 (08:29→21:00)
[2016-06-05] MEDS: SODIUM CHLORIDE 0.9% FLUSH 5 ML FLUSH IVF SCH ×2 (08:29→21:00)
[2016-06-05] MEDS: methylPREDNISolone SOD SUCC 40 MG/1 ML VIAL IV PUSH SCH ×2 (08:30→22:16)
[2016-06-05] MEDS: SENNOSIDES 8.6 MG TAB PO SCH (08:37)
--- NOTE | 2016-06-05 11:24 | PD.ONC.PN ---
Subjective Subjective Remarks Afebrile overnight. Pt resting in bed talking with visitor. She states she had some mild nausea this am but it has improved. States she walked twice as far today with physical therapy than before. Objective Data Date Time Temp Pulse Resp B/P Pulse Ox O2 Delivery O2 Flow Rate FiO2 06/05/16 08:00 97.3 53 16 177/72 99 06/05/16 06:30 156/68 06/05/16 06:15 19 06/05/16 04:00 96.8 59 16 179/79 96 06/05/16 00:00 97.3 55 15 157/70 96 06/04/16 21:00 53 06/04/16 21:00 97 Nasal Cannula 2.00 50 06/04/16 20:43 95 Nasal Cannula 3.00 06/04/16 20:00 97.3 58 15 165/72 97 06/04/16 16:00 98.0 51 18 162/72 99 06/04/16 12:00 98.4 61 18 144/67 94 06/05/16 06/05/16 06/05/16 07:00 15:00 23:00 Intake Total 240 ml Output Total 820 ml 200 ml Balance -580 ml -200 ml Result Diagram: 06/04/16 1144 06/04/16 1144 Laboratory Results Laboratory Tests Test 06/04/16 11:44 White Blood Count 12.9 TH/MM3 Red Blood Count 4.01 MIL/MM3 Hemoglobin 10.7 GM/DL Hematocrit 33.2 % Mean Corpuscular Volume 82.8 FL Mean Corpuscular Hemoglobin 26.7 PG Mean Corpuscular Hemoglobin 32.3 % Concent Red Cell Distribution Width 18.3 % Platelet Count 223 TH/MM3 Mean Platelet Volume 8.5 FL Neutrophils (%) (Auto) 91.8 % Lymphocytes (%) (Auto) 4.0 % Monocytes (%) (Auto) 3.9 % Eosinophils (%) (Auto) 0.2 % Basophils (%) (Auto) 0.1 % Neutrophils # (Auto) 11.9 TH/MM3 Lymphocytes # (Auto) 0.5 TH/MM3 Monocytes # (Auto) 0.5 TH/MM3 Eosinophils # (Auto) 0.0 TH/MM3 Basophils # (Auto) 0.0 TH/MM3 CBC Comment DIFF FINAL Differential Comment Sodium Level 129 MEQ/L Potassium Level 4.2 MEQ/L Chloride Level 92 MEQ/L Carbon Dioxide Level 31.9 MEQ/L Anion Gap 5 MEQ/L Blood Urea Nitrogen 15 MG/DL Creatinine 0.64 MG/DL Estimat Glomerular Filtration 90 ML/MIN Rate Random Glucose 260 MG/DL Calcium Level 8.0 MG/DL Phosphorus Level 2.9 MG/DL Magnesium Level 2.0 MG/DL Total Bilirubin 0.5 MG/DL Aspartate Amino Transf 21 U/L (AST/SGOT) Alanine Aminotransferase 25 U/L (ALT/SGPT) Alkaline Phosphatase 122 U/L Total Protein 5.5 GM/DL Albumin 2.2 GM/DL Administered Medications Medications (Trade) Dose Ordered Sig/Shade Route PRN Reason Start Time Stop Time Status Last Admin Dose Admin Ondansetron HCl (Zofran Inj) 4 mg Q6H PRN IVP NAUSEA OR VOMITING 05/25/16 23:45 06/05/16 08:23 Amitriptyline HCl (Elavil) 10 mg BID PO 05/26/16 09:00 06/04/16 21:54 Amlodipine Besylate (Norvasc) 10 mg DAILY PO 05/26/16 09:00 06/05/16 08:24 Donepezil HCl (Aricept) 10 mg DAILY PO 05/26/16 09:00 06/05/16 08:23 Levothyroxine Sodium (Synthroid) 100 mcg DAILY@0600 PO 05/26/16 06:00 06/05/16 05:05 Primidone (Mysoline) 250 mg TID PO 05/26/16 09:00 06/05/16 08:23 Lisinopril (Prinivil) 40 mg DAILY PO 05/26/16 09:00 06/05/16 08:24 Pantoprazole Sodium (Protonix) 20 mg DAILY PO 05/26/16 09:00 06/05/16 08:27 Folic Acid (Folate) 1 mg DAILY PO 05/26/16 09:00 06/05/16 08:24 IV Flush (NS Flush) 2 ml BID IVF 05/26/16 21:00 06/05/16 08:29 Enoxaparin Sodium (Lovenox Inj) 30 mg Q24H SQ 05/27/16 12:00 06/04/16 12:37 Calcium/Vitamin D (Oscal-D 250-125) 250 mg TID PO 05/26/16 14:00 06/05/16 08:27 Diphenhydramine HCl (Benadryl) 25 mg Q6H PRN PO ITCHING/ insomnia 05/26/16 11:45 05/30/16 21:54 Cholecalciferol (Vitamin D3) 5,000 units DAILY PO 05/27/16 09:00 06/05/16 08:27 Sodium Chloride (Jack Darci [place]) 2 spray Q4H PRN EACH NARE NASAL CONGESTION 05/26/16 20:45 05/29/16 23:25 Docusate Sodium (Colace) 100 mg BID PO 05/27/16 21:00 06/04/16 08:57 Sennosides (Senokot) 17.2 mg DAILY PO 05/27/16 18:00 06/03/16 09:40 Hydromorphone HCl (Dilaudid Pf Inj) 1 mg Q3HR PRN IV PUSH Breakthrough pain 05/28/16 08:15 06/01/16 20:43 Guaifenesin (Mucinex Er) 1,200 mg BID PO 05/28/16 11:00 06/05/16 08:23 Polyethylene Glycol (Miralax) 17 gm DAILY PO 05/28/16 11:00 06/05/16 08:24 Carvedilol (Coreg) 3.125 mg Q12HR PO 05/28/16 11:00 06/04/16 21:55 Clonidine (Catapres) 0.1 mg Q6H PRN PO SBP> OR = 180, DBP> OR = 100 05/29/16 18:00 06/02/16 11:39 Enalaprilat (Vasotec Inj) 1.25 mg Q6H PRN IV PUSH SBP> OR = 180, DBP> OR = 100 05/29/16 18:00 06/05/16 05:27 Zolpidem Tartrate (Ambien) 5 mg HS PRN PO Insomnia 05/31/16 11:00 06/01/16 20:42 Methylprednisolone Sodium Succinate (SoluMEDROL INJ) 40 mg BID IV PUSH 06/01/16 21:00 06/05/16 08:30 Diphenhydramine HCl (Benadryl) 25 mg UNSCH PRN PO GIVE FOR PRE-MED BLOOD 06/02/16 06:30 06/02/16 06:40 Acetaminophen 650 mg 650 mg UNSCH PRN PO GIVE PRE-MD BLOOD 06/02/16 06:30 06/02/16 06:40 Sodium Chloride (NS 250 ml Inj) 250 ml @ 0 mls/hr Q24H IV 06/02/16 17:00 06/05/16 23:00 06/04/16 23:46 Hydrochlorothiazide (Hydrodiuril) 50 mg DAILY PO 06/03/16 09:00 06/05/16 08:23 Multi-Ingredient Mouthwash/Gargle (Magic Mouthwash Adult Liq) 5 ml QID SWISH-SWAL 06/03/16 18:00 06/04/16 22:00 Nystatin (Mycostatin Liq) 5 ml QID SWISH-SWAL 06/04/16 18:00 06/05/16 08:27 Fluconazole (Diflucan) 200 mg Q24H PO 06/04/16 16:00 06/04/16 17:06 Acetaminophen/ Hydrocodone Bitart ([place] 5-325 Mg) 1 tab Q4H PRN PO pain 1-10 06/04/16 15:15 06/05/16 05:05 Objective Remarks GENERAL: Elderly female, lying in bed watching TV in no distress. SKIN: Warm and dry. HEAD: Normocephalic. MOUTH: few white lesions consistent with thrush. EYES: No injection or drainage. NECK: Supple, trachea midline. CARDIOVASCULAR: +S1/S2. RESPIRATORY: Diminished at bases, occasional rhonchi. On supplemental O2 via [place] GASTROINTESTINAL: Abdomen soft, non-tender, nondistended. EXTREMITIES: No cyanosis. No edema. NEUROLOGICAL: Awake and alert, normal speech. Assessment/Plan Problem List: (1) Metastatic lung cancer (metastasis from lung to other site) Status: Acute Plan: --diagnosed in Mar 2016. --She was found to have a spiculated mass in the left upper lobe abutting the mediastinum. --CT-guided biopsy confirmed small cell lung cancer. She was to begin systemic chemotherapy but was admitted with fracture --chemotherapy with carboplatin + etoposide on 06/02--06/04 (2) Fracture, intertrochanteric, left femur Status: Acute Plan: --s/p intramedullary sera fixation. --will need to be discharged to rehab (3) Anemia Status: Acute Plan: --Transfuse to keep hemoglobin greater than 7.5. --iron sucrose given Assessment 76y/o female with a history of extensive stage small-cell lung cancer admitted with hip fracture. h/o Small-cell lung cancer. Coronary artery disease. COPD. Tobacco abuse. History of colitis. Hypertension. Rheumatoid arthritis. Osteoarthritis. HPI: the patient had a fall after she tripped over her daughter's dog. presented to the emergency department and was found to have a mildly displaced fracture to the intertrochanteric region of the left hip. The patient was seen by orthopedic surgery and has undergone left intertrochanteric femur repair status post intramedullary sera fixation. The patient was desaturating with low oxygen levels and was transferred to be the intensive care unit for close observation. chest x-ray showed a left lower lobe consolidation. she was started on antibiotics and steroids. Her lung function improved and she was transferred to med/surg floor. Plan 1. Continue magic mouthwash, Diflucan. 2. Start Neupogen tonight. 3. Can be discharged to rehab if they are willing to give Neupogen. 4. Monitor CBC. Discharge: patient could be discharged to rehab once she has completed the Neupogen (3 days). If she can receive the Neupogen at rehab, she could be discharged tomorrow from an oncology standpoint. Attending Statement The exam, history, and the medical decision-making described in the above note were completed with the assistance of the mid-level provider. I reviewed and agree with the findings presented. I attest that I had a [id number] encounter with the patient on the same day, and personally performed and documented my assessment and findings in the medical record. Patient seen and examined, it infrastructure consultant notes, pathology, imaging studies and recent systemic chemotherapy records reviewed. Laboratory findings were also reviewed. Patient has a diagnosis of metastatic small cell carcinoma of the lung, status post first cycle of palliative carboplatin and etoposide (today is day 4 cycle #1). Subjectively, patient's major complaint is that of nausea; she has not vomited. She tells me she is waiting for her nausea medication. She denies other adverse effects related chemotherapy. Per EMR, the patient will likely be discharged to nursing home facility in the upcoming 24 hours should she be clinically stable. She will start growth factor support with Neupogen later tonight. She otherwise appears to be stable. Problem Qualifiers (1) Fracture, intertrochanteric, left femur: Qualified Code: S72.142A - Fracture, intertrochanteric, left femur, closed, initial encounter (2) Anemia: Jenny Whitaker Jun 05, 2016 11:24 Pancho Walter MD Jun 05, 2016 14:33
[2016-06-05] MEDS: AMITRIPTYLINE HCL 10 MG TAB PO SCH ×2 (11:37→22:13)
[2016-06-05] MEDS: CARVEDILOL 3.125 MG TAB PO SCH ×2 (11:37→22:13)
[2016-06-05] MEDS: ENOXAPARIN SODIUM 30 MG/0.3 ML SYRINGE SQ SCH (11:37)
[2016-06-05 12:06] LABS: AUTOMATED NEUTROPHIL # 7.9 TH/MM3 (1.8-7.7); BASOPHIL % 0.2 % (0.0-2.0); HEMATOCRIT 33.5 % (35.0-46.0); HEMO FLAGS DIFF FINAL; LYMPH % 5.3 % (9.0-44.0); LYMPHOCYTE # 0.4 TH/MM3 (1.0-4.8); MEAN CELL VOLUME 82.4 FL (80.0-100.0); MEAN CORPUSCULAR HEMOGLOBIN 27.1 PG (27.0-34.0); MEAN CORPUSCULAR HGB CONC 32.9 % (32.0-36.0); MONO % 2.1 % (0.0-8.0); NEUT % 92.4 % (16.0-70.0); PLATELET COUNT 250 TH/MM3 (150-450); RED BLOOD COUNT 4.06 MIL/MM3 (4.00-5.30); RED CELL DISTRIBUTION WIDTH 18.3 % (11.6-17.2); WHITE BLOOD COUNT 8.5 TH/MM3 (4.0-11.0)
[2016-06-05 12:23] LABS: ALT (GPT) 25 U/L (10-53); ANION GAP 6 MEQ/L (5-15); AST (GOT) 24 U/L (15-37); BICARBONATE 31.1 MEQ/L (21.0-32.0); BLOOD UREA NITROGEN 15 MG/DL (7-18); CHLORIDE 92 MEQ/L (98-107); GLOMERULAR FILTRATION RATE 99 ML/MIN (>89); POTASSIUM 4.2 MEQ/L (3.5-5.1); SODIUM (NA) 129 MEQ/L (136-145)
[2016-06-05 12:25] LABS: ALKALINE PHOSPHATASE 120 U/L (45-117); TOTAL BILIRUBIN ADULT 0.5 MG/DL (0.2-1.0)
[2016-06-05] MEDS ORDERED: FILGRASTIM INJ 300 MCG in DEXTROSE 5% IN WATER INJ 24 ML IV SCH ×2 (17:00)
[2016-06-05] MEDS: FLUCONAZOLE 200 MG TAB PO SCH (17:24)
--- NOTE | 2016-06-05 20:23 | HHI.PR ---
Subjective Remarks LESS SOB AMBULATING Objective Vital Signs Date Time Temp Pulse Resp B/P Pulse Ox O2 Delivery O2 Flow Rate FiO2 06/05/16 16:00 96.9 65 16 164/72 93 06/05/16 12:50 98 Nasal Cannula 3.00 06/05/16 12:00 96.6 59 18 161/76 98 06/05/16 08:46 58 06/05/16 08:25 99 Nasal Cannula 2.00 06/05/16 08:00 97.3 53 16 177/72 99 06/05/16 06:30 156/68 06/05/16 06:15 19 06/05/16 04:00 96.8 59 16 179/79 96 06/05/16 00:00 97.3 55 15 157/70 96 06/04/16 21:00 53 06/04/16 21:00 97 Nasal Cannula 2.00 50 06/04/16 20:43 95 Nasal Cannula 3.00 I/O 06/04/16 06/04/16 06/04/16 06/05/16 06/05/16 06/05/16 07:00 15:00 23:00 07:00 15:00 23:00 Intake Total 240 ml 720 ml 240 ml 720 ml Output Total 1900 ml 900 ml 1100 ml 820 ml 700 ml 1300 ml Balance -1660 ml -180 ml -1100 ml -580 ml 20 ml -1300 ml Intake Oral 240 ml 720 ml 240 ml 720 ml Output Urine Total 1900 ml 900 ml 1100 ml 820 ml 700 ml 1300 ml # Voids 3 # Bowel Movements 1 0 1 Result Diagram: 06/05/16 1150 06/05/16 1150 Objective Remarks GENERAL: SKIN: Warm and dry. HEAD: Atraumatic. Normocephalic. EYES: Pupils equal and round. No scleral icterus. No injection or drainage. ENT: No nasal bleeding or discharge. Mucous membranes pink and moist. NECK: Trachea midline. No JVD. CARDIOVASCULAR: Regular rate and rhythm. RESPIRATORY: No accessory muscle use ,scattered ronchi CASTROINTESTINAL: Abdomen soft, non-tender, nondistended. Hepatic and splenic margins not palpable. MUSCULOSKELETAL: Extremities without clubbing, cyanosis, or edema. No obvious deformities. NEUROLOGICAL: Awake and alert. No obvious cranial nerve deficits. Motor grossly within normal limits. Five out of 5 muscle strength in the arms and legs. Normal speech. PSYCHIATRIC: Appropriate mood and affect; insight and judgment normal. Assessment and Plan Assessment and Plan ASSESSMENT pna , CXRAY CLEAR copd PLAN O2 PULM STABLE BRONCHODILATOR THERAPY WILL SIGN OFF SEE PRN Chandler Arteaga MD Jun 05, 2016 20:23
[2016-06-05] MEDS: FILGRASTIM INJ 300 MCG in DEXTROSE 5% IN WATER INJ 24 ML IV SCH ×2 (22:44)
--- NOTE | 2016-06-05 23:19 | HHI.PR ---
Subjective Remarks Patient seen this morning around 10 AM. This she is feeling well. says that sore throat is improving. Denies any chest pain or shortness of breath. Objective Vital Signs Date Time Temp Pulse Resp B/P Pulse Ox O2 Delivery O2 Flow Rate FiO2 06/05/16 20:00 96.3 63 17 123/59 95 06/05/16 16:00 96.9 65 16 164/72 93 06/05/16 12:50 98 Nasal Cannula 3.00 06/05/16 12:00 96.6 59 18 161/76 98 06/05/16 08:46 58 06/05/16 08:25 99 Nasal Cannula 2.00 06/05/16 08:00 97.3 53 16 177/72 99 06/05/16 06:30 156/68 06/05/16 06:15 19 06/05/16 04:00 96.8 59 16 179/79 96 06/05/16 00:00 97.3 55 15 157/70 96 I/O 06/04/16 06/04/16 06/04/16 06/05/16 06/05/16 06/05/16 07:00 15:00 23:00 07:00 15:00 23:00 Intake Total 240 ml 720 ml 240 ml 720 ml Output Total 1900 ml 900 ml 1100 ml 820 ml 700 ml 1300 ml Balance -1660 ml -180 ml -1100 ml -580 ml 20 ml -1300 ml Intake Oral 240 ml 720 ml 240 ml 720 ml Output Urine Total 1900 ml 900 ml 1100 ml 820 ml 700 ml 1300 ml # Voids 3 # Bowel Movements 1 0 1 Result Diagram: 06/05/16 1150 06/05/16 1150 Objective Remarks GENERAL: Patient sitting up on edge of bed. Appears comfortable. Alert and oriented 3.exam unchanged from yesterday. SKIN: Warm and dry. HEAD: Normocephalic. EYES: No scleral icterus. No injection or drainage. NECK: Supple, trachea midline. No JVD. Oral thrush. CARDIOVASCULAR: Regular rate and rhythm without murmurs, gallops, or rubs. RESPIRATORY: Breath sounds equal bilaterally. No accessory muscle use. GASTROINTESTINAL: Abdomen soft, non-tender, nondistended. MUSCULOSKELETAL: No cyanosis, or edema. BACK: Nontender without obvious deformity. No CVA tenderness. A/P Assessment and Plan 76 year old female patient with a past medical history which includes: anemia, angina, anxiety, arthritis, Asthma, lung cancer, CAD s/o [place], COPD, colitis, hypertension, kidney stones, migraine, osteoarthritis, osteoporosis, rheumatoid arthritis and hypothyroidism. Patient presents to the emergency department after she had a trip and fall over her daughter's dog. Patient reports pain and inability to bear weight on her left lower extremity. Hip and pelvic x-ray revealed mildly displaced fracture through the intertrochanteric region of the left hip. Patient has known lung cancer and was supposed to start chemotherapy. She has been having respiratory difficulties during this admission, therefore chemotherapy has been started. //Left hip fracture //Status post mechanical fall. S/p repair 05/26/16. - weightbearing, wound care and anticoagulation per orthopedic surgery. Cleared for discharge by surgery. - Continue pain control with a bowel regimen. -Appreciate PT/OT. Patient ambulatory. Continue to monitor. //Acute respiratory failure/ HCAP The pt has lung cancer and COPD. CXR with left base consolidation which has been noted on prior imaging. Pt with symptoms of cough and mucous production. Pulmonology consult appreciated. Repeat CXR 06/01 stable. - Wean off oxygen as tolerated - continue cefepime and vancomycin to treat for post obstructive pneumonia. - blood and sputum cultures pending. NGTD. - standing nebs. -Neurology following. Appreciate assistance. -Continue chemotherapy as per oncology. Appreciate assistance. -Continue breathing treatments, supplemental oxygen. //Lung cancer Pt was to start chemotherapy as an outpt. Oncology following. - treatment as above. -Continue chemotherapy and steroids as per oncology service. Appreciate assistance. //HTN Exacerbated by pain and respiratory distress. Not well-controlled 06/01. - continue antihypertensive regimen including amlodipine and lisinopril. Added HCTZ 05/30. - pain control and breathing treatments as above. - Blood pressure continues elevated, but acceptable. Continue Clonidine and Vasotec as needed. //Constipation Resolved. S/p Dulcolax suppository and Fleets enema. //Oral thrush. -06/04. Already on Magic mouthwash. Start nystatin. -06/05. Improving. Continue nystatin. //Hyponatremia. Chronic during admission. -Continues relatively stable. Continue to monitor. //Hyperglycemia. Secondary to high-dose steroids. Insulin sliding scale. Continue to monitor. //PPx: Lovenox Discharge Planning Pending improvement in respiratory status. on chemotherapy -We'll need oncology clearance for transfer to SNF. possible discharge to SNF in 2 days when she has completed filgrastim Deep Ordonez MD Jun 05, 2016 23:19
[2016-06-06] VITALS (10 sets, daily range): BP systolic 137–178; BP diastolic 65–79; PULSE 57–70; RESP 16–20; TEMP 96.3–97.6; O2SAT 91–97
[2016-06-06] MEDS: ACETAMINOPHEN/HYDROcodone 325 MG/5 MG TAB PO PRN ×4 (02:30→21:53)
[2016-06-06] MEDS: LEVOTHYROXINE SODIUM 100 MCG TAB PO SCH (06:25)
[2016-06-06] MEDS: INSULIN ASPART SUPPLEMENTAL SCALE SQ SCH ×4 (06:25→21:00)
[2016-06-06 07:21] LABS: BASOPHIL % 0.1 % (0.0-2.0); HEMATOCRIT 35.2 % (35.0-46.0); LYMPH % 2.6 % (9.0-44.0); LYMPHOCYTE # 0.8 TH/MM3 (1.0-4.8); MEAN CORPUSCULAR HEMOGLOBIN 26.7 PG (27.0-34.0); MEAN CORPUSCULAR HGB CONC 31.8 % (32.0-36.0); MONO % 3.7 % (0.0-8.0); NEUT % 93.6 % (16.0-70.0); PLATELET COUNT 253 TH/MM3 (150-450); RED BLOOD COUNT 4.19 MIL/MM3 (4.00-5.30); RED CELL DISTRIBUTION WIDTH 18.3 % (11.6-17.2)
[2016-06-06 07:30] LABS: HEMO FLAGS AUTO DIFF
[2016-06-06 07:39] LABS: BICARBONATE 30.1 MEQ/L (21.0-32.0); MAGNESIUM 1.9 MG/DL (1.5-2.5); POTASSIUM 4.6 MEQ/L (3.5-5.1)
[2016-06-06] MEDS: DOCUSATE SODIUM 100 MG CAP PO SCH ×2 (09:00→21:00)
[2016-06-06] MEDS: SENNOSIDES 8.6 MG TAB PO SCH (09:00)
[2016-06-06] MEDS: SODIUM CHLORIDE 0.9% FLUSH 5 ML FLUSH IVF SCH ×2 (09:10→21:59)
[2016-06-06] MEDS: LISINOPRIL 20 MG TAB PO SCH (09:10)
[2016-06-06] MEDS: CHOLECALCIFEROL (VIT D3) 5000 UNIT CAP PO SCH (09:10)
[2016-06-06] MEDS: POLYETHYLENE GLYCOL 17 GM PKG PO SCH (09:10)
[2016-06-06] MEDS: CARVEDILOL 3.125 MG TAB PO SCH ×2 (09:11→21:53)
[2016-06-06] MEDS: guaiFENesin E.R. 600 MG TAB PO SCH ×2 (09:11→21:53)
[2016-06-06] MEDS: DONEPEZIL HCL 5 MG TAB PO SCH (09:11)
[2016-06-06] MEDS: HYDROCHLOROTHIAZIDE 25 MG TAB PO SCH (09:11)
[2016-06-06] MEDS: PANTOPRAZOLE SOD 20 MG DELAYED RELEASE TAB PO SCH (09:11)
[2016-06-06] MEDS: CALCIUM/VITAMIN D 250 MG/125 U TAB PO SCH ×3 (09:11→17:35)
[2016-06-06] MEDS: FOLIC ACID 1 MG TAB PO SCH (09:11)
[2016-06-06] MEDS: PRIMIDONE 250 MG TAB PO SCH ×3 (09:11→17:35)
[2016-06-06] MEDS: AMITRIPTYLINE HCL 10 MG TAB PO SCH ×2 (09:11→21:54)
[2016-06-06] MEDS: NYSTATIN SUSP 500,000 U/5 ML CUP SWISH-SWAL SCH ×4 (09:12→21:52)
[2016-06-06] MEDS: methylPREDNISolone SOD SUCC 40 MG/1 ML VIAL IV PUSH SCH (09:14)
[2016-06-06] MEDS: NYSTAT/DIPHENHY/LIDO MOUTHWASH (Adult) 120ML SWISH-SWAL SCH ×4 (09:17→21:54)
[2016-06-06 10:02] LABS: BANDS 6 % (0-6); NEUTROPHIL # MANUAL DIFF 29.8 TH/MM3 (1.8-7.7); PLATELET ESTIMATE SMEAR NORMAL (NORMAL); PLATELET MORPHOLOGY NORMAL (NORMAL); POLYS (SEG NEUTROPHILS) 90 % (16-70); WBC DIFF SAMPLE 100
[2016-06-06 10:03] LABS: SCAN/DIFF FINAL DIFF MANUAL
[2016-06-06] MEDS: ENOXAPARIN SODIUM 30 MG/0.3 ML SYRINGE SQ SCH (12:46)
[2016-06-06] MEDS: FILGRASTIM INJ 300 MCG in DEXTROSE 5% IN WATER INJ 24 ML IV SCH ×2 (15:36)
[2016-06-06] MEDS: FLUCONAZOLE 200 MG TAB PO SCH (15:36)
--- NOTE | 2016-06-06 15:52 | HHI.PR ---
Subjective Remarks Patient seen this morning around 11 AM. Says feeling all right. Denies any chest pain or shortness of breath. She denies any nausea time of examination. Objective Vital Signs Date Time Temp Pulse Resp B/P Pulse Ox O2 Delivery O2 Flow Rate FiO2 06/06/16 12:00 96.7 66 18 169/73 91 06/06/16 09:15 92 Nasal Cannula 1.00 25 06/06/16 09:02 92 Nasal Cannula 1.00 06/06/16 08:00 97.6 65 20 178/79 93 06/06/16 04:00 96.3 57 19 161/70 93 06/06/16 03:35 19 06/06/16 00:00 96.3 65 19 162/70 93 06/05/16 21:00 66 06/05/16 21:00 95 Nasal Cannula 1.00 25 06/05/16 20:58 Nasal Cannula 1.00 06/05/16 20:00 96.3 63 17 123/59 95 06/05/16 16:00 96.9 65 16 164/72 93 I/O 06/05/16 06/05/16 06/05/16 06/06/16 06/06/16 06/06/16 07:00 15:00 23:00 07:00 15:00 23:00 Intake Total 240 ml 720 ml 240 ml 240 ml Output Total 820 ml 700 ml 1900 ml 650 ml 200 ml Balance -580 ml 20 ml -1660 ml -410 ml -200 ml Intake Oral 240 ml 720 ml 240 ml 240 ml Output Urine Total 820 ml 700 ml 1900 ml 650 ml 200 ml # Bowel Movements 0 1 0 Result Diagram: 06/06/1612 06/06/16 0612 Objective Remarks GENERAL: Patient sitting up on edge of bed. Appears comfortable. Alert and oriented 3.exam is again unchanged. SKIN: Warm and dry. HEAD: Normocephalic. EYES: No scleral icterus. No injection or drainage. NECK: Supple, trachea midline. No JVD. Oral thrush no longer visible. CARDIOVASCULAR: Regular rate and rhythm without murmurs, gallops, or rubs. RESPIRATORY: Breath sounds equal bilaterally. No accessory muscle use. GASTROINTESTINAL: Abdomen soft, non-tender, nondistended. MUSCULOSKELETAL: No cyanosis, or edema. BACK: Nontender without obvious deformity. No CVA tenderness. A/P Assessment and Plan 76 year old female patient with a past medical history which includes: anemia, angina, anxiety, arthritis, Asthma, lung cancer, CAD s/o [place], COPD, colitis, hypertension, kidney stones, migraine, osteoarthritis, osteoporosis, rheumatoid arthritis and hypothyroidism. Patient presents to the emergency department after she had a trip and fall over her daughter's dog. Patient reports pain and inability to bear weight on her left lower extremity. Hip and pelvic x-ray revealed mildly displaced fracture through the intertrochanteric region of the left hip. Patient has known lung cancer and was supposed to start chemotherapy. She has been having respiratory difficulties during this admission, therefore chemotherapy has been started. //Left hip fracture //Status post mechanical fall. S/p repair 05/26/16. - weightbearing, wound care and anticoagulation per orthopedic surgery. Cleared for discharge by surgery. - Continue pain control with a bowel regimen. -Appreciate PT/OT. Patient ambulatory. Continue to monitor. //Acute respiratory failure/ HCAP The pt has lung cancer and COPD. CXR with left base consolidation which has been noted on prior imaging. Pt with symptoms of cough and mucous production. Pulmonology consult appreciated. Repeat CXR 06/01 stable. - Wean off oxygen as tolerated -Status post cefepime and vancomycin to treat for post obstructive pneumonia. - blood and sputum cultures pending. NGTD. - standing nebs. -pulm following. Appreciate assistance. -Continue chemotherapy as per oncology. Appreciate assistance. -Continue breathing treatments, supplemental oxygen. -Taper steroids. //Lung cancer Pt was to start chemotherapy as an outpt. Oncology following. - treatment as above. -Continue chemotherapy and steroids as per oncology service. Appreciate assistance. //HTN Exacerbated by pain and respiratory distress. Not well-controlled 06/01. - continue antihypertensive regimen including amlodipine and lisinopril. Added HCTZ 05/30. - pain control and breathing treatments as above. - Blood pressure continues elevated, but acceptable. Continue Clonidine and Vasotec as needed. //Constipation Resolved. S/p Dulcolax suppository and Fleets enema. //Oral thrush. -06/04. Already on Magic mouthwash. Start nystatin. -= Improving. Continue nystatin. //Hyponatremia. Chronic during admission. -Continues relatively stable. Continue to monitor. //Hyperglycemia. Secondary to high-dose steroids. Insulin sliding scale. Taper. Continue to monitor. //PPx: Lovenox Discharge Planning Pending improvement in respiratory status. on chemotherapy -We'll need oncology clearance for transfer to SNF. -discharge to SNF when she has completed filgrastim doses x 3 on 06/05,06/06,06/07 PM. Possible discharge to SNF on 06/08 Deep Ordonez MD Jun 06, 2016 15:52
[2016-06-06] MEDS: ONDANSETRON HCL 4 MG/2 ML VIAL IVP PRN (17:35)
[2016-06-06] MEDS: predniSONE 20 MG TAB PO SCH (21:54)
[2016-06-07] VITALS (10 sets, daily range): BP systolic 123–164; BP diastolic 59–85; PULSE 63–86; RESP 17–22; TEMP 96–98; O2SAT 93–96
[2016-06-07] MEDS: ONDANSETRON HCL 4 MG/2 ML VIAL IVP PRN ×2 (00:39→12:13)
[2016-06-07] MEDS: LEVOTHYROXINE SODIUM 100 MCG TAB PO SCH (06:10)
[2016-06-07] MEDS: INSULIN ASPART SUPPLEMENTAL SCALE SQ SCH ×4 (06:16→22:19)
[2016-06-07] MEDS: SENNOSIDES 8.6 MG TAB PO SCH (09:00)
[2016-06-07] MEDS: SODIUM CHLORIDE 0.9% FLUSH 5 ML FLUSH IVF SCH ×2 (09:00→20:55)
[2016-06-07] MEDS: POLYETHYLENE GLYCOL 17 GM PKG PO SCH (09:00)
[2016-06-07] MEDS: DOCUSATE SODIUM 100 MG CAP PO SCH ×2 (09:00→20:55)
[2016-06-07] MEDS: RESP: ALBUTEROL 2.5 MG/IPRATROPIUM 0.5 MG NEB (PRN) NEB (09:29)
[2016-06-07] MEDS: ACETAMINOPHEN/HYDROcodone 325 MG/5 MG TAB PO PRN ×3 (10:09→22:12)
[2016-06-07] MEDS: NYSTAT/DIPHENHY/LIDO MOUTHWASH (Adult) 120ML SWISH-SWAL SCH ×4 (10:09→22:12)
[2016-06-07] MEDS: NYSTATIN SUSP 500,000 U/5 ML CUP SWISH-SWAL SCH ×4 (10:09→20:55)
[2016-06-07] MEDS: CARVEDILOL 3.125 MG TAB PO SCH ×2 (10:11→20:53)
[2016-06-07] MEDS: LISINOPRIL 20 MG TAB PO SCH (10:11)
[2016-06-07] MEDS: HYDROCHLOROTHIAZIDE 25 MG TAB PO SCH (10:11)
[2016-06-07] MEDS: AMITRIPTYLINE HCL 10 MG TAB PO SCH ×2 (10:11→20:53)
[2016-06-07] MEDS: DONEPEZIL HCL 5 MG TAB PO SCH (10:11)
[2016-06-07] MEDS: guaiFENesin E.R. 600 MG TAB PO SCH ×2 (10:11→20:53)
[2016-06-07] MEDS: PANTOPRAZOLE SOD 20 MG DELAYED RELEASE TAB PO SCH (10:12)
[2016-06-07] MEDS: FOLIC ACID 1 MG TAB PO SCH (10:12)
[2016-06-07] MEDS: CALCIUM/VITAMIN D 250 MG/125 U TAB PO SCH ×3 (10:12→17:37)
[2016-06-07] MEDS: PRIMIDONE 250 MG TAB PO SCH ×3 (10:12→17:37)
[2016-06-07] MEDS: predniSONE 20 MG TAB PO SCH ×2 (10:12→20:53)
[2016-06-07] MEDS: CHOLECALCIFEROL (VIT D3) 5000 UNIT CAP PO SCH (10:12)
[2016-06-07] MEDS: HYDROmorphone HCL PF 1 MG/ML VIAL IV PUSH PRN (12:13)
[2016-06-07] MEDS: ENOXAPARIN SODIUM 30 MG/0.3 ML SYRINGE SQ SCH (12:14)
[2016-06-07 13:23] LABS: AUTOMATED NEUTROPHIL # 23.1 TH/MM3 (1.8-7.7); BASOPHIL % 0.1 % (0.0-2.0); EOSINOPHIL % 0.1 % (0.0-4.0); HEMATOCRIT 34.3 % (35.0-46.0); HEMO FLAGS DIFF FINAL; LYMPH % 3.2 % (9.0-44.0); LYMPHOCYTE # 0.8 TH/MM3 (1.0-4.8); MEAN CELL VOLUME 83.3 FL (80.0-100.0); MEAN CORPUSCULAR HEMOGLOBIN 27.5 PG (27.0-34.0); MONO % 0.3 % (0.0-8.0); NEUT % 96.3 % (16.0-70.0); PLATELET COUNT 251 TH/MM3 (150-450); RED BLOOD COUNT 4.11 MIL/MM3 (4.00-5.30); RED CELL DISTRIBUTION WIDTH 18.5 % (11.6-17.2); WHITE BLOOD COUNT 23.9 TH/MM3 (4.0-11.0)
--- NOTE | 2016-06-07 13:45 | PD.ONC.PN ---
Subjective Subjective Remarks Afebrile overnight. Patient took her oxygen off today. "It was bothering my nose." She says she feels fine on room air. She is tolerating Neupogen injection. Objective Data Date Time Temp Pulse Resp B/P Pulse Ox O2 Delivery O2 Flow Rate FiO2 06/07/16 09:29 94 Nasal Cannula 1.00 06/07/16 08:00 97.7 71 20 164/70 93 06/07/16 06:15 98.0 68 20 161/69 95 06/07/16 00:00 97.6 63 19 139/85 96 06/06/16 21:45 Nasal Cannula 1.00 06/06/16 20:51 97 Nasal Cannula 1.00 06/06/16 20:01 64 06/06/16 19:34 97.4 66 17 156/68 95 06/06/16 16:00 96.9 70 16 137/65 94 Result Diagram: 06/07/16 1200 06/06/16 0612 Laboratory Results Laboratory Tests Test 06/07/16 12:00 White Blood Count 23.9 TH/MM3 Red Blood Count 4.11 MIL/MM3 Hemoglobin 11.3 GM/DL Hematocrit 34.3 % Mean Corpuscular Volume 83.3 FL Mean Corpuscular Hemoglobin 27.5 PG Mean Corpuscular Hemoglobin 33.0 % Concent Red Cell Distribution Width 18.5 % Platelet Count 251 TH/MM3 Mean Platelet Volume 8.9 FL Neutrophils (%) (Auto) 96.3 % Lymphocytes (%) (Auto) 3.2 % Monocytes (%) (Auto) 0.3 % Eosinophils (%) (Auto) 0.1 % Basophils (%) (Auto) 0.1 % Neutrophils # (Auto) 23.1 TH/MM3 Lymphocytes # (Auto) 0.8 TH/MM3 Monocytes # (Auto) 0.1 TH/MM3 Eosinophils # (Auto) 0.0 TH/MM3 Basophils # (Auto) 0.0 TH/MM3 CBC Comment DIFF FINAL Differential Comment Administered Medications Medications (Trade) Dose Ordered Sig/Shade Route PRN Reason Start Time Stop Time Status Last Admin Dose Admin Ondansetron HCl (Zofran Inj) 4 mg Q6H PRN IVP NAUSEA OR VOMITING 05/25/16 23:45 06/07/16 12:13 Amitriptyline HCl (Elavil) 10 mg BID PO 05/26/16 09:00 06/07/16 10:11 Amlodipine Besylate (Norvasc) 10 mg DAILY PO 05/26/16 09:00 06/07/16 10:12 Donepezil HCl (Aricept) 10 mg DAILY PO 05/26/16 09:00 06/07/16 10:11 Levothyroxine Sodium (Synthroid) 100 mcg DAILY@0600 PO 05/26/16 06:00 06/07/16 06:10 Primidone (Mysoline) 250 mg TID PO 05/26/16 09:00 06/07/16 12:14 Lisinopril (Prinivil) 40 mg DAILY PO 05/26/16 09:00 06/07/16 10:11 Pantoprazole Sodium (Protonix) 20 mg DAILY PO 05/26/16 09:00 06/07/16 10:12 Folic Acid (Folate) 1 mg DAILY PO 05/26/16 09:00 06/07/16 10:12 IV Flush (NS Flush) 2 ml UNSCH PRN IVF FLUSH AFTER USING IV ACCESS 05/26/16 11:45 06/07/16 00:39 IV Flush (NS Flush) 2 ml BID IVF 05/26/16 21:00 06/07/16 09:00 Enoxaparin Sodium (Lovenox Inj) 30 mg Q24H SQ 05/27/16 12:00 06/07/16 12:14 Calcium/Vitamin D (Oscal-D 250-125) 250 mg TID PO 05/26/16 14:00 06/07/16 12:14 Diphenhydramine HCl (Benadryl) 25 mg Q6H PRN PO ITCHING/ insomnia 05/26/16 11:45 05/30/16 21:54 Cholecalciferol (Vitamin D3) 5,000 units DAILY PO 05/27/16 09:00 06/07/16 10:12 Sodium Chloride ([place] Darci Eldon) 2 spray Q4H PRN EACH NARE NASAL CONGESTION 05/26/16 20:45 05/29/16 23:25 Docusate Sodium (Colace) 100 mg BID PO 05/27/16 21:00 06/04/16 08:57 Sennosides (Senokot) 17.2 mg DAILY PO 05/27/16 18:00 06/03/16 09:40 Hydromorphone HCl (Dilaudid Pf Inj) 1 mg Q3HR PRN IV PUSH Breakthrough pain 05/28/16 08:15 06/07/16 12:13 Guaifenesin (Mucinex Er) 1,200 mg BID PO 05/28/16 11:00 06/07/16 10:11 Polyethylene Glycol (Miralax) 17 gm DAILY PO 05/28/16 11:00 06/06/16 09:10 Carvedilol (Coreg) 3.125 mg Q12HR PO 05/28/16 11:00 06/07/16 10:11 Clonidine (Catapres) 0.1 mg Q6H PRN PO SBP> OR = 180, DBP> OR = 100 05/29/16 18:00 06/02/16 11:39 Enalaprilat (Vasotec Inj) 1.25 mg Q6H PRN IV PUSH SBP> OR = 180, DBP> OR = 100 05/29/16 18:00 06/05/16 05:27 Zolpidem Tartrate (Ambien) 5 mg HS PRN PO Insomnia 05/31/16 11:00 06/01/16 20:42 Diphenhydramine HCl (Benadryl) 25 mg UNSCH PRN PO GIVE FOR PRE-MED BLOOD 06/02/16 06:30 06/02/16 06:40 Acetaminophen (Tylenol) 650 mg UNSCH PRN PO GIVE PRE-MD BLOOD 06/02/16 06:30 06/02/16 06:40 Hydrochlorothiazide (Hydrodiuril) 50 mg DAILY PO 06/03/16 09:00 06/07/16 10:11 Multi-Ingredient Mouthwash/Gargle (Magic Mouthwash Adult Liq) 5 ml QID SWISH-SWAL 06/03/16 18:00 06/07/16 12:14 Nystatin (Mycostatin Liq) 5 ml QID SWISH-SWAL 06/04/16 18:00 06/07/16 12:14 Fluconazole (Diflucan) 200 mg Q24H PO 06/04/16 16:00 06/06/16 15:36 Acetaminophen/ Hydrocodone Bitart ([place] 5-325 Mg) 1 tab Q4H PRN PO pain 1-10 06/04/16 15:15 06/07/16 10:09 Prednisone (Deltasone) 20 mg BID PO 06/06/16 21:00 06/07/16 10:12 Objective Remarks GENERAL: Elderly female, sitting up in bed in nad. SKIN: Warm and dry. HEAD: Normocephalic. EYES: No injection or drainage. NECK: Supple, trachea midline. CARDIOVASCULAR: Regular rate and rhythm RESPIRATORY: Breath sounds equal bilaterally. No accessory muscle use. GASTROINTESTINAL: Abdomen soft, non-tender, nondistended. EXTREMITIES: No cyanosis NEUROLOGICAL: awake and alert, normal speech. moving all extremities. Assessment/Plan Problem List: (1) Metastatic lung cancer (metastasis from lung to other site) Status: Acute Plan: --diagnosed in Mar 2016. --She was found to have a spiculated mass in the left upper lobe abutting the mediastinum. --CT-guided biopsy confirmed small cell lung cancer. She was to begin systemic chemotherapy but was admitted with fracture --chemotherapy with carboplatin + etoposide on 06/02--06/04 (2) Fracture, intertrochanteric, left femur Status: Acute Plan: --s/p intramedullary sera fixation. --will need to be discharged to rehab (3) Anemia Status: Acute Plan: --Transfuse to keep hemoglobin greater than 7.5. --iron sucrose given Assessment 76y/o female with a history of extensive stage small-cell lung cancer admitted with hip fracture. h/o Small-cell lung cancer. Coronary artery disease. COPD. Tobacco abuse. History of colitis. Hypertension. Rheumatoid arthritis. Osteoarthritis. HPI: the patient had a fall after she tripped over her daughter's dog. presented to the emergency department and was found to have a mildly displaced fracture to the intertrochanteric region of the left hip. The patient was seen by orthopedic surgery and has undergone left intertrochanteric femur repair status post intramedullary sera fixation. The patient was desaturating with low oxygen levels and was transferred to be the intensive care unit for close observation. chest x-ray showed a left lower lobe consolidation. she was started on antibiotics and steroids. Her lung function improved and she was transferred to med/surg floor. Plan 1. clear for discharge to rehab 2. monitor CBC 3. follow up in clinic in 1 week. Attending Statement The exam, history, and the medical decision-making described in the above note were completed with the assistance of the mid-level provider. I reviewed and agree with the findings presented. I attest that I had a [id number] encounter with the patient on the same day, and personally performed and documented my assessment and findings in the medical record. D/C viki ok to d/c to rehab F/U in oncology clinic in 2 weeks CBC and CMP every tuesday and and fax results to [facility] Problem Qualifiers (1) Fracture, intertrochanteric, left femur: Qualified Code: S72.142A - Fracture, intertrochanteric, left femur, closed, initial encounter (2) Anemia: Dorcas Evans Jun 07, 2016 13:45 Evangelist Tracy MD Jun 07, 2016 23:23
[2016-06-07 13:51] LABS: POTASSIUM 3.9 MEQ/L (3.5-5.1)
--- NOTE | 2016-06-07 14:25 | EKG ---
Date Performed: 06/07/2016 Time Performed: 05:19:33 PTAGE: 76 years EKG: Sinus rhythm WITH OCCASIONAL SUPRAVENTRICULAR PREMATURE COMPLEXES BORDERLINE ECG Compared to prior tracing no sig nificant change PREVIOUS TRACING : 05/17/2016 12.50 DOCTOR: Leon Alarcon Interpretating Date/Time 06/07/2016 14:22:20
--- NOTE | 2016-06-07 14:55 | HHI.PR ---
Subjective Remarks Patient seen this morning. says feeling well. no cp or sob. no n/v. no cp or sob. no sore throat. Objective Vital Signs Date Time Temp Pulse Resp B/P Pulse Ox O2 Delivery O2 Flow Rate FiO2 06/07/16 14:15 86 06/07/16 12:00 97.5 64 22 131/63 93 06/07/16 09:29 94 Nasal Cannula 1.00 06/07/16 08:00 Nasal Cannula 1.00 06/07/16 08:00 97.7 71 20 164/70 93 06/07/16 06:15 98.0 68 20 161/69 95 06/07/16 00:00 97.6 63 19 139/85 96 06/06/16 21:45 Nasal Cannula 1.00 06/06/16 20:51 97 Nasal Cannula 1.00 06/06/16 20:01 64 06/06/16 19:34 97.4 66 17 156/68 95 06/06/16 16:00 96.9 70 16 137/65 94 I/O 06/06/16 06/06/16 06/06/16 06/07/16 06/07/16 06/07/16 07:00 15:00 23:00 07:00 15:00 23:00 Intake Total 240 ml 960 ml 840 ml 120 ml Output Total 650 ml 1400 ml 1200 ml 650 ml Balance -410 ml -440 ml -360 ml -530 ml Intake Oral 240 ml 960 ml 840 ml 120 ml Output Urine Total 650 ml 1400 ml 1200 ml 650 ml # Bowel Movements 0 1 0 0 Result Diagram: 06/07/16 1200 06/07/16 1015 Objective Remarks GENERAL: Patient sitting up in chair Appears comfortable. Alert and oriented 3. SKIN: Warm and dry. HEAD: Normocephalic. EYES: No scleral icterus. No injection or drainage. NECK: Supple, trachea midline. No JVD. Oral thrush no longer visible. CARDIOVASCULAR: Regular rate and rhythm without murmurs, gallops, or rubs. RESPIRATORY: Breath sounds equal bilaterally. No accessory muscle use. GASTROINTESTINAL: Abdomen soft, non-tender, nondistended. MUSCULOSKELETAL: No cyanosis, or edema. BACK: Nontender without obvious deformity. No CVA tenderness. A/P Assessment and Plan 76 year old female patient with a past medical history which includes: anemia, angina, anxiety, arthritis, Asthma, lung cancer, CAD s/o [place], COPD, colitis, hypertension, kidney stones, migraine, osteoarthritis, osteoporosis, rheumatoid arthritis and hypothyroidism. Patient presents to the emergency department after she had a trip and fall over her daughter's dog. Patient reports pain and inability to bear weight on her left lower extremity. Hip and pelvic x-ray revealed mildly displaced fracture through the intertrochanteric region of the left hip. Patient has known lung cancer and was supposed to start chemotherapy. She has been having respiratory difficulties during this admission, therefore chemotherapy has been started. //Left hip fracture //Status post mechanical fall. S/p repair 05/26/16. - weightbearing, wound care and anticoagulation per orthopedic surgery. Cleared for discharge by surgery. - Continue pain control with a bowel regimen. -Appreciate PT/OT. Patient ambulatory. Continue to monitor. //Acute respiratory failure/ HCAP The pt has lung cancer and COPD. CXR with left base consolidation which has been noted on prior imaging. Pt with symptoms of cough and mucous production. Pulmonology consult appreciated. Repeat CXR 06/01 stable. - Wean off oxygen as tolerated -Status post cefepime and vancomycin to treat for post obstructive pneumonia. - blood and sputum cultures pending. NGTD. - standing nebs. -pulm following. Appreciate assistance. -Continue chemotherapy as per oncology. Appreciate assistance. -Continue breathing treatments, supplemental oxygen. -Taper prednisone //Lung cancer Pt was to start chemotherapy as an outpt. Oncology following. - treatment as above. -s/p Continue chemotherapy and steroids as per oncology service. Appreciate assistance. //HTN Exacerbated by pain and respiratory distress. Not well-controlled 06/01. - continue antihypertensive regimen including amlodipine and lisinopril. Added HCTZ 05/30. - pain control and breathing treatments as above. - Blood pressure acceptable. Continue Clonidine and Vasotec as needed. //Constipation Resolved. S/p Dulcolax suppository and Fleets enema. //Oral thrush. -06/04. Already on Magic mouthwash. Start nystatin, fluconazole -= continues Improving. Continue nystatin, fluconazole stop date 06/18 total 14d. check lefts weekly //Hyponatremia. Chronic during admission. -Continues relatively stable. Continue to monitor. //Hyperglycemia. Secondary to high-dose steroids. Insulin sliding scale. improving. Continue to monitor. //PPx: Lovenox Discharge Planning d/w hematology. discharge to SNF Deep Ordonez MD Jun 07, 2016 14:55
[2016-06-07] MEDS ORDERED: CARV3.125 PO (15:15)
[2016-06-07] MEDS ORDERED: HYDR25TA5 PO (15:15)
[2016-06-07] MEDS ORDERED: FLUC200T2 PO (15:15)
[2016-06-07] MEDS ORDERED: SENN8.6T15 PO (15:15)
[2016-06-07] MEDS ORDERED: OYST250T4 PO (15:15)
[2016-06-07] MEDS ORDERED: DOCU1CAP39 PO (15:15)
[2016-06-07] MEDS ORDERED: IPRASOL NEB (15:15)
[2016-06-07] MEDS ORDERED: PRED10 PO (15:15)
[2016-06-07] MEDS ORDERED: ATOR1TAB18 PO (15:15)
[2016-06-07] MEDS ORDERED: NOVOLOGSS SQ (15:15)
--- NOTE | 2016-06-07 15:21 | HHI.DS ---
Discharge Summary Admission Date May 25, 2016 at 23:37 Discharge Date: Jun 07, 2016 Admitting Diagnosis closed left intertrochanteric fracture (1) Lung cancer ICD Code: C34.90 (2) Fracture, intertrochanteric, left femur ICD Code: S72.142A (3) Metastatic lung cancer (metastasis from lung to other site) ICD Code: C34.90 Procedures Left hip fracture repair. Brief History - From Admission This is a 76 year old female patient with a past medical history which includes : anemia, angina, anxiety, arthritis, Asthma, lung cancer, CAD s/o [place], COPD, colitis, hypertension, kidney stones, migraine, osteoarthritis, osteoporosis, rheumatoid arthritis and hypothyroidism. Patient presents to the emergency department today after she had a trip and fall over her daughter's dog. Patient landed on her buttock area. Patient reports pain and inability to bear weight on her left lower extremity. Pain located permanently in the left hip area denies radiation. Hip and pelvic x-ray revealed mildly displaced fracture through the intertrochanteric region of the left hip. Patient denies feeling dizzy lightheaded chest pain shortness of breath prior to the fall. Patient denies head trauma or loss of consciousness from the bone. Patient does report she has had nausea and vomiting lately. In review of prior turning patient was seen 05/12/2016 as well as 05/17/2016 for nausea and vomiting. This nausea and vomiting appears to be chronic at this point likely secondary to lung CA. Patient does report she has shortness of breath and cough productive of white phlegm does have history COPD and lung cancer. CXR: reveals L basilar atelectasis which again appears chronic. The patient reports to his dysuria urinalysis reviewed and does not indicate urinary tract infection. Patient denies chest pain. Of note patient has right-sided port reports she was supposed to start chemotherapy tomorrow. Follows with Dr. Tracy for lung CA. CBC/BMP: 06/07/16 1200 06/07/16 1015 Significant Findings Laboratory Tests Test 06/05/16 06/06/16 06/07/16 06/07/16 11:50 06:12 10:15 12:00 Hemoglobin 11.0 GM/DL 11.2 GM/DL 11.3 GM/DL (11.6-15.3) (11.6-15.3) (11.6-15.3) Hematocrit 33.5 % 34.3 % (35.0-46.0) (35.0-46.0) Red Cell Distribution Width 18.3 % 18.3 % 18.5 % (11.6-17.2) (11.6-17.2) (11.6-17.2) Neutrophils (%) (Auto) 92.4 % 93.6 % 96.3 % (16.0-70.0) (16.0-70.0) (16.0-70.0) Lymphocytes (%) (Auto) 5.3 % 2.6 % 3.2 % (9.0-44.0) (9.0-44.0) (9.0-44.0) Neutrophils # (Auto) 7.9 TH/MM3 29.0 TH/MM3 23.1 TH/MM3 (1.8-7.7) (1.8-7.7) (1.8-7.7) Lymphocytes # (Auto) 0.4 TH/MM3 0.8 TH/MM3 0.8 TH/MM3 (1.0-4.8) (1.0-4.8) (1.0-4.8) Sodium Level 129 MEQ/L 129 MEQ/L 128 MEQ/L (136-145) (136-145) (136-145) Chloride Level 92 MEQ/L 93 MEQ/L 88 MEQ/L (98-107) (98-107) (98-107) Random Glucose 208 MG/DL 147 MG/DL (74-106) (74-106) Calcium Level 7.9 MG/DL (8.5-10.1) Alkaline Phosphatase 120 U/L (45-117) Total Protein 5.6 GM/DL (6.4-8.2) Albumin 2.4 GM/DL 2.5 GM/DL (3.4-5.0) (3.4-5.0) White Blood Count 31.0 TH/MM3 23.9 TH/MM3 (4.0-11.0) (4.0-11.0) Mean Corpuscular Hemoglobin 26.7 PG (27.0-34.0) Mean Corpuscular Hemoglobin 31.8 % Concent (32.0-36.0) Monocytes # (Auto) 1.1 TH/MM3 (0-0.9) Neutrophils % (Manual) 90 % (16-70) Lymphocytes % 3 % (9-44) Neutrophils # (Manual) 29.8 TH/MM3 (1.8-7.7) Imaging Last Impressions Chest X-Ray 06/01/16 0000 Signed Impressions: Service Date/Time: Wednesday, June 01, 2016 06:10 - CONCLUSION: Stable appearance of the chest without concerning infiltrate or mass. Ray Ma MD Femur X-Ray 05/26/16 0000 Signed Impressions: Service Date/Time: Thursday, May 26, 2016 12:24 - CONCLUSION: Postoperative changes. Moris Bonilla MD Hip and Pelvis X-Ray 05/25/16 0000 Signed Impressions: Service Date/Time: Wednesday, May 25, 2016 23:01 - CONCLUSION: Mildly displaced fracture through the intertrochanteric region of the left hip. Baljit Rockwell MD PE at Discharge GENERAL: Elderly female in no apparent distress. CARDIOVASCULAR: Regular rate and rhythm without murmurs, gallops, or rubs. RESPIRATORY: Diffuse rhonchi and expiratory wheezing. GASTROINTESTINAL: Abdomen soft, non-tender, nondistended. No guarding or rebound. + bowel sounds. MUSCULOSKELETAL: Left lower extremity with bandages and tender to palpation. NEUROLOGICAL: Awake and alert. Sensory grossly within normal limits. Left lower extremity ROM limited secondary to pain. Normal speech. PSYCH: Mood and affect appropriate. Hospital Course 76 year old female patient with a past medical history which includes: anemia, angina, anxiety, arthritis, Asthma, lung cancer, CAD s/o [place], COPD, colitis, hypertension, kidney stones, migraine, osteoarthritis, osteoporosis, rheumatoid arthritis and hypothyroidism. Patient presents to the emergency department after she had a trip and fall over her daughter's dog. Patient reports pain and inability to bear weight on her left lower extremity. Hip and pelvic x-ray revealed mildly displaced fracture through the intertrochanteric region of the left hip. Patient has known lung cancer and was supposed to start chemotherapy. She has been having respiratory difficulties during this admission, therefore chemotherapy has been started. //Left hip fracture //Status post mechanical fall. S/p repair 05/26/16. - weightbearing, wound care and anticoagulation per orthopedic surgery. Cleared for discharge by surgery. - Continue pain control with a bowel regimen. -Appreciate PT/OT. Patient ambulatory. Continue to monitor. //Acute respiratory failure/ HCAP The pt has lung cancer and COPD. CXR with left base consolidation which has been noted on prior imaging. Pt with symptoms of cough and mucous production. Pulmonology consult appreciated. Repeat CXR 06/01 stable. - Wean off oxygen as tolerated -Status post cefepime and vancomycin to treat for post obstructive pneumonia. - blood and sputum cultures pending. NGTD. - standing nebs. -pulm following. Appreciate assistance. -Continue chemotherapy as per oncology. Appreciate assistance. -Continue breathing treatments, supplemental oxygen. -Taper prednisone //Lung cancer Pt was to start chemotherapy as an outpt. Oncology following. - treatment as above. -s/p Continue chemotherapy and steroids as per oncology service. Appreciate assistance. //HTN Exacerbated by pain and respiratory distress. Not well-controlled 06/01. - continue antihypertensive regimen including amlodipine and lisinopril. Added HCTZ 05/30. - pain control and breathing treatments as above. - Blood pressure acceptable. Continue Clonidine and Vasotec as needed. //Constipation Resolved. S/p Dulcolax suppository and Fleets enema. //Oral thrush. -06/04. Already on Magic mouthwash. Start nystatin, fluconazole -= continues Improving. Continue nystatin, fluconazole stop date 06/18 total 14d. check lefts weekly //Hyponatremia. Chronic during admission. -Continues relatively stable. Continue to monitor. //Hyperglycemia. Secondary to high-dose steroids. Insulin sliding scale. improving. Continue to monitor. //PPx: Lovenox Pt Condition on Discharge: Good Discharge Disposition: Discharge to SNF Discharge Time: > 30 minutes Discharge Instructions DIET: Follow Instructions for: Diabetic Diet Additional Diet Instructions: Diabetic diet until she has completed steroid Taper, then can go on heart health diet. Activities you can perform: Weight Bearing as [place] Follow up Referrals: Oncology - 1 Week with Evangelist Tracy MD Orthopedics - 2 Weeks [facility] with Hermes Phelan MD PCP Follow-up - 1 Week with Katlyn Heaton MD New Medications: Hydrocodone-Acetaminophen ([place]) 10-325 Mg Tab 1 TAB PO Q3HR PRN PAIN #60 Ref 0 TAB Prednisone (Prednisone) 10 Mg Tab 10 MG PO DAILY COPD Days 10 Ref 0 TAB Rivaroxaban (Xarelto) 10 Mg Tab 10 MG PO DAILY Blood Clot Prevention #14 Ref 0 TAB Walker with Front Wheels (Walker with Front Wheels) 1 Mis Mis 1 EA .ROUTE DIRECTED #1 Ref 0 EA Calcium Carbonate-Cholecalciferol (Oyster Shell Calcium/Vitamin D) 250-125 Mg- Unit Tab 250 MG PO TID vitamin Days 30 TAB Carvedilol (Coreg) 3.125 Mg Tab 3.125 MG PO Q12HR heart Days 30 TAB Docusate Sodium (Dok) 100 Mg Cap 100 MG PO BID Constipation Days 30 CAP Fluconazole (Fluconazole) 200 Mg Tab 100 MG PO Q24H hollis esophagitis #11 TAB Hydrochlorothiazide (Hydrochlorothiazide) 25 Mg Tab 50 MG PO DAILY blood pressure Days 30 TAB Insulin Aspart Inj (Novolog Inj) 100 Unit/Ml Inj 1 INJECTION SQ ACHS SLIDING SCALE Blood Sugar Management Days 30 INJECTION Ipratropium-Albuterol Neb (Duoneb) 0.5-2.5 Mg/3 Ml Neb 1 AMPULE NEB Q4HR NEB PRN SOB/WHEEZING Days 30 ML Sennosides (Senna Lax) 8.6 Mg Tab 17.2 MG PO DAILY Take 40mg daily for 3 days; 20mg daily for 3 days; 10mg daily for 3 days, then stop. Constipation #21 TAB Changed Medications: Atorvastatin (Atorvastatin) 80 Mg Tab 80 MG PO HS HOLD THIS MEDICATION. RESTART AFTER COMPLETION OF FLUCONAZOLE THERAPY Cholesterol Management #30 Ref 0 TAB (Medication details modified) Continued Medications: Albuterol 18 GM Inh (Ventolin Hfa 18 GM Inh) 90 Mcg/Act Aer 2 PUFF INH Q4-6H PRN SHORTNESS OF BREATH #1 Ref 0 INHALER Amitriptyline (Amitriptyline) 10 Mg Tab 10 MG PO BID TAB Amlodipine (Amlodipine) 10 Mg Tab 10 MG PO DAILY Blood Pressure Management #30 Ref 0 TAB Cholecalciferol (Vitamin D) 1,000 Unit Tab 1000 UNITS PO DAILY Nutritional Supplement #1 Ref 0 BOTTLE Donepezil (Donepezil) 10 Mg Tab 10 MG PO DAILY Dementia #30 Ref 0 TAB Folic Acid (Folate) 1 Mg Tab 1 MG PO DAILY Nutritional Supplement Ref 0 TAB Levothyroxine (Levothyroxine) 100 Mcg Tab 100 MCG PO DAILY Thyroid #30 Ref 0 TAB Lisinopril (Lisinopril) 40 Mg Tab 40 MG PO DAILY Blood Pressure Management #30 Ref 0 TAB Lorazepam (Lorazepam) 1 Mg Tab 1 MG PO DAILY PRN ANXIETY Ref 0 TAB Omeprazole (Omeprazole) 20 Mg Tab 20 MG PO DAILY #30 Ref 0 TAB Ondansetron Odt (Zofran Odt) 4 Mg Tab 4 MG SL Q6HR PRN Nausea/Vomiting #30 Ref 0 TAB Primidone (Primidone) 250 Mg Tab 250 MG PO TID Control Seizures #90 Ref 0 TAB Discontinued Medications: Hydrocodone-Acetaminophen (Hydrocodone-Acetaminophen) 10-325 mg Tab 1 TAB PO Q6H PRN PAIN Ref 0 TAB Ipratropium Neb (Ipratropium Neb) 0.5 Mg/2.5 Ml Amp 0.5 MG NEB Q8HR PRN SHORTNESS OF BREATH #120 Ref 0 NEBULE Levocetirizine (Levocetirizine) 5 Mg Tab 5 MG PO DAILY Allergy Management #30 Ref 0 TAB Levofloxacin (Levaquin) 500 Mg Tab 500 MG PO DAILY Infection Ref 0 TAB Methotrexate (Methotrexate) 2.5 Mg Tab 7.5 MG PO Q7D ON MONDAYS Ref 0 TAB Prednisone (Prednisone) 20 Mg Tab 20 MG PO BID Days 5 Ref 0 TAB Deep Ordonez MD Jun 07, 2016 15:21
[2016-06-07] MEDS ORDERED: HYDR-3583 PO (15:32)
[2016-06-07] MEDS: FLUCONAZOLE 200 MG TAB PO SCH (17:37)
[2016-06-08] VITALS (8 sets, daily range): BP systolic 129–162; BP diastolic 56–70; PULSE 56–71; RESP 18–24; TEMP 96.4–97.3; O2SAT 94–99
[2016-06-08] MEDS: SODIUM CHLORIDE 0.9% FLUSH 10 ML FLUSH IV FLUSH PRN ×2 (05:05→23:04)
[2016-06-08] MEDS: LEVOTHYROXINE SODIUM 100 MCG TAB PO SCH (05:35)
[2016-06-08] MEDS: INSULIN ASPART SUPPLEMENTAL SCALE SQ SCH ×4 (05:35→21:21)
[2016-06-08 06:18] LABS: AUTOMATED NEUTROPHIL # 15.7 TH/MM3 (1.8-7.7); BASOPHIL % 0.1 % (0.0-2.0); EOSINOPHIL % 0.1 % (0.0-4.0); HEMATOCRIT 30.7 % (35.0-46.0); HEMO FLAGS DIFF FINAL; LYMPH % 4.7 % (9.0-44.0); LYMPHOCYTE # 0.8 TH/MM3 (1.0-4.8); MEAN CELL VOLUME 83.5 FL (80.0-100.0); MEAN CORPUSCULAR HEMOGLOBIN 26.7 PG (27.0-34.0); MONO % 0.3 % (0.0-8.0); NEUT % 94.8 % (16.0-70.0); PLATELET COUNT 202 TH/MM3 (150-450); RED BLOOD COUNT 3.68 MIL/MM3 (4.00-5.30); RED CELL DISTRIBUTION WIDTH 18.3 % (11.6-17.2); WHITE BLOOD COUNT 16.6 TH/MM3 (4.0-11.0)
[2016-06-08 06:49] LABS: BICARBONATE 30.1 MEQ/L (21.0-32.0); POTASSIUM 4.7 MEQ/L (3.5-5.1)
[2016-06-08] MEDS: PRIMIDONE 250 MG TAB PO SCH ×3 (08:17→17:26)
[2016-06-08] MEDS: DONEPEZIL HCL 5 MG TAB PO SCH (08:17)
[2016-06-08] MEDS: predniSONE 20 MG TAB PO SCH (08:17)
[2016-06-08] MEDS: SENNOSIDES 8.6 MG TAB PO SCH (08:18)
[2016-06-08] MEDS: CARVEDILOL 3.125 MG TAB PO SCH ×2 (08:18→21:09)
[2016-06-08] MEDS: FOLIC ACID 1 MG TAB PO SCH (08:18)
[2016-06-08] MEDS: HYDROCHLOROTHIAZIDE 25 MG TAB PO SCH (08:18)
[2016-06-08] MEDS: DOCUSATE SODIUM 100 MG CAP PO SCH ×2 (08:18→21:10)
[2016-06-08] MEDS: guaiFENesin E.R. 600 MG TAB PO SCH ×2 (08:19→21:10)
[2016-06-08] MEDS: AMITRIPTYLINE HCL 10 MG TAB PO SCH ×2 (08:19→21:10)
[2016-06-08] MEDS: CHOLECALCIFEROL (VIT D3) 5000 UNIT CAP PO SCH (08:19)
[2016-06-08] MEDS: LISINOPRIL 20 MG TAB PO SCH (08:19)
[2016-06-08] MEDS: CALCIUM/VITAMIN D 250 MG/125 U TAB PO SCH ×3 (08:19→17:26)
[2016-06-08] MEDS: PANTOPRAZOLE SOD 20 MG DELAYED RELEASE TAB PO SCH (08:19)
[2016-06-08] MEDS: NYSTAT/DIPHENHY/LIDO MOUTHWASH (Adult) 120ML SWISH-SWAL SCH ×4 (08:20→21:00)
[2016-06-08] MEDS: NYSTATIN SUSP 500,000 U/5 ML CUP SWISH-SWAL SCH ×4 (08:20→21:09)
[2016-06-08] MEDS: ACETAMINOPHEN/HYDROcodone 325 MG/5 MG TAB PO PRN ×4 (08:22→21:23)
[2016-06-08] MEDS: POLYETHYLENE GLYCOL 17 GM PKG PO SCH (09:00)
[2016-06-08] MEDS: SODIUM CHLORIDE 0.9% FLUSH 5 ML FLUSH IVF SCH ×2 (09:00→21:00)
[2016-06-08] MEDS: ONDANSETRON HCL 4 MG/2 ML VIAL IVP PRN (11:41)
[2016-06-08] MEDS: ENOXAPARIN SODIUM 30 MG/0.3 ML SYRINGE SQ SCH (13:31)
--- NOTE | 2016-06-08 14:10 | PD.ONC.PN ---
Subjective Subjective Remarks Afebrile overnight. Patient felt a bit nauseated earlier. She did eat her breakfast this AM without vomiting. Pain in hip controlled. Objective Data Date Time Temp Pulse Resp B/P Pulse Ox O2 Delivery O2 Flow Rate FiO2 06/08/16 08:52 97 06/08/16 08:30 96.4 71 24 162/70 94 06/08/16 08:00 97 Nasal Cannula 1.00 06/08/16 04:00 96.6 66 18 148/67 94 06/08/16 00:00 97.0 69 18 151/67 99 06/07/16 20:50 Nasal Cannula 1.00 06/07/16 20:18 75 06/07/16 20:00 96.0 78 17 127/59 95 06/07/16 17:55 94 Nasal Cannula 1.00 06/07/16 16:00 97.7 73 20 123/60 94 06/07/16 14:15 86 06/08/16 06/08/16 06/08/16 07:00 15:00 23:00 Output Total 500 ml 1100 ml Balance -500 ml -1100 ml Result Diagram: 06/08/16 0505 06/08/16 0505 Laboratory Results Laboratory Tests Test 06/08/16 05:05 White Blood Count 16.6 TH/MM3 Red Blood Count 3.68 MIL/MM3 Hemoglobin 9.8 GM/DL Hematocrit 30.7 % Mean Corpuscular Volume 83.5 FL Mean Corpuscular Hemoglobin 26.7 PG Mean Corpuscular Hemoglobin 32.0 % Concent Red Cell Distribution Width 18.3 % Platelet Count 202 TH/MM3 Mean Platelet Volume 8.9 FL Neutrophils (%) (Auto) 94.8 % Lymphocytes (%) (Auto) 4.7 % Monocytes (%) (Auto) 0.3 % Eosinophils (%) (Auto) 0.1 % Basophils (%) (Auto) 0.1 % Neutrophils # (Auto) 15.7 TH/MM3 Lymphocytes # (Auto) 0.8 TH/MM3 Monocytes # (Auto) 0.1 TH/MM3 Eosinophils # (Auto) 0.0 TH/MM3 Basophils # (Auto) 0.0 TH/MM3 CBC Comment DIFF FINAL Differential Comment Sodium Level 128 MEQ/L Potassium Level 4.7 MEQ/L Chloride Level 92 MEQ/L Carbon Dioxide Level 30.1 MEQ/L Anion Gap 6 MEQ/L Blood Urea Nitrogen 23 MG/DL Creatinine 0.65 MG/DL Estimat Glomerular Filtration 89 ML/MIN Rate Random Glucose 169 MG/DL Calcium Level 7.7 MG/DL Administered Medications Medications (Trade) Dose Ordered Sig/Shade Route PRN Reason Start Time Stop Time Status Last Admin Dose Admin Ondansetron HCl (Zofran Inj) 4 mg Q6H PRN IVP NAUSEA OR VOMITING 05/25/16 23:45 06/08/16 11:41 Amitriptyline HCl (Elavil) 10 mg BID PO 05/26/16 09:00 06/08/16 08:19 Amlodipine Besylate (Norvasc) 10 mg DAILY PO 05/26/16 09:00 06/08/16 08:19 Donepezil HCl (Aricept) 10 mg DAILY PO 05/26/16 09:00 06/08/16 08:17 Levothyroxine Sodium (Synthroid) 100 mcg DAILY@0600 PO 05/26/16 06:00 06/08/16 05:35 Primidone (Mysoline) 250 mg TID PO 05/26/16 09:00 06/08/16 08:17 Lisinopril (Prinivil) 40 mg DAILY PO 05/26/16 09:00 06/08/16 08:19 Pantoprazole Sodium (Protonix) 20 mg DAILY PO 05/26/16 09:00 06/08/16 08:19 Folic Acid (Folate) 1 mg DAILY PO 05/26/16 09:00 06/08/16 08:18 IV Flush (NS Flush) 2 ml UNSCH PRN IVF FLUSH AFTER USING IV ACCESS 05/26/16 11:45 06/07/16 00:39 IV Flush (NS Flush) 2 ml BID IVF 05/26/16 21:00 06/07/16 09:00 Enoxaparin Sodium (Lovenox Inj) 30 mg Q24H SQ 05/27/16 12:00 06/08/16 13:31 Calcium/Vitamin D (Oscal-D 250-125) 250 mg TID PO 05/26/16 14:00 06/08/16 13:31 Diphenhydramine HCl (Benadryl) 25 mg Q6H PRN PO ITCHING/ insomnia 05/26/16 11:45 05/30/16 21:54 Cholecalciferol (Vitamin D3) 5,000 units DAILY PO 05/27/16 09:00 06/08/16 08:19 Sodium Chloride ([place]) 2 spray Q4H PRN EACH NARE NASAL CONGESTION 05/26/16 20:45 05/29/16 23:25 Docusate Sodium (Colace) 100 mg BID PO 05/27/16 21:00 06/08/16 08:18 Sennosides (Senokot) 17.2 mg DAILY PO 05/27/16 18:00 06/08/16 08:18 Hydromorphone HCl (Dilaudid Pf Inj) 1 mg Q3HR PRN IV PUSH Breakthrough pain 05/28/16 08:15 06/07/16 12:13 Guaifenesin (Mucinex Er) 1,200 mg BID PO 05/28/16 11:00 06/08/16 08:19 Polyethylene Glycol (Miralax) 17 gm DAILY PO 05/28/16 11:00 06/06/16 09:10 Carvedilol (Coreg) 3.125 mg Q12HR PO 05/28/16 11:00 06/08/16 08:18 Clonidine (Catapres) 0.1 mg Q6H PRN PO SBP> OR = 180, DBP> OR = 100 05/29/16 18:00 06/02/16 11:39 Enalaprilat (Vasotec Inj) 1.25 mg Q6H PRN IV PUSH SBP> OR = 180, DBP> OR = 100 05/29/16 18:00 06/05/16 05:27 Zolpidem Tartrate (Ambien) 5 mg HS PRN PO Insomnia 05/31/16 11:00 06/01/16 20:42 Diphenhydramine HCl (Benadryl) 25 mg UNSCH PRN PO GIVE FOR PRE-MED BLOOD 06/02/16 06:30 06/02/16 06:40 Acetaminophen (Tylenol) 650 mg UNSCH PRN PO GIVE PRE-MD BLOOD 06/02/16 06:30 06/02/16 06:40 Hydrochlorothiazide (Hydrodiuril) 50 mg DAILY PO 06/03/16 09:00 06/08/16 08:18 Multi-Ingredient Mouthwash/Gargle (Magic Mouthwash Adult Liq) 5 ml QID SWISH-SWAL 06/03/16 18:00 06/08/16 08:20 Nystatin (Mycostatin Liq) 5 ml QID SWISH-SWAL 06/04/16 18:00 06/08/16 08:20 Fluconazole (Diflucan) 200 mg Q24H PO 06/04/16 16:00 06/07/16 17:37 Acetaminophen/ Hydrocodone Bitart ([place] 5-325 Mg) 1 tab Q4H PRN PO pain 1-10 06/04/16 15:15 06/08/16 13:36 Prednisone (Deltasone) 20 mg BID PO 06/06/16 21:00 06/08/16 08:17 Heparin Sodium (Porcine) (Heparin Central Flush) 250 units UNSCH PRN IV FLUSH SEE PROTOCOL TABLE 06/08/16 06:45 06/08/16 05:05 Heparin Sodium (Porcine) (Heparin Central Flush) 500 units UNSCH IV FLUSH 06/08/16 06:45 06/08/16 08:23 Sodium Chloride (NS Flush) 5 ml UNSCH PRN IV FLUSH FLUSH AFTER USING IV ACCESS 06/08/16 06:45 06/08/16 05:05 Objective Remarks GENERAL: Elderly female,lying in bed, sleeping on approach SKIN: Warm and dry. HEAD: Normocephalic. EYES: No injection or drainage. NECK: Supple, trachea midline. CARDIOVASCULAR: Regular rate and rhythm RESPIRATORY: occasional rhonchi. On 1L O2 via NC GASTROINTESTINAL: Abdomen soft, non-tender, nondistended. EXTREMITIES: No cyanosis NEUROLOGICAL: aox3. facial movements symmetric. Assessment/Plan Problem List: (1) Metastatic lung cancer (metastasis from lung to other site) Status: Acute Plan: --diagnosed in Mar 2016. --She was found to have a spiculated mass in the left upper lobe abutting the mediastinum. --CT-guided biopsy confirmed small cell lung cancer. She was to begin systemic chemotherapy but was admitted with fracture --chemotherapy with carboplatin + etoposide on 06/02--06/04 (2) Fracture, intertrochanteric, left femur Status: Acute Plan: --s/p intramedullary sera fixation. --will need to be discharged to rehab (3) Anemia Status: Acute Plan: --Transfuse to keep hemoglobin greater than 7.5. --iron sucrose given Assessment 76y/o female with a history of extensive stage small-cell lung cancer admitted with hip fracture. h/o Small-cell lung cancer. Coronary artery disease. COPD. Tobacco abuse. History of colitis. Hypertension. Rheumatoid arthritis. Osteoarthritis. HPI: the patient had a fall after she tripped over her daughter's dog. presented to the emergency department and was found to have a mildly displaced fracture to the intertrochanteric region of the left hip. The patient was seen by orthopedic surgery and has undergone left intertrochanteric femur repair status post intramedullary sera fixation. The patient was desaturating with low oxygen levels and was transferred to be the intensive care unit for close observation. chest x-ray showed a left lower lobe consolidation. she was started on antibiotics and steroids. Her lung function improved and she was transferred to med/surg floor. Plan 1. follow up in clinic within 1 week 2. hematology clear for discharge Attending Statement The exam, history, and the medical decision-making described in the above note were completed with the assistance of the mid-level provider. I reviewed and agree with the findings presented. I attest that I had a [id number] encounter with the patient on the same day, and personally performed and documented my assessment and findings in the medical record. c/o of lower back pain. hx of fall last --was admitted to [facility] says now has worsening pain. Pelvic hip X-ray did not show any fractures/or any acute abnormalities CT scan previously showed degenerative changes in thoracolumbar spine. B/L kyphoplasty in sacrum will get bone scan to asses for any metastatic disease Repeat chemotherapy in 2 weeks. Outpatient f/u discussed with patient and her daughter Time spent with patient approximately 30 minutes. answered questions. Imaging reviewed d/w rn Problem Qualifiers (1) Fracture, intertrochanteric, left femur: Qualified Code: S72.142A - Fracture, intertrochanteric, left femur, closed, initial encounter (2) Anemia: Dorcas Evans Jun 08, 2016 14:10 Evangelist Tracy MD Jun 08, 2016 23:48
--- NOTE | 2016-06-08 14:33 | RADRPT ---
EXAM DATE/TIME: 06/08/2016 13:11 [place] COMPARISON: HIP LEFT (AP&LAT 2/3VWS) W AP PELVIS, May 25, 2016, 23:01. INDICATIONS : Evaluate for fracture. Left hip pain. MEDICAL HISTORY : Carcinoma, lung. Hypertension. Chronic obstructive pulmonary disease. hiatal hernia SURGICAL HISTORY : Appendectomy. Cholecystectomy. Hysterectomy. ENCOUNTER: Subsequent ACUITY: 2 weeks PAIN SCORE: 10/10 LOCATION: Left Hip. FINDINGS: A single AP supine view of the pelvis was obtained as well as multiple views of the left femur. This demonstrates postsurgical changes in both hips with intramedullary rods and locking cannulated screws . There is diffuse osteopenia with no acute fracture or malalignment. The hips are intact. A methacry late is again noted along both sacroiliac joints. CONCLUSION: 1. Surgical change with no acute fracture or malalignment. 2. High-density methylmethacrylate again noted along both sacroiliac joints. Louis Heaton MD on June 08, 2016 at 14:24 Board Certified Radiologist. This report was verified electronically.
--- NOTE | 2016-06-08 14:55 | HHI.PR ---
Subjective Remarks Patient seen this morning around 9:30 AM. Says she is feeling all right. Some nausea this morning, But has not asked for any nausea meds No vomiting. No chest pain or shortness of breath. Denies any pain. Objective Vital Signs Date Time Temp Pulse Resp B/P Pulse Ox O2 Delivery O2 Flow Rate FiO2 06/08/16 14:30 96.6 66 20 134/56 96 06/08/16 08:52 97 06/08/16 08:30 96.4 71 24 162/70 94 06/08/16 08:00 97 Nasal Cannula 1.00 06/08/16 04:00 96.6 66 18 148/67 94 06/08/16 00:00 97.0 69 18 151/67 99 06/07/16 20:50 Nasal Cannula 1.00 06/07/16 20:18 75 06/07/16 20:00 96.0 78 17 127/59 95 06/07/16 17:55 94 Nasal Cannula 1.00 06/07/16 16:00 97.7 73 20 123/60 94 I/O 06/07/16 06/07/16 06/07/16 06/08/16 06/08/16 06/08/16 07:00 15:00 23:00 07:00 15:00 23:00 Intake Total 120 ml 960 ml Output Total 650 ml 650 ml 500 ml 1100 ml Balance -530 ml 310 ml -500 ml -1100 ml Intake Oral 120 ml 960 ml Output Urine Total 650 ml 650 ml 500 ml 1100 ml # Voids 3 3 # Bowel Movements 0 1 1 Result Diagram: 06/08/16 0505 06/08/16 0505 Objective Remarks GENERAL: Patient sitting up in chair at bedside. Appears comfortable. Alert and oriented 3. She does report nausea, however exam unchanged. SKIN: Warm and dry. HEAD: Normocephalic. EYES: No scleral icterus. No injection or drainage. NECK: Supple, trachea midline. No JVD. Oral thrush no longer visible. CARDIOVASCULAR: Regular rate and rhythm without murmurs, gallops, or rubs. RESPIRATORY: Breath sounds equal bilaterally. No accessory muscle use. GASTROINTESTINAL: Abdomen soft, non-tender, nondistended. MUSCULOSKELETAL: No cyanosis, or edema. BACK: Nontender without obvious deformity. No CVA tenderness. A/P Assessment and Plan 76 year old female patient with a past medical history which includes: anemia, angina, anxiety, arthritis, Asthma, lung cancer, CAD s/o [place], COPD, colitis, hypertension, kidney stones, migraine, osteoarthritis, osteoporosis, rheumatoid arthritis and hypothyroidism. Patient presents to the emergency department after she had a trip and fall over her daughter's dog. Patient reports pain and inability to bear weight on her left lower extremity. Hip and pelvic x-ray revealed mildly displaced fracture through the intertrochanteric region of the left hip. Patient has known lung cancer and was supposed to start chemotherapy. She experienced respiratory failure, 06/08. Patient seen and examined. No acute changes. Some nausea, nausea meds given. //Left hip fracture //Status post mechanical fall. S/p repair 05/26/16. - weightbearing, wound care and anticoagulation per orthopedic surgery. Cleared for discharge by surgery. - Continue pain control with a bowel regimen. -Appreciate PT/OT. Patient ambulatory. Continue to monitor. //Acute respiratory failure/ HCAP The pt has lung cancer and COPD. CXR with left base consolidation which has been noted on prior imaging. Pt with symptoms of cough and mucous production. Pulmonology consult appreciated. Repeat CXR 06/01 stable. - Wean off oxygen as tolerated -Status post cefepime and vancomycin to treat for post obstructive pneumonia. - blood and sputum cultures pending. NGTD. - standing nebs. -pulm following. Appreciate assistance. -Continue chemotherapy as per oncology. Appreciate assistance. -Continue breathing treatments, supplemental oxygen. -Taper prednisone. continues on twice daily 20 mg //Lung cancer Pt was to start chemotherapy as an outpt. Oncology following. - treatment as above. -s/p status post first round chemotherapy and steroids as per oncology service. Next round will be in 20 days as outpatient. Appreciate assistance. //HTN Exacerbated by pain and respiratory distress. Not well-controlled 06/01. - continue antihypertensive regimen including amlodipine and lisinopril. Added HCTZ 05/30. - pain control and breathing treatments as above. - Blood pressure acceptable. Continue Clonidine and Vasotec as needed. //Constipation Resolved. S/p Dulcolax suppository and Fleets enema. //Oral thrush. -06/04. Already on Magic mouthwash. Start nystatin, fluconazole -= continues Improving. Continue nystatin, fluconazole stop date 06/18 total 14d. check lfts weekly //Hyponatremia. Chronic during admission. -Continues relatively stable. Continue to monitor. //Hyperglycemia. Secondary to high-dose steroids. Insulin sliding scale. improving. Continue to monitor. //PPx: Lovenox Discharge Planning d/w hematology. discharge to SNF Deep Ordonez MD Jun 08, 2016 14:55
[2016-06-08] MEDS ORDERED: PRED10 PO (15:02)
[2016-06-08] MEDS: FLUCONAZOLE 200 MG TAB PO SCH (17:26)
[2016-06-09] VITALS (10 sets, daily range): BP systolic 125–145; BP diastolic 52–67; PULSE 53–72; RESP 16–21; TEMP 96.1–97.3; O2SAT 92–97
[2016-06-09] MEDS: LEVOTHYROXINE SODIUM 100 MCG TAB PO SCH (05:38)
[2016-06-09] MEDS: INSULIN ASPART SUPPLEMENTAL SCALE SQ SCH ×4 (05:38→20:40)
[2016-06-09] MEDS: ONDANSETRON HCL 4 MG/2 ML VIAL IVP PRN (07:20)
[2016-06-09] MEDS: SODIUM CHLORIDE 0.9% FLUSH 10 ML FLUSH IV FLUSH PRN ×2 (07:20→20:42)
--- NOTE | 2016-06-09 07:57 | PD.ORT.PN ---
Subjective Subjective Remarks POD 14 s/p IMN left hip doing well. out of bed to chair. states pain in hip when walking Objective Vitals Vital Signs Date Time Temp Pulse Resp B/P Pulse Ox O2 Delivery O2 Flow Rate FiO2 06/09/16 04:00 96.7 55 17 139/66 96 06/09/16 00:00 96.3 53 17 145/67 94 06/08/16 22:16 56 06/08/16 21:20 Nasal Cannula 1.00 06/08/16 20:00 97.3 63 18 131/61 97 06/08/16 17:30 62 20 129/63 96 06/08/16 14:30 96.6 66 20 134/56 96 06/08/16 08:52 97 06/08/16 08:30 96.4 71 24 162/70 94 06/08/16 08:00 97 Nasal Cannula 1.00 I/O 06/08/16 06/08/16 06/08/16 06/09/16 06/09/16 06/09/16 07:00 15:00 23:00 07:00 15:00 23:00 Intake Total 360 ml 120 ml Output Total 500 ml 2000 ml 1150 ml Balance -500 ml -1640 ml 120 ml -1150 ml Intake Oral 360 ml 120 ml Output Urine Total 500 ml 2000 ml 1150 ml # Voids 3 2 1 # Bowel Movements 1 Result Diagram: 06/08/16 0505 06/08/16 0505 Imaging Last 72 hours Impressions Femur X-Ray 05/26/16 0000 Signed Impressions: Service Date/Time: Thursday, May 26, 2016 12:24 - CONCLUSION: Postoperative changes. Moris Bonilla MD Chest X-Ray 05/26/16 0000 Signed Impressions: Service Date/Time: Thursday, May 26, 2016 14:54 - CONCLUSION: Left lower lobe consolidation identified. Moris Bonilla MD Hip and Pelvis X-Ray 05/25/16 0000 Signed Impressions: Service Date/Time: Wednesday, May 25, 2016 23:01 - CONCLUSION: Mildly displaced fracture through the intertrochanteric region of the left hip. Baljit Rockwell MD Chest X-Ray 05/25/16 0000 Signed Impressions: Service Date/Time: Wednesday, May 25, 2016 23:02 - CONCLUSION: Left lower lobe atelectasis unchanged. Baljit Rockwell MD Objective Remarks Left lower extremity: Clean dry dressings intact. Minimal swelling. No pain with knee or ankle range of motion. Distally she has intact sensation with capillary refills. incisions visualized. clean and dry. healed well. no erythema or drainage. Assessment & Plan Assessment and Plan 1) Left intertrochanteric femur fracture status post intramedullary sera fixation POD 3 Weightbearing as tolerated left lower extremity Daily dressing changes Incentive spirometry Lovenox DC planning to rehabilitation DC neisha left leg today. keep dry and covered x 3 days, then open to air. f/u with [facility] or [facility] in 1 month Osmar Taylor Jun 09, 2016 07:57
[2016-06-09] MEDS: POLYETHYLENE GLYCOL 17 GM PKG PO SCH (09:00)
[2016-06-09] MEDS: NYSTATIN SUSP 500,000 U/5 ML CUP SWISH-SWAL SCH ×4 (09:00→20:40)
[2016-06-09] MEDS: SENNOSIDES 8.6 MG TAB PO SCH (09:00)
[2016-06-09] MEDS: DOCUSATE SODIUM 100 MG CAP PO SCH ×2 (09:00→20:41)
[2016-06-09] MEDS: NYSTAT/DIPHENHY/LIDO MOUTHWASH (Adult) 120ML SWISH-SWAL SCH ×4 (09:00→20:39)
[2016-06-09] MEDS: SODIUM CHLORIDE 0.9% FLUSH 5 ML FLUSH IVF SCH ×2 (09:00→20:43)
[2016-06-09] MEDS: guaiFENesin E.R. 600 MG TAB PO SCH ×2 (09:09→20:41)
[2016-06-09] MEDS: HYDROCHLOROTHIAZIDE 25 MG TAB PO SCH (09:10)
[2016-06-09] MEDS: LISINOPRIL 20 MG TAB PO SCH (09:10)
[2016-06-09] MEDS: CHOLECALCIFEROL (VIT D3) 5000 UNIT CAP PO SCH (09:10)
[2016-06-09] MEDS: AMITRIPTYLINE HCL 10 MG TAB PO SCH ×2 (09:10→20:41)
[2016-06-09] MEDS: FOLIC ACID 1 MG TAB PO SCH (09:10)
[2016-06-09] MEDS: DONEPEZIL HCL 5 MG TAB PO SCH (09:10)
[2016-06-09] MEDS: CARVEDILOL 3.125 MG TAB PO SCH ×2 (09:10→20:41)
[2016-06-09] MEDS: ACETAMINOPHEN/HYDROcodone 325 MG/5 MG TAB PO PRN ×4 (09:11→22:57)
[2016-06-09] MEDS: CALCIUM/VITAMIN D 250 MG/125 U TAB PO SCH ×3 (09:11→17:41)
[2016-06-09] MEDS: PRIMIDONE 250 MG TAB PO SCH ×3 (09:11→17:41)
[2016-06-09] MEDS: predniSONE 10 MG TAB PO SCH (09:11)
[2016-06-09] MEDS: PANTOPRAZOLE SOD 20 MG DELAYED RELEASE TAB PO SCH (09:11)
[2016-06-09] MEDS ORDERED: SENN8.6T15 PO (10:37)
[2016-06-09] MEDS ORDERED: DOCU1CAP39 PO (10:37)
[2016-06-09] MEDS ORDERED: LACT PO (10:38)
[2016-06-09] MEDS: LACTOBACILLUS ACIDOPHILUS TAB PO SCH ×2 (13:00→17:41)
[2016-06-09] MEDS: ENOXAPARIN SODIUM 30 MG/0.3 ML SYRINGE SQ SCH (13:01)
--- NOTE | 2016-06-09 15:09 | RADRPT ---
EXAM DATE/TIME: 06/09/2016 10:40 [facility] COMPARISON: FEMUR LEFT (AP & LAT/2VWS), May 26, 2016, 12:24. PRIOR BONE SCANS: INDICATIONS : Small cell lung cancer. Mass of left lobe of lung. Left hip fracture from fall. DOSE: 30.1 mCi Tc99m MDP IV MEDICAL HISTORY : Carcinoma, lung. SURGICAL HISTORY : Hysterectomy. Appendectomy. Cholecystectomy. Right hip fracture. ENCOUNTER: Initial ACUITY: 2 days PAIN SCALE: 1/10 LOCATION: chest TECHNIQUE: Three hours post intravenous administration of radiotracer, whole body bone scan imaging was performe d. FINDINGS: There is tracer seen in the [id number]. There is abnormal uptake in the left femur associated wit h the writing. Minimal uptake is seen about the lesser trochanter of the right hip. There is no antonio picious spine uptake. CONCLUSION: Postsurgical changes. I don't see evidence for significant bony metastatic disease. Ilya Connor MD FACR on June 09, 2016 at 15:05 Board Certified Radiologist. This report was verified electronically.
--- NOTE | 2016-06-09 16:07 | HHI.PR ---
Subjective Remarks Follow constipation. Now having loose stools with abdominal pain: Discussed with RN, C. difficile requested. Hold off all bowel regimen for now and start Lactinex Objective Vitals Vital Signs Date Time Temp Pulse Resp B/P Pulse Ox O2 Delivery O2 Flow Rate FiO2 06/09/16 12:00 96.1 61 18 143/63 96 06/09/16 08:18 94 Nasal Cannula 2.00 06/09/16 08:00 Nasal Cannula 1.00 25 06/09/16 08:00 97.3 71 20 140/67 92 06/09/16 04:00 96.7 55 17 139/66 96 06/09/16 00:00 96.3 53 17 145/67 94 06/08/16 22:16 56 06/08/16 21:20 Nasal Cannula 1.00 06/08/16 20:00 97.3 63 18 131/61 97 06/08/16 17:30 62 20 129/63 96 I/O 06/08/16 06/08/16 06/08/16 06/09/16 06/09/16 06/09/16 07:00 15:00 23:00 07:00 15:00 23:00 Intake Total 360 ml 120 ml 720 ml Output Total 500 ml 2000 ml 1150 ml 1200 ml Balance -500 ml -1640 ml 120 ml -1150 ml -480 ml Intake Oral 360 ml 120 ml 720 ml IV Total 0 ml Output Urine Total 500 ml 2000 ml 1150 ml 1200 ml # Voids 3 2 1 # Bowel Movements 1 4 Result Diagram: 06/08/16 0505 06/08/16 0505 Imaging Last Impressions Bone Scan Nuclear Medicine 06/09/16 0000 Signed Impressions: Service Date/Time: Thursday, June 09, 2016 10:40 - CONCLUSION: Postsurgical changes. I don't see evidence for significant bony metastatic disease. Ilya Connor MD FACR Hip and Pelvis X-Ray 06/08/16 0000 Signed Impressions: Service Date/Time: Wednesday, June 08, 2016 13:11 - CONCLUSION: 1. Surgical change with no acute fracture or malalignment. 2. High-density methylmethacrylate again noted along both sacroiliac joints. Louis Heaton MD Chest X-Ray 06/01/16 0000 Signed Impressions: Service Date/Time: Wednesday, June 01, 2016 06:10 - CONCLUSION: Stable appearance of the chest without concerning infiltrate or mass. Ray Ma MD Femur X-Ray 05/26/16 0000 Signed Impressions: Service Date/Time: Thursday, May 26, 2016 12:24 - CONCLUSION: Postoperative changes. Moris Bonilla MD Objective Remarks GENERAL: Patient sitting up in chair at bedside. Appears comfortable. Alert and oriented 3. SKIN: Warm and dry. HEAD: Normocephalic. EYES: No scleral icterus. No injection or drainage. NECK: Supple, trachea midline. No JVD. Oral thrush no longer visible. CARDIOVASCULAR: Regular rate and rhythm without murmurs, gallops, or rubs. RESPIRATORY: Breath sounds equal bilaterally. No accessory muscle use. GASTROINTESTINAL: Abdomen soft, non-tender, nondistended. MUSCULOSKELETAL: No cyanosis, or edema. BACK: Nontender without obvious deformity. No CVA tenderness. Procedures Left hip fracture repair. A/P Problem List: (1) Lung cancer ICD Code: C34.90 Status: Acute (2) Fracture, intertrochanteric, left femur ICD Code: S72.142A Status: Acute (3) Metastatic lung cancer (metastasis from lung to other site) ICD Code: C34.90 Status: Acute Assessment and Plan 76 year old female patient with a past medical history which includes: anemia, angina, anxiety, arthritis, Asthma, lung cancer, CAD s/o [place], COPD, colitis, hypertension, kidney stones, migraine, osteoarthritis, osteoporosis, rheumatoid arthritis and hypothyroidism. Patient presents to the emergency department after she had a trip and fall over her daughter's dog. Patient reports pain and inability to bear weight on her left lower extremity. Hip and pelvic x-ray revealed mildly displaced fracture through the intertrochanteric region of the left hip. Patient has known lung cancer and was supposed to start chemotherapy. She experienced respiratory failure, //Left hip fracture //Status post mechanical fall. S/p repair 05/26/16. - weightbearing, wound care and anticoagulation per orthopedic surgery. Cleared for discharge by surgery. - Continue pain control with a bowel regimen. -Appreciate PT/OT. Patient ambulatory. Continue to monitor. //Acute respiratory failure/ HCAP The pt has lung cancer and COPD. CXR with left base consolidation which has been noted on prior imaging. Pt with symptoms of cough and mucous production. Pulmonology consult appreciated. Repeat CXR 06/01 stable. - Wean off oxygen as tolerated -Status post cefepime and vancomycin to treat for post obstructive pneumonia. - blood and sputum cultures pending. NGTD. - standing nebs. -pulm following. Appreciate assistance. -Continue chemotherapy as per oncology. Appreciate assistance. -Continue breathing treatments, supplemental oxygen. -Taper prednisone. continues on 30 mg daily //Lung cancer Pt was to start chemotherapy as an outpt. Oncology following. - treatment as above. -s/p status post first round chemotherapy and steroids as per oncology service. Next round will be in 20 days as outpatient. Appreciate assistance. //HTN Exacerbated by pain and respiratory distress. Not well-controlled 06/01. - continue antihypertensive regimen including amlodipine and lisinopril. Added HCTZ 05/30. - pain control and breathing treatments as above. - Blood pressure acceptable. Continue Clonidine and Vasotec as needed. //Constipation Resolved. S/p Dulcolax suppository and Fleets enema. Now having diarrhea. Discontinue all bowel regimen. Follow-up C. difficile and continue Lactinex. If negative for C. difficile, restart methotrexate //Oral thrush. -06/04. Already on Magic mouthwash. Start nystatin, fluconazole -= continues Improving. Continue nystatin, fluconazole stop date 06/18 total 14d. check lfts weekly //Hyponatremia. Chronic during admission. -Continues relatively stable. Continue to monitor. //Hyperglycemia. Secondary to high-dose steroids. Insulin sliding scale. Continue to monitor. Check A1c //PPx: Lovenox Discharge Planning Awaiting insurance authorization for discharged to [facility] Problem Qualifiers (1) Fracture, intertrochanteric, left femur: Qualified Code: S72.142A - Fracture, intertrochanteric, left femur, closed, initial encounter Juan Jose Farrell MD Jun 09, 2016 16:07
--- NOTE | 2016-06-09 16:38 | HHI.FF ---
Face to Face Verification Diagnosis: (1) Fracture, intertrochanteric, left femur (2) Lung cancer Physical Therapy Order: Evaluate and Treat, Improve ambulation, Strength and gait training Home Health Nursing Order: Medical education Medication education-adverse effect I have seen patient Lupe Craig on 06/09/16. My clinical findings support the need for the requested home health care services because: Ltd mobility - disease progression I certify that my clinical findings support that this patient is homebound because: Unsteady gait/balance Juan Jose Farrell MD Jun 09, 2016 16:38
[2016-06-09] MEDS: FLUCONAZOLE 200 MG TAB PO SCH (17:41)
[2016-06-09 17:53] LABS: C. DIFF EPI 027 PRESUMPTIVE NEGATIVE (NEGATIVE); C. DIFF TOXIN PCR NEGATIVE (NEGATIVE)
[2016-06-09] MEDS ORDERED: LOPERAMIDE HCL 2 MG CAP PO PRN (18:45)
--- NOTE | 2016-06-09 22:44 | PD.ONC.PN ---
Subjective Subjective Remarks had loose BMs no fever was going for bone scan d/w rn Objective Data Date Time Temp Pulse Resp B/P Pulse Ox O2 Delivery O2 Flow Rate FiO2 06/09/16 20:29 97.1 72 16 125/52 95 06/09/16 18:10 97 Nasal Cannula 2.00 06/09/16 17:00 97.0 68 21 143/64 97 06/09/16 16:27 68 06/09/16 12:00 96.1 61 18 143/63 96 06/09/16 08:18 94 Nasal Cannula 2.00 06/09/16 08:00 Nasal Cannula 1.00 25 06/09/16 08:00 97.3 71 20 140/67 92 06/09/16 04:00 96.7 55 17 139/66 96 06/09/16 00:00 96.3 53 17 145/67 94 06/09/16 06/09/16 06/09/16 07:00 15:00 23:00 Intake Total 720 ml 250 ml Output Total 1150 ml 1200 ml 400 ml Balance -1150 ml -480 ml -150 ml Result Diagram: 06/08/16 0505 06/08/16 0505 Laboratory Results Laboratory Tests Test 06/09/16 11:30 Stool C. difficile Toxin (PCR) NEGATIVE Stl C. difficile Toxin PRESUMPTIVE Epiderm 027 NEGATIVE Imaging Studies Last 24 hours Impressions Bone Scan Nuclear Medicine 06/09/16 0000 Signed Impressions: Service Date/Time: Thursday, June 09, 2016 10:40 - CONCLUSION: Postsurgical changes. I don't see evidence for significant bony metastatic disease. Ilya Connor MD FACR Administered Medications Medications (Trade) Dose Ordered Sig/Shade Route PRN Reason Start Time Stop Time Status Last Admin Dose Admin Ondansetron HCl (Zofran Inj) 4 mg Q6H PRN IVP NAUSEA OR VOMITING 05/25/16 23:45 06/09/16 07:20 Amitriptyline HCl (Elavil) 10 mg BID PO 05/26/16 09:00 06/09/16 20:41 Amlodipine Besylate (Norvasc) 10 mg DAILY PO 05/26/16 09:00 06/09/16 09:10 Donepezil HCl (Aricept) 10 mg DAILY PO 05/26/16 09:00 06/09/16 09:10 Levothyroxine Sodium (Synthroid) 100 mcg DAILY@0600 PO 05/26/16 06:00 06/09/16 05:38 Primidone (Mysoline) 250 mg TID PO 05/26/16 09:00 06/09/16 17:41 Lisinopril (Prinivil) 40 mg DAILY PO 05/26/16 09:00 06/09/16 09:10 Pantoprazole Sodium (Protonix) 20 mg DAILY PO 05/26/16 09:00 06/09/16 09:11 Folic Acid (Folate) 1 mg DAILY PO 05/26/16 09:00 06/09/16 09:10 IV Flush (NS Flush) 2 ml UNSCH PRN IVF FLUSH AFTER USING IV ACCESS 05/26/16 11:45 06/07/16 00:39 IV Flush (NS Flush) 2 ml BID IVF 05/26/16 21:00 06/07/16 09:00 Enoxaparin Sodium (Lovenox Inj) 30 mg Q24H SQ 05/27/16 12:00 06/09/16 13:01 Calcium/Vitamin D (Oscal-D 250-125) 250 mg TID PO 05/26/16 14:00 06/09/16 17:41 Diphenhydramine HCl (Benadryl) 25 mg Q6H PRN PO ITCHING/ insomnia 05/26/16 11:45 05/30/16 21:54 Cholecalciferol (Vitamin D3) 5,000 units DAILY PO 05/27/16 09:00 06/09/16 09:10 Sodium Chloride ([place] Darci Herriman) 2 spray Q4H PRN EACH NARE NASAL CONGESTION 05/26/16 20:45 05/29/16 23:25 Docusate Sodium (Colace) 100 mg BID PO 05/27/16 21:00 06/09/16 20:41 Sennosides (Senokot) 17.2 mg DAILY PO 05/27/16 18:00 06/03/16 09:40 Hydromorphone HCl (Dilaudid Pf Inj) 1 mg Q3HR PRN IV PUSH Breakthrough pain 05/28/16 08:15 06/07/16 12:13 Guaifenesin (Mucinex Er) 1,200 mg BID PO 05/28/16 11:00 06/09/16 20:41 Polyethylene Glycol (Miralax) 17 gm DAILY PO 05/28/16 11:00 06/06/16 09:10 Carvedilol (Coreg) 3.125 mg Q12HR PO 05/28/16 11:00 06/09/16 20:41 Clonidine (Catapres) 0.1 mg Q6H PRN PO SBP> OR = 180, DBP> OR = 100 05/29/16 18:00 06/02/16 11:39 Enalaprilat (Vasotec Inj) 1.25 mg Q6H PRN IV PUSH SBP> OR = 180, DBP> OR = 100 05/29/16 18:00 06/05/16 05:27 Zolpidem Tartrate (Ambien) 5 mg HS PRN PO Insomnia 05/31/16 11:00 06/01/16 20:42 Diphenhydramine HCl (Benadryl) 25 mg UNSCH PRN PO GIVE FOR PRE-MED BLOOD 06/02/16 06:30 06/02/16 06:40 Acetaminophen (Tylenol) 650 mg UNSCH PRN PO GIVE PRE-MD BLOOD 06/02/16 06:30 06/02/16 06:40 Hydrochlorothiazide (Hydrodiuril) 50 mg DAILY PO 06/03/16 09:00 06/09/16 09:10 Multi-Ingredient Mouthwash/Gargle (Magic Mouthwash Adult Liq) 5 ml QID SWISH-SWAL 06/03/16 18:00 06/08/16 08:20 Nystatin (Mycostatin Liq) 5 ml QID SWISH-SWAL 06/04/16 18:00 06/18/16 17:59 06/08/16 21:09 Fluconazole (Diflucan) 200 mg Q24H PO 06/04/16 16:00 06/09/16 17:41 Acetaminophen/ Hydrocodone Bitart ([place] 5-325 Mg) 1 tab Q4H PRN PO pain 1-10 06/04/16 15:15 06/09/16 17:49 Heparin Sodium (Porcine) (Heparin Central Flush) 250 units UNSCH PRN IV FLUSH SEE PROTOCOL TABLE 06/08/16 06:45 06/08/16 23:05 Heparin Sodium (Porcine) (Heparin Central Flush) 500 units UNSCH IV FLUSH 06/08/16 06:45 06/08/16 08:23 Sodium Chloride (NS Flush) 5 ml UNSCH PRN IV FLUSH FLUSH AFTER USING IV ACCESS 06/08/16 06:45 06/09/16 20:42 Prednisone (Deltasone) 30 mg DAILY PO 06/09/16 09:00 06/09/16 09:11 Lactobacillus Acidophilus (Lactinex) 1 tab TID PO 06/09/16 13:00 06/09/16 17:41 Objective Remarks GENERAL: nad SKIN: Warm and dry. NECK: Supple, trachea midline. No JVD or lymphadenopathy. LYMPHATIC: No adenopathy. CARDIOVASCULAR: Regular rate and rhythm without murmurs. RESPIRATORY: Breath sounds equal bilaterally. No accessory muscle use. GASTROINTESTINAL: Abdomen soft, non-tender, nondistended. EXTREMITIES: No cyanosis, or edema. Assessment/Plan Problem List: (1) Metastatic lung cancer (metastasis from lung to other site) Status: Acute Plan: --diagnosed in Mar 2016. --She was found to have a spiculated mass in the left upper lobe abutting the mediastinum. --CT-guided biopsy confirmed small cell lung cancer. She was to begin systemic chemotherapy but was admitted with fracture --chemotherapy with carboplatin + etoposide on 06/02--06/04 (2) Fracture, intertrochanteric, left femur Status: Acute Plan: --s/p intramedullary sera fixation. --will need to be discharged to rehab (3) Anemia Status: Acute Plan: --Transfuse to keep hemoglobin greater than 7.5. --iron sucrose given Assessment 76y/o female with a history of extensive stage small-cell lung cancer admitted with hip fracture. h/o Small-cell lung cancer. Coronary artery disease. COPD. Tobacco abuse. History of colitis. Hypertension. Rheumatoid arthritis. Osteoarthritis. HPI: the patient had a fall after she tripped over her daughter's dog. presented to the emergency department and was found to have a mildly displaced fracture to the intertrochanteric region of the left hip. The patient was seen by orthopedic surgery and has undergone left intertrochanteric femur repair status post intramedullary sera fixation. The patient was desaturating with low oxygen levels and was transferred to be the intensive care unit for close observation. chest x-ray showed a left lower lobe consolidation. she was started on antibiotics and steroids. Her lung function improved and she was transferred to med/surg floor. Plan 1. Bone scan reviewed. No evidence of bony metastatic disease. 2. OK to d/c from oncology standpoint 3. Check CBC and CMP in AM Problem Qualifiers (1) Fracture, intertrochanteric, left femur: Qualified Code: S72.142A - Fracture, intertrochanteric, left femur, closed, initial encounter (2) Anemia: Evangelist Tracy MD Jun 09, 2016 22:44
[2016-06-10 00:31] VITALS: BP 125/52; PULSE 72; RESP 16; TEMP 97.1; O2SAT 95
[2016-06-10 05:20] VITALS: BP 150/86; PULSE 57; RESP 16; TEMP 96.6; O2SAT 96
[2016-06-10] MEDS: LEVOTHYROXINE SODIUM 100 MCG TAB PO SCH (05:45)
[2016-06-10] MEDS: ACETAMINOPHEN/HYDROcodone 325 MG/5 MG TAB PO PRN (05:46)
[2016-06-10] MEDS: INSULIN ASPART SUPPLEMENTAL SCALE SQ SCH ×2 (06:07→12:02)
[2016-06-10 06:58] LABS: BASOPHIL % 0.9 % (0.0-2.0); HEMATOCRIT 28.9 % (35.0-46.0); HEMO FLAGS DIFF FINAL; LYMPH % 42.2 % (9.0-44.0); LYMPHOCYTE # 1.6 TH/MM3 (1.0-4.8); MEAN CELL VOLUME 82.9 FL (80.0-100.0); MEAN CORPUSCULAR HEMOGLOBIN 27.6 PG (27.0-34.0); MEAN CORPUSCULAR HGB CONC 33.3 % (32.0-36.0); MONO % 2.3 % (0.0-8.0); NEUT % 53.6 % (16.0-70.0); PLATELET COUNT 188 TH/MM3 (150-450); RED BLOOD COUNT 3.49 MIL/MM3 (4.00-5.30); RED CELL DISTRIBUTION WIDTH 18.4 % (11.6-17.2); WHITE BLOOD COUNT 3.8 TH/MM3 (4.0-11.0)
[2016-06-10 07:23] LABS: ALKALINE PHOSPHATASE 126 U/L (45-117); ALT (GPT) 24 U/L (10-53); ANION GAP 6 MEQ/L (5-15); AST (GOT) 19 U/L (15-37); BICARBONATE 29.9 MEQ/L (21.0-32.0); BLOOD UREA NITROGEN 18 MG/DL (7-18); CHLORIDE 94 MEQ/L (98-107); GLOMERULAR FILTRATION RATE 112 ML/MIN (>89); MAGNESIUM 1.8 MG/DL (1.5-2.5); POTASSIUM 4.4 MEQ/L (3.5-5.1); SODIUM (NA) 130 MEQ/L (136-145); TOTAL BILIRUBIN ADULT 0.3 MG/DL (0.2-1.0)
[2016-06-10 08:14] VITALS: BP 157/70; PULSE 70; RESP 18; TEMP 96.6; O2SAT 94
[2016-06-10] MEDS: DOCUSATE SODIUM 100 MG CAP PO SCH (08:37)
[2016-06-10] MEDS: guaiFENesin E.R. 600 MG TAB PO SCH (08:37)
[2016-06-10] MEDS: DONEPEZIL HCL 5 MG TAB PO SCH (08:37)
[2016-06-10] MEDS: SENNOSIDES 8.6 MG TAB PO SCH (08:38)
[2016-06-10] MEDS: CARVEDILOL 3.125 MG TAB PO SCH (08:38)
[2016-06-10] MEDS: LISINOPRIL 20 MG TAB PO SCH (08:38)
[2016-06-10] MEDS: HYDROCHLOROTHIAZIDE 25 MG TAB PO SCH (08:38)
[2016-06-10] MEDS: PANTOPRAZOLE SOD 20 MG DELAYED RELEASE TAB PO SCH (08:39)
[2016-06-10] MEDS: FOLIC ACID 1 MG TAB PO SCH (08:39)
[2016-06-10] MEDS: CALCIUM/VITAMIN D 250 MG/125 U TAB PO SCH ×2 (08:40→12:02)
[2016-06-10] MEDS: predniSONE 10 MG TAB PO SCH (08:40)
[2016-06-10] MEDS: LACTOBACILLUS ACIDOPHILUS TAB PO SCH ×2 (08:40→12:02)
[2016-06-10] MEDS: NYSTATIN SUSP 500,000 U/5 ML CUP SWISH-SWAL SCH ×2 (08:41→09:50)
[2016-06-10] MEDS: NYSTAT/DIPHENHY/LIDO MOUTHWASH (Adult) 120ML SWISH-SWAL SCH ×2 (08:42→09:49)
[2016-06-10] MEDS: POLYETHYLENE GLYCOL 17 GM PKG PO SCH (08:42)
[2016-06-10] MEDS: SODIUM CHLORIDE 0.9% FLUSH 5 ML FLUSH IVF SCH (08:42)
[2016-06-10] MEDS: CHOLECALCIFEROL (VIT D3) 5000 UNIT CAP PO SCH (08:45)
[2016-06-10] MEDS: PRIMIDONE 250 MG TAB PO SCH ×2 (08:45→12:02)
[2016-06-10] MEDS: AMITRIPTYLINE HCL 10 MG TAB PO SCH (08:46)
[2016-06-10 11:33] VITALS: O2SAT 97
[2016-06-10] MEDS ORDERED: WHEEMIS3 (11:34)
[2016-06-10] MEDS: ENOXAPARIN SODIUM 30 MG/0.3 ML SYRINGE SQ SCH (12:02)
[2016-06-10 12:06] VITALS: BP 138/60; PULSE 66; RESP 18; TEMP 96.2; O2SAT 94
[2016-06-10] MEDS: FLUCONAZOLE 200 MG TAB PO SCH (14:49)
[2016-06-10 16:42] LABS: HEMOGLOBIN A1a 0.9 %; HEMOGLOBIN A1b 2.1 %; HEMOGLOBIN Ao 83.1 %; HEMOGLOBIN LA1C 1.8 %; HEMOGLOBIN P3 6.9 %
--- NOTE | 2016-06-10 18:11 | HHI.DS ---
Discharge Summary Admission Date May 25, 2016 at 23:37 Discharge Date: Jun 10, 2016 Admitting Diagnosis closed left intertrochanteric fracture (1) Lung cancer ICD Code: C34.90 Diagnosis: Principal (2) Fracture, intertrochanteric, left femur ICD Code: S72.142A Diagnosis: Principal (3) Metastatic lung cancer (metastasis from lung to other site) ICD Code: C34.90 Diagnosis: Principal Procedures Left hip fracture repair. Brief History - From Admission This is a 76 year old female patient with a past medical history which includes : anemia, angina, anxiety, arthritis, Asthma, lung cancer, CAD s/o [place], COPD, colitis, hypertension, kidney stones, migraine, osteoarthritis, osteoporosis, rheumatoid arthritis and hypothyroidism. Patient presents to the emergency department today after she had a trip and fall over her daughter's dog. Patient landed on her buttock area. Patient reports pain and inability to bear weight on her left lower extremity. Pain located permanently in the left hip area denies radiation. Hip and pelvic x-ray revealed mildly displaced fracture through the intertrochanteric region of the left hip. Patient denies feeling dizzy lightheaded chest pain shortness of breath prior to the fall. Patient denies head trauma or loss of consciousness from the bone. Patient does report she has had nausea and vomiting lately. In review of prior turning patient was seen 05/12/2016 as well as 05/17/2016 for nausea and vomiting. This nausea and vomiting appears to be chronic at this point likely secondary to lung CA. Patient does report she has shortness of breath and cough productive of white phlegm does have history COPD and lung cancer. CXR: reveals L basilar atelectasis which again appears chronic. The patient reports to his dysuria urinalysis reviewed and does not indicate urinary tract infection. Patient denies chest pain. Of note patient has right-sided port reports she was supposed to start chemotherapy tomorrow. Follows with Dr. Tracy for lung CA. CBC/BMP: 06/10/16 0545 06/10/16 0545 Significant Findings Laboratory Tests Test 06/08/16 06/10/16 05:05 05:45 White Blood Count 16.6 TH/MM3 3.8 TH/MM3 (4.0-11.0) (4.0-11.0) Red Blood Count 3.68 MIL/MM3 3.49 MIL/MM3 (4.00-5.30) (4.00-5.30) Hemoglobin 9.8 GM/DL 9.6 GM/DL (11.6-15.3) (11.6-15.3) Hematocrit 30.7 % 28.9 % (35.0-46.0) (35.0-46.0) Mean Corpuscular Hemoglobin 26.7 PG (27.0-34.0) Red Cell Distribution Width 18.3 % 18.4 % (11.6-17.2) (11.6-17.2) Neutrophils (%) (Auto) 94.8 % (16.0-70.0) Lymphocytes (%) (Auto) 4.7 % (9.0-44.0) Neutrophils # (Auto) 15.7 TH/MM3 (1.8-7.7) Lymphocytes # (Auto) 0.8 TH/MM3 (1.0-4.8) Sodium Level 128 MEQ/L 130 MEQ/L (136-145) (136-145) Chloride Level 92 MEQ/L 94 MEQ/L (98-107) (98-107) Blood Urea Nitrogen 23 MG/DL (7-18) Random Glucose 169 MG/DL (74-106) Calcium Level 7.7 MG/DL 8.1 MG/DL (8.5-10.1) (8.5-10.1) Hemoglobin A1c 6.1 % (4.3-6.0) Alkaline Phosphatase 126 U/L (45-117) Total Protein 5.5 GM/DL (6.4-8.2) Albumin 2.3 GM/DL (3.4-5.0) Imaging Last Impressions Bone Scan Nuclear Medicine 06/09/16 0000 Signed Impressions: Service Date/Time: Thursday, June 09, 2016 10:40 - CONCLUSION: Postsurgical changes. I don't see evidence for significant bony metastatic disease. Ilya Connor MD FACR Hip and Pelvis X-Ray 06/08/16 0000 Signed Impressions: Service Date/Time: Wednesday, June 08, 2016 13:11 - CONCLUSION: 1. Surgical change with no acute fracture or malalignment. 2. High-density methylmethacrylate again noted along both sacroiliac joints. Louis Heaton MD Chest X-Ray 06/01/16 0000 Signed Impressions: Service Date/Time: Wednesday, June 01, 2016 06:10 - CONCLUSION: Stable appearance of the chest without concerning infiltrate or mass. Ray Ma MD Femur X-Ray 05/26/16 0000 Signed Impressions: Service Date/Time: Thursday, May 26, 2016 12:24 - CONCLUSION: Postoperative changes. Moris Bonilla MD PE at Discharge GENERAL: Patient sitting up in chair at bedside. Appears comfortable. Alert and oriented 3. SKIN: Warm and dry. HEAD: Normocephalic. EYES: No scleral icterus. No injection or drainage. NECK: Supple, trachea midline. No JVD. Oral thrush no longer visible. CARDIOVASCULAR: Regular rate and rhythm without murmurs, gallops, or rubs. RESPIRATORY: Breath sounds equal bilaterally. No accessory muscle use. GASTROINTESTINAL: Abdomen soft, non-tender, nondistended. MUSCULOSKELETAL: No cyanosis, or edema. BACK: Nontender without obvious deformity. No CVA tenderness. Hospital Course 76 year old female patient with a past medical history which includes: anemia, angina, anxiety, arthritis, Asthma, lung cancer, CAD s/o [place], COPD, colitis, hypertension, kidney stones, migraine, osteoarthritis, osteoporosis, rheumatoid arthritis and hypothyroidism. Patient presents to the emergency department after she had a trip and fall over her daughter's dog. Patient reports pain and inability to bear weight on her left lower extremity. Hip and pelvic x-ray revealed mildly displaced fracture through the intertrochanteric region of the left hip. Patient has known lung cancer and was supposed to start chemotherapy. She experienced respiratory failure, //Left hip fracture //Status post mechanical fall. S/p repair 05/26/16. - weightbearing, wound care and anticoagulation per orthopedic surgery. Cleared for discharge by surgery. - Continue pain control with a bowel regimen. -Appreciate PT/OT. Patient ambulatory. Continue to monitor. //Acute respiratory failure/ HCAP The pt has lung cancer and COPD. CXR with left base consolidation which has been noted on prior imaging. Pt with symptoms of cough and mucous production. Pulmonology consult appreciated. Repeat CXR 06/01 stable. - Wean off oxygen as tolerated -Status post cefepime and vancomycin to treat for post obstructive pneumonia. - blood and sputum cultures pending. NGTD. - standing nebs. -pulm following. Appreciate assistance. -Continue chemotherapy as per oncology. Appreciate assistance. -Continue breathing treatments, supplemental oxygen. -Taper prednisone //Lung cancer Pt was to start chemotherapy as an outpt. Oncology following. - treatment as above. -s/p status post first round chemotherapy and steroids as per oncology service. Next round will be in 20 days as outpatient. Appreciate assistance. //HTN Exacerbated by pain and respiratory distress. Not well-controlled 06/01. - continue antihypertensive regimen including amlodipine and lisinopril. Added HCTZ 05/30. - pain control and breathing treatments as above. - Blood pressure acceptable. Continue Clonidine and Vasotec as needed. //Constipation Resolved. S/p Dulcolax suppository and Fleets enema. Now having diarrhea secondary to bowel regimen which have been discontinued. C. difficile negative. Improving diarrhea with Lomotil. Continue Lactinex. //Oral thrush. -06/04. Already on Magic mouthwash. Start nystatin, fluconazole -= continues Improving. Continue nystatin, fluconazole stop date 06/18 total 14d. check lfts weekly //Hyponatremia. Chronic during admission. -Continues relatively stable. Continue to monitor. //Hyperglycemia. Secondary to high-dose steroids. Insulin sliding scale. Continue to monitor. A1c 6.1 //PPx: Lovenox Pt Condition on Discharge: Good Discharge Disposition: Disch w/ Home Health Serv Discharge Time: > 30 minutes Discharge Instructions DIET: Follow Instructions for: Diabetic Diet Additional Diet Instructions: Diabetic diet until she has completed steroid Taper, then can go on heart health diet. Activities you can perform: Weight Bearing as [place] Follow up Referrals: Oncology - 1 Week with Evangelist Tracy MD Orthopedics - 1 Month [facility] with Hermes Phelan MD PCP Follow-up - 1 Week with Katlyn Heaton MD New Orders: CBC WITH DIFF - 3-5 Days New Medications: Prednisone (Prednisone) 10 Mg Tab 10 MG PO DAILY Take 30mg daily for 3 days; 20mg daily for 3 days; 10mg daily for 3 days, then stop. COPD #18 Ref 0 TAB Rivaroxaban (Xarelto) 10 Mg Tab 10 MG PO DAILY Blood Clot Prevention #14 Ref 0 TAB Walker with Front Wheels (Walker with Front Wheels) 1 Mis Mis 1 EA .ROUTE DIRECTED #1 Ref 0 EA Wheelchair (Wheelchair) 1 Mis Mis 1 EA .ROUTE DIRECTED #1 Ref 0 EA Calcium Carbonate-Cholecalciferol (Oyster Shell Calcium/Vitamin D) 250-125 Mg- Unit Tab 250 MG PO TID vitamin Days 30 TAB Carvedilol (Coreg) 3.125 Mg Tab 3.125 MG PO Q12HR heart Days 30 TAB Fluconazole (Fluconazole) 200 Mg Tab 100 MG PO Q24H hollis esophagitis #11 TAB Hydrochlorothiazide (Hydrochlorothiazide) 25 Mg Tab 50 MG PO DAILY blood pressure Days 30 TAB Insulin Aspart Inj (Novolog Inj) 100 Unit/Ml Inj 1 INJECTION SQ ACHS SLIDING SCALE Blood Sugar Management Days 30 INJECTION Ipratropium-Albuterol Neb (Duoneb) 0.5-2.5 Mg/3 Ml Neb 1 AMPULE NEB Q4HR NEB PRN SOB/WHEEZING Days 30 ML Lactobacillus Acidophilus (Acidophilus/l-Sporogenes) 1 Tab Tab 1 TAB PO TID Bowel Management #30 TAB Changed Medications: Atorvastatin (Atorvastatin) 80 Mg Tab 80 MG PO HS HOLD THIS MEDICATION. RESTART AFTER COMPLETION OF FLUCONAZOLE THERAPY Cholesterol Management #30 Ref 0 TAB (Medication details modified) Continued Medications: Albuterol 18 GM Inh (Ventolin Hfa 18 GM Inh) 90 Mcg/Act Aer 2 PUFF INH Q4-6H PRN SHORTNESS OF BREATH #1 Ref 0 INHALER Amitriptyline (Amitriptyline) 10 Mg Tab 10 MG PO BID TAB Amlodipine (Amlodipine) 10 Mg Tab 10 MG PO DAILY Blood Pressure Management #30 Ref 0 TAB Cholecalciferol (Vitamin D) 1,000 Unit Tab 1000 UNITS PO DAILY Nutritional Supplement #1 Ref 0 BOTTLE Donepezil (Donepezil) 10 Mg Tab 10 MG PO DAILY Dementia #30 Ref 0 TAB Folic Acid (Folate) 1 Mg Tab 1 MG PO DAILY Nutritional Supplement Ref 0 TAB Hydrocodone-Acetaminophen (Hydrocodone-Acetaminophen) 10-325 mg Tab 1 TAB PO Q6H PRN PAIN #20 Ref 0 TAB (This prescription has been renewed) Levothyroxine (Levothyroxine) 100 Mcg Tab 100 MCG PO DAILY Thyroid #30 Ref 0 TAB Lisinopril (Lisinopril) 40 Mg Tab 40 MG PO DAILY Blood Pressure Management #30 Ref 0 TAB Lorazepam (Lorazepam) 1 Mg Tab 1 MG PO DAILY PRN ANXIETY Ref 0 TAB Omeprazole (Omeprazole) 20 Mg Tab 20 MG PO DAILY #30 Ref 0 TAB Ondansetron Odt (Zofran Odt) 4 Mg Tab 4 MG SL Q6HR PRN Nausea/Vomiting #30 Ref 0 TAB Primidone (Primidone) 250 Mg Tab 250 MG PO TID Control Seizures #90 Ref 0 TAB Discontinued Medications: Ipratropium Neb (Ipratropium Neb) 0.5 Mg/2.5 Ml Amp 0.5 MG NEB Q8HR PRN SHORTNESS OF BREATH #120 Ref 0 NEBULE Levocetirizine (Levocetirizine) 5 Mg Tab 5 MG PO DAILY Allergy Management #30 Ref 0 TAB Levofloxacin (Levaquin) 500 Mg Tab 500 MG PO DAILY Infection Ref 0 TAB Methotrexate (Methotrexate) 2.5 Mg Tab 7.5 MG PO Q7D ON MONDAYS Ref 0 TAB Prednisone (Prednisone) 20 Mg Tab 20 MG PO BID Days 5 Ref 0 TAB Additional Information Patient and daughter advised not to take Colace and senna for 2 days and restart it no more diarrhea Juan Jose Farrell MD Jun 10, 2016 18:11
--- NOTE | 2016-06-10 22:54 | PD.ONC.PN ---
Subjective Subjective Remarks feels better. wants to go home afebrile energy level improving Objective Data Date Time Temp Pulse Resp B/P Pulse Ox O2 Delivery O2 Flow Rate FiO2 06/10/16 12:06 96.2 66 18 138/60 94 06/10/16 11:49 Room Air 2.00 Nasal Cannula 06/10/16 11:33 97 21 06/10/16 08:14 96.6 70 18 157/70 94 06/10/16 05:20 96.6 57 16 150/86 96 06/10/16 00:31 97.1 72 16 125/52 95 06/10/16 06/10/16 06/10/16 07:00 15:00 23:00 Intake Total 350 ml 480 ml Output Total 500 ml 400 ml Balance -150 ml 80 ml Result Diagram: 06/10/16 0545 06/10/16 0545 Laboratory Results Laboratory Tests Test 06/10/16 05:45 White Blood Count 3.8 TH/MM3 Red Blood Count 3.49 MIL/MM3 Hemoglobin 9.6 GM/DL Hematocrit 28.9 % Mean Corpuscular Volume 82.9 FL Mean Corpuscular Hemoglobin 27.6 PG Mean Corpuscular Hemoglobin 33.3 % Concent Red Cell Distribution Width 18.4 % Platelet Count 188 TH/MM3 Mean Platelet Volume 8.8 FL Neutrophils (%) (Auto) 53.6 % Lymphocytes (%) (Auto) 42.2 % Monocytes (%) (Auto) 2.3 % Eosinophils (%) (Auto) 1.0 % Basophils (%) (Auto) 0.9 % Neutrophils # (Auto) 2.0 TH/MM3 Lymphocytes # (Auto) 1.6 TH/MM3 Monocytes # (Auto) 0.1 TH/MM3 Eosinophils # (Auto) 0.0 TH/MM3 Basophils # (Auto) 0.0 TH/MM3 CBC Comment DIFF FINAL Differential Comment Sodium Level 130 MEQ/L Potassium Level 4.4 MEQ/L Chloride Level 94 MEQ/L Carbon Dioxide Level 29.9 MEQ/L Anion Gap 6 MEQ/L Blood Urea Nitrogen 18 MG/DL Creatinine 0.53 MG/DL Estimat Glomerular Filtration 112 ML/MIN Rate Random Glucose 82 MG/DL Hemoglobin A1c 6.1 % Calcium Level 8.1 MG/DL Magnesium Level 1.8 MG/DL Total Bilirubin 0.3 MG/DL Aspartate Amino Transf 19 U/L (AST/SGOT) Alanine Aminotransferase 24 U/L (ALT/SGPT) Alkaline Phosphatase 126 U/L Total Protein 5.5 GM/DL Albumin 2.3 GM/DL Objective Remarks GENERAL: nad SKIN: Warm and dry. HEAD: Normocephalic. EYES: No scleral icterus. No injection or drainage. NECK: Supple, trachea midline. No JVD or lymphadenopathy. LYMPHATIC: No adenopathy. CARDIOVASCULAR: Regular rate and rhythm without murmurs. RESPIRATORY: Breath sounds equal bilaterally. No accessory muscle use. GASTROINTESTINAL: Abdomen soft, non-tender, nondistended. EXTREMITIES: No cyanosis, or edema. . Assessment/Plan Problem List: (1) Metastatic lung cancer (metastasis from lung to other site) Status: Acute Plan: --diagnosed in Mar 2016. --She was found to have a spiculated mass in the left upper lobe abutting the mediastinum. --CT-guided biopsy confirmed small cell lung cancer. She was to begin systemic chemotherapy but was admitted with fracture --chemotherapy with carboplatin + etoposide on 06/02--06/04 (2) Fracture, intertrochanteric, left femur Status: Acute Plan: --s/p intramedullary sera fixation. --will need to be discharged to rehab (3) Anemia Status: Acute Plan: --Transfuse to keep hemoglobin greater than 7.5. --iron sucrose given Assessment 76y/o female with a history of extensive stage small-cell lung cancer admitted with hip fracture. h/o Small-cell lung cancer. Coronary artery disease. COPD. Tobacco abuse. History of colitis. Hypertension. Rheumatoid arthritis. Osteoarthritis. HPI: the patient had a fall after she tripped over her daughter's dog. presented to the emergency department and was found to have a mildly displaced fracture to the intertrochanteric region of the left hip. The patient was seen by orthopedic surgery and has undergone left intertrochanteric femur repair status post intramedullary sera fixation. The patient was desaturating with low oxygen levels and was transferred to be the intensive care unit for close observation. chest x-ray showed a left lower lobe consolidation. she was started on antibiotics and steroids. Her lung function improved and she was transferred to med/surg floor. Plan 1.OK to d/c from oncology standpoint 2. F/U in clinic next week Discussed with patient future treatment plan outpatient. d/w rn Problem Qualifiers (1) Fracture, intertrochanteric, left femur: Qualified Code: S72.142A - Fracture, intertrochanteric, left femur, closed, initial encounter (2) Anemia: Evangelist Tracy MD Jun 10, 2016 22:54
== END 2016-06-10 16:19 | disposition home health service (06) | DRG 480 ==
LOC: NEPD 21:53 → NEDA 23:37 → N05B 05-26 00:56 → N06B 05-26 13:28 → N03B 05-27 21:29 → HOCA 05-29 15:25 → HOCB 06-02 20:56
PROVIDERS: ADMIT Internal Medicine; ATTEND Internal Medicine
PROC: 0QS736Z Reposition Left Upper Femur with Intramedullary Internal Fixation Device, Percutaneous Approach (ICD-10-PCS; principal; 2016-05-26 11:47)
PROC: 30233N1 Transfusion of Nonautologous Red Blood Cells into Peripheral Vein, Percutaneous Approach (ICD-10-PCS; 2016-06-02)
PROC: 3E03305 Introduction of Other Antineoplastic into Peripheral Vein, Percutaneous Approach (ICD-10-PCS; 2016-06-02)
DX: S72.142A Displaced intertrochanteric fracture of left femur, initial encounter for closed fracture (principal); J18.9 Pneumonia, unspecified organism; J96.00 Acute respiratory failure, unspecified whether with hypoxia or hypercapnia; C79.70 Secondary malignant neoplasm of unspecified adrenal gland; B37.0 Candidal stomatitis; C78.00 Secondary malignant neoplasm of unspecified lung; C34.90 Malignant neoplasm of unspecified part of unspecified bronchus or lung; E87.1 Hypo-osmolality and hyponatremia; J44.1 Chronic obstructive pulmonary disease with (acute) exacerbation; J98.11 Atelectasis; D69.6 Thrombocytopenia, unspecified; M06.9 Rheumatoid arthritis, unspecified; I10 Essential (primary) hypertension; J45.909 Unspecified asthma, uncomplicated; E78.00 Pure hypercholesterolemia, unspecified; W18.39XA Other fall on same level, initial encounter; Y93.K1 Activity, walking an animal; Y99.9 Unspecified external cause status; K21.9 Gastro-esophageal reflux disease without esophagitis; F41.9 Anxiety disorder, unspecified; F32.9 Major depressive disorder, single episode, unspecified; I25.2 Old myocardial infarction; Z88.0 Allergy status to penicillin; Z91.018 Allergy to other foods; Z91.09 Other allergy status, other than to drugs and biological substances; Z87.442 Personal history of urinary calculi; I25.119 Atherosclerotic heart disease of native coronary artery with unspecified angina pectoris; M81.0 Age-related osteoporosis without current pathological fracture; M19.90 Unspecified osteoarthritis, unspecified site; G43.909 Migraine, unspecified, not intractable, without status migrainosus; E03.9 Hypothyroidism, unspecified; F17.200 Nicotine dependence, unspecified, uncomplicated; R11.2 Nausea with vomiting, unspecified; R30.0 Dysuria; E78.5 Hyperlipidemia, unspecified; Y92.099 Unspecified place in other non-institutional residence as the place of occurrence of the external cause; M54.5 Low back pain; K59.00 Constipation, unspecified; Y95 Nosocomial condition; T38.0X5A Adverse effect of glucocorticoids and synthetic analogues, initial encounter; Y92.239 Unspecified place in hospital as the place of occurrence of the external cause; R73.9 Hyperglycemia, unspecified; R19.7 Diarrhea, unspecified
CPT/HCPCS: 36430; 51702; 71010; 73502; 73552; 76000; 78306; 80048; 80053; 80069; 80202; 81001; 82306; 82565; 82948; 83036; 83540; 83550; 83735; 84100; 84155; 84466; 85007; 85025; 85027; 85610; 85730; 86850; 86900; 86901; 86920; 87040; 87070; 87205; 87493; 93005; 94002; 94640; 94664; 96374; A9503; C1713; J0690; J0692; J1100; J1170; J1442; J1580; J1626; J1642; J1650; J1756; J1815; J1940; J2250; J2370; J2405; J2765; J2920; J3010; J3370; J7040; J7050; J7512; J7613; J9045; J9181; P9016

== ENCOUNTER 2016-09-18 10:21 | Emergency (ER) | payer OTHER ==
[~2016-09-18] VITALS: Ht 160 cm; Wt 72.0 kg
[~2016-09-18 10:21] MED LIST changes: -ASPI-110 PO; +CARV3.125 PO; +FLUC200T2 PO; +HYDR25TA5 PO; -IPRA0.02 NEB; +IPRASOL NEB; +LACT PO; -LEVOTAB PO; -METH2.5T PO; +NOVOLOGSS SQ; +OYST250T4 PO; +PRED10 PO; -PRED20 PO; +WALKER WHEELS/F1 MIS; +WHEEMIS3; +XARE10TA PO; -ZITHTAB PO; -ZOFR4TAB PO
[2016-09-18 10:33] VITALS: BP 198/85; PULSE 78; RESP 18; TEMP 98.4; O2SAT 100
[2016-09-18] MEDS ORDERED: SODIUM CHLOR 0.9% 1000 ML INJ 1,000 ML IV SCH (10:35)
[2016-09-18 10:36] VITALS: BP 198/85; PULSE 60; RESP 18; TEMP 98.4; O2SAT 97
--- NOTE | 2016-09-18 10:42 | PD ---
HPI Chief Complaint: Pain: Acute or Chronic Time Seen by Provider: 10:35 Travel History International Travel<30 days: No Contact w/Intl Traveler<30days: No Traveled to known affect area: No History of Present Illness HPI The patient is a 76-year-old female who presents to the emergency department via EMS for left flank pain. The patient has a history of small cell carcinoma and recently underwent chemotherapy by her oncologist, Dr. Tracy. The patient has a history of chronic back pain and neck pain and is scheduled to undergo evaluation via imaging on September [address] Tracy's orders. The patient states that she developed some left flank pain last night which is located in the left mid thoracic to lumbar region that radiates to the flank, but does not radiate to the abdomen. She does complain of nausea and vomiting secondary to the pain, however, denies any dysuria, frequency, urgency, or hematuria. The patient does have a history of nephrolithiasis, however, states this pain is different. The pain is present at worse, but is worse with certain movements. She denies any chest pain or shortness of breath. The patient's primary physician is Dr. Heaton. The patient denies any company fever, chills, or sweats. Symptoms are moderate, worse with certain movements, and there are no current alleviating factors. 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) Musculoskeletal: Yes (R collar bone fx, R knee fx, R Hip, tailbone) Neurologic: Yes Psychiatric: Yes (depression/anxiety) Reproductive: No Respiratory: Yes Immunizations Current: Yes Myocardial Infarction: Yes (10 years ago 2006?) Seizures: Yes Sleep Apnea: No Thyroid Disease: Yes (on med) ?: Not Menopausal: Yes Past Surgical History Abdominal Surgery: Yes (lucinda, appe) AICD: No Appendectomy: Yes Body Medical Devices: rods to right hip Cardiac Surgery: No Cholecystectomy: Yes Ear Surgery: No Eye Surgery: No Genitourinary Surgery: No Gynecologic Surgery: Yes (total hysterectomy) Hysterectomy: Yes Joint Replacement: No Oral Surgery: Yes (dentures) Pacemaker: No Thoracic Surgery: No Other Surgery: Yes (HIP SX) Social History Alcohol Use: No Tobacco Use: Yes (last cigarette was yesterday) Substance Use: No Allergies-Medications (Allergen,Severity, Reaction): Coded Allergies: Penicillin (Verified Allergy, Severe, throat swelling and rash, 09/18/16) Grass (Verified Allergy, Unknown, RUNNY NOSE, NASAL, 05/17/16) Reported Meds & Prescriptions Reported Meds & Active Scripts Active Wheelchair (Device) 1 Mis Mis 1 Ea .ROUTE DIRECTED Acidophilus/l-Sporogenes (Lactobacillus Acidophilus) 1 Tab Tab 1 Tab PO TID Prednisone 10 Mg Tab 10 Mg PO DAILY Take 30mg daily for 3 days; 20mg daily for 3 days; 10mg daily for 3 days, then stop. Hydrocodone-Acetaminophen 10-325 mg Tab 1 Tab PO Q6H PRN Novolog Inj (Insulin Aspart) 100 Unit/Ml Inj 1 Injection SQ ACHS SLIDING SCALE 30 Days Hydrochlorothiazide 25 Mg Tab 50 Mg PO DAILY 30 Days Fluconazole 200 Mg Tab 100 Mg PO Q24H Oyster Shell Calcium/Vitamin D (Calcium Carbonate-Cholecalciferol) 250-125 Mg- Unit Tab 250 Mg PO TID 30 Days Coreg (Carvedilol) 3.125 Mg Tab 3.125 Mg PO Q12HR 30 Days Duoneb (Ipratropium-Albuterol Neb) 0.5-2.5 Mg/3 Ml Neb 1 Ampule NEB Q4HR NEB PRN 30 Days Atorvastatin (Atorvastatin Calcium) 80 Mg Tab 80 Mg PO HS HOLD THIS MEDICATION. RESTART AFTER COMPLETION OF FLUCONAZOLE THERAPY Xarelto (Rivaroxaban) 10 Mg Tab 10 Mg PO DAILY Walker with Front Wheels (Device) 1 Mis Mis 1 Ea .ROUTE DIRECTED Zofran Odt (Ondansetron Odt) 4 Mg Tab 4 Mg SL Q6HR PRN Reported Folate (Folic Acid) 1 Mg Tab 1 Mg PO DAILY Vitamin D (Cholecalciferol) 1,000 Unit Tab 1,000 Units PO DAILY Lorazepam 1 Mg Tab 1 Mg PO DAILY PRN Ventolin Hfa 18 GM Inh (Albuterol Sulfate) 90 Mcg/Act Aer 2 Puff INH Q4-6H PRN Lisinopril 40 Mg Tab 40 Mg PO DAILY Levothyroxine (Levothyroxine Sodium) 100 Mcg Tab 100 Mcg PO DAILY Amlodipine (Amlodipine Besylate) 10 Mg Tab 10 Mg PO DAILY Donepezil 10 Mg Tab 10 Mg PO DAILY Amitriptyline (Amitriptyline HCl) 10 Mg Tab 10 Mg PO BID Primidone 250 Mg Tab 250 Mg PO TID Omeprazole 20 Mg Tab 20 Mg PO DAILY Review of Systems Except as stated in HPI: all other systems reviewed are Neg General / Constitutional: No: Fever, Chills Cardiovascular: No: Chest Pain or Discomfort Respiratory: No: Cough, Shortness of Breath Gastrointestinal: No: Nausea, Vomiting Genitourinary: Positive: Flank Pain, No: Urgency, Frequency, Dysuria Musculoskeletal: Positive: Weakness, Other (chronic left lower extremity edema) Neurologic: No: Dizziness Physical Exam Narrative GENERAL: Awake, alert, pleasant 76-year-old female who appears her stated age and is in no acute respiratory distress. SKIN: Focused skin assessment warm/dry. HEAD: Atraumatic. Normocephalic. EYES: Pupils equal and round. No scleral icterus. No injection or drainage. ENT: No nasal bleeding or discharge. Mucous membranes pink and moist. Upper and lower dentures in place. NECK: Trachea midline. No JVD. CARDIOVASCULAR: Regular, bradycardic with a heart rate of 55. Port in place left chest wall. RESPIRATORY: No accessory muscle use. Clear to auscultation. Breath sounds equal bilaterally. GASTROINTESTINAL: Abdomen soft, non-tender, nondistended. No rebound tenderness. MUSCULOSKELETAL: Old appearing right clavicle fracture with deformity noted. Left lower extremity edema compared to the right with minimal pitting edema. Positive dorsalis pedal pulses bilaterally. Back: No tenderness over the thoracic or lumbar vertebrae. Left CVA tenderness. NEUROLOGICAL: Awake and alert. No obvious cranial nerve deficits. Motor grossly within normal limits. Normal speech. PSYCHIATRIC: Appropriate mood and affect; insight and judgment normal. Data Data Last Documented VS Vital Signs Date Time Temp Pulse Resp B/P Pulse Ox O2 Delivery O2 Flow Rate FiO2 09/18/16 11:51 95 Room Air 09/18/16 11:50 18 09/18/16 10:36 98.4 60 198/85 Orders Complete Blood Count With Diff (09/18/16 10:35) Comprehensive Metabolic Panel (09/18/16 10:35) Lipase (09/18/16 10:35) Lactic Acid (09/18/16 10:35) Urinalysis - C+S If Indicated (09/18/16 10:35) Ct Abd/Pel W/O Iv Contrast (09/18/16 10:35) Iv Access Insert/Monitor (09/18/16 10:35) Ecg Monitoring (09/18/16 10:35) Oximetry (09/18/16 10:35) Morphine Inj (Morphine Inj) (09/18/16 10:45) Ondansetron Inj (Zofran Inj) (09/18/16 10:45) Sodium Chlor 0.9% 1000 Ml Inj (Ns 1000 M (09/18/16 10:35) Sodium Chloride 0.9% Flush (Ns Flush) (09/18/16 10:45) Electrocardiogram (09/18/16 10:35) Labs Laboratory Tests Test 09/18/16 09/18/16 09/18/16 11:00 11:30 11:55 Sodium Level 132 MEQ/L Potassium Level 4.3 MEQ/L Chloride Level 97 MEQ/L Carbon Dioxide Level 27.2 MEQ/L Anion Gap 8 MEQ/L Blood Urea Nitrogen 8 MG/DL Creatinine 0.57 MG/DL Estimat Glomerular Filtration 103 ML/MIN Rate Random Glucose 118 MG/DL Lactic Acid Level 0.6 mmol/L Calcium Level 8.4 MG/DL Total Bilirubin 0.3 MG/DL Aspartate Amino Transf 33 U/L (AST/SGOT) Alanine Aminotransferase 24 U/L (ALT/SGPT) Alkaline Phosphatase 143 U/L Total Protein 6.6 GM/DL Albumin 3.1 GM/DL Lipase 78 U/L Urine Color LIGHT-YELLOW Urine Turbidity CLEAR Urine pH 7.0 Urine Specific [place] 1.003 Urine Protein NEG mg/dL Urine Glucose (UA) NEG mg/dL Urine Ketones NEG mg/dL Urine Occult Blood NEG Urine Nitrite NEG Urine Bilirubin NEG Urine Urobilinogen LESS THAN 2.0 MG/DL Urine Leukocyte Esterase NEG Urine RBC 1 /hpf Urine WBC LESS THAN 1 /hpf Microscopic Urinalysis Comment CULT NOT INDICATED White Blood Count 5.4 TH/MM3 Red Blood Count 2.53 MIL/MM3 Hemoglobin 9.0 GM/DL Hematocrit 26.8 % Mean Corpuscular Volume 105.7 FL Mean Corpuscular Hemoglobin 35.6 PG Mean Corpuscular Hemoglobin 33.7 % Concent Red Cell Distribution Width 18.7 % Platelet Count 77 TH/MM3 Mean Platelet Volume 7.9 FL Neutrophils (%) (Auto) 64.5 % Lymphocytes (%) (Auto) 26.6 % Monocytes (%) (Auto) 6.9 % Eosinophils (%) (Auto) 1.3 % Basophils (%) (Auto) 0.7 % Neutrophils # (Auto) 3.5 TH/MM3 Lymphocytes # (Auto) 1.4 TH/MM3 Monocytes # (Auto) 0.4 TH/MM3 Eosinophils # (Auto) 0.1 TH/MM3 Basophils # (Auto) 0.0 TH/MM3 CBC Comment AUTO DIFF Differential Comment AUTO DIFF CONFIRMED Platelet Estimate LOW Platelet Morphology Comment NORMAL MDM Medical Decision Making Medical Screen Exam Complete: Yes Emergency Medical Condition: Yes Medical Record Reviewed: Yes Interpretation(s) EKG reveals sinus bradycardia with sinus arrhythmia. Last Impressions Abdomen/Pelvis CT 09/18/16 1035 Signed Impressions: Service Date/Time: Tuesday, September 18, 2016 11:13 - CONCLUSION: 1. No definite abnormality is identified to explain the clinical symptoms. There are no renal stones and no hydronephrosis is present. There are multiple punctate densities in the pelvis near the posterior bladder wall that are nonspecific. I feel these are most likely phleboliths given the symmetry but a small distal UVJ stone is difficult to completely exclude. 2. Nonacute findings include right renal cysts and severe atherosclerotic disease. Chinedu Dowell MD Laboratory Tests Test 09/18/16 09/18/16 09/18/16 11:00 11:30 11:55 Sodium Level 132 MEQ/L Potassium Level 4.3 MEQ/L Chloride Level 97 MEQ/L Carbon Dioxide Level 27.2 MEQ/L Anion Gap 8 MEQ/L Blood Urea Nitrogen 8 MG/DL Creatinine 0.57 MG/DL Estimat Glomerular Filtration 103 ML/MIN Rate Random Glucose 118 MG/DL Lactic Acid Level 0.6 mmol/L Calcium Level 8.4 MG/DL Total Bilirubin 0.3 MG/DL Aspartate Amino Transf 33 U/L (AST/SGOT) Alanine Aminotransferase 24 U/L (ALT/SGPT) Alkaline Phosphatase 143 U/L Total Protein 6.6 GM/DL Albumin 3.1 GM/DL Lipase 78 U/L Urine Color LIGHT-YELLOW Urine Turbidity CLEAR Urine pH 7.0 Urine Specific [place] 1.003 Urine Protein NEG mg/dL Urine Glucose (UA) NEG mg/dL Urine Ketones NEG mg/dL Urine Occult Blood NEG Urine Nitrite NEG Urine Bilirubin NEG Urine Urobilinogen LESS THAN 2.0 MG/DL Urine Leukocyte Esterase NEG Urine RBC 1 /hpf Urine WBC LESS THAN 1 /hpf Microscopic Urinalysis Comment CULT NOT INDICATED White Blood Count 5.4 TH/MM3 Red Blood Count 2.53 MIL/MM3 Hemoglobin 9.0 GM/DL Hematocrit 26.8 % Mean Corpuscular Volume 105.7 FL Mean Corpuscular Hemoglobin 35.6 PG Mean Corpuscular Hemoglobin 33.7 % Concent Red Cell Distribution Width 18.7 % Platelet Count 77 TH/MM3 Mean Platelet Volume 7.9 FL Neutrophils (%) (Auto) 64.5 % Lymphocytes (%) (Auto) 26.6 % Monocytes (%) (Auto) 6.9 % Eosinophils (%) (Auto) 1.3 % Basophils (%) (Auto) 0.7 % Neutrophils # (Auto) 3.5 TH/MM3 Lymphocytes # (Auto) 1.4 TH/MM3 Monocytes # (Auto) 0.4 TH/MM3 Eosinophils # (Auto) 0.1 TH/MM3 Basophils # (Auto) 0.0 TH/MM3 CBC Comment AUTO DIFF Differential Comment AUTO DIFF CONFIRMED Platelet Estimate LOW Platelet Morphology Comment NORMAL Differential Diagnosis Differential diagnosis includes nephrolithiasis, hydronephrosis, pyelonephritis , metastatic cancer, compression fracture, shingles, pancreatitis, colitis, diverticulitis, lower lobe pneumonia. Narrative Course IV was established, labs were drawn and sent, and the patient was placed on cardiac telemetry monitoring and continuous pulse oximetry monitoring. EKG was ordered and interpreted. Noncontrast CT of the abdomen/pelvis was ordered. The patient was administered morphine, Zofran, and IV fluids. UA was sent to lab. UA is unremarkable, no evidence of infection or gross hematuria. CT the abdomen and pelvis reveals no acute findings. Labs are essentially unremarkable. Patient is reevaluated at 12:45 PM, her pain has significantly improved. Patient will be discharged home on pain medications and is advised to follow-up with a primary physician. She will be provided a copy of her CT results and lab results at discharge. Diagnosis Primary Impression: Back pain Qualified Code: M54.9 - Acute left-sided back pain, unspecified back location Additional Impression: Left flank pain Patient Instructions: General Instructions Additional Instructions: Please provide the patient a copy of her CT results and lab results at discharge. Medications as directed. Follow-up with your primary physician and your oncologist. Return if symptoms worsen or progress. Med/Other Pt SpecificInfo: Prescription(s) given Scripts Hydrocodone-Acetaminophen ([place])5-325 mg Tab1 Tab PO Q6H PRN (PAIN) #15 TAB Ref 0 Prov:Paulino Johnson MD 09/18/16 Disposition: 01 DISCHARGE HOME Condition: Stable Paulino Johnson MD Sep 18, 2016 10:42
[2016-09-18] MEDS ORDERED: MORPHINE SULFATE 4 MG/ML INJ IV PUSH ONE ×2 (10:45→14:45)
[2016-09-18] MEDS ORDERED: SODIUM CHLORIDE 0.9% FLUSH 10 ML FLUSH IV FLUSH PRN (10:45)
[2016-09-18] MEDS ORDERED: ONDANSETRON HCL 4 MG/2 ML VIAL IVP ONE (10:45)
--- NOTE | 2016-09-18 11:42 | RADRPT ---
EXAM DATE/TIME: 09/18/2016 11:13 [facility] COMPARISON: No previous studies available for comparison. INDICATIONS : Left flank pain. ORAL CONTRAST: No oral contrast ingested. RADIATION DOSE: 7.75 CTDIvol (mGy) MEDICAL HISTORY : Renal calculi. Cardiovascular disease Hypertension. Hiatal hernia SURGICAL HISTORY : Appendectomy. Cholecystectomy. Hysterectomy. ENCOUNTER: Initial ACUITY: 1 day PAIN SCALE: 5/10 LOCATION: Bilateral abdomen. TECHNIQUE: Volumetric scanning of the abdomen and pelvis was performed. Using automated exposure control and ad justment of the mA and/or kV according to patient size, radiation dose was kept as low as reasonably achievable to obtain optimal diagnostic quality images. DICOM format image data is available electro nically for review and comparison. FINDINGS: LOWER LUNGS: The visualized lower lungs are clear. LIVER: Homogeneous density without lesion. There is no dilation of the biliary tree. There has been prior cholecystectomy. SPLEEN: Normal size without lesion. PANCREAS: Within normal limits. KIDNEYS: Normal in size and shape. There is no mass, stone, or hydronephrosis. There are 2 cysts in the right mid kidney measuring 4.3 cm and 4.1 cm. No definite ureteral stones are identified. There are puncta te calcifications in the pelvis bilaterally near the posterior bladder wall. ADRENAL GLANDS: Left adrenal gland is mildly thickened. No mass is seen. Right adrenal gland is within normal limits. VASCULAR: There is no aortic aneurysm. There is severe atherosclerotic disease with ectasia. Aorta measures up to 2.4 cm. BOWEL/MESENTERY: The stomach, small bowel, and colon demonstrate no acute abnormality. There is no free intraperitone al air or fluid. ABDOMINAL WALL: There is a right rectus abdominous muscle atrophy. RETROPERITONEUM: There is no lymphadenopathy. BLADDER: No wall thickening or mass. REPRODUCTIVE: Uterus is absent. INGUINAL: There is no lymphadenopathy or hernia. MUSCULOSKELETAL: Bones are undermineralized and there is degenerative change of the lumbar spine. Cement material is p resent within the sacrum bilaterally. Bilateral proximal femur hardware bilaterally causes beam harde lavon artifact. CONCLUSION: 1. No definite abnormality is identified to explain the clinical symptoms. There are no renal stones and no hydronephrosis is present. There are multiple punctate densities in the pelvis near the children's court magistrate ior bladder wall that are nonspecific. I feel these are most likely phleboliths given the symmetry bu t a small distal UVJ stone is difficult to completely exclude. 2. Nonacute findings include right renal cysts and severe atherosclerotic disease. Chinedu Dowell MD on September 18, 2016 at 11:32 Board Certified Radiologist. This report was verified electronically.
[2016-09-18 11:44] LABS: ALKALINE PHOSPHATASE 143 U/L (45-117); TOTAL BILIRUBIN ADULT 0.3 MG/DL (0.2-1.0)
[2016-09-18 11:48] LABS: ALT (GPT) 24 U/L (10-53); ANION GAP 8 MEQ/L (5-15); AST (GOT) 33 U/L (15-37); BICARBONATE 27.2 MEQ/L (21.0-32.0); BLOOD UREA NITROGEN 8 MG/DL (7-18); CHLORIDE 97 MEQ/L (98-107); GLOMERULAR FILTRATION RATE 103 ML/MIN (>89); POTASSIUM 4.3 MEQ/L (3.5-5.1); SODIUM (NA) 132 MEQ/L (136-145)
[2016-09-18 11:51] VITALS: O2SAT 95
[2016-09-18 11:57] LABS: BLOOD, URINE NEG (NEG); GLUCOSE,URINE NEG (NEG); KETONE, URINE NEG (NEG); NITRITE,URINE NEG (NEG); URINE COLOR LIGHT-YELLOW (YELLW/STRAW)
[2016-09-18 12:05] LABS: COMMENT (UR) CULT NOT INDICATED; CULTURE IF INDICATED CULT NOT INDICATED
[2016-09-18 12:17] LABS: AUTOMATED NEUTROPHIL # 3.5 TH/MM3 (1.8-7.7); BASOPHIL % 0.7 % (0.0-2.0); EOSINOPHIL # 0.1 TH/MM3 (0-0.4); EOSINOPHIL % 1.3 % (0.0-4.0); HEMATOCRIT 26.8 % (35.0-46.0); LYMPH % 26.6 % (9.0-44.0); LYMPHOCYTE # 1.4 TH/MM3 (1.0-4.8); MEAN CELL VOLUME 105.7 FL (80.0-100.0); MEAN CORPUSCULAR HEMOGLOBIN 35.6 PG (27.0-34.0); MEAN CORPUSCULAR HGB CONC 33.7 % (32.0-36.0); MONO % 6.9 % (0.0-8.0); NEUT % 64.5 % (16.0-70.0); PLATELET COUNT 77 TH/MM3 (150-450); RED BLOOD COUNT 2.53 MIL/MM3 (4.00-5.30); RED CELL DISTRIBUTION WIDTH 18.7 % (11.6-17.2); WHITE BLOOD COUNT 5.4 TH/MM3 (4.0-11.0)
[2016-09-18 12:23] LABS: HEMO FLAGS AUTO DIFF
[2016-09-18 12:30] VITALS: BP 163/74; PULSE 76; RESP 18; O2SAT 96
[2016-09-18 12:50] LABS: PLATELET ESTIMATE SMEAR LOW (NORMAL); PLATELET MORPHOLOGY NORMAL (NORMAL); SCAN/DIFF AUTO DIFF CONFIRMED
[2016-09-18] MEDS ORDERED: NORC5TAB PO (13:09)
[2016-09-18] MEDS ORDERED: ONDANSETRON HCL 4 MG/2 ML VIAL IV PUSH ONE (14:45)
[2016-09-18 15:20] VITALS: RESP 18
[2016-09-18 15:41] VITALS: BP 162/74
--- NOTE | 2016-09-19 17:29 | EKG ---
Date Performed: 09/18/2016 Time Performed: 10:40:40 PTAGE: 76 years EKG: SINUS BRADYCARDIA WITH SINUS ARRHYTHMIA BORDERLINE ECG Since PREVIOUS TRACING , no significant change noted PREVIOUS TRACIN06/07/2016 05.19 DOCTOR: Rachna Del Angel Interpretating Date/Time 09/19/2016 17:29:08
== END 2016-09-18 15:43 | disposition home or self-care (01) ==
LOC: NEPC 10:21
DX: R10.9 Unspecified abdominal pain (principal); M54.9 Dorsalgia, unspecified; N28.1 Cyst of kidney, acquired; R00.1 Bradycardia, unspecified; I49.8 Other specified cardiac arrhythmias; R11.2 Nausea with vomiting, unspecified; M54.2 Cervicalgia; I10 Essential (primary) hypertension; E78.00 Pure hypercholesterolemia, unspecified
CPT/HCPCS: 74176; 80053; 81001; 83605; 83690; 85025; 93005; 96361; 96374; 96375; 96376; 99285; J1642; J2270; J2405; J7030

== ENCOUNTER 2016-09-29 16:59 | Inpatient (IN) | payer OTHER, MEDICARE ==
[~2016-09-29] VITALS: Ht 162.6 cm; Wt 62.8 kg
[~2016-09-29 16:59] MED LIST changes: +NORC5TAB PO
[2016-09-29 17:01] VITALS: BP 173/75; PULSE 83; RESP 20; TEMP 98.5; O2SAT 95
--- NOTE | 2016-09-29 17:26 | PD ---
Physical Exam Date Seen by Provider: Sep 29, 2016 Time Seen by Provider: 17:23 Narrative 76 YOWF CP THIS AM SICK FOR PAST FEW DAYS. COUGH, SOB, DIZZY, AND BACK PAIN. H/ O LUNG CA. LAST CHEMO [address] OF [address] FELIPE. 11/23 PAIN. VS REVIEWED WAITING FOR BED PLACEMENT Data Data Last Documented VS Vital Signs Date Time Temp Pulse Resp B/P Pulse Ox O2 Delivery O2 Flow Rate FiO2 09/29/16 17:01 98.5 83 20 173/75 95 Room Air MDM Supervised Visit with OLYA: Tyler Garcia Sep 29, 2016 17:26
[2016-09-29] MEDS ORDERED: SODIUM CHLORIDE 0.9% FLUSH 10 ML FLUSH IVF PRN (17:30)
[2016-09-29] MEDS ORDERED: IOHEXOL 350 MG/ML 10 ML VIAL (for RAD DIAG) IV ONE (18:02)
--- NOTE | 2016-09-29 18:10 | RADRPT ---
EXAM DATE/TIME: 09/29/2016 17:24 [place] Corrected on: September 29, 2016; [facility] COMPARISON: CHEST SINGLE AP, June 01, 2016, 6:10. INDICATIONS : Chest pain. MEDICAL HISTORY : Carcinoma, lung. Cardiovascular disease. Hypertension. SURGICAL HISTORY : Infusaport. ENCOUNTER: Initial ACUITY: 1 day PAIN SCORE: 2/10 LOCATION: Bilateral chest FINDINGS: There is a CT compatible [id number] in place from the right internal jugular approach. The heart s ize is normal. The lungs are hyperinflated. There is enlargement of the left hilum and increased dens ity in the retrocardiac area. The right lung is clear. There is some elevation of the left hemidiaphr agm. This appearance is stable. There is chronic callus at the right mid clavicle. CONCLUSION: There is persistent mass in the left hilum and left lower lobe atelectasis or consolidation. No signi ficant change is seen. Chinedu Bautista MD on September 29, 2016 at 18:07 Board Certified Radiologist. This report was verified electronically. Chinedu Bautista MD on September 29, 2016 at 21:18 Board Certified Radiologist. This report was verified electronically.
[2016-09-29 18:42] LABS: AUTOMATED NEUTROPHIL # 5.3 TH/MM3 (1.8-7.7); BASOPHIL # 0.1 TH/MM3 (0-0.2); BASOPHIL % 1.4 % (0.0-2.0); EOSINOPHIL # 0.1 TH/MM3 (0-0.4); EOSINOPHIL % 1.7 % (0.0-4.0); HEMATOCRIT 35.9 % (35.0-46.0); HEMO FLAGS DIFF FINAL; LYMPH % 20.8 % (9.0-44.0); LYMPHOCYTE # 1.7 TH/MM3 (1.0-4.8); MEAN CELL VOLUME 106.9 FL (80.0-100.0); MEAN CORPUSCULAR HEMOGLOBIN 36.9 PG (27.0-34.0); MEAN CORPUSCULAR HGB CONC 34.5 % (32.0-36.0); MONO % 9.5 % (0.0-8.0); NEUT % 66.6 % (16.0-70.0); PLATELET COUNT 331 TH/MM3 (150-450); RED BLOOD COUNT 3.36 MIL/MM3 (4.00-5.30); RED CELL DISTRIBUTION WIDTH 18.8 % (11.6-17.2); WHITE BLOOD COUNT 7.9 TH/MM3 (4.0-11.0)
[2016-09-29 18:49] LABS: APTT (PATIENT) 26.3 SEC (24.3-30.1); INTERNATIONAL NORMALIZED RATIO 0.9 RATIO; PROTHROMBIN TIME - PATIENT 9.9 SEC (9.8-11.6)
[2016-09-29 18:55] LABS: BICARBONATE 30.6 MEQ/L (21.0-32.0); MAGNESIUM 2.1 MG/DL (1.5-2.5)
[2016-09-29] MEDS ORDERED: ONDANSETRON HCL 4 MG/2 ML VIAL IV PUSH ONE ×2 (19:15)
[2016-09-29] MEDS ORDERED: HYDROmorphone HCL PF 1 MG/ML VIAL IV PUSH ONE (19:15)
[2016-09-29 19:31] VITALS: O2SAT 99
[2016-09-29 19:41] VITALS: O2SAT 100
[2016-09-29] MEDS: RESP: ALBUTEROL 2.5 MG/IPRATROPIUM 0.5 MG NEB (SCH) INH (19:43)
[2016-09-29 19:48] VITALS: BP 178/75; PULSE 73; RESP 27; O2SAT 98
--- NOTE | 2016-09-29 21:17 | RADRPT ---
EXAM DATE/TIME: 09/29/2016 20:19 [facility] COMPARISON: CHEST SINGLE AP, September 29, 2016, 17:24. CT PULMONARY ANGIOGRAM, May 17, 2016, 14:43. INDICATIONS : Chest pain with shortness of breath . IV CONTRAST: 75 cc Omnipaque 300 (iohexol) IV RADIATION DOSE: 10..29 CTDIvol (mGy) ; Combined studies - Thorax/Abdomen/Pelvis MEDICAL HISTORY : Metastatic, lung. Cardiovascular disease Chronic obstructive pulmonary disease. SURGICAL HISTORY : Hysterectomy. Cholecystectomy.Appendectomy. ENCOUNTER: Initial ACUITY: 3 days PAIN SCALE: 6/10 LOCATION: Chest TECHNIQUE: Volumetric scanning of the chest was performed using a pulmonary embolism protocol MIP images were re constructed. Using automated exposure control and adjustment of the mA and/or kV according to patien t size, radiation dose was kept as low as reasonably achievable to obtain optimal diagnostic quality images. DICOM format image data is available electronically for review and comparison. Follow-up recommendations for detected pulmonary nodules are based at a minimum on nodule size and pa tient risk factors according to Fleischner Society Guidelines. FINDINGS: PULMONARY ARTERIES: No filling defects are seen in the pulmonary arteries through the segmental level. LUNGS: There is a 4.5 cm mass of the posterior left hilar region and extending into the left lower lobe. The re is atelectasis or postobstructive change seen in the more posterior and inferior aspect of the lef t lower lobe. There is widespread emphysematous change. There is a calcified granuloma in the posteri or medial right lung base. PLEURAE: There is no pleural thickening or pleural effusion. MEDIASTINUM: There are prominent lymph nodes in the precarinal, subcarinal and left tracheobronchial region. MUSCULOSKELETAL: There is chronic change of the mid right clavicle. MISCELLANEOUS: There is a 3 cm left adrenal gland mass. The patient is to have a CT of the abdomen and pelvis to fol low. CONCLUSION: 1. No pulmonary embolus. 2. Large left hilar mass with atelectasis or postobstructive change in the left lower lobe. There are mildly prominent mediastinal lymph nodes again seen. 3. Widespread emphysematous change. 4. Left adrenal mass. Chinedu Bautista MD on September 29, 2016 at 21:08 Board Certified Radiologist. This report was verified electronically.
--- NOTE | 2016-09-29 21:31 | RADRPT ---
EXAM DATE/TIME: 09/29/2016 20:22 [facility] COMPARISON: CT ABDOMEN & PELVIS W CONTRAST, May 17, 2016, 14:49. INDICATIONS : Chest pain with shortness of breath IV CONTRAST: 75 cc Omnipaque 350 (iohexol) IV ; Cumulative dose for multiple exams. ORAL CONTRAST: No oral contrast ingested. RADIATION DOSE: ; Combined studies - Abdomen/Pelvis MEDICAL HISTORY : Metastatic, lung. SURGICAL HISTORY : Hysterectomy. Cholecystectomy.Appendectomy. ENCOUNTER: Initial ACUITY: 1 day PAIN SCALE: 6/10 LOCATION: Bilateral TECHNIQUE: Volumetric scanning of the abdomen and pelvis was performed. Using automated exposure control and ad justment of the mA and/or kV according to patient size, radiation dose was kept as low as reasonably achievable to obtain optimal diagnostic quality images. DICOM format image data is available electro nically for review and comparison. FINDINGS: LOWER LUNGS: Please see the CT of chest report. LIVER: The patient is status post cholecystectomy. There is mild dilatation of the biliary system likely ref lecting a reservoir phenomenon. SPLEEN: Normal size without lesion. PANCREAS: Within normal limits. KIDNEYS: There are right renal cysts measuring up to 4.3 cm. No hydronephrosis is seen. ADRENAL GLANDS: There is a persistent 3.1 cm left adrenal gland mass. The right adrenal gland is normal. VASCULAR: There is no aortic aneurysm. Atherosclerotic calcifications are seen throughout the arterial system. BOWEL/MESENTERY: The stomach, small bowel, and colon demonstrate no acute abnormality. There is no free intraperitone al air or fluid. ABDOMINAL WALL: No hernia seen. There is atrophy of the right rectus abdominal muscle. RETROPERITONEUM: There is no lymphadenopathy. BLADDER: No wall thickening or mass. REPRODUCTIVE: The patient appears be status post hysterectomy. A pelvic mass is not seen. INGUINAL: There is no lymphadenopathy or hernia. MUSCULOSKELETAL: Surgical hardware is seen in the proximal femurs bilaterally. There is degenerative change in the lum bar spine. There is new compressive change at the inferior aspect of the L2 vertebral body. The patie nt is status post vertebroplasty with high density material seen in the lateral aspect of the sacrum bilaterally. CONCLUSION: 1. 3.1 cm stable left internal gland mass. Nonspecific. A large adenoma or metastatic lesion could pichardo ve this appearance. 2. New mild compressive changes at the inferior aspect of the L2 vertebral body. 3. High density material in the lateral aspect of the sacrum presumably from prior intervention. 4. The liver duct dilatation likely reflecting a reservoir phenomenon following cholecystectomy. 5. Right renal cysts. Chinedu Bautista MD on September 29, 2016 at 21:22 Board Certified Radiologist. This report was verified electronically.
[2016-09-29 21:36] VITALS: BP 148/60; PULSE 74; RESP 15; O2SAT 100
[2016-09-29] MEDS ORDERED: SENNOSIDES 8.6 MG TAB PO PRN (22:00)
[2016-09-29] MEDS ORDERED: LACTULOSE SYRUP 20 GM/30 ML CUP PO PRN (22:00)
[2016-09-29] MEDS ORDERED: SODIUM CHLORIDE 0.9% FLUSH 10 ML FLUSH IV FLUSH PRN (22:00)
[2016-09-29] MEDS ORDERED: MAGNESIUM HYDROXIDE SUSP 30 ML CUP PO PRN (22:00)
[2016-09-29] MEDS ORDERED: BISACODYL 10 MG SUPP RECTAL PRN (22:00)
[2016-09-29] MEDS ORDERED: NALOXONE HCL 0.4 MG/ML AMP IV PRN (22:00)
--- NOTE | 2016-09-29 22:10 | PD ---
HPI Chief Complaint: Chest Pain Time Seen by Provider: 22:01 Travel History International Travel<30 days: No Contact w/Intl Traveler<30days: No Traveled to known affect area: No History of Present Illness HPI 76-year-old female with a history of small cell lung carcinoma that presents to the ED for evaluation of left-sided chest pain as well as cough and congestion. Per family she's been having back cough and congestion as well as left-sided chest pain with the cough for the past 4 days. She has been using her oxygen as well as her breathing treatments more than usual. They were concerned because of the pain. She was also seen here about a week ago and was told that she had a kidney stone. She was seen and evaluated and she was told to the stone will pass. She has been taking her Lortab with minimal relief. Per patient she believes that she passed the kidney stone. She does get chemotherapy every 2 weeks. She does have a history of multiple falls and family is concerned because she continues to have a lot of pain in the they want her to be comfortable. They're also concerned she might have pneumonia. Patient herself is complaining of shortness of breath. She denies any new injuries or falls. She has had chemotherapy recently. She denies any diarrhea or urinary issues. No fevers chills or sweats. No sick contacts. 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) Musculoskeletal: Yes (R collar bone fx, R knee fx, R Hip, tailbone) Neurologic: Yes Psychiatric: Yes (depression/anxiety) Reproductive: No Respiratory: Yes Immunizations Current: Yes Myocardial Infarction: Yes (10 years ago 2006?) Seizures: Yes Sleep Apnea: No Thyroid Disease: Yes Influenza Vaccination: Yes ?: Not Menopausal: Yes Past Surgical History Abdominal Surgery: Yes (lucinda, appe) AICD: No Appendectomy: Yes Body Medical Devices: rods to right hip Cardiac Surgery: No Cholecystectomy: Yes Ear Surgery: No Eye Surgery: No Genitourinary Surgery: No Gynecologic Surgery: Yes (total hysterectomy) Hysterectomy: Yes Joint Replacement: No Neurologic Surgery: No Oral Surgery: Yes (dentures) Pacemaker: No Thoracic Surgery: No Other Surgery: Yes (HIP SX) Social History Alcohol Use: No Tobacco Use: Yes (last cigarette was yesterday) Substance Use: No Allergies-Medications (Allergen,Severity, Reaction): Coded Allergies: penicillin G (Unverified Allergy, Severe, throat swelling and rash, ) grass pollen (Unverified Allergy, Unknown, RUNNY NOSE, NASAL, 09/29/16) Reported Meds & Prescriptions Reported Meds & Active Scripts Active Wheelchair (Device) 1 Mis Mis 1 Ea .ROUTE DIRECTED Acidophilus/l-Sporogenes (Lactobacillus Acidophilus) 1 Tab Tab 1 Tab PO TID Hydrochlorothiazide 25 Mg Tab 50 Mg PO DAILY 30 Days Oyster Shell Calcium/Vitamin D (Calcium Carbonate-Cholecalciferol) 250-125 Mg- Unit Tab 250 Mg PO TID 30 Days Coreg (Carvedilol) 3.125 Mg Tab 3.125 Mg PO Q12HR 30 Days Atorvastatin (Atorvastatin Calcium) 80 Mg Tab 80 Mg PO HS HOLD THIS MEDICATION. RESTART AFTER COMPLETION OF FLUCONAZOLE THERAPY Walker with Front Wheels (Device) 1 Mis Mis 1 Ea .ROUTE DIRECTED Zofran Odt (Ondansetron Odt) 4 Mg Tab 4 Mg SL Q6HR PRN Reported Vitamin D3 (Cholecalciferol) 1,000 Unit Tab 1,000 Units PO DAILY Lisinopril 40 Mg Tab 40 Mg PO DAILY Levothyroxine (Levothyroxine Sodium) 100 Mcg Tab 100 Mcg PO DAILY Amlodipine (Amlodipine Besylate) 10 Mg Tab 10 Mg PO DAILY Donepezil 10 Mg Tab 10 Mg PO DAILY Amitriptyline (Amitriptyline HCl) 10 Mg Tab 10 Mg PO BID Omeprazole 20 Mg Tab 20 Mg PO DAILY Review of Systems Except as stated in HPI: all other systems reviewed are Neg Physical Exam Narrative GENERAL: SKIN: Warm and dry. HEAD: Atraumatic. Normocephalic. EYES: Pupils equal and round. No scleral icterus. No injection or drainage. ENT: No nasal bleeding or discharge. Mucous membranes pink and moist. Tongue is midline. No uvula deviation. NECK: Trachea midline. No JVD. CARDIOVASCULAR: Regular rate and rhythm. No murmurs, S3, S4. RESPIRATORY: No accessory muscle use. Clear to auscultation. Breath sounds equal bilaterally. GASTROINTESTINAL: Abdomen soft, non-tender, nondistended. Hepatic and splenic margins not palpable. MUSCULOSKELETAL: Extremities without clubbing, cyanosis, or edema. No obvious deformities. Full range of motion of the upper and lower extremities bilaterally. 2+ pulses bilaterally. NEUROLOGICAL: Awake and alert. No obvious cranial nerve deficits. Motor grossly within normal limits. Five out of 5 muscle strength in the arms and legs. Normal speech. PSYCHIATRIC: Appropriate mood and affect; insight and judgment normal. Data Data Last Documented VS Orders Orders Electrocardiogram (09/29/16 17:26) Basic Metabolic Panel (Bmp) (09/29/16 17:26) Ckmb (Isoenzyme) Profile (09/29/16 17:26) Complete Blood Count With Diff (09/29/16 17:) D-Dimer (09/29/16 17:26) Magnesium (Mg) (09/29/16 17:26) Prothrombin Time / Inr (Pt) (09/29/16 17:26) Act Partial Throm Time (Ptt) (09/29/16 17:26) Troponin I (09/29/16 17:26) Chest, Single Ap (09/29/16 17:26) Ecg Monitoring (09/29/16 17:26) Iv Access Insert/Monitor (09/29/16 17:26) Oximetry (09/29/16 17:26) Oxygen Administration (09/29/16 17:26) Sodium Chloride 0.9% Flush (Ns Flush) (09/29/16 17:30) Ct Pulmonary Angiogram (09/29/16 ) Hydromorphone Pf Inj (Dilaudid Pf Inj) (09/29/16 19:15) Ondansetron Inj (Zofran Inj) (09/29/16 19:15) Albuterol-Ipratropium Neb (Duoneb Neb) (09/29/16 19:15) Ondansetron Inj (Zofran Inj) (09/29/16 19:15) Ct Abd/Pel W Iv Contrast(Rout) (09/29/16 ) Hepatic Functional Panel (09/29/16 19:19) Lipase (09/29/16 19:19) Admit Order (Ed Use Only) (09/29/16 21:46) Labs Laboratory Tests Test 09/29/16 17:15 White Blood Count 7.9 TH/MM3 Red Blood Count 3.36 MIL/MM3 Hemoglobin 12.4 GM/DL Hematocrit 35.9 % Mean Corpuscular Volume 106.9 FL Mean Corpuscular Hemoglobin 36.9 PG Mean Corpuscular Hemoglobin Concent 34.5 % Red Cell Distribution Width 18.8 % Platelet Count 331 TH/MM3 Mean Platelet Volume 8.3 FL Neutrophils (%) (Auto) 66.6 % Lymphocytes (%) (Auto) 20.8 % Monocytes (%) (Auto) 9.5 % Eosinophils (%) (Auto) 1.7 % Basophils (%) (Auto) 1.4 % Neutrophils # (Auto) 5.3 TH/MM3 Lymphocytes # (Auto) 1.7 TH/MM3 Monocytes # (Auto) 0.8 TH/MM3 Eosinophils # (Auto) 0.1 TH/MM3 Basophils # (Auto) 0.1 TH/MM3 CBC Comment DIFF FINAL Differential Comment Prothrombin Time 9.9 SEC Prothromb Time International Ratio 0.9 RATIO Activated Partial Thromboplast Time 26.3 SEC D-Dimer Quantitative (PE/DVT) 2.02 MG/L FEU Blood Urea Nitrogen 8 MG/DL Creatinine 0.71 MG/DL Random Glucose 98 MG/DL Calcium Level 9.0 MG/DL Magnesium Level 2.1 MG/DL Sodium Level 133 MEQ/L Potassium Level 4.0 MEQ/L Chloride Level 96 MEQ/L Carbon Dioxide Level 30.6 MEQ/L Anion Gap 6 MEQ/L Estimat Glomerular Filtration Rate 80 ML/MIN Total Bilirubin 0.3 MG/DL Direct Bilirubin 0.1 MG/DL Indirect Bilirubin 0.2 MG/DL Aspartate Amino Transf (AST/SGOT) 26 U/L Alanine Aminotransferase (ALT/SGPT) 19 U/L Alkaline Phosphatase 166 U/L Total Creatine Kinase 58 U/L Troponin I 0.03 NG/ML Total Protein 7.1 GM/DL Albumin 3.4 GM/DL Lipase 134 U/L MDM Medical Decision Making Medical Screen Exam Complete: Yes Emergency Medical Condition: Yes Medical Record Reviewed: Yes Interpretation(s) CBC & BMP Diagram 09/29/16 17:15 Last Impressions Chest X-Ray 09/29/16 1726 Signed Impressions: Service Date/Time: Thursday, September 29, 2016 17:24 - CONCLUSION: There is persistent mass in the left hilum and left lower lobe atelectasis or consolidation. No significant change is seen. Chinedu Bautista MD CT Angiography 09/29/16 0000 Signed Impressions: Service Date/Time: Thursday, September 29, 2016 20:19 - CONCLUSION: 1. No pulmonary embolus. 2. Large left hilar mass with atelectasis or postobstructive change in the left lower lobe. There are mildly prominent mediastinal lymph nodes again seen. 3. Widespread emphysematous change. 4. Left adrenal mass. Chinedu Bautista MD Abdomen/Pelvis CT 09/29/16 0000 Signed Impressions: Service Date/Time: Thursday, September 29, 2016 20:22 - CONCLUSION: 1. 3.1 cm stable left internal gland mass. Nonspecific. A large adenoma or metastatic lesion could have this appearance. 2. New mild compressive changes at the inferior aspect of the L2 vertebral body. 3. High density material in the lateral aspect of the sacrum presumably from prior intervention. 4. The liver duct dilatation likely reflecting a reservoir phenomenon following cholecystectomy. 5. Right renal cysts. Chinedu Bautista MD EKG shows sinus rhythm with no sign of acute ischemia or arrhythmia. Read by me and attending. Troponin and CK-MB negative. Differential Diagnosis Chest pain versus a typical chest pain versus PE versus cancer pain versus COPD exacerbation versus COPD versus acute on chronic pain versus chronic pain versus pneumonia Narrative Course 76-year-old female that presents to the ED for evaluation of left-sided chest pain. Patient was properly examined and was found to have signs and symptoms of unclear etiology. Definite concerning for pneumonia versus COPD exacerbation versus PE. Labs and imaging were ordered. Patient had a positive d-dimer so CTs were ordered. Patient is accompanied of some abdominal pain and back pain. Labs and imaging were essentially unremarkable other than for severe metastatic disease with what appears to be a new findings of possible mild compression fracture of L2. Patient is unfortunately not good surgical candidate because of her extensive terminal illness. She still has some pain. At this time I did offered admission for treatment of her SOB and pain and she agrees for admission. Case discussed with Dr Tanner who agrees with plan. Diagnosis Primary Impression: Intractable back pain Additional Impressions: Compression fracture of L2 COPD exacerbation Lung cancer Admitting Information Admitting Physician Requests: Observation Scripts Gabapentin (Gabapentin) 100 Mg Cap 100 MG PO TID for nerve type pain, #90 CAP 0 Refills Prov: Adelina Tabares MD 10/02/16 [Guaifenesin] 600 MG TABCR No Conflict Check 600 MG PO BID Y for congestion, #30 TAB.SR 0 Refills Prov: Adelina Tabares MD 10/02/16 Sennosides-Docusate Sodium (Senna Plus 8.6-50 mg) 1 Tab Tab 1 TAB PO BID Y for constipation, #20 TAB 0 Refills Prov: Adelina Tabares MD 10/02/16 Divalproex ER (Depakote ER) 500 Mg Ragini 500 MG PO DAILY for migraines, #30 TAB 0 Refills Prov: Adelina Tabares MD 10/02/16 Hydrocodone-Acetaminophen (Hydrocodone-Acetaminophen) 10-325 mg Tab 1 TAB PO Q6H Y for PAIN, #20 TAB 0 Refills Prov: Adelina Tabares MD 10/02/16 Odell Washington Sep 29, 2016 22:09
[2016-09-29] MEDS: HYDROmorphone HCL PF 1 MG/ML VIAL IV PUSH PRN (22:56)
[2016-09-29 23:30] LABS: INDIRECT BILIRUBIN 0.2 MG/DL (0.0-0.8); TOTAL BILIRUBIN ADULT 0.3 MG/DL (0.2-1.0)
--- NOTE | 2016-09-29 23:55 | HHI.HP ---
[facility] Katlyn Heaton MD Admission Diagnosis intractable pain, small cell carcinoma, L3 mild compression fx Diagnoses: Travel History International Travel<30 Days: No Contact w/Intl Traveler <30 Da: No Traveled to Known Affected Are: No History of Present Illness pain in left hip inside left pain from cancer worse with breathing or when you cough lortab 10mg twice a day btu still need it sick to stomach did not vomit on zofran at home works better with prochloropramzine no fever coughing a lot, more than usual had trouble swallowing food cough a lot with food need esophagus stretch- dr harley passed a kidney stone - probably today- had 2 before, now xray did not show no burnign or pain prior to that no diarrhea no blood in stool back pain for almost a year now- worse in past one week due to cough left lung cancer 2 weeks ago was last chemo no radiation Review of Systems Except as stated in HPI: all other systems reviewed are Neg Past Family Social History Past Medical History htn dm- off meds now, only diet controlled cad- s/p [place] cva kidney stones copd - on home oxygen mostly at night hypothyroid left lung cancer- diagnosed around feb 2016 Past Surgical History cholecystectomy hysterectomy appendectomy colon surgery for colitis Allergies: Coded Allergies: penicillin G (Unverified Allergy, Severe, throat swelling and rash, ) grass pollen (Unverified Allergy, Unknown, RUNNY NOSE, NASAL, 09/29/16) Family History heart attacks in family members stomach ulcers in aunts Social History used to smoke, still does, now cut down no drinking or drugs Physical Exam Vital Signs Vital Signs Date Time Temp Pulse Resp B/P Pulse Ox O2 Delivery O2 Flow Rate FiO2 09/29/16 21:37 15 09/29/16 21:36 74 15 148/60 100 Nasal Cannula 2 09/29/16 19:48 100 Nasal Cannula 2 09/29/16 19:48 73 27 178/75 98 Nasal Cannula 2 09/29/16 19:41 100 Nasal Cannula 2 09/29/16 19:41 100 Nasal Cannula 09/29/16 19:31 99 Nasal Cannula 2.00 09/29/16 17:01 98.5 83 20 173/75 95 Room Air Physical Exam GENERAL: This is elderly lady, chronically ill, in somewhat of acute distress from severe pain. Pallor present. SKIN: No rashes, ecchymoses or lesions. Cool and dry. HEAD: Atraumatic. Normocephalic. No temporal or scalp tenderness. EYES:No scleral icterus. No injection or drainage. ENT: Nose without bleeding, purulent drainage or septal hematoma.. Airway patent. NECK: Trachea midline. No JVD CARDIOVASCULAR: Regular rate and rhythm without murmurs, gallops, or rubs. RESPIRATORY: Clear to auscultation. Breath sounds equal bilaterally. No wheezes , rales, or rhonchi. GASTROINTESTINAL: Abdomen soft, non-tender, nondistended. No guarding. MUSCULOSKELETAL: Extremities without clubbing, cyanosis, or edema.. No calf tenderness. NEUROLOGICAL: Awake and alert. Motor and sensory grossly within normal limits. Normal speech. Laboratory Laboratory Tests Test 09/29/16 17:15 White Blood Count 7.9 Red Blood Count 3.36 Hemoglobin 12.4 Hematocrit 35.9 Mean Corpuscular Volume 106.9 Mean Corpuscular Hemoglobin 36.9 Mean Corpuscular Hemoglobin 34.5 Concent Red Cell Distribution Width 18.8 Platelet Count 331 Mean Platelet Volume 8.3 Neutrophils (%) (Auto) 66.6 Lymphocytes (%) (Auto) 20.8 Monocytes (%) (Auto) 9.5 Eosinophils (%) (Auto) 1.7 Basophils (%) (Auto) 1.4 Neutrophils # (Auto) 5.3 Lymphocytes # (Auto) 1.7 Monocytes # (Auto) 0.8 Eosinophils # (Auto) 0.1 Basophils # (Auto) 0.1 CBC Comment DIFF FINAL Differential Comment Prothrombin Time 9.9 Prothromb Time International 0.9 Ratio Activated Partial 26.3 Thromboplast Time D-Dimer Quantitative (PE/DVT) 2.02 Sodium Level 133 Potassium Level 4.0 Chloride Level 96 Carbon Dioxide Level 30.6 Anion Gap 6 Blood Urea Nitrogen 8 Creatinine 0.71 Estimat Glomerular Filtration 80 Rate Random Glucose 98 Calcium Level 9.0 Magnesium Level 2.1 Total Bilirubin 0.3 Direct Bilirubin 0.1 Indirect Bilirubin 0.2 Aspartate Amino Transf 26 (AST/SGOT) Alanine Aminotransferase 19 (ALT/SGPT) Alkaline Phosphatase 166 Total Creatine Kinase 58 Troponin I 0.03 Total Protein 7.1 Albumin 3.4 Lipase 134 Result Diagram: 09/29/16 1715 09/29/16 1715 Imaging Last 48 hours Impressions Chest X-Ray 09/29/16 1726 Signed Impressions: Service Date/Time: Thursday, September 29, 2016 17:24 - CONCLUSION: There is persistent mass in the left hilum and left lower lobe atelectasis or consolidation. No significant change is seen. Chinedu Bautista MD CT Angiography 09/29/16 0000 Signed Impressions: Service Date/Time: Tuesday, September 29, 2016 20:19 - CONCLUSION: 1. No pulmonary embolus. 2. Large left hilar mass with atelectasis or postobstructive change in the left lower lobe. There are mildly prominent mediastinal lymph nodes again seen. 3. Widespread emphysematous change. 4. Left adrenal mass. Chinedu Bautista MD Abdomen/Pelvis CT 09/29/16 0000 Signed Impressions: Service Date/Time: Thursday, September 29, 2016 20:22 - CONCLUSION: 1. 3.1 cm stable left internal gland mass. Nonspecific. A large adenoma or metastatic lesion could have this appearance. 2. New mild compressive changes at the inferior aspect of the L2 vertebral body. 3. High density material in the lateral aspect of the sacrum presumably from prior intervention. 4. The liver duct dilatation likely reflecting a reservoir phenomenon following cholecystectomy. 5. Right renal cysts. Chinedu Bautista MD Assessment and Plan Assessment and Plan Impression: Intractable painlikely secondary to her metastatic lung cancer Chronic back pain Elevated d-dimer Plan: Pain control with IV Dilaudid. Patient is also having chronic migraine attacks. We'll try by mouth narcotics together with IV to overlap. Consult patient's oncologist. Patient has had chemotherapy 2 weeks ago. Both family and patient is stating that they are not aware of metastasis of her cancer. It seems that particularly the family might not be aware of the diagnosis and prognosis in this patient would greatly benefit from clarification of goals of care. At present, would start with her oncologist. If needed, to consider further consultation to palliative care. Otherwise resume her home meds. DVT prophylaxiswith Lovenox. Discussed Condition With patient, daughter, daughter's significant other Physician Certification 2 Midnight Certification Type: Admission for Inpatient Services Order for Inpatient Services The services are ordered in accordance with Medicare regulations or non- Medicare payer requirements, as applicable. In the case of services not specified as inpatient-only, they are appropriately provided as inpatient services in accordance with the 2-midnight benchmark. Estimated LOS (days): 2 days is the estimated time the patient will need to remain in the hospital, assuming treatment plan goals are met and no additional complications. Post-Hospital Plan: Home Sushma Tanner MD Sep 29, 2016 23:55
[2016-09-30] VITALS (12 sets, daily range): BP systolic 95–156; BP diastolic 53–68; PULSE 59–73; RESP 16–20; TEMP 97.3–98.6; O2SAT 93–98
[2016-09-30] MEDS ORDERED: OMEG300C5 PO (02:25)
[2016-09-30] MEDS ORDERED: FERR240T8 PO (02:25)
[2016-09-30] MEDS ORDERED: MAGN400T24 PO (02:25)
[2016-09-30] MEDS ORDERED: MULT1TAB46 PO (02:25)
[2016-09-30] MEDS ORDERED: ERGO400T (02:25)
[2016-09-30] MEDS ORDERED: VITA100T67 PO (02:25)
[2016-09-30] MEDS ORDERED: PYRI1TAB5 PO (02:25)
[2016-09-30] MEDS ORDERED: SERO100T PO (02:25)
[2016-09-30] MEDS ORDERED: PRIM50TA5 PO (02:25)
[2016-09-30] MEDS ORDERED: IPRA0.02 NEB (02:25)
[2016-09-30] MEDS ORDERED: ALPR.25 PO (02:25)
[2016-09-30] MEDS ORDERED: CYAN1TAB24 PO (02:25)
[2016-09-30] MEDS ORDERED: ONDANSETRON ODT 4 MG TAB SL PRN (08:00)
[2016-09-30] MEDS ORDERED: ALPRAZolam 0.25 MG TAB PO PRN (08:00)
[2016-09-30] MEDS: ONDANSETRON HCL 4 MG/2 ML VIAL IVP PRN ×2 (08:09→22:26)
[2016-09-30] MEDS: DOCUSATE SODIUM 50 MG/SENNA 8.6 MG TAB PO SCH ×2 (08:12→21:00)
[2016-09-30] MEDS: SODIUM CHLORIDE 0.9% FLUSH 10 ML FLUSH IV FLUSH SCH ×2 (08:12→21:00)
--- NOTE | 2016-09-30 08:52 | EKG ---
Date Performed: 09/30/2016 Time Performed: 07:02:20 PTAGE: 76 years EKG: Sinus rhythm WITH FIRST DEGREE AV BLOCK ABNORMAL ECG PREVIOUS TRACING : 09/30/2016 02.00 Compared to prior tracing no significant change DOCTOR: Stanislav Castillo Interpretating Date/Time 09/30/2016 08:49:39
--- NOTE | 2016-09-30 09:02 | EKG ---
Date Performed: 09/30/2016 Time Performed: 02:00:40 PTAGE: 76 years EKG: Sinus rhythm WITH FIRST DEGREE AV BLOCK ABNORMAL ECG PREVIOUS TRACING : 09/29/2016 17.40 Compared to prior tracing no significant change DOCTOR: Stanislav Castillo Interpretating Date/Time 09/30/2016 08:56:59
--- NOTE | 2016-09-30 09:14 | EKG ---
Date Performed: 09/29/2016 Time Performed: 17:40:06 PTAGE: 76 years EKG: Sinus rhythm MODERATE VOLTAGE CRITERIA FOR LVH, CONSIDER NORMAL VARIANT BORDERLINE ECG PREVIOUS TRACING : 09/18/2016 10.40 Compared to prior tracing no significant change DOCTOR: Stanislav Castillo Interpretating Date/Time 09/30/2016 09:04:32
[2016-09-30] MEDS: ENOXAPARIN SODIUM 40 MG/0.4 ML SYRINGE SQ SCH (09:59)
[2016-09-30] MEDS: LACTOBACILLUS ACIDOPHILUS TAB PO SCH ×3 (10:00→17:11)
[2016-09-30] MEDS: CARVEDILOL 3.125 MG TAB PO SCH ×2 (10:00→22:27)
[2016-09-30] MEDS: HYDROCHLOROTHIAZIDE 25 MG TAB PO SCH (10:00)
[2016-09-30] MEDS: LISINOPRIL 20 MG TAB PO SCH (10:00)
[2016-09-30] MEDS: DONEPEZIL HCL 5 MG TAB PO SCH (10:01)
[2016-09-30] MEDS: PANTOPRAZOLE SOD 20 MG DELAYED RELEASE TAB PO SCH (10:01)
[2016-09-30] MEDS: PRIMIDONE 250 MG TAB PO SCH ×3 (10:40→17:11)
[2016-09-30] MEDS: LEVOTHYROXINE SODIUM 100 MCG TAB PO SCH (10:40)
[2016-09-30] MEDS: AMITRIPTYLINE HCL 10 MG TAB PO SCH ×2 (10:40→22:27)
[2016-09-30] MEDS ORDERED: PROMETHAZINE HCL 12.5 MG SUPP RECTAL PRN (12:15)
--- NOTE | 2016-09-30 13:04 | HHI.PR ---
Subjective Remarks Follow-up for multiple medical complaints listed in assessment and plan Patient stated to me that pain is resolved. When I spoke to her daughter and son-in-law visited that patient still has severe migraines and lower back pain. They stated that she someone who does not complain a lot. Patient has shortness of breathing. She stated that nebulizer helps. Patient stated her main complaint is feeling nauseous. She says she last vomited yesterday. Objective Vitals Vital Signs Date Time Temp Pulse Resp B/P Pulse Ox O2 Delivery O2 Flow Rate FiO2 09/30/16 07:50 68 09/30/16 05:10 97.4 73 16 152/68 93 09/30/16 04:00 98.2 73 20 95/53 97 09/30/16 02:10 98.2 63 16 150/64 93 09/30/16 02:00 Nasal Cannula 2.00 09/30/16 00:16 98.6 68 16 156/67 98 Room Air 09/30/16 00:15 16 09/29/16 21:37 15 09/29/16 21:36 74 15 148/60 100 Nasal Cannula 2 09/29/16 19:48 100 Nasal Cannula 2 09/29/16 19:48 73 27 178/75 98 Nasal Cannula 2 09/29/16 19:41 100 Nasal Cannula 2 09/29/16 19:41 100 Nasal Cannula 09/29/16 19:31 99 Nasal Cannula 2.00 09/29/16 17:01 98.5 83 20 173/75 95 Room Air I/O 09/29/16 09/29/16 09/29/16 09/30/16 09/30/16 09/30/16 07:00 15:00 23:00 07:00 15:00 23:00 Intake Total 120 ml Output Total 250 ml Balance -130 ml Intake Oral 120 ml Output Urine Total 250 ml # Bowel Movements 0 Result Diagram: 09/29/16 1715 09/29/16 1715 Imaging Last Impressions Chest X-Ray 09/29/166 Signed Impressions: Service Date/Time: Thursday, September 29, 2016 17:24 - CONCLUSION: There is persistent mass in the left hilum and left lower lobe atelectasis or consolidation. No significant change is seen. Chinedu Bautista MD CT Angiography 09/29/16 0000 Signed Impressions: Service Date/Time: Thursday, September 29, 2016 20:19 - CONCLUSION: 1. No pulmonary embolus. 2. Large left hilar mass with atelectasis or postobstructive change in the left lower lobe. There are mildly prominent mediastinal lymph nodes again seen. 3. Widespread emphysematous change. 4. Left adrenal mass. Chinedu Bautista MD Abdomen/Pelvis CT 09/29/16 0000 Signed Impressions: Service Date/Time: Thursday, September 29, 2016 20:22 - CONCLUSION: 1. 3.1 cm stable left internal gland mass. Nonspecific. A large adenoma or metastatic lesion could have this appearance. 2. New mild compressive changes at the inferior aspect of the L2 vertebral body. 3. High density material in the lateral aspect of the sacrum presumably from prior intervention. 4. The liver duct dilatation likely reflecting a reservoir phenomenon following cholecystectomy. 5. Right renal cysts. Chinedu Bautista MD Objective Remarks GENERAL: In no acute distress but looks uncomfortable. NECK: Supple, trachea midline. No JVD or lymphadenopathy. CARDIOVASCULAR: Regular rate and rhythm without murmurs, gallops, or rubs. RESPIRATORY: Bilateral transmitted upper respiratory sounds. No accessory muscle use. GASTROINTESTINAL: Abdomen soft, non-tender, nondistended. MUSCULOSKELETAL: No cyanosis, or edema. BACK: Nontender without obvious deformity. No CVA tenderness. Medications and IVs Current Medications Sodium Chloride (NS Flush) 2 ml UNSCH PRN IVF FLUSH AFTER USING IV ACCESS; Start 09/29/16 at 17:30; Stop 09/29/16 at 21:55; Status DC Hydromorphone HCl (Dilaudid Pf Inj) 0.5 mg ONCE ONCE IV PUSH Last administered on 09/29/16 19:47; Start 09/29/16 at 19:15; Stop 09/29/16 at 19:16 ; Status DC Ondansetron HCl (Zofran Inj) 4 mg ONCE ONCE IV PUSH Last administered on 19:47; Start 09/29/16 at 19:15; Stop 09/29/16 at 19:16; Status DC Albuterol/ Ipratropium (Duoneb Neb) 1 ampule Q15M INH Last administered on 09/29 19:43; Start 09/29/16 at 19:15; Stop 09/29/16 at 19:31; Status DC Ondansetron HCl (Zofran Inj) 4 mg ONCE ONCE IV PUSH ; Start 09/29/16 at 19:15; Stop 09/29/16 at 19:17; Status DC Sodium Chloride (NS Flush) 2 ml UNSCH PRN IV FLUSH FLUSH AFTER USING IV ACCESS ; Start 09/29/16 at 22:00 Sodium Chloride (NS Flush) 2 ml BID IV FLUSH ; Start 09/30/16 at 09:00 Ondansetron HCl (Zofran Inj) 4 mg Q6H PRN IVP NAUSEA OR VOMITING Last administered on 09/30/16 08:09; Start 09/29/16 at 22:00 Naloxone HCl (Narcan Inj) 0.4 mg UNSCH PRN IV SEE LABEL COMMENTS; Start at 22:00 Senna/Docusate Sodium (Misty-Colace) 1 tab BID PO Last administered on 08:12; Start 09/30/16 at 09:00 Magnesium Hydroxide (Milk Of Magnesia Liq) 30 ml Q12H PRN PO MILD - MODERATE CONSTIPATION; Start 09/29/16 at 22:00 Sennosides (Senokot) 17.2 mg Q12H PRN PO MODERATE - SEVERE CONSTIPATION; Start 09/29/16 at 22:00 Bisacodyl (Dulcolax Supp) 10 mg DAILY PRN RECTAL SEVERE CONSITIPATION; Start at 22:00 Lactulose (Lactulose Liq) 30 ml DAILY PRN PO SEVERE CONSITIPATION; Start at 22:00 Hydromorphone HCl (Dilaudid Pf Inj) 0.5 mg Q3H PRN IV PUSH pain >5 Last administered on 09/29/16 22:56; Start 09/29/16 at 22:00 Oxycodone HCl (Roxicodone) 5 mg ONCE ONCE PO ; Start 09/30/16 at 01:00; Stop at 01:01; Status DC Alprazolam (Xanax) 0.25 mg Q6H PRN PO ANXIETY; Start 09/30/16 at 08:00 Amitriptyline HCl (Elavil) 10 mg BID PO Last administered on 09/30/16 10:40; Start 09/30/16 at 09:00 Amlodipine Besylate (Norvasc) 10 mg DAILY PO Last administered on 09/30/16 10: 00; Start 09/30/16 at 09:00 Atorvastatin Calcium (Lipitor) 80 mg HS PO ; Start 09/30/16 at 21:00 Carvedilol (Coreg) 3.125 mg Q12HR PO Last administered on 09/30/16 10:00; Start 09/30/16 at 09:00 Donepezil HCl (Aricept) 10 mg DAILY PO Last administered on 09/30/16 10:01; Start 09/30/16 at 09:00 Hydrochlorothiazide (Hydrodiuril) 50 mg DAILY PO Last administered on 10:00; Start 09/30/16 at 09:00 Ipratropium [place] (Atrovent Neb) 0.5 mg Q6HR NEB NEB ; Start 09/30/16 at 10: 00 Lactobacillus Acidophilus (Lactinex) 1 tab TID PO Last administered on 10:00; Start 09/30/16 at 09:00 Levothyroxine Sodium (Synthroid) 100 mcg DAILY@0600 PO Last administered on 10:40; Start 09/30/16 at 09:00 Ondansetron HCl (Zofran Odt) 4 mg Q6HR PRN SL Nausea/Vomiting; Start 09/30/16 at 08:00 Primidone (Mysoline) 250 mg TID PO Last administered on 09/30/16 10:40; Start 09/30/16 at 09:00 Quetiapine Fumarate (SEROquel) 100 mg HS PO ; Start 09/30/16 at 21:00 Lisinopril (Prinivil) 40 mg DAILY PO Last administered on 09/30/16 10:00; Start 09/30/16 at 09:00 Pantoprazole Sodium (Protonix) 20 mg DAILY PO Last administered on 09/30/16 10 :01; Start 09/30/16 at 09:00 Enoxaparin Sodium (Lovenox Inj) 40 mg Q24H SQ Last administered on 09/30/16 09 :59; Start 09/30/16 at 09:00 Iohexol (Omnipaque 350 Inj) 80 ml STK-MED ONCE IV Last administered on t 18:02; Start 09/29/16 at 18:02; Stop 09/30/16 at 11:14; Status DC Promethazine HCl (Phenergan Supp) 12.5 mg Q4H PRN RECTAL NAUSEA OR VOMITING; Start 09/30/16 at 12:15; Status UNV Albuterol/ Ipratropium 1 ampule 1 ampule Q6HR WHILE AWAKE NEB NEB ; Start 09/30 at 14:00; Status UNV Sodium Chloride (NS 1000 ml Inj) 1,000 ml @ 60 mls/hr [id number] IV ; Start at 12:15; Status UNV Guaifenesin (Mucinex Er) 600 mg BID PO ; Start 09/30/16 at 12:45; Status UNV A/P Assessment and Plan 76-year-old female history of migraines and lung cancer who presented with severe headache, abdominal pain, nausea/vomiting and severe lower back pain Intractable lower back pain -CT scan shows L2 compression fracture. Per patient's daughter patient had cemented place recently. She felt like this has not helped patient. -Recommend conservative management with pain control. -Currently patient is on Dilaudid IV. Will try oral medication and give IV Dilaudid if or medication does not help control pain. Consult physical therapist. Per daughter patient has a TLSO brace at home but does not use it. Lung cancer -Patient is seeing oncologist. Oncologist consulted. -CTA of chest scan showed large left hilar mass with atelectasis or postobstructive change in the left lower lobe. -Continue home Mucinex. -Patient does have a mild obstruction will give DuoNeb's. Left adrenal mass -This may be metastatic versus adenoma. -Pending oncologist consult. Nausea -This may be secondary to severe pain. Will try to control pain. -Labs obtained and reviewed. Will start patient on IV fluids. -Patient given Zofran but has not helped her. Will try Phenergan. Migraines -Patient is on amitriptyline for prophylaxis. She stated taking sumatriptan when necessary. Per patient's daughter migraines have not been control she has about 5 episodes a week. -Will consult her neurologist Dr. Cuhna. DVT prophylaxiswith Lovenox. Dealt with patient's daughter, son-in-law in regards to diagnoses and management. Adelina Tabares MD Sep 30, 2016 13:04
[2016-09-30] MEDS ORDERED: ACETAMINOPHEN/HYDROcodone 325 MG/5 MG TAB PO PRN (13:15)
[2016-09-30] MEDS: SODIUM CHLOR 0.9% 1000 ML INJ 1,000 ML IV SCH (14:01)
[2016-09-30] MEDS: guaiFENesin E.R. 600 MG TAB PO SCH ×2 (14:02→22:27)
[2016-09-30] MEDS: RESP: ALBUTEROL 2.5 MG/IPRATROPIUM 0.5 MG NEB (SCH) NEB ×2 (14:22→20:00)
[2016-09-30] MEDS: ACETAMINOPHEN/HYDROcodone 325 MG/5 MG TAB PO PRN ×2 (17:11→22:26)
--- NOTE | 2016-09-30 18:53 | MB ---
cc: AL ROD M.D. DATE OF CONSULTATION 09/30/16 DATE OF 1940 AGE [id number]. REASON FOR CONSULTATION Worsening migraines. HISTORY OF PRESENT ILLNESS The patient is a 76-year-old woman, sees my partner Dr. Hays, in the office for migraines, usually treated with a tricyclic as well as triptan, admitted to the hospital for pain with a history of small cell carcinoma and L3 mild compression fracture. I am asked to evaluate her for ongoing migraine. She states she gets maybe 1 to 2 a week. PAST MEDICAL HISTORY She has a past medical history of hypertension, diabetes diet-controlled, heart disease, NC, stroke, kidney stones, COPD, hypothyroidism, left lung cancer diagnosed February of this year. PAST SURGICAL HISTORY Cholecystectomy, hysterectomy, appendectomy, colon surgery for colitis. ALLERGIES ALLERGY TO PENICILLIN AND GRASS POLLEN. FAMILY HISTORY NC in family members. Stomach ulcers in an aunt. SOCIAL HISTORY She used to smoke, still does, trying to cut down. No drinking or drugs. PHYSICAL EXAMINATION VITAL SIGNS: Temperature is 98.2, pulse 70, respiratory rate 18, blood pressure 137/65, satting at 98% 2 liters nasal cannula. NEURO: She is awake and alert. She is fluent. Her pupils are reactive. Face symmetrical. Tongue midline. Motor peoples I do not see any lateralizing deficits. [id number] no past-pointing. Gait is withheld. Toes are downgoing. LABORATORY DATA Reviewed her CBC. MCV is 106.9. Her platelets are 331,000, RDW 18.8. Chemistries, sodium was 133, GFR is 80. LFTs are normal except alk phos is 166, lipase 134. IMAGING STUDIES Abdomen and pelvis CT shows a 3.1 cm stable left internal gland mass, large adenoma or metastatic lesion could have this appearance. There is new mild compressive changes in the inferior aspect of the L2 vertebral body, high density material in the lateral aspect of the sacrum. Liver duct dilatation. Chest x-ray persistent mass in left hilum and left lower lobe atelectasis or consolidation. CT angiography no PE. IMPRESSION A 76-year-old woman with chronic migraines. At home she currently takes amitriptyline. She cannot really tell me how many times a day. I see they have her on it twice daily 10 milligrams here. She is also on Seroquel here and [place] p.r.n. Also on primidone 250 milligrams t.i.d. Recommend that she has used triptans in the past, given her history of cardiac disease I would not use any triptans such as sumatriptan, etc. Will put her on some low-dose Depakote 500 milligrams at bedtime ER. Continue with the tricyclic and p.r.n. pain medication. If she has not had a scan of her head recently it should be considered given her history of lung cancer. In going into her records here from previous scans I do not see any mention of any scan of the brain and will go ahead and get a brain scan as well as put her on Depakote ER 500 milligrams p.o., she can take p.o. at bedtime. Continue her Elavil 10 milligrams b.i.d. MD LOLA Navas/KENDRA /4:41 PM /6:35 PM
[2016-09-30] MEDS ORDERED: GADODIAMIDE PF 287 MG/ML 10 ML VIAL (for RAD MRI) IV ONE (20:45)
[2016-09-30] MEDS: QUEtiapine FUMARATE 100 MG TAB PO SCH (22:26)
[2016-09-30] MEDS: ATORVASTATIN 80 MG TAB PO SCH (22:26)
--- NOTE | 2016-09-30 23:27 | RADRPT ---
EXAM DATE/TIME: 09/30/2016 20:10 [facility] COMPARISON: No previous studies available for comparison. INDICATIONS : Metastatic disease. Dizzy. Weakness. CONTRAST: 10 cc Omniscan (gadodiamide) IV MEDICAL HISTORY : Carcinoma, lung. Hypertension. Diabetes mellitus type 2. COPD. CVA. AR. SURGICAL HISTORY : Hysterectomy. Cholecystectomy. Appendectomy. Right hip. Left femur. ENCOUNTER: Subsequent ACUITY: 2 day PAIN SCORE: 0/10 LOCATION: head. TECHNIQUE: Multiplanar, multisequence MRI of the brain was performed both prior to and following the administrat ion of paramagnetic contrast. FINDINGS: There are mild to moderate changes of chronic ischemic demyelinization in the periventricular white m atter. No mass, hemorrhage or recent infarction. Ventricles mildly prominent. Postcontrast images reveal no abnormal enhancing lesions. CONCLUSION: 1. No evidence for metastatic disease to the brain. Chronic white matter ischemic changes. Mild ventr icular enlargement. Tyler Judd MD on September 30, 2016 at 23:21 Board Certified Radiologist. This report was verified electronically.
[2016-10-01] VITALS (11 sets, daily range): BP systolic 145–158; BP diastolic 63–98; PULSE 50–68; RESP 18–20; TEMP 97.5–98; O2SAT 93–98
[2016-10-01] MEDS: HYDROmorphone HCL PF 1 MG/ML VIAL IV PUSH PRN ×5 (00:30→20:15)
[2016-10-01] MEDS: SODIUM CHLOR 0.9% 1000 ML INJ 1,000 ML IV SCH ×2 (04:55→20:15)
[2016-10-01] MEDS: RESP: IPRATROPIUM 0.5 MG/2.5 ML NEB NEB SCH ×3 (05:08→16:00)
--- NOTE | 2016-10-01 05:25 | MB ---
cc: MARÍA FELIPE DATE OF 1940. DATE OF CONSULTATION September 29, 2016 REASON FOR CONSULTATION Patient with a history of lung carcinoma who presents to the emergency room with intractable back pain and headaches. HISTORY OF PRESENT ILLNESS This is a 76-year-old female who has a diagnosis of extensive stage small-cell lung cancer. She is currently undergoing chemotherapy treatments with carboplatin and etoposide. She was diagnosed with small-cell lung cancer in early 2016 when she was found to have a spiculated mass in the left upper lobe abutting the mediastinum. She was found to have a 3.5 x 3.3 x 2.3-cm mass in the left upper lobe. These findings were confirmed by a PET scan. The patient was also found to have left adrenal mass. The patient has been noncompliant with clinic follow-ups and treatment schedule. She received her last chemotherapy approximately 2 weeks ago. She now presents to the emergency department with intractable pain, particularly she is complaining of back pain. She also has a headache. She does have a longstanding history of migraines and she sees a neurologist. In the emergency department CTA of the chest was obtained. This revealed a 4.5-cm mass in the posterior left hilar region extending into the left lower lobe. There was atelectasis and postobstructive changes seen in the more posterior-inferior aspect of the left lower lobe. There was widespread emphysematous changes. No evidence of pulmonary embolism was seen. She also had a CT scan of the abdomen and pelvis. This showed a right renal cyst and a 3.1-cm left adrenal mass. There was no evidence of any progressive disease on the CT of the abdomen and pelvis. Neurology was consulted to address her acute episode of migraines. An MRI of the brain has been ordered which is pending. The patient appears to be quite weak and deconditioned. She denies any chest pain. She denies any shortness of breath. No abdominal pain, no lower extremity edema or pain. It should be noted that high-density material in the lateral aspect of the sacrum was seen and she has had intervention to this area in the past. Additionally there are new mild compressive changes in the inferior aspect of the L2 vertebral body. Her ECOG performance status is 2. REVIEW OF SYSTEMS A comprehensive 14-point review of systems was completed which is negative except as described in the HPI. PAST MEDICAL HISTORY 1. Extensive stage small-cell lung cancer. 2. Tobacco abuse. 3. Emphysema, COPD. 4. Chronic back pain. 5. History of fall with spinal fracture status post repair at [facility]. 6. Chronic migraines. PAST SURGICAL HISTORY 1. Lung biopsy. 2. Spinal surgery. 3. Cholecystectomy. 4. Hysterectomy. 5. Appendectomy. 6. Colon surgery for colitis. FAMILY HISTORY Reviewed and is noncontributory to this admission. SOCIAL HISTORY She has more than 60 pack-year smoking history. She continues to smoke. No illicit drug use. No alcohol abuse. FAMILY HISTORY Reviewed and is noncontributory to this admission. MEDICATIONS Reviewed in the EMR. ALLERGIES She is allergic to PENICILLIN G. PHYSICAL EXAMINATION VITAL SIGNS: Blood pressure is 137/65, pulse in the 70s, temperature is 98.2, O2 sats are 95% on 2 liters of nasal cannula. GENERAL: Acutely ill patient who is was frail and elderly. HEENT: Pupils are equal, round, react to light. EOMI. No oral thrush. No oral lesions. NECK: Supple. No JVD, no bruits, no lymphadenopathy. CHEST: Bilateral scattered rhonchi. Occasional expiratory wheezes. CARDIAC: S1, S2. Regular rate and rhythm. ABDOMEN: Soft, nontender, nondistended. Bowel sounds are present. EXTREMITIES: Without any edema, erythema or cyanosis. SKIN: Without any petechiae, lesion or bruises. NEURO: No focal deficits. PSYCHIATRIC: Mood and affect is appropriate. LABS WBC is 7.9, hemoglobin 12.4, MCV 106.9, platelet count 331. Serum chemistries show sodium of 133, potassium 4, CO2 30.6, creatinine 0.71, total bilirubin is 0.3, direct bilirubin is 0.1, indirect bilirubin is 0.2, AST is 26, ALT is 19, alk phos is 166, total CK is 45. Troponins are 0.04. IMAGING STUDIES Reviewed in the EMR. ASSESSMENT AND PLAN This is a 76-year-old female who has a history of extensive stage small-cell lung cancer who is currently being treated with systemic chemotherapy. She has received four cycles of carboplatin and etoposide. She presents to the emergency department with back pain and acute episodes of migraine headaches. 1. New onset headache. Could be related to her previous history of migraines. Given her history of extensive stage small-cell lung cancer, we need to obtain an MRI of the brain to make sure there is no metastatic disease to the brain. We will continue supportive care. Treatment of migraine per Neurology. 2. Extensive stage small-cell lung cancer. I have reviewed her CT scans and actually the scans show improvement in her disease compared to previously. Her left hilar mass is actually smaller compared to previously, also she has known disease to the adrenal gland and this also has decreased in size. I had a long discussion with the patient. She has been noncompliant with her clinic visits, lab followups, etc. I emphasized compliance. Currently she is too deconditioned and has new onset symptoms of headache. We need to obtain an MRI of brain, as stated above. Further treatment will be given outpatient. 3. Back pain. She has had a fall in the past and has had spinal surgery. If she continues to have lower back pain, we may consider obtaining an MRI of the lumbar and thoracic spine. Based on the CT scans there is no evidence of any new disease in the spine. Thank you for allowing me to participate in the care of this patient. I will continue to follow this patient along. MD DAGMAR Rinaldi/BAHMAN /11:21 PM /4:59 AM MTDD
[2016-10-01] MEDS: LEVOTHYROXINE SODIUM 100 MCG TAB PO SCH (06:21)
[2016-10-01 07:26] LABS: HEMATOCRIT 29.2 % (35.0-46.0); MEAN CELL VOLUME 107.3 FL (80.0-100.0); MEAN CORPUSCULAR HEMOGLOBIN 36.8 PG (27.0-34.0); MEAN CORPUSCULAR HGB CONC 34.3 % (32.0-36.0); PLATELET COUNT 251 TH/MM3 (150-450); RED BLOOD COUNT 2.72 MIL/MM3 (4.00-5.30); RED CELL DISTRIBUTION WIDTH 18.6 % (11.6-17.2); REVIEW FLAG FINAL; WHITE BLOOD COUNT 5.6 TH/MM3 (4.0-11.0)
[2016-10-01 07:41] LABS: BICARBONATE 31.2 MEQ/L (21.0-32.0)
[2016-10-01] MEDS: RESP: ALBUTEROL 2.5 MG/IPRATROPIUM 0.5 MG NEB (SCH) NEB ×3 (07:41→19:26)
--- NOTE | 2016-10-01 08:49 | MB ---
cc: ARLYN RUELAS M.D., SUNIL P. M.D. RICCI, DONATO R. M.D. OUNG, TWETHIDA MD DATE OF CONSULTATION 09/30/16 DATE OF 1940 REASON FOR CONSULTATION: I have been asked to see the patient at the request of the Dr. Tanner for dysphagia HISTORY OF PRESENT ILLNESS The patient is a pleasant 76-year-old white female who unfortunately has a history of small cell lung cancer with metastasis. She presented to the hospital with back pain and left hip pain. The pain was 10/10. The pain is better at present. The patient has also had cough and congestion, left-sided chest pain and a cold for several days. It turns out that when she eats she coughs a bit and she did have a speech swallow study done here in the hospital and it did not show any overt aspiration but she was a candidate for a soft diet with thin liquids. The speech pathologist suggested that the patient may benefit from GI consultation. The patient does admit some dysphagia solids more than liquids in the throat area. There has been no odynophagia, early satiety. She has had some nausea but no vomiting. Denies any problem with her bowels currently but she has had constipation in the past. There has been no melena, hematochezia, no diarrhea, fever or chills. She has had intermittent weight loss. She is undergoing chemotherapy. PAST MEDICAL HISTORY Asthma. She has lung cancer-small cell which is metastatic. She has had cardiovascular problems. Dyslipidemia. Chemotherapy. She has had gastroesophageal reflux disease, hiatal hernia, hypertension, right knee fracture, right hip problems, neurologic problems, hypothyroidism, [place]. Irritable bowel syndrome, diabetes mellitus, hypertension, possible gastroparesis. The patient also has a history of ischemic colitis. She had a colonoscopy reveal adenomatous colon polyps in February 2013. At the same time she had and EGD and it showerd gastritis and Beltran's esophagus but there is no celiac disease. PAST HISTORY Includes cholecystectomy, appendectomy. Total hysterectomy. She usually wears dentures. She had hip surgery. She has had some type of bowel obstruction with surgery. FAMILY HISTORY Significant for gallstones, colon polyps in the family. Peptic ulcer disease in the family. SOCIAL HISTORY Does not currently drink. She does smoke. ALLERGIES ALLERGIES ARE PENICILLIN AND GRASS POLLEN. MEDICATIONS Inpatient include: 1. Depakote. 2. Lipitor. 3. Seroquel. 4. Albuterol. 5. Mucinex. 6. [place]. 7. Phenergan 8. Atrovent. 9. Misty-Colace. 10. Elavil. 11. Norvasc. 12. Coreg. 13. Aricept. 14. HydroDIURIL. 15. Lactinex. 16. Synthroid. 17. Prinivil. 18. Primidone. 19. Protonix. 20. Lovenox. 21. Xanax. 22. Zofran. 23. Narcan. 24. Milk of Magnesia. 25. Senokot. 26. Dulcolax. 27. Lactulose. 28. Dilaudid. Of note, according to the ER doctor the patient was getting Xarelto but she did not get that in the hospital. REVIEW OF SYSTEMS Intermittent weight loss. No fever or chills. CARDIOPULMONARY: No chest pain, palpitations, shortness of breath right now. GASTROINTESTINAL: Please see above. She has several hip and back issues which are better now. PHYSICAL EXAMINATION VITAL SIGNS: Blood pressure 137/65, pulse of 76, respirations 18, temperature 98.2. GENERAL: She is an elderly, very disheveled appearing white female resting comfortably, at this time appears, in no acute GI distress. She does have nasal oxygen on. HEENT: Her pupils are equal and reactive to light. No obvious scleral icterus. Oropharynx had dental caries. No tongue deviation or candidal lesion. Hearing was intact. NECK: Neck is supple. No thyromegaly or lymphadenopathy. LUNGS: The lungs clear to auscultation. HEART: Regular rate, rhythm. No gross murmurs heard. ABDOMEN: Soft, nondistended, nontender. No organomegaly, masses. EXTREMITIES: No clubbing, cyanosis or edema. NEURO: Cranial nerves II-XII are grossly intact. I did not assess her gait nor do rectal examination on her. She is alert and oriented times three. SKIN: Skin was warm and dry. DATABASE The patient had a CT scan of the abdomen and pelvis with contrast done which revealed a stable left adrenal gland mass. There is some compression of L2 vertebral body. There appears to be some high density material in the lateral sacrum. The bile duct appears to be dilated, reflected in reservoir phenomenon. There is a renal cyst. The patient also had a CT pulmonary angiogram which revealed large left hilar mass, some prominent mediastinal lymph nodes. There is no pulmonary embolus. There is widespread COPD and a left adrenal mass. A modified barium swallow revealed that she tolerated liquids and regularly consistent foods without overt symptoms of aspiration. This is a soft diet with thin liquids. Laboratories revealed alk phos was slightly elevated at 166 but her total bilateral was 0.03, SGOT 23, SGPT of 19. CPKs have been negative. Lipase 134 is normal. BUN 6, creatinine of 0.71. PT of 9.9, INR 0.9. PTT 26.3, hemoglobin 12.4, hematocrit 35.9, MCV elevated at 106.9. White blood cell continue of 7900, platelet count 331,000. A simple chest x-ray renal mass left hilum and possible left lower lobe atelectasis or consolidation. ASSESSMENT/PLAN 1. Dysphagia to solids more than liquids in her throat area. When I walked in the room she was drinking/eating soup without problems. We talked about differential including hollis esophagitis-however, she does not have any type of odynophagia. This could be reflux and spasm or possibly even peptic stricture. Malignancy has not been excluded. She does have a swollen mediastinal lymph node and perhaps one of the lymph nods is pushing on the esophagus itself. 2. History of lung cancer and metastasis. 3. Elevated alkaline phosphatase-probably from a bony source rather than the liver source. Her bile duct is elevated but I think there is a reservoir effect from the gallbladder rather than some new pathology. She has no pain in her right upper quadrant at the time and all the LFTS are normal. 4. History of adenomatous colon polyps. 5. History of Beltran's esophagus. RECOMMENDATIONS 1. According to the records the patient is not on Xarelto, however, she is on Lovenox. I would hold Lovenox for anticipation of an upper endoscopy with dilatation tomorrow afternoon. 2. We talked about doing upper endoscopy as an outpatient or an inpatient, she wants this done while she is here. Will pursue upper endoscopy and dilatation tomorrow. She understands the indications, risks, complications, benefits and alternatives of the procedure, include risk of bleeding, perforation, infection, mediastinitis and the small possibility of . She understands she is at higher risk because of her clinical status but she wishes to proceed. 3. Further recommendations depend what the above upper endoscopy shows. Continue on Protonix/PPI for now. MD LUDIN Shaw/KENDRA /5:31 PM /8:34 AM SÁNCHEZ
[2016-10-01] MEDS: DOCUSATE SODIUM 50 MG/SENNA 8.6 MG TAB PO SCH ×2 (08:51→20:14)
[2016-10-01] MEDS: LISINOPRIL 20 MG TAB PO SCH (08:51)
[2016-10-01] MEDS: PRIMIDONE 250 MG TAB PO SCH ×3 (08:51→17:13)
[2016-10-01] MEDS: PANTOPRAZOLE SOD 20 MG DELAYED RELEASE TAB PO SCH (08:51)
[2016-10-01] MEDS: guaiFENesin E.R. 600 MG TAB PO SCH ×2 (08:52→20:14)
[2016-10-01] MEDS: AMITRIPTYLINE HCL 10 MG TAB PO SCH ×2 (08:52→20:14)
[2016-10-01] MEDS: DONEPEZIL HCL 5 MG TAB PO SCH (08:52)
[2016-10-01] MEDS: HYDROCHLOROTHIAZIDE 25 MG TAB PO SCH (08:52)
[2016-10-01] MEDS: LACTOBACILLUS ACIDOPHILUS TAB PO SCH ×3 (08:52→17:13)
[2016-10-01] MEDS: SODIUM CHLORIDE 0.9% FLUSH 10 ML FLUSH IV FLUSH SCH ×2 (08:52→20:15)
[2016-10-01] MEDS: CARVEDILOL 3.125 MG TAB PO SCH ×2 (09:00→20:14)
[2016-10-01] MEDS: DIVALPROEX SODIUM E.R. 500 MG TAB PO SCH (09:07)
--- NOTE | 2016-10-01 12:16 | PD.ONC.PN ---
Subjective Subjective Remarks Afebrile overnight. waiting to go down for EGD with dilation. c/o pain in right leg, aching in nature and waxing and waning. still has headache, "on the top of my head." Objective Data Date Time Temp Pulse Resp B/P Pulse Ox O2 Delivery O2 Flow Rate FiO2 10/01/16 09:14 68 10/01/16 07:42 93 Nasal Cannula 2.00 10/01/16 05:11 97 Nasal Cannula 2.00 10/01/16 04:00 Nasal Cannula 2.00 10/01/16 04:00 97.5 53 18 157/70 96 10/01/16 00:00 98.0 50 18 145/63 97 09/30/16 21:30 59 09/30/16 20:00 98.3 63 18 153/65 97 09/30/16 20:00 Nasal Cannula 2.00 09/30/16 17:43 98 Nasal Cannula 2.00 09/30/16 16:00 98.1 62 16 150/65 94 09/30/16 14:25 98 Nasal Cannula 2.00 10/01/16 10/01/16 10/01/16 07:00 15:00 23:00 Intake Total 411 ml Output Total 800 ml Balance -389 ml Result Diagram: 10/01/16 0630 10/01/16 0630 Laboratory Results Laboratory Tests Test 10/01/16 06:30 White Blood Count 5.6 TH/MM3 Red Blood Count 2.72 MIL/MM3 Hemoglobin 10.0 GM/DL Hematocrit 29.2 % Mean Corpuscular Volume 107.3 FL Mean Corpuscular Hemoglobin 36.8 PG Mean Corpuscular Hemoglobin 34.3 % Concent Red Cell Distribution Width 18.6 % Platelet Count 251 TH/MM3 Mean Platelet Volume 8.1 FL Sodium Level 135 MEQ/L Potassium Level 4.0 MEQ/L Chloride Level 99 MEQ/L Carbon Dioxide Level 31.2 MEQ/L Anion Gap 5 MEQ/L Blood Urea Nitrogen 5 MG/DL Creatinine 0.58 MG/DL Estimat Glomerular Filtration 101 ML/MIN Rate Random Glucose 73 MG/DL Calcium Level 8.2 MG/DL Administered Medications Medications (Trade) Dose Ordered Sig/Shade Route PRN Reason Start Time Stop Time Status Last Admin Dose Admin Ondansetron HCl (Zofran Inj) 4 mg Q6H PRN IVP NAUSEA OR VOMITING 09/29/16 22:00 09/30/16 22:26 Senna/Docusate Sodium (Misty-Colace) 1 tab BID PO 09/30/16 09:00 10/01/16 08:51 Hydromorphone HCl (Dilaudid Pf Inj) 0.5 mg Q3H PRN IV PUSH pain >5 09/29/16 22:00 10/01/16 06:22 Amitriptyline HCl (Elavil) 10 mg BID PO 09/30/16 09:00 10/01/16 08:52 Amlodipine Besylate (Norvasc) 10 mg DAILY PO 09/30/16 09:00 10/01/16 08:51 Atorvastatin Calcium (Lipitor) 80 mg HS PO 09/30/16 21:00 09/30/16 22:26 Carvedilol (Coreg) 3.125 mg Q12HR PO 09/30/16 09:00 09/30/16 22:27 Donepezil HCl (Aricept) 10 mg DAILY PO 09/30/16 09:00 10/01/16 08:52 Hydrochlorothiazide (Hydrodiuril) 50 mg DAILY PO 09/30/16 09:00 10/01/16 08:52 Lactobacillus Acidophilus (Lactinex) 1 tab TID PO 09/30/16 09:00 10/01/16 08:52 Levothyroxine Sodium (Synthroid) 100 mcg DAILY@0600 PO 09/30/16 09:00 10/01/16 06:21 Primidone (Mysoline) 250 mg TID PO 09/30/16 09:00 10/01/16 08:51 Quetiapine Fumarate (SEROquel) 100 mg HS PO 09/30/16 21:00 09/30/16 22:26 Lisinopril (Prinivil) 40 mg DAILY PO 09/30/16 09:00 10/01/16 08:51 Pantoprazole Sodium (Protonix) 20 mg DAILY PO 09/30/16 09:00 10/01/16 08:51 Enoxaparin Sodium 40 mg 40 mg Q24H SQ 09/30/16 09:00 Hold 09/30/16 09:59 Sodium Chloride (NS 1000 ml Inj) 1,000 ml @ 60 mls/hr [id number] IV 09/30/16 12:15 09/30/16 14:01 Guaifenesin (Mucinex Er) 600 mg BID PO 09/30/16 14:00 10/01/16 08:52 Acetaminophen/ Hydrocodone Bitart ([place] 5-325 Mg) 2 tab Q4H PRN PO pain 8-10 09/30/16 13:15 09/30/16 22:26 Divalproex Sodium (Depakote Er) 500 mg DAILY PO 10/01/16 09:00 10/01/16 09:07 Objective Remarks GENERAL: Elderly female upright in bed. SKIN: Warm and dry. HEAD: Normocephalic. EYES: No injection or drainage. NECK: Supple, trachea midline. CARDIOVASCULAR: Regular rate and rhythm RESPIRATORY: diminished at bases. anterior núñez with occasional rhonchi. on 2L O2 via NC GASTROINTESTINAL: Abdomen soft, non-tender, nondistended. EXTREMITIES: No cyanosis NEUROLOGICAL: awake and alert, normal speech. Assessment/Plan Problem List: (1) Metastatic lung cancer (metastasis from lung to other site) Status: Acute Plan: once discharged, follow up in clinic for further treatment. no inpatient treatment planned. History: --currently undergoing chemotherapy treatments with carboplatin and etoposide (s /p 4 cycles) --was diagnosed with small-cell lung cancer in early 2016 when she was found to have a spiculated mass in the left upper lobe abutting the mediastinum. She was found to have a 3.5 x 3.3 x 2.3-cm mass in the left upper lobe. These findings were confirmed by a PET scan. The patient was also found to have left adrenal mass. --has been noncompliant with clinic follow-ups and treatment schedule. --received her last chemotherapy 2 weeks ago. --CTA of the chest, 09/29 revealed a 4.5-cm mass in the posterior left hilar region extending into the left lower lobe. No evidence of pulmonary embolism was seen. --CT scan abdomen and pelvis showed a right renal cyst and a 3.1-cm left adrenal mass. no evidence of any progressive disease on the CT of the abdomen and pelvis. --Her left hilar mass is actually smaller compared to previously, also she has known disease to the adrenal gland and this also has decreased in size. I had a long discussion with the patient. (2) Headache Status: Acute Plan: --New onset headache. Could be related to her previous history of migraines. --MRI of the brain shows no mets --Treatment of migraine per Neurology. (3) Intractable back pain Status: Acute Plan: -- has had a fall in the past and has had spinal surgery. --If she continues to have lower back pain, we may consider obtaining an MRI of the lumbar and thoracic spine. --Based on the CT scan there is no evidence of any new disease in the spine. (4) Dysphagia Status: Acute Plan: --GI following, EGD with dilation 10/01 Assessment 76y/o female with a history of lung carcinoma admitted with intractable back pain and headaches. h/o Extensive stage small-cell lung cancer. Tobacco abuse. Emphysema, COPD. Chronic back pain. History of fall with spinal fracture status post repair at [facility]. Chronic migraines. Lung biopsy. Spinal surgery. Cholecystectomy. Hysterectomy. Appendectomy. Colon surgery for colitis. Plan 1. continue pain management 2. await EGD with dilation today 3. supportive care Attending Statement The exam, history, and the medical decision-making described in the above note were completed with the assistance of the mid-level provider. I reviewed and agree with the findings presented. I attest that I had a [id number] encounter with the patient on the same day, and personally performed and documented my assessment and findings in the medical record. MRI brain does not show any metastatic disease EGD today Pain control supportive care Dorcas Evans Oct 01, 2016 12:16 Evangelist Tracy MD Oct 01, 2016 22:46
--- NOTE | 2016-10-01 13:33 | HHI.PR ---
Subjective Remarks Follow for multiple medical complaints listed in the assessment/plan Patient stated her migraine headache is the same. She still feels like she has upset stomach and feels nauseous. Denied any pain. Her [id number] and grandson are at the bedside during the interview. Objective Vitals Vital Signs Date Time Temp Pulse Resp B/P Pulse Ox O2 Delivery O2 Flow Rate FiO2 10/01/16 12:00 97.9 61 20 147/64 93 10/01/16 12:00 Nasal Cannula 2.00 10/01/16 09:14 68 10/01/16 08:00 Nasal Cannula 2.00 10/01/16 08:00 97.5 58 18 146/98 93 10/01/16 07:42 93 Nasal Cannula 2.00 10/01/16 05:11 97 Nasal Cannula 2.00 10/01/16 04:00 Nasal Cannula 2.00 10/01/16 04:00 97.5 53 18 157/70 96 10/01/16 00:00 98.0 50 18 145/63 97 09/30/16 21:30 59 09/30/16 20:00 98.3 63 18 153/65 97 09/30/16 20:00 Nasal Cannula 2.00 09/30/16 17:43 98 Nasal Cannula 2.00 09/30/16 16:00 98.1 62 16 150/65 94 09/30/16 14:25 98 Nasal Cannula 2.00 I/O 09/30/16 09/30/16 09/30/16 10/01/16 10/01/16 10/01/16 07:00 15:00 23:00 07:00 15:00 23:00 Intake Total 120 ml 784 ml 411 ml Output Total 250 ml 440 ml 800 ml Balance -130 ml 344 ml -389 ml Intake Oral 120 ml 240 ml 0 ml IV Total 544 ml 411 ml Output Urine Total 250 ml 440 ml 800 ml # Bowel Movements 0 2 0 Result Diagram: 10/01/16 0630 10/01/16 0630 Imaging Last Impressions Brain MRI 09/30/16 0000 Signed Impressions: Service Date/Time: September 20:10 - CONCLUSION: 1. No evidence for metastatic disease to the brain. Chronic white matter ischemic changes. Mild ventricular enlargement. Tyler Judd MD Chest X-Ray 09/29/16 1726 Signed Impressions: Service Date/Time: Thursday, September 29, 2016 17:24 - CONCLUSION: There is persistent mass in the left hilum and left lower lobe atelectasis or consolidation. No significant change is seen. Chinedu Bautista MD CT Angiography 09/29/16 0000 Signed Impressions: Service Date/Time: Thursday, September 29, 2016 20:19 - CONCLUSION: 1. No pulmonary embolus. 2. Large left hilar mass with atelectasis or postobstructive change in the left lower lobe. There are mildly prominent mediastinal lymph nodes again seen. 3. Widespread emphysematous change. 4. Left adrenal mass. Chinedu Bautista MD Abdomen/Pelvis CT 09/29/16 0000 Signed Impressions: Service Date/Time: Thursday, September 29, 2016 20:22 - CONCLUSION: 1. 3.1 cm stable left internal gland mass. Nonspecific. A large adenoma or metastatic lesion could have this appearance. 2. New mild compressive changes at the inferior aspect of the L2 vertebral body. 3. High density material in the lateral aspect of the sacrum presumably from prior intervention. 4. The liver duct dilatation likely reflecting a reservoir phenomenon following cholecystectomy. 5. Right renal cysts. Chinedu Bautista MD Objective Remarks GENERAL: In no acute distress and looks more comfortable compared to yesterday. NECK: Supple, trachea midline. No JVD or lymphadenopathy. CARDIOVASCULAR: Regular rate and rhythm without murmurs, gallops, or rubs. RESPIRATORY: Clear to auscultation bilaterally. No accessory muscle use. GASTROINTESTINAL: Abdomen soft, non-tender, nondistended. MUSCULOSKELETAL: No cyanosis, or edema. BACK: Nontender without obvious deformity. No CVA tenderness. Medications and IVs Current Medications Sodium Chloride (NS Flush) 2 ml UNSCH PRN IVF FLUSH AFTER USING IV ACCESS; Start 09/29/16 at 17:30; Stop 09/29/16 at 21:55; Status DC Hydromorphone HCl (Dilaudid Pf Inj) 0.5 mg ONCE ONCE IV PUSH Last administered on 09/29/16 19:47; Start 09/29/16 at 19:15; Stop 09/29/16 at 19:16 ; Status DC Ondansetron HCl (Zofran Inj) 4 mg ONCE ONCE IV PUSH Last administered on 19:47; Start 09/29/16 at 19:15; Stop 09/29/16 at 19:16; Status DC Albuterol/ Ipratropium (Duoneb Neb) 1 ampule Q15M INH Last administered on 09/29 19:43; Start 09/29/16 at 19:15; Stop 09/29/16 at 19:31; Status DC Ondansetron HCl (Zofran Inj) 4 mg ONCE ONCE IV PUSH ; Start 09/29/16 at 19:15; Stop 09/29/16 at 19:17; Status DC Sodium Chloride (NS Flush) 2 ml UNSCH PRN IV FLUSH FLUSH AFTER USING IV ACCESS ; Start 09/29/16 at 22:00 Sodium Chloride (NS Flush) 2 ml BID IV FLUSH ; Start 09/30/16 at 09:00 Ondansetron HCl (Zofran Inj) 4 mg Q6H PRN IVP NAUSEA OR VOMITING Last administered on 09/30/16 22:26; Start 09/29/16 at 22:00 Naloxone HCl (Narcan Inj) 0.4 mg UNSCH PRN IV SEE LABEL COMMENTS; Start at 22:00 Senna/Docusate Sodium (Misty-Colace) 1 tab BID PO Last administered on 08:51; Start 09/30/16 at 09:00 Magnesium Hydroxide (Milk Of Magnesia Liq) 30 ml Q12H PRN PO MILD - MODERATE CONSTIPATION; Start 09/29/16 at 22:00 Sennosides (Senokot) 17.2 mg Q12H PRN PO MODERATE - SEVERE CONSTIPATION; Start 09/29/16 at 22:00 Bisacodyl (Dulcolax Supp) 10 mg DAILY PRN RECTAL SEVERE CONSITIPATION; Start at 22:00 Lactulose (Lactulose Liq) 30 ml DAILY PRN PO SEVERE CONSITIPATION; Start at 22:00 Hydromorphone HCl (Dilaudid Pf Inj) 0.5 mg Q3H PRN IV PUSH pain >5 Last administered on 10/01/16 12:42; Start 09/29/16 at 22:00 Oxycodone HCl (Roxicodone) 5 mg ONCE ONCE PO ; Start 09/30/16 at 01:00; Stop at 01:01; Status DC Alprazolam (Xanax) 0.25 mg Q6H PRN PO ANXIETY; Start 09/30/16 at 08:00 Amitriptyline HCl (Elavil) 10 mg BID PO Last administered on 10/01/16 08:52; Start 09/30/16 at 09:00 Amlodipine Besylate (Norvasc) 10 mg DAILY PO Last administered on 10/01/16 08: 51; Start 09/30/16 at 09:00 Atorvastatin Calcium (Lipitor) 80 mg HS PO Last administered on 09/30/16 22:26 ; Start 09/30/16 at 21:00 Carvedilol (Coreg) 3.125 mg Q12HR PO Last administered on 09/30/16 22:27; Start 09/30/16 at 09:00 Donepezil HCl (Aricept) 10 mg DAILY PO Last administered on 10/01/16 08:52; Start 09/30/16 at 09:00 Hydrochlorothiazide (Hydrodiuril) 50 mg DAILY PO Last administered on 08:52; Start 09/30/16 at 09:00 Ipratropium [place] (Atrovent Neb) 0.5 mg Q6HR NEB NEB Last administered on 05:08; Start 09/30/16 at 10:00 Lactobacillus Acidophilus (Lactinex) 1 tab TID PO Last administered on 12:41; Start 09/30/16 at 09:00 Levothyroxine Sodium (Synthroid) 100 mcg DAILY@0600 PO Last administered on 06:21; Start 09/30/16 at 09:00 Ondansetron HCl (Zofran Odt) 4 mg Q6HR PRN SL Nausea/Vomiting; Start 09/30/16 at 08:00 Primidone (Mysoline) 250 mg TID PO Last administered on 10/01/16 12:41; Start 09/30/16 at 09:00 Quetiapine Fumarate (SEROquel) 100 mg HS PO Last administered on 09/30/16 22: 26; Start 09/30/16 at 21:00 Lisinopril (Prinivil) 40 mg DAILY PO Last administered on 10/01/16 08:51; Start 09/30/16 at 09:00 Pantoprazole Sodium (Protonix) 20 mg DAILY PO Last administered on 10/01/16 08 :51; Start 09/30/16 at 09:00 Enoxaparin Sodium (Lovenox Inj) 40 mg Q24H SQ Last administered on 09/30/16 09 :59; Start 09/30/16 at 09:00; Status Hold Iohexol (Omnipaque 350 Inj) 80 ml STK-MED ONCE IV Last administered on 18:02; Start 09/29/16 at 18:02; Stop 09/30/16 at 11:14; Status DC Promethazine HCl (Phenergan Supp) 12.5 mg Q4H PRN RECTAL NAUSEA OR VOMITING; Start 09/30/16 at 12:15 Albuterol/ Ipratropium 1 ampule 1 ampule Q6HR WHILE AWAKE NEB NEB Last administered on 10/01/16 07:41; Start 09/30/16 at 14:00 Sodium Chloride (NS 1000 ml Inj) 1,000 ml @ 60 mls/hr [id number] IV Last administered on 09/30/16 14:01; Start 09/30/16 at 12:15 Guaifenesin (Mucinex Er) 600 mg BID PO Last administered on 10/01/16 08:52; Start 09/30/16 at 14:00 Acetaminophen/ Hydrocodone Bitart ([place] 5-325 Mg) 1 tab Q4H PRN PO pain 1-7; Start 09/30/16 at 13:15 Acetaminophen/ Hydrocodone Bitart ([place] 5-325 Mg) 2 tab Q4H PRN PO pain 8-10 Last administered on 09/30/16 22:26; Start 09/30/16 at 13:15 Divalproex Sodium (Depakote Er) 500 mg DAILY PO Last administered on 10/01/16 09:07; Start 10/01/16 at 09:00 Gadodiamide (Omniscan Pf Inj) 10 ml STK-MED ONCE IV Last administered on 20:45; Start 09/30/16 at 20:45; Stop 09/30/16 at 20:46; Status DC A/P Assessment and Plan 76-year-old female history of migraines and lung cancer who presented with severe headache, abdominal pain, nausea/vomiting and severe lower back pain Intractable lower back pain -CT scan shows L2 compression fracture. Per patient's daughter patient had cemented place recently. She felt like this has not helped patient. -Recommend conservative management with pain control. -Per daughter patient has a TLSO brace at home but does not use it. -Back pain better controlled current regimen. Lung cancer -Patient is seeing oncologist. Oncologist following and stated that mass has improved. -CTA of chest scan showed large left hilar mass with atelectasis or postobstructive change in the left lower lobe. -Continue home Mucinex. -Patient does have a mild obstruction will give DuoNeb's. Left adrenal mass -This may be metastatic versus adenoma. -Oncologist following and stated that mass has improved. Dysphagia/Nausea -GI consulted. Patient scheduled for EGD with possible dilatation today. Migraines -Patient is on amitriptyline for prophylaxis. She stated taking sumatriptan when necessary. Per neurologist they do not recommend sumatriptan since patient has cardiac issues. -Patient was started on Depakote. -MRI of the head was done which showed no metastases. DVT prophylaxiswith Lovenox. Dealt with patient, her [id number], and grandson. Adelina Tabares MD Oct 01, 2016 13:33
[2016-10-01] MEDS ORDERED: PROPOFOL 200 MG/20 ML AMP IV PUSH ONE (16:00)
--- NOTE | 2016-10-01 16:10 | GIPROC ---
[facility] [address] [facility]. [facility] [place], [address] EGD PROCEDURE REPORT EXAM DATE: 10/01/2016 PATIENT NAME: Lupe Craig MR #: [id number] BIRTHDATE: 1940 ATTENDING: Kem Pavon MD ORDER #: [id number] BROOMCORN THRESHER: Scotty Dobbs and Sydney Goodwin STATUS: inpatient INDICATIONS: The patient is a 76 yr old female here for an EGD due to dysphagia PROCEDURE PERFORMED: EGD w/ dilation of esophagus via guidewire MEDICATIONS: None and Per Anesthesia. TOPICAL ANESTHETIC: none CONSENT: The patient understands the risks and benefits of the procedure and understands that these risks include, but are not limited to: sedation, allergic reaction, infection, perforation and/or bleeding. Alternative means of evaluation and treatment include, among others: physical exam, x-rays, and/or surgical intervention. The patient elects to proceed with this endoscopic procedure. medical equipment was checked for proper function. Hand hygiene and appropriate measures for infection prevention was taken. After the risks, benefits and alternatives of the procedure were thoroughly explained, Informed consent was verified, confirmed and timeout was successfully executed by the treatment team. The patient was anesthetized with topical anesthesia and the Pentax [id number] endoscope was introduced through the mouth and advanced to the third portion of the duodenum. Retroflexion was performed and was normal The gastroscope was then slowly withdrawn and removed. ESOPHAGUS: The GE Junction was located 37cm from the incisors. There was a 1cm segment of Beltran's esophagus found at the gastroesophageal junction. The esophagus was otherwise normal. Cervical resistence was noted-no lesions seen. The stricture was dilated using a 15mm (45Fr) savary dilator over guidewire. Following this dilation, there was no change in the appearance of the stricture. STOMACH: Bile was noted in the stomach-suctioned. The stomach otherwise appeared normal. DUODENUM: The duodenal mucosa appeared normal. ADVERSE EVENTS: There were no complications. IMPRESSIONS: 1. The GE Junction was located 37cm from the incisors 2. There was a 1cm segment of Beltran's esophagus found at the gastroesophageal junction 3. The esophagus was otherwise normal 4. Cervical resistence was noted-no lesions seen 5. Bile was noted in the stomach-suctioned 6. The stomach otherwise appeared normal 7. Normal duodenal mucosa 8. Retroflexion was performed and was normal RECOMMENDATIONS: Resume Diet and Lovenox PATIENT CONDITION: stable DISPOSITION: Inpatient REPEAT EXAM: NONE Kem Pavon MD eSigned: Kem Pavon MD 10/01/2016 4:10 PM cc: PATIENT NAME: Lupe Craig MR#: [id number]
[2016-10-01] MEDS ORDERED: FLUMAZENIL 0.5 MG/5 ML VIAL IV PRN ×2 (16:15)
[2016-10-01] MEDS ORDERED: NALOXONE HCL 0.4 MG/ML AMP IV PRN (16:15)
[2016-10-01] MEDS ORDERED: DO NOT ADM ANY ANTICOAGULANT DRUGS PRN (17:15)
[2016-10-01] MEDS: QUEtiapine FUMARATE 100 MG TAB PO SCH (20:14)
[2016-10-01] MEDS: ATORVASTATIN 80 MG TAB PO SCH (20:14)
[2016-10-01] MEDS: ONDANSETRON HCL 4 MG/2 ML VIAL IVP PRN (20:14)
[2016-10-02] VITALS (8 sets, daily range): BP systolic 115–197; BP diastolic 58–75; PULSE 59–92; RESP 18–21; TEMP 97.1–97.9; O2SAT 91–100
[2016-10-02] MEDS: RESP: IPRATROPIUM 0.5 MG/2.5 ML NEB NEB SCH (03:36)
[2016-10-02] MEDS: SODIUM CHLOR 0.9% 1000 ML INJ 1,000 ML IV SCH (05:34)
[2016-10-02] MEDS: LEVOTHYROXINE SODIUM 100 MCG TAB PO SCH (05:34)
[2016-10-02 05:55] LABS: HEMATOCRIT 29.5 % (35.0-46.0); MEAN CELL VOLUME 107.5 FL (80.0-100.0); MEAN CORPUSCULAR HEMOGLOBIN 36.1 PG (27.0-34.0); MEAN CORPUSCULAR HGB CONC 33.6 % (32.0-36.0); PLATELET COUNT 256 TH/MM3 (150-450); RED BLOOD COUNT 2.74 MIL/MM3 (4.00-5.30); RED CELL DISTRIBUTION WIDTH 18.1 % (11.6-17.2); REVIEW FLAG FINAL; WHITE BLOOD COUNT 5.2 TH/MM3 (4.0-11.0)
[2016-10-02 06:10] LABS: BICARBONATE 30.4 MEQ/L (21.0-32.0); POTASSIUM 3.8 MEQ/L (3.5-5.1)
[2016-10-02] MEDS: RESP: ALBUTEROL 2.5 MG/IPRATROPIUM 0.5 MG NEB (SCH) NEB ×3 (08:06→19:59)
[2016-10-02] MEDS: SODIUM CHLORIDE 0.9% FLUSH 10 ML FLUSH IV FLUSH SCH ×2 (09:00→20:37)
[2016-10-02] MEDS: AMITRIPTYLINE HCL 10 MG TAB PO SCH ×2 (09:46→20:38)
[2016-10-02] MEDS: DONEPEZIL HCL 5 MG TAB PO SCH (09:46)
[2016-10-02] MEDS: CARVEDILOL 3.125 MG TAB PO SCH ×2 (09:46→20:38)
[2016-10-02] MEDS: DIVALPROEX SODIUM E.R. 500 MG TAB PO SCH (09:46)
[2016-10-02] MEDS: PANTOPRAZOLE SOD 20 MG DELAYED RELEASE TAB PO SCH (09:47)
[2016-10-02] MEDS: HYDROCHLOROTHIAZIDE 25 MG TAB PO SCH (09:47)
[2016-10-02] MEDS: LISINOPRIL 20 MG TAB PO SCH (09:47)
[2016-10-02] MEDS: PRIMIDONE 250 MG TAB PO SCH ×3 (09:47→17:20)
[2016-10-02] MEDS: guaiFENesin E.R. 600 MG TAB PO SCH (09:47)
[2016-10-02] MEDS: LACTOBACILLUS ACIDOPHILUS TAB PO SCH ×3 (09:47→17:20)
[2016-10-02] MEDS: DOCUSATE SODIUM 50 MG/SENNA 8.6 MG TAB PO SCH ×2 (09:47→20:38)
[2016-10-02] MEDS: ENOXAPARIN SODIUM 40 MG/0.4 ML SYRINGE SQ SCH (09:48)
[2016-10-02] MEDS: HYDROmorphone HCL PF 1 MG/ML VIAL IV PUSH PRN (10:01)
--- NOTE | 2016-10-02 10:39 | PD.ONC.PN ---
Subjective Subjective Remarks Afebrile overnight. Patient resting in bed. Tolerated EGD with dilation yesterday and is eating breakfast without difficulty this morning. still having right sided leg pain. Objective Data Date Time Temp Pulse Resp B/P Pulse Ox O2 Delivery O2 Flow Rate FiO2 10/02/16 08:07 92 Nasal Cannula 3.00 10/02/16 08:00 97.7 76 21 171/73 91 10/02/16 06:58 97.7 63 18 147/65 92 10/02/16 00:57 97.1 69 18 128/61 94 10/02/16 00:57 Nasal Cannula 2.00 10/01/16 20:05 Nasal Cannula 2.00 10/01/16 20:05 97.8 66 18 158/69 98 10/01/16 20:00 66 10/01/16 19:26 93 Nasal Cannula 2.00 10/01/16 18:03 97.8 65 20 158/70 96 10/01/16 16:30 98.3 66 23 149/65 100 Nasal Cannula 2 10/01/16 16:20 62 21 129/49 100 Nasal Cannula 2 10/01/16 16:15 60 21 134/58 100 Nasal Cannula 2 10/01/16 16:13 98.3 65 20 136/64 100 Nasal Cannula 2 10/01/16 12:00 97.9 61 20 147/64 93 10/01/16 12:00 Nasal Cannula 2.00 10/02/16 10/02/16 10/02/16 07:00 15:00 23:00 Intake Total 739 ml Output Total 350 ml Balance 389 ml Result Diagram: 10/02/16 0535 10/02/16 0535 Laboratory Results Laboratory Tests Test 10/02/16 05:35 White Blood Count 5.2 TH/MM3 Red Blood Count 2.74 MIL/MM3 Hemoglobin 9.9 GM/DL Hematocrit 29.5 % Mean Corpuscular Volume 107.5 FL Mean Corpuscular Hemoglobin 36.1 PG Mean Corpuscular Hemoglobin 33.6 % Concent Red Cell Distribution Width 18.1 % Platelet Count 256 TH/MM3 Mean Platelet Volume 7.8 FL Sodium Level 133 MEQ/L Potassium Level 3.8 MEQ/L Chloride Level 97 MEQ/L Carbon Dioxide Level 30.4 MEQ/L Anion Gap 6 MEQ/L Blood Urea Nitrogen 9 MG/DL Creatinine 0.55 MG/DL Estimat Glomerular Filtration 107 ML/MIN Rate Random Glucose 70 MG/DL Calcium Level 8.0 MG/DL Administered Medications Medications (Trade) Dose Ordered Sig/Shaed Route PRN Reason Start Time Stop Time Status Last Admin Dose Admin Ondansetron HCl (Zofran Inj) 4 mg Q6H PRN IVP NAUSEA OR VOMITING 09/29/16 22:00 10/01/16 20:14 Senna/Docusate Sodium (Misty-Colace) 1 tab BID PO 09/30/16 09:00 10/02/16 09:47 Hydromorphone HCl (Dilaudid Pf Inj) 0.5 mg Q3H PRN IV PUSH pain >5 09/29/16 22:00 10/02/16 10:01 Alprazolam (Xanax) 0.25 mg Q6H PRN PO ANXIETY 09/30/16 08:00 10/02/16 05:34 Amitriptyline HCl (Elavil) 10 mg BID PO 09/30/16 09:00 10/02/16 09:46 Amlodipine Besylate (Norvasc) 10 mg DAILY PO 09/30/16 09:00 10/02/16 09:47 Atorvastatin Calcium (Lipitor) 80 mg HS PO 09/30/16 21:00 10/01/16 20:14 Carvedilol (Coreg) 3.125 mg Q12HR PO 09/30/16 09:00 10/02/16 09:46 Donepezil HCl (Aricept) 10 mg DAILY PO 09/30/16 09:00 10/02/16 09:46 Hydrochlorothiazide (Hydrodiuril) 50 mg DAILY PO 09/30/16 09:00 10/02/16 09:47 Lactobacillus Acidophilus (Lactinex) 1 tab TID PO 09/30/16 09:00 10/02/16 09:47 Levothyroxine Sodium (Synthroid) 100 mcg DAILY@0600 PO 09/30/16 09:00 10/02/16 05:34 Primidone (Mysoline) 250 mg TID PO 09/30/16 09:00 10/02/16 09:47 Quetiapine Fumarate (SEROquel) 100 mg HS PO 09/30/16 21:00 10/01/16 20:14 Lisinopril (Prinivil) 40 mg DAILY PO 09/30/16 09:00 10/02/16 09:47 Pantoprazole Sodium (Protonix) 20 mg DAILY PO 09/30/16 09:00 10/02/16 09:47 Enoxaparin Sodium 40 mg 40 mg Q24H SQ 09/30/16 09:00 10/02/16 09:48 Sodium Chloride (NS 1000 ml Inj) 1,000 ml @ 60 mls/hr [id number] IV 09/30/16 12:15 10/02/16 05:34 Guaifenesin (Mucinex Er) 600 mg BID PO 09/30/16 14:00 10/02/16 09:47 Acetaminophen/ Hydrocodone Bitart ([place] 5-325 Mg) 2 tab Q4H PRN PO pain 8-09/30/16 13:15 09/30/16 22:26 Divalproex Sodium (Depakote Er) 500 mg DAILY PO 10/01/16 09:00 10/02/16 09:46 Objective Remarks GENERAL: Elderly female sitting up in bed in [facility]. SKIN: Warm and dry. HEAD: Normocephalic. EYES: No injection or drainage. NECK: Supple, trachea midline. CARDIOVASCULAR: Regular rate and rhythm RESPIRATORY: diminished at bases. anterior núñez clear. on 3L O2 via NC GASTROINTESTINAL: Abdomen soft, non-tender, nondistended. EXTREMITIES: No cyanosis NEUROLOGICAL: awake and alert, normal speech. moving all extremities. Assessment/Plan Problem List: (1) Metastatic lung cancer (metastasis from lung to other site) Status: Acute Plan: once discharged, follow up in clinic for further treatment. no inpatient treatment planned. History: --currently undergoing chemotherapy treatments with carboplatin and etoposide (s /p 4 cycles) --was diagnosed with small-cell lung cancer in early 2016 when she was found to have a spiculated mass in the left upper lobe abutting the mediastinum. She was found to have a 3.5 x 3.3 x 2.3-cm mass in the left upper lobe. These findings were confirmed by a PET scan. The patient was also found to have left adrenal mass. --has been noncompliant with clinic follow-ups and treatment schedule. --received her last chemotherapy 2 weeks ago. --CTA of the chest, 09/29 revealed a 4.5-cm mass in the posterior left hilar region extending into the left lower lobe. No evidence of pulmonary embolism was seen. --CT scan abdomen and pelvis showed a right renal cyst and a 3.1-cm left adrenal mass. no evidence of any progressive disease on the CT of the abdomen and pelvis. --Her left hilar mass is actually smaller compared to previously, also she has known disease to the adrenal gland and this also has decreased in size. I had a long discussion with the patient. (2) Headache Status: Acute Plan: --New onset headache. Could be related to her previous history of migraines. --MRI of the brain shows no mets --Treatment of migraine per Neurology. (3) Intractable back pain Status: Acute Plan: -- has had a fall in the past and has had spinal surgery. --If she continues to have lower back pain, we may consider obtaining an MRI of the lumbar and thoracic spine. --Based on the CT scan there is no evidence of any new disease in the spine. (4) Dysphagia Status: Acute Plan: --eating regular diet now. --GI following, EGD with dilation 10/01 Assessment 76y/o female with a history of lung carcinoma admitted with intractable back pain and headaches. h/o Extensive stage small-cell lung cancer. Tobacco abuse. Emphysema, COPD. Chronic back pain. History of fall with spinal fracture status post repair at [facility]. Chronic migraines. Lung biopsy. Spinal surgery. Cholecystectomy. Hysterectomy. Appendectomy. Colon surgery for colitis. Plan 1. continue pain management 2. continue diet as tolerated 3. supportive care Attending Statement The exam, history, and the medical decision-making described in the above note were completed with the assistance of the mid-level provider. I reviewed and agree with the findings presented. I attest that I had a [id number] encounter with the patient on the same day, and personally performed and documented my assessment and findings in the medical record. Dorcas Evans Oct 02, 2016 10:38 Evangelist Tracy MD Oct 02, 2016 18:23
[2016-10-02] MEDS ORDERED: guaiFENesin ER PO (11:40)
[2016-10-02] MEDS ORDERED: SENN1TAB PO (11:40)
[2016-10-02] MEDS ORDERED: HYDR-3583 PO (11:40)
[2016-10-02] MEDS ORDERED: GABA100C4 PO (11:40)
[2016-10-02] MEDS ORDERED: DEPA500T3 PO (11:40)
--- NOTE | 2016-10-02 12:20 | HHI.GIFU ---
GI Follow-up Note Consult Follow-up Subjective: Patient laying in bed comfortably from the GI standpoint. States her swallowing is better after the EGD/Dil Objective: PHYSICAL EXAMINATION: Vitals signs stable No fever CARDIAC: Regular rate and rhythm with no murmur gallop or rubs. ABDOMEN: Soft, nondistended, nontender; no hepatosplenomegaly; bowel sounds are present in all four quadrants. EXTREMITIES: No edema. SKIN: no jaundice. SEASONAL [place] BUNDLER: alert and oriented times three. Available Data (labs, X- Rays, Procedues) : ASSESSMENT/PLAN: 1. Dysphagia-better after EGD and dilation. 2. History of lung cancer and metastasis. 3. Elevated alkaline phosphatase-probably from a bony source rather than the liver source. Her bile duct is elevated but I think there is a reservoir effect from the gallbladder rather than some new pathology. She has no pain in her right upper quadrant at the time and all the LFTS are normal. 4. History of adenomatous colon polyps. 5. History of Beltran's esophagus-not re-biopsied PLAN: 1. Cont PPI 2. will see again as needed as an inpt. Upon D/C she needs an appt with her GI ( Dr. Stokes) It was a pleasure seeing Lupe Craig. Thank you for this consult. Entered by: Kem Escobedo MD Oct 02, 2016 12:20
[2016-10-02] MEDS: ONDANSETRON HCL 4 MG/2 ML VIAL IVP PRN (13:52)
[2016-10-02] MEDS: ACETAMINOPHEN/HYDROcodone 325 MG/5 MG TAB PO PRN ×2 (13:52→20:40)
[2016-10-02] MEDS: GABAPENTIN 100 MG CAP PO SCH ×2 (13:53→17:20)
--- NOTE | 2016-10-02 15:42 | HHI.PR ---
Subjective Remarks Follow-up for multiple medical issues as an assessment plan Patient complaining of right upper leg pain. She said it started after the procedure yesterday. Pain described as a sharp shooting pain. Otherwise she says she feels great. Denies any upset stomach, nausea or vomiting. She said that she is tolerating oral intake. She stated her headache resolved. Patient is very anxious to go home. Objective Vitals Vital Signs Date Time Temp Pulse Resp B/P Pulse Ox O2 Delivery O2 Flow Rate FiO2 10/02/16 12:00 97.8 69 20 197/75 91 10/02/16 11:58 92 Nasal Cannula 2.00 10/02/16 11:56 18 10/02/16 08:07 92 Nasal Cannula 3.00 10/02/16 08:00 97.7 76 21 171/73 91 10/02/16 06:58 97.7 63 18 147/65 92 10/02/16 00:57 97.1 69 18 128/61 94 10/02/16 00:57 Nasal Cannula 2.00 10/01/16 20:05 Nasal Cannula 2.00 10/01/16 20:05 97.8 66 18 158/69 98 10/01/16 20:00 66 10/01/16 19:26 93 Nasal Cannula 2.00 10/01/16 18:03 97.8 65 20 158/70 96 10/01/16 16:30 98.3 66 23 149/65 100 Nasal Cannula 2 10/01/16 16:20 62 21 129/49 100 Nasal Cannula 2 10/01/16 16:15 60 21 134/58 100 Nasal Cannula 2 10/01/16 16:13 98.3 65 20 136/64 100 Nasal Cannula 2 I/O 10/01/16 10/01/16 10/01/16 10/02/16 10/02/16 10/02/16 06:59 14:59 22:59 06:59 14:59 22:59 Intake Total 411 ml 459 ml 987 ml 739 ml 260 ml Output Total 800 ml 650 ml 350 ml Balance -389 ml 459 ml 337 ml 389 ml 260 ml Intake Oral 0 ml 410 ml 240 ml 260 ml IV Total 411 ml 459 ml 477 ml 499 ml Other 100 ml Output Urine Total 800 ml 650 ml 350 ml Estimated Blood Loss 0 ml # Voids 5 # Bowel Movements 0 0 0 Result Diagram: 10/02/16 0535 10/02/16 0535 Imaging Last Impressions Brain MRI 09/30/16 0000 Signed Impressions: Service Date/Time: September 20:10 - CONCLUSION: 1. No evidence for metastatic disease to the brain. Chronic white matter ischemic changes. Mild ventricular enlargement. Tyler Judd MD Chest X-Ray 09/29/16 1726 Signed Impressions: Service Date/Time: Thursday, September 29, 2016 17:24 - CONCLUSION: There is persistent mass in the left hilum and left lower lobe atelectasis or consolidation. No significant change is seen. Chinedu Bautista MD CT Angiography 09/29/16 0000 Signed Impressions: Service Date/Time: Thursday, September 29, 2016 20:19 - CONCLUSION: 1. No pulmonary embolus. 2. Large left hilar mass with atelectasis or postobstructive change in the left lower lobe. There are mildly prominent mediastinal lymph nodes again seen. 3. Widespread emphysematous change. 4. Left adrenal mass. Chinedu Bautista MD Abdomen/Pelvis CT 09/29/16 0000 Signed Impressions: Service Date/Time: Thursday, September 29, 2016 20:22 - CONCLUSION: 1. 3.1 cm stable left internal gland mass. Nonspecific. A large adenoma or metastatic lesion could have this appearance. 2. New mild compressive changes at the inferior aspect of the L2 vertebral body. 3. High density material in the lateral aspect of the sacrum presumably from prior intervention. 4. The liver duct dilatation likely reflecting a reservoir phenomenon following cholecystectomy. 5. Right renal cysts. Chinedu Bautista MD Objective Remarks GENERAL: In no acute distress and looks more comfortable compared to yesterday. NECK: Supple, trachea midline. No JVD or lymphadenopathy. CARDIOVASCULAR: Regular rate and rhythm without murmurs, gallops, or rubs. RESPIRATORY: Clear to auscultation bilaterally. No accessory muscle use. GASTROINTESTINAL: Abdomen soft, non-tender, nondistended. MUSCULOSKELETAL: No cyanosis, or edema. Right leg full ROM of hip. 5/5 LR strength. BACK: Nontender without obvious deformity. No CVA tenderness. Medications and IVs Current Medications Sodium Chloride (NS Flush) 2 ml UNSCH PRN IVF FLUSH AFTER USING IV ACCESS; Start 09/29/16 at 17:30; Stop 09/29/16 at 21:55; Status DC Hydromorphone HCl (Dilaudid Pf Inj) 0.5 mg ONCE ONCE IV PUSH Last administered on 09/29/16 19:47; Start 09/29/16 at 19:15; Stop 09/29/16 at 19:16 ; Status DC Ondansetron HCl (Zofran Inj) 4 mg ONCE ONCE IV PUSH Last administered on 19:47; Start 09/29/16 at 19:15; Stop 09/29/16 at 19:16; Status DC Albuterol/ Ipratropium (Duoneb Neb) 1 ampule Q15M INH Last administered on 09/29 19:43; Start 09/29/16 at 19:15; Stop 09/29/16 at 19:31; Status DC Ondansetron HCl (Zofran Inj) 4 mg ONCE ONCE IV PUSH ; Start 09/29/16 at 19:15; Stop 09/29/16 at 19:17; Status DC Sodium Chloride (NS Flush) 2 ml UNSCH PRN IV FLUSH FLUSH AFTER USING IV ACCESS ; Start 09/29/16 at 22:00 Sodium Chloride (NS Flush) 2 ml BID IV FLUSH ; Start 09/30/16 at 09:00 Ondansetron HCl (Zofran Inj) 4 mg Q6H PRN IVP NAUSEA OR VOMITING Last administered on 10/02/16 13:52; Start 09/29/16 at 22:00 Naloxone HCl (Narcan Inj) 0.4 mg UNSCH PRN IV SEE LABEL COMMENTS; Start at 22:00 Senna/Docusate Sodium (Misty-Colace) 1 tab BID PO Last administered on 09:47; Start 09/30/16 at 09:00 Magnesium Hydroxide (Milk Of Magnesia Liq) 30 ml Q12H PRN PO MILD - MODERATE CONSTIPATION; Start 09/29/16 at 22:00 Sennosides (Senokot) 17.2 mg Q12H PRN PO MODERATE - SEVERE CONSTIPATION; Start 09/29/16 at 22:00 Bisacodyl (Dulcolax Supp) 10 mg DAILY PRN RECTAL SEVERE CONSITIPATION; Start at 22:00 Lactulose (Lactulose Liq) 30 ml DAILY PRN PO SEVERE CONSITIPATION; Start at 22:00 Hydromorphone HCl (Dilaudid Pf Inj) 0.5 mg Q3H PRN IV PUSH pain >5 Last administered on 10/02/16 10:01; Start 09/29/16 at 22:00 Oxycodone HCl (Roxicodone) 5 mg ONCE ONCE PO ; Start 09/30/16 at 01:00; Stop at 01:01; Status DC Alprazolam (Xanax) 0.25 mg Q6H PRN PO ANXIETY Last administered on 10/02/16 05 :34; Start 09/30/16 at 08:00 Amitriptyline HCl (Elavil) 10 mg BID PO Last administered on 10/02/16 09:46; Start 09/30/16 at 09:00 Amlodipine Besylate (Norvasc) 10 mg DAILY PO Last administered on 10/02/16 09: 47; Start 09/30/16 at 09:00 Atorvastatin Calcium (Lipitor) 80 mg HS PO Last administered on 10/01/16 20:14 ; Start 09/30/16 at 21:00 Carvedilol (Coreg) 3.125 mg Q12HR PO Last administered on 10/02/16 09:46; Start 09/30/16 at 09:00 Donepezil HCl (Aricept) 10 mg DAILY PO Last administered on 10/02/16 09:46; Start 09/30/16 at 09:00 Hydrochlorothiazide (Hydrodiuril) 50 mg DAILY PO Last administered on 09:47; Start 09/30/16 at 09:00 Ipratropium [place] (Atrovent Neb) 0.5 mg Q6HR NEB NEB Last administered on 05:08; Start 09/30/16 at 10:00 Lactobacillus Acidophilus (Lactinex) 1 tab TID PO Last administered on 13:53; Start 09/30/16 at 09:00 Levothyroxine Sodium (Synthroid) 100 mcg DAILY@0600 PO Last administered on 05:34; Start 09/30/16 at 09:00 Ondansetron HCl (Zofran Odt) 4 mg Q6HR PRN SL Nausea/Vomiting; Start 09/30/16 at 08:00 Primidone (Mysoline) 250 mg TID PO Last administered on 10/02/16 13:53; Start 09/30/16 at 09:00 Quetiapine Fumarate (SEROquel) 100 mg HS PO Last administered on 10/01/16 20: 14; Start 09/30/16 at 21:00 Lisinopril (Prinivil) 40 mg DAILY PO Last administered on 10/02/16 09:47; Start 09/30/16 at 09:00 Pantoprazole Sodium (Protonix) 20 mg DAILY PO Last administered on 10/02/16 09 :47; Start 09/30/16 at 09:00 Enoxaparin Sodium (Lovenox Inj) 40 mg Q24H SQ Last administered on 10/02/16 09 :48; Start 09/30/16 at 09:00 Iohexol (Omnipaque 350 Inj) 80 ml STK-MED ONCE IV Last administered on 18:02; Start 09/29/16 at 18:02; Stop 09/30/16 at 11:14; Status DC Promethazine HCl (Phenergan Supp) 12.5 mg Q4H PRN RECTAL NAUSEA OR VOMITING; Start 09/30/16 at 12:15 Albuterol/ Ipratropium 1 ampule 1 ampule Q6HR WHILE AWAKE NEB NEB Last administered on 10/02/16 08:06; Start 09/30/16 at 14:00 Sodium Chloride (NS 1000 ml Inj) 1,000 ml @ 60 mls/hr [id number] IV Last administered on 10/02/16 05:34; Start 09/30/16 at 12:15; Stop 10/02/16 at 15:29 ; Status DC Guaifenesin (Mucinex Er) 600 mg BID PO Last administered on 10/02/16 09:47; Start 09/30/16 at 14:00; Stop 10/02/16 at 15:30; Status DC Acetaminophen/ Hydrocodone Bitart ([place] 5-325 Mg) 1 tab Q4H PRN PO pain 1-7; Start 09/30/16 at 13:15 Acetaminophen/ Hydrocodone Bitart ([place] 5-325 Mg) 2 tab Q4H PRN PO pain 8-10 Last administered on 10/02/16 13:52; Start 09/30/16 at 13:15 Divalproex Sodium (Depakote Er) 500 mg DAILY PO Last administered on 10/02/16 09:46; Start 10/01/16 at 09:00 Gadodiamide (Omniscan Pf Inj) 10 ml STK-MED ONCE IV Last administered on 20:45; Start 09/30/16 at 20:45; Stop 09/30/16 at 20:46; Status DC Flumazenil (Romazicon Inj) 0.2 mg UNSCH X1 PRN IV OVERSEDATION; Start 10/01/16 at 16:15; Stop 10/02/16 at 16:14 Flumazenil (Romazicon Inj) 0.2 mg Q1M PRN IV OVERSEDATION; Start 10/01/16 at 16 :15; Stop 10/02/16 at 16:14 Naloxone HCl (Narcan Inj) 0.1 mg Q2M PRN IV OVERSEDATION; Start 10/01/16 at 16: 15; Stop 10/02/16 at 16:14 Propofol (Diprivan 200 Mg/20 ml Inj) 110 mg STK-MED ONCE IV PUSH ; Start at 16:00; Stop 10/01/16 at 16:22; Status DC Miscellaneous Information ALL NURSING DEPARTME... UNSCH PRN .XX SEE LABEL COMMENTS; Start 10/01/16 at 17:15; Stop 10/02/16 at 17:14 Gabapentin (Neurontin) 100 mg TID PO Last administered on 10/02/16 13:53; Start 10/02/16 at 13:00 Hydralazine HCl (Apresoline) 25 mg Q8HR PO ; Start 10/02/16 at 16:00 A/P Assessment and Plan 76-year-old female history of migraines and lung cancer who presented with severe headache, abdominal pain, nausea/vomiting and severe lower back pain Intractable lower back pain -CT scan shows L2 compression fracture. Per patient's daughter patient had cemented place recently. She felt like this has not helped patient. -Recommend conservative management with pain control. -Per daughter patient has a TLSO brace at home but does not use it. -Back pain better controlled current regimen. Right leg pain -Irritated after procedure. Sounds more of a radiculopathy. -Will give gabapentin to see if this help with pain. Continue with [place]. Lung cancer -Patient is seeing oncologist. Oncologist following and stated that mass has improved. -CTA of chest scan showed large left hilar mass with atelectasis or postobstructive change in the left lower lobe. -Discontinue Mucinex secondary to hypertension. -Patient does have a mild obstruction will give DuoNeb's. Left adrenal mass -This may be metastatic versus adenoma. -Oncologist following and stated that mass has improved. Dysphagia -Status post EGD and dilatation on 10/01 -Drastic improvement and tolerating oral intake. Migraines -Patient is on amitriptyline for prophylaxis. She stated taking sumatriptan when necessary. Per neurologist they do not recommend sumatriptan since patient has cardiac issues. -Patient was started on Depakote. -MRI of the head was done which showed no metastases. -Headache resolved on treatment. DVT prophylaxiswith Lovenox. Discharge Planning If pain is better control possible discharge tomorrow. d/w patient's nurse. Adelina Tabares MD Oct 02, 2016 15:42
[2016-10-02] MEDS: hydrALAZINE HCL 25 MG TAB PO SCH ×2 (17:23→20:38)
--- NOTE | 2016-10-02 18:18 | HHI.DCPOC ---
Discharge Care Plan Diagnosis: (1) Dysphagia (2) Headache (3) Intractable back pain (4) Metastatic lung cancer (metastasis from lung to other site) (5) Compression fracture of L2 Goals to Promote Your Health * To prevent worsening of your condition and complications * To maintain your health at the optimal level Directions to Meet Your Goals Take your medications as prescribed Follow your dietary instruction Follow activity as directed Keep your appointments as scheduled Take your immunizations and boosters as scheduled If your symptoms worsen call your PCP, if no PCP go to Urgent Care Center or Emergency Room Smoking is Dangerous to Your Health. Avoid second hand smoke Call the 24-hour hour crisis hotline for domestic abuse at Adelina Tabares MD Oct 02, 2016 18:18
[2016-10-02] MEDS: QUEtiapine FUMARATE 100 MG TAB PO SCH (20:37)
[2016-10-02] MEDS: ATORVASTATIN 80 MG TAB PO SCH (20:38)
[2016-10-03] VITALS: BP 136/64; PULSE 57; RESP 18; TEMP 97.3; O2SAT 93
[2016-10-03] MEDS: ACETAMINOPHEN/HYDROcodone 325 MG/5 MG TAB PO PRN ×2 (02:56→06:43)
[2016-10-03 04:00] VITALS: BP 141/65; PULSE 59; RESP 20; TEMP 97.4; O2SAT 95
[2016-10-03] MEDS: LEVOTHYROXINE SODIUM 100 MCG TAB PO SCH (06:10)
[2016-10-03] MEDS: hydrALAZINE HCL 25 MG TAB PO SCH (06:10)
--- NOTE | 2016-10-03 14:52 | PD.ONC.PN ---
Subjective Subjective Remarks AFebrile overnight. patient seen at 930am. late entry d/t medite[employer] downtime. eager to go home. no more headaches. still with some leg pain. Objective Data Date Time Temp Pulse Resp B/P (MAP) Pulse Ox O2 Delivery O2 Flow Rate FiO2 10/03/16 04:00 97.4 59 20 141/65 (90) 95 10/03/16 00:00 97.3 57 18 136/64 (88) 93 10/02/16 20:00 97.9 67 19 147/65 (92) 99 10/02/16 19:59 100 Nasal Cannula 3.00 10/02/16 19:45 Nasal Cannula 2.00 10/02/16 16:14 18 10/02/16 16:00 97.6 59 20 155/69 (97) 98 10/03/16 10/03/16 10/03/16 07:00 15:00 23:00 Intake Total 240 ml Output Total 500 ml Balance -260 ml Result Diagram: 10/02/16 0535 10/02/16 0535 Objective Remarks GENERAL: Elderly female upright in bed, on 3L O2 via NC SKIN: Warm and dry. HEAD: Normocephalic. EYES: No injection or drainage. NECK: Supple, trachea midline. CARDIOVASCULAR: Regular rate and rhythm RESPIRATORY: diminished at bases. anterior núñez clear. GASTROINTESTINAL: Abdomen soft, non-tender, nondistended. EXTREMITIES: No cyanosis NEUROLOGICAL: aox3.normal speech Assessment/Plan Problem List: (1) Metastatic lung cancer (metastasis from lung to other site) ICD Codes: C34.90 - Malignant neoplasm of unspecified part of unspecified bronchus or lung Status: Acute Plan: once discharged, follow up in clinic for further treatment. no inpatient treatment planned. History: --currently undergoing chemotherapy treatments with carboplatin and etoposide (s /p 4 cycles) --was diagnosed with small-cell lung cancer in early 2017 when she was found to have a spiculated mass in the left upper lobe abutting the mediastinum. She was found to have a 3.5 x 3.3 x 2.3-cm mass in the left upper lobe. These findings were confirmed by a PET scan. The patient was also found to have left adrenal mass. --has been noncompliant with clinic follow-ups and treatment schedule. --received her last chemotherapy 2 weeks ago. --CTA of the chest, 09/29 revealed a 4.5-cm mass in the posterior left hilar region extending into the left lower lobe. No evidence of pulmonary embolism was seen. --CT scan abdomen and pelvis showed a right renal cyst and a 3.1-cm left adrenal mass. no evidence of any progressive disease on the CT of the abdomen and pelvis. --Her left hilar mass is actually smaller compared to previously, also she has known disease to the adrenal gland and this also has decreased in size. I had a long discussion with the patient. (2) Headache ICD Codes: R51 - Headache Status: Resolved Plan: --New onset headache. Could be related to her previous history of migraines. --MRI of the brain shows no mets --Treatment of migraine per Neurology. (3) Intractable back pain ICD Codes: M54.9 - Dorsalgia, unspecified Status: Resolved Plan: -- has had a fall in the past and has had spinal surgery. --If she continues to have lower back pain, we may consider obtaining an MRI of the lumbar and thoracic spine. --Based on the CT scan there is no evidence of any new disease in the spine. (4) Dysphagia ICD Codes: R13.10 - Dysphagia, unspecified Status: Resolved Plan: --eating regular diet now. --GI following, EGD with dilation 10/01 Assessment 76y/o female with a history of lung carcinoma admitted with intractable back pain and headaches. h/o Extensive stage small-cell lung cancer. Tobacco abuse. Emphysema, COPD. Chronic back pain. History of fall with spinal fracture status post repair at [facility]. Chronic migraines. Lung biopsy. Spinal surgery. Cholecystectomy. Hysterectomy. Appendectomy. Colon surgery for colitis. Plan 1. continue pain management 2. follow up in clinic once discharged Attending Statement The exam, history, and the medical decision-making described in the above note were completed with the assistance of the mid-level provider. I reviewed and agree with the findings presented. I attest that I had a [id number] encounter with the patient on the same day, and personally performed and documented my assessment and findings in the medical record Dorcas Evans Oct 03, 2016 14:52 Evangelist Tracy MD Oct 08, 2016 10:06
--- NOTE | 2016-10-03 16:36 | HHI.DS ---
Discharge Summary Admission Date Sep 29, 2016 at 21:48 Discharge Date: Oct 03, 2016 Admitting Diagnosis intractable pain, small cell carcinoma, L3 mild compression fx (1) Intractable migraine ICD Code: G43.919 - Migraine, unspecified, intractable, without status migrainosus Diagnosis: Principal (2) Hypertension, uncontrolled ICD Code: I10 - Essential (primary) hypertension Diagnosis: Principal (3) Esophageal stricture ICD Code: K22.2 - Esophageal obstruction Diagnosis: Principal (4) Intractable back pain ICD Code: M54.9 - Dorsalgia, unspecified Diagnosis: Principal Status: Resolved (5) Metastatic lung cancer (metastasis from lung to other site) ICD Code: C34.90 - Malignant neoplasm of unspecified part of unspecified bronchus or lung Diagnosis: Secondary Status: Acute (6) Compression fracture of L2 ICD Code: S32.020A - Wedge compression fracture of second lumbar vertebra, initial encounter for closed fracture Diagnosis: Principal Status: Acute (7) Dysphagia ICD Code: R13.10 - Dysphagia, unspecified Diagnosis: Principal Status: Resolved Procedures See hospital course Brief History - From Admission pain in left hip inside left pain from cancer worse with breathing or when you cough lortab 10mg twice a day btu still need it sick to stomach did not vomit on zofran at home works better with prochloropramzine no fever coughing a lot, more than usual had trouble swallowing food cough a lot with food need esophagus stretch- dr stokes passed a kidney stone - probably today- had 2 before, now xray did not show no burnign or pain prior to that no diarrhea no blood in stool back pain for almost a year now- worse in past one week due to cough left lung cancer 2 weeks ago was last chemo no radiation CBC/BMP: 10/02/16 0535 10/02/16 0535 Significant Findings Laboratory Tests Test 10/01/16 06:30 10/02/16 05:35 Red Blood Count 2.72 MIL/MM3 (4.00-5.30) 2.74 MIL/MM3 (4.00-5.30) Hemoglobin 10.0 GM/DL (11.6-15.3) 9.9 GM/DL (11.6-15.3) Hematocrit 29.2 % (35.0-46.0) 29.5 % (35.0-46.0) Mean Corpuscular Volume 107.3 FL (80.0-100.0) 107.5 FL (80.0-100.0) Mean Corpuscular Hemoglobin 36.8 PG (27.0-34.0) 36.1 PG (27.0-34.0) Red Cell Distribution Width 18.6 % (11.6-17.2) 18.1 % (11.6-17.2) Blood Urea Nitrogen 5 MG/DL (7-18) Random Glucose 73 MG/DL (74-106) 70 MG/DL (74-106) Calcium Level 8.2 MG/DL (8.5-10.1) 8.0 MG/DL (8.5-10.1) Sodium Level 135 MEQ/L (136-145) 133 MEQ/L (136-145) Chloride Level 97 MEQ/L (98-107) Imaging Last Impressions Brain MRI 09/30/16 0000 Signed Impressions: Service Date/Time: September 20:10 - CONCLUSION: 1. No evidence for metastatic disease to the brain. Chronic white matter ischemic changes. Mild ventricular enlargement. Tyler Judd MD Chest X-Ray 09/29/16 1726 Signed Impressions: Service Date/Time: Thursday, September 29, 2016 17:24 - CONCLUSION: There is persistent mass in the left hilum and left lower lobe atelectasis or consolidation. No significant change is seen. Chinedu Bautista MD CT Angiography 09/29/16 0000 Signed Impressions: Service Date/Time: Thursday, September 29, 2016 20:19 - CONCLUSION: 1. No pulmonary embolus. 2. Large left hilar mass with atelectasis or postobstructive change in the left lower lobe. There are mildly prominent mediastinal lymph nodes again seen. 3. Widespread emphysematous change. 4. Left adrenal mass. Chinedu Bautista MD Abdomen/Pelvis CT 09/29/16 0000 Signed Impressions: Service Date/Time: Thursday, September 29, 2016 20:22 - CONCLUSION: 1. 3.1 cm stable left internal gland mass. Nonspecific. A large adenoma or metastatic lesion could have this appearance. 2. New mild compressive changes at the inferior aspect of the L2 vertebral body. 3. High density material in the lateral aspect of the sacrum presumably from prior intervention. 4. The liver duct dilatation likely reflecting a reservoir phenomenon following cholecystectomy. 5. Right renal cysts. Chinedu Bautista MD PE at Discharge GENERAL: In no acute distress and looks more comfortable compared to yesterday. NECK: Supple, trachea midline. No JVD or lymphadenopathy. CARDIOVASCULAR: Regular rate and rhythm without murmurs, gallops, or rubs. RESPIRATORY: Clear to auscultation bilaterally. No accessory muscle use. GASTROINTESTINAL: Abdomen soft, non-tender, nondistended. MUSCULOSKELETAL: No cyanosis, or edema. Right leg full ROM of hip. 5/5 LR strength. BACK: Nontender without obvious deformity. No CVA tenderness. Pt update on day of discharge Follow-up for multiple medical condition stated in assessment and plan. Patient stated that right leg pain has improved with gabapentin. She is tolerating oral intake. Patient is very anxious to go home. Patient stated that she is ambulating. She has no other complaints. Dealt with patient's nurse. Hospital Course 76-year-old female history of migraines and lung cancer who presented with severe headache, abdominal pain, nausea/vomiting and severe lower back pain Intractable lower back pain -CT scan shows L2 compression fracture. Per patient's daughter patient had cemented place recently. She felt like this has not helped patient. -Recommend conservative management with pain control. -Per daughter patient has a TLSO brace at home but does not use it. -Back pain better controlled with [place]. Right leg pain -Irritated after procedure. Sounds more of a radiculopathy. -Patient was put on gabapentin with improvement with the pain. Lung cancer -Patient is seeing oncologist. Oncologist following and stated that mass has improved. -CTA of chest scan showed large left hilar mass with atelectasis or postobstructive change in the left lower lobe. -Discontinue Mucinex secondary to hypertension. -Patient does have a mild obstruction. -Per oncologist follow-up as outpatient. Left adrenal mass -This may be metastatic versus adenoma. -Oncologist following and stated that mass has improved. Dysphagia -Status post EGD and dilatation on 10/01 -Drastic improvement and tolerating oral intake after procedure was done. -Per GI patient is a follow-up with her GI physician. Migraines -Patient is on amitriptyline for prophylaxis. She stated taking sumatriptan when necessary. Per neurologist they do not recommend sumatriptan since patient has cardiac issues. -Patient was started on Depakote. -MRI of the head was done which showed no metastases. -Headache resolved on treatment. Hypertensive urgency/hypertension -Worsened with Mucinex. Mucinex discontinue. Patient will put on hydralazine with improvement her blood pressure. Home medication was resumed. Pt Condition on Discharge: Stable Discharge Disposition: Discharge Home Discharge Time: > 30 minutes Discharge Instructions DIET: Follow Instructions for: Heart Healthy Diet Speech Therapy-Diet Recommends: Soft Activities you can perform: Regular-No Restrictions Follow up Referrals: Gastroenterology - [address] Stokes Oncology - [address] Tracy PCP Follow-up - 1 Week New Medications: Gabapentin (Gabapentin) 100 Mg Cap 100 MG PO TID for nerve type pain, #90 CAP 0 Refills Divalproex ER (Depakote ER) 500 Mg Ragini 500 MG PO DAILY for migraines, #30 TAB 0 Refills Sennosides-Docusate Sodium (Senna Plus 8.6-50 mg) 1 Tab Tab 1 TAB PO BID PRN for constipation, #20 TAB 0 Refills [guaiFENesin ER] () 600 MG TABCR 600 MG PO BID PRN for congestion, #30 TAB.SR 0 Refills Continued Medications: Alprazolam (Xanax) 0.25 Mg Tab 0.25 MG PO Q6H PRN for ANXIETY, TAB 0 Refills Amitriptyline (Amitriptyline) 10 Mg Tab 10 MG PO BID, TAB Amlodipine (Amlodipine) 10 Mg Tab 10 MG PO DAILY for Blood Pressure Management, #30 TAB 0 Refills Atorvastatin (Atorvastatin) 80 Mg Tab 80 MG PO HS for Cholesterol Management, #30 TAB 0 Refills HOLD THIS MEDICATION. RESTART AFTER COMPLETION OF FLUCONAZOLE THERAPY Calcium Carbonate-Cholecalciferol (Oyster Shell Calcium/Vitamin D) 250-125 Mg- Unit Tab 250 MG PO TID for vitamin for 30 Days, TAB Carvedilol (Coreg) 3.125 Mg Tab 3.125 MG PO Q12HR for heart for 30 Days, TAB Cholecalciferol (Vitamin D3) 1,000 Unit Tab 1000 UNITS PO DAILY for Nutritional Supplement, #1 BOTTLE 0 Refills Cyanocobalamin (B12) 1,000 Mcg Tab Unknown Dose PO DAILY Donepezil (Donepezil) 10 Mg Tab 10 MG PO DAILY for Dementia, #30 TAB 0 Refills Ergocalciferol (Vitamin D2) (Vitamin D) 400 Unit Tablet Ferrous Gluconate (Iron) 240 Mg Tablet Unknown Dose PO DAILY Hydrochlorothiazide (Hydrochlorothiazide) 25 Mg Tab 50 MG PO DAILY for blood pressure for 30 Days, TAB Hydrocodone-Acetaminophen (Hydrocodone-Acetaminophen) 10-325 mg Tab 1 TAB PO Q6H PRN for PAIN, #20 TAB 0 Refills (This prescription has been renewed ) Ipratropium Neb (Ipratropium Neb) 0.5 Mg/2.5 Ml Amp 0.5 MG NEB Q6HR NEB for Breathing Treatment, NEBULE 0 Refills Lactobacillus Acidophilus (Acidophilus/l-Sporogenes) 1 Tab Tab 1 TAB PO TID for Bowel Management, #30 TAB Levothyroxine (Levothyroxine) 100 Mcg Tab 100 MCG PO DAILY for Thyroid, #30 TAB 0 Refills Lisinopril (Lisinopril) 40 Mg Tab 40 MG PO DAILY for Blood Pressure Management, #30 TAB 0 Refills Magnesium Oxide (Magnesium) 400 Mg Tablet Unknown Dose PO DAILY Multiple Vitamin (Multi Vitamin Daily) 1 Tab Tab 1 TAB PO DAILY [place]-3 Fatty Acids (Fish Oil) 300 Mg Capsule Unknown Dose PO DAILY Omeprazole (Omeprazole) 20 Mg Tab 20 MG PO DAILY, #30 TAB 0 Refills Ondansetron Odt (Zofran Odt) 4 Mg Tab 4 MG SL Q6HR PRN for Nausea/Vomiting, #30 TAB 0 Refills Primidone (Primidone) 50 Mg Tab 250 MG PO TID for Control Seizures, #180 TAB 0 Refills Pyridoxine (B6 Natural) 100 Mg Tab Unknown Dose PO DAILY Quetiapine (Seroquel) 100 Mg Tab 100 MG PO HS, #30 TAB 0 Refills Vitamin E Mixed (Vitamin E) 100 Unit Tablet Unknown Dose PO DAILY Adelina Tabares MD Oct 03, 2016 16:35
== END 2016-10-03 13:18 | disposition home or self-care (01) | DRG 948 ==
LOC: NEPE 16:59 → OBSVTOIN 21:48 → NEDA 21:48 → N04B 09-30 02:15
PROVIDERS: ADMIT Family Medicine; ATTEND Family Medicine
PROC: 0D748ZZ Dilation of Esophagogastric Junction, Via Natural or Artificial Opening Endoscopic (ICD-10-PCS; principal; 2016-10-01 15:40)
DX: G89.3 Neoplasm related pain (acute) (chronic) (principal); C79.31 Secondary malignant neoplasm of brain; S32.020A Wedge compression fracture of second lumbar vertebra, initial encounter for closed fracture; E27.8 Other specified disorders of adrenal gland; J44.1 Chronic obstructive pulmonary disease with (acute) exacerbation; J98.11 Atelectasis; Z99.81 Dependence on supplemental oxygen; K22.2 Esophageal obstruction; E11.9 Type 2 diabetes mellitus without complications; N28.1 Cyst of kidney, acquired; R13.10 Dysphagia, unspecified; I10 Essential (primary) hypertension; E78.5 Hyperlipidemia, unspecified; K21.9 Gastro-esophageal reflux disease without esophagitis; K58.9 Irritable bowel syndrome, unspecified; E03.9 Hypothyroidism, unspecified; K44.9 Diaphragmatic hernia without obstruction or gangrene; I25.2 Old myocardial infarction; G43.919 Migraine, unspecified, intractable, without status migrainosus; M54.5 Low back pain; M54.10 Radiculopathy, site unspecified; I16.0 Hypertensive urgency; I25.10 Atherosclerotic heart disease of native coronary artery without angina pectoris; K22.70 Barrett's esophagus without dysplasia; N20.0 Calculus of kidney; Z85.118 Personal history of other malignant neoplasm of bronchus and lung; Z86.73 Personal history of transient ischemic attack (TIA), and cerebral infarction without residual deficits; Z91.19 Patient's noncompliance with other medical treatment and regimen; Z91.81 History of falling; Z92.21 Personal history of antineoplastic chemotherapy
CPT/HCPCS: 70553; 71010; 71275; 74177; 80048; 80076; 82550; 83690; 83735; 84484; 85025; 85027; 85379; 85610; 85730; 93005; 94640; 94664; 96374; 96375; 96376; A9579; C1769; J1170; J1650; J2405; J7030; J7644; Q9967

== ENCOUNTER 2016-10-16 02:14 | Emergency (ER) | payer MEDICARE, OTHER ==
[~2016-10-16] VITALS: Ht 157.5 cm; Wt 55.0 kg
[~2016-10-16 02:14] MED LIST changes: +ALPR.25 PO; +CYAN1TAB24 PO; +DEPA500T3 PO; +ERGO400T; +FERR240T8 PO; -FLUC200T2 PO; -FOLI1TAB4 PO; +GABA100C4 PO; +IPRA0.02 NEB; -IPRASOL NEB; -LORA1TAB12 PO; +MAGN400T24 PO; +MULT1TAB46 PO; -NORC5TAB PO; -NOVOLOGSS SQ; +OMEG300C5 PO; -PRED10 PO; -PRIM250T5 PO; +PRIM50TA5 PO; +PYRI1TAB5 PO; +SENN1TAB PO; +SERO100T PO; -VENTAER INH; +VITA100T67 PO; -XARE10TA PO; +guaiFENesin ER PO
[2016-10-16 02:20] VITALS: BP 163/70; PULSE 66; RESP 16; TEMP 98.1; O2SAT 97
[2016-10-16] MEDS ORDERED: SODIUM CHLORIDE 0.9% FLUSH 10 ML FLUSH IVF PRN (03:00)
[2016-10-16] MEDS ORDERED: TETANUS/DIPHTHERIA TOXOID ADULT 0.5 ML VIAL IM ONE (03:00)
--- NOTE | 2016-10-16 03:46 | RADRPT ---
EXAM DATE/TIME: 10/16/2016 03:17 [facility] COMPARISON: No previous studies available for comparison. INDICATIONS : Fell. MEDICAL HISTORY : Carcinoma, lung. Cardiovascular disease. Hypertension. SURGICAL HISTORY : Inf[place] ENCOUNTER: Initial ACUITY: 1 day PAIN SCORE: 10/10 LOCATION: pelvis FINDINGS: A single frontal view of the pelvis demonstrates bone cement overlying the sacrum bilaterally. Previo us sera and screw fixation of the proximal femora. Bones osteopenic. No acute bony abnormality identif ied. CONCLUSION: 1. Postsurgical change as above. Osteopenia. No acute fracture is seen. Tyler Judd MD on October 16, 2016 at 3:44 Board Certified Radiologist. This report was verified electronically.
--- NOTE | 2016-10-16 03:48 | RADRPT ---
EXAM DATE/TIME: 10/16/2016 03:12 [facility] COMPARISON: No previous studies available for comparison. INDICATIONS : Fell. Open wound on posterior hand. MEDICAL HISTORY : Carcinoma, lung. Cardiovascular disease. Hypertension. SURGICAL HISTORY : [place] ENCOUNTER: Initial ACUITY: 1 day PAIN SCORE: 10/10 LOCATION: Left upper extremity hand FINDINGS: Three view examination of the left hand demonstrates no dislocation, or fracture. The carpal bones appear intact. The interphalangeal and metacarpophalangeal joints are intact. Bony mineralization i s normal. CONCLUSION: 1. No acute bony abnormality. Soft tissue swelling on dorsum of hand. Tyler Judd MD on October 16, 2016 at 3:46 Board Certified Radiologist. This report was verified electronically.
--- NOTE | 2016-10-16 04:01 | RADRPT ---
EXAM DATE/TIME: 10/16/2016 03:49 [facility] COMPARISON: MRI BRAIN W & W/O CONTRAST, September 30, 2016, 20:10. INDICATIONS : Trauma. Fall. RADIATION DOSE: 28.50 CTDIvol (mGy) MEDICAL HISTORY : Carcinoma, lung. Hypertension. Chronic obstructive pulmonary disease.Seizures SURGICAL HISTORY : Appendectomy. Cholecystectomy.Hysterectomy. ENCOUNTER: Initial ACUITY: 1 day PAIN SCALE: 5/10 LOCATION: cranial TECHNIQUE: Multiple contiguous axial images were obtained of the head. Using automated exposure control and adj ustment of the mA and/or kV according to patient size, radiation dose was kept as low as reasonably a chievable to obtain optimal diagnostic quality images. DICOM format image data is available electro nically for review and comparison. FINDINGS: CEREBRUM: The ventricles are normal for age. No evidence of midline shift, mass lesion, hemorrhage or acute in farction. No extra-axial fluid collections are seen. POSTERIOR FOSSA: The cerebellum and brainstem are intact. The 4th ventricle is midline. The cerebellopontine angle i s unremarkable. EXTRACRANIAL: The visualized portion of the orbits is intact. SKULL: The calvaria is intact. No evidence of skull fracture. CONCLUSION: 1. No acute intracranial abnormalities. Tyler Judd MD on October 16, 2016 at 3:57 Board Certified Radiologist. This report was verified electronically.
[2016-10-16 04:04] LABS: AUTOMATED NEUTROPHIL # 2.6 TH/MM3 (1.8-7.7); BASOPHIL # 0.1 TH/MM3 (0-0.2); BASOPHIL % 1.4 % (0.0-2.0); EOSINOPHIL # 0.1 TH/MM3 (0-0.4); EOSINOPHIL % 2.9 % (0.0-4.0); HEMATOCRIT 33.6 % (35.0-46.0); HEMO FLAGS DIFF FINAL; LYMPHOCYTE # 1.4 TH/MM3 (1.0-4.8); MEAN CELL VOLUME 107.3 FL (80.0-100.0); MEAN CORPUSCULAR HEMOGLOBIN 36.4 PG (27.0-34.0); MONO % 13.1 % (0.0-8.0); NEUT % 54.6 % (16.0-70.0); PLATELET COUNT 219 TH/MM3 (150-450); RED BLOOD COUNT 3.13 MIL/MM3 (4.00-5.30); RED CELL DISTRIBUTION WIDTH 16.6 % (11.6-17.2); WHITE BLOOD COUNT 4.8 TH/MM3 (4.0-11.0)
--- NOTE | 2016-10-16 04:04 | RADRPT ---
EXAM DATE/TIME: 10/16/2016 03:18 [facility] COMPARISON: No previous studies available for comparison. INDICATIONS : Fell. Rib pain. MEDICAL HISTORY : Carcinoma, lung. Cardiovascular disease. Hypertension SURGICAL HISTORY : Infusaport ENCOUNTER: Initial ACUITY: 1 day PAIN SCORE: 10/10 LOCATION: Left ribs FINDINGS: No acute rib fracture identified on the left. [id number] present. There is chronic consolidation l eft lung base similar to September 29. Remote right third rib fracture. CONCLUSION: 1. No acute left-sided rib fractures. Chronic consolidation left lung base. Tyler Judd MD on October 16, 2016 at 4:00 Board Certified Radiologist. This report was verified electronically.
--- NOTE | 2016-10-16 04:06 | RADRPT ---
EXAM DATE/TIME: 10/16/2016 03:49 [facility] COMPARISON: No previous studies available for comparison. INDICATIONS : Trauma. Fall. RADIATION DOSE: 14.87 CTDIvol (mGy) MEDICAL HISTORY : Carcinoma, lung. Hypertension. Chronic obstructive pulmonary disease.Seizures SURGICAL HISTORY : Appendectomy. Cholecystectomy.Hysterectomy. ENCOUNTER: Initial ACUITY: 1 day PAIN SCALE: 5/10 LOCATION: neck TECHNIQUE: Volumetric scanning of the cervical spine was performed. Multiplanar reconstructions in the sagittal, coronal and oblique axial planes were performed. Using automated exposure control and adjustment o f the mA and/or kV according to patient size, radiation dose was kept as low as reasonably achievable to obtain optimal diagnostic quality images. DICOM format image data is available electronically f or review and comparison. FINDINGS: No acute fracture or spondylolisthesis. Moderate degenerative disc disease and facet arthropathy. No acute bony abnormality. CONCLUSION: 1. No acute fracture. Moderate degenerative disc disease and facet arthropathy. Tyler Judd MD on October 16, 2016 at 4:03 Board Certified Radiologist. This report was verified electronically.
[2016-10-16 04:13] VITALS: BP 150/61; PULSE 58; RESP 18; O2SAT 98
[2016-10-16 04:18] LABS: APTT (PATIENT) 27.6 SEC (24.3-30.1); PROTHROMBIN TIME - PATIENT 10.8 SEC (9.8-11.6)
[2016-10-16 04:40] LABS: BICARBONATE 31.4 MEQ/L (21.0-32.0); POTASSIUM 3.9 MEQ/L (3.5-5.1)
[2016-10-16 05:30] VITALS: BP 131/56; PULSE 56; RESP 18; O2SAT 96
--- NOTE | 2016-10-16 05:53 | PD ---
HPI Chief Complaint: Fall Time Seen by Provider: 02:52 Travel History International Travel<30 days: No Contact w/Intl Traveler<30days: No Traveled to known affect area: No History of Present Illness HPI 86 old female presents to the emergency department from home by EMS transport after a non-syncopal slip and fall. Patient lives at home with family and is on home hospice for lung cancer with metastatic disease. Patient has frequent falls. Patient did bump her head but did not have loss of consciousness. Patient also sustained a skin tear to her left hand dorsal aspect and contuse the left chest wall. Patient has had multiple falls in the past with hip fracture repair femur repair and right rib fractures. Patient's family did not come with the patient to the emergency department. Patient rates her pain 8/10 in intensity. Patient denies shortness of breath. Patient denies abdominal pain. Patient denies low back pain or pelvic pain. Patient denies lower extremity pain. PFSH Past Medical History Narrative Medical Arthritis asthma lung cancer chemotherapy CVA COPD dyslipidemia anxiety depression appendectomy cholecystectomy; tobacco use and: Nursing notes reviewed Arthritis: Yes Asthma: Yes Blood Disorders: No Anxiety: Yes Depression: Yes Cancer: Yes (LUNG) Cardiovascular Problems: Yes High Cholesterol: Yes Chemotherapy: Yes Chest Pain: No Congestive Heart Failure: No COPD: Yes Cerebrovascular Accident: Yes (TIA) Diabetes: No Diminished Hearing: No Endocrine: Yes Gastrointestinal Disorders: Yes (COLITIS, ) GERD: Yes Genitourinary: Yes (incontinence intermittenly) Hepatitis: No Hiatal Hernia: Yes Hypertension: Yes (on meds) 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) Implanted Vascular Access Dvce: Yes Musculoskeletal: Yes (R collar bone fx, R knee fx, R Hip, tailbone) Neurologic: Yes Psychiatric: Yes Reproductive: No Respiratory: Yes Immunizations Current: Yes Migraines: No Myocardial Infarction: Yes (10 years ago 2006?) Renal Failure: No Seizures: Yes Sleep Apnea: No Thyroid Disease: Yes Ulcer: No Tetanus Vaccination: Unknown Influenza Vaccination: No Menopausal: Yes Past Surgical History Abdominal Surgery: Yes (lucinda, appe) AICD: No Appendectomy: Yes Arteriovenous Shunt: No Body Medical Devices: rods to right hip Cardiac Surgery: No Cholecystectomy: Yes Ear Surgery: No Eye Surgery: No Genitourinary Surgery: No Gynecologic Surgery: Yes (total hysterectomy) Hysterectomy: Yes Insulin Pump: No Joint Replacement: No Neurologic Surgery: No Oral Surgery: Yes Pacemaker: No Thoracic Surgery: No Other Surgery: Yes (HIP SX) Social History Alcohol Use: No Tobacco Use: Yes Substance Use: No Allergies-Medications (Allergen,Severity, Reaction): Coded Allergies: penicillin G (Unverified Allergy, Severe, throat swelling and rash, ) grass pollen (Unverified Allergy, Unknown, RUNNY NOSE, NASAL, 09/29/16) Reported Meds & Prescriptions Reported Meds & Active Scripts Active Gabapentin 100 Mg Cap 100 Mg PO TID [guaiFENesin ER] 600 MG Tabcr 600 Mg PO BID PRN Senna Plus 8.6-50 mg (Sennosides-Docusate Sodium) 1 Tab Tab 1 Tab PO BID PRN Depakote ER (Divalproex Sodium) 500 Mg Ragini 500 Mg PO DAILY Hydrocodone-Acetaminophen 10-325 mg Tab 1 Tab PO Q6H PRN Wheelchair (Device) 1 Mis Mis 1 Ea .ROUTE DIRECTED Acidophilus/l-Sporogenes (Lactobacillus Acidophilus) 1 Tab Tab 1 Tab PO TID Hydrochlorothiazide 25 Mg Tab 50 Mg PO DAILY 30 Days Oyster Shell Calcium/Vitamin D (Calcium Carbonate-Cholecalciferol) 250-125 Mg- Unit Tab 250 Mg PO TID 30 Days Coreg (Carvedilol) 3.125 Mg Tab 3.125 Mg PO Q12HR 30 Days Atorvastatin (Atorvastatin Calcium) 80 Mg Tab 80 Mg PO HS HOLD THIS MEDICATION. RESTART AFTER COMPLETION OF FLUCONAZOLE THERAPY Walker with Front Wheels (Device) 1 Mis Mis 1 Ea .ROUTE DIRECTED Zofran Odt (Ondansetron Odt) 4 Mg Tab 4 Mg SL Q6HR PRN Reported Ipratropium Neb (Ipratropium [place]) 0.5 Mg/2.5 Ml Amp 0.5 Mg NEB Q6HR NEB Iron (Ferrous Gluconate) 240 Mg Tablet Unknown Dose PO DAILY Multi Vitamin Daily (Multiple Vitamin) 1 Tab Tab 1 Tab PO DAILY Vitamin D (Ergocalciferol (Vitamin D2)) 400 Unit Tablet Vitamin E (Vitamin E Mixed) 100 Unit Tablet Unknown Dose PO DAILY B12 (Cyanocobalamin) 1,000 Mcg Tab Unknown Dose PO DAILY B6 Natural (Pyridoxine HCl) 100 Mg Tab Unknown Dose PO DAILY Fish Oil ([place]-3 Fatty Acids) 300 Mg Capsule Unknown Dose PO DAILY Magnesium (Magnesium Oxide) 400 Mg Tablet Unknown Dose PO DAILY Seroquel (Quetiapine Fumarate) 100 Mg Tab 100 Mg PO HS Primidone 50 Mg Tab 250 Mg PO TID Xanax (Alprazolam) 0.25 Mg Tab 0.25 Mg PO Q6H PRN Vitamin D3 (Cholecalciferol) 1,000 Unit Tab 1,000 Units PO DAILY Lisinopril 40 Mg Tab 40 Mg PO DAILY Levothyroxine (Levothyroxine Sodium) 100 Mcg Tab 100 Mcg PO DAILY Amlodipine (Amlodipine Besylate) 10 Mg Tab 10 Mg PO DAILY Donepezil 10 Mg Tab 10 Mg PO DAILY Amitriptyline (Amitriptyline HCl) 10 Mg Tab 10 Mg PO BID Omeprazole 20 Mg Tab 20 Mg PO DAILY Review of Systems Except as stated in HPI: all other systems reviewed are Neg General / Constitutional: No: Fever, Chills HENT: Positive: Headaches, No: Congestion, Neck Pain Cardiovascular: Positive: Chest Pain or Discomfort Respiratory: Positive: Pleuritic Pain (left ribs), No: Shortness of Breath ( left ribs) Gastrointestinal: No: Abdominal Pain Genitourinary: No: Flank Pain Musculoskeletal: Positive: Myalgias, Arthralgias Skin: Positive Rash Neurologic: Positive: Weakness (skin tear left hand), No: Dizziness, Syncope ( generalized), Focal Abnormalities, Coordination Problem Psychiatric: Positive: Anxiety Hematologic/Lymphatic: No: Easy Bruising Physical Exam Narrative GENERAL: Elderly frail female in no acute respiratory distress; GCS 15 SKIN: Warm and dry. Various aged ecchymotic lesions and 6 cm skin tear to dorsum of left hand HEAD: Atraumatic. Normocephalic. Left forehead contusion EYES: Pupils equal and round. Extraocular muscles intact. No scleral icterus. No injection or drainage. ENT: No nasal bleeding or discharge. Mucous membranes pink and moist. NECK: Trachea midline. No JVD. Mild tenderness to direct palpation along the paracervical musculature no bony step-off or point tenderness CARDIOVASCULAR: Regular rate and rhythm. Chest wall: No ecchymosis no abrasion tenderness along the left lateral chest wall midaxillary line no crepitus no bony step-off. RESPIRATORY: No accessory muscle use. Clear to auscultation. Breath sounds equal bilaterally. Lung sounds clear to auscultation bilaterally GASTROINTESTINAL: Abdomen soft, non-tender, nondistended. Hepatic and splenic margins not palpable. No abrasion no ecchymosis. MUSCULOSKELETAL: Extremities without clubbing, cyanosis, or edema. No obvious deformities. Left hand tenderness without deformity distally digits are neurovascular tendon intact NEUROLOGICAL: Awake and alert. No obvious cranial nerve deficits. Motor grossly within normal limits. Five out of 5 muscle strength in the arms and legs. Normal speech. PSYCHIATRIC: Appropriate mood and affect; insight and judgment normal. Data Data Last Documented VS Vital Signs Date Time Temp Pulse Resp B/P (MAP) Pulse Ox O2 Delivery O2 Flow Rate FiO2 10/16/16 06:30 60 18 128/74 (92) 94 Room Air 10/16/16 04:13 2.00 10/16/16 02:20 98.1 Orders Orders Basic Metabolic Panel (Bmp) (10/16/16 02:52) Complete Blood Count With Diff (10/16/16 02:52) Prothrombin Time / Inr (Pt) (10/16/16 02:52) Act Partial Throm Time (Ptt) (10/16/16 02:52) Type And Screen (10/16/16 02:52) Pelvis, Ap Only (Routine) (10/16/16 02:52) Ct Brain W/O Iv Contrast(Rout) (10/16/16 02:52) Ct Cerv Spine W/O Contrast (10/16/16 02:52) Iv Access Insert/Monitor (10/16/16 02:52) Ecg Monitoring (10/16/16 02:52) Oximetry (10/16/16 02:52) Oxygen Administration (10/16/16 02:52) Sodium Chloride 0.9% Flush (Ns Flush) (10/16/16 03:00) Ribs, Uni (W/Exp Cxr-Min 3vw) (10/16/16 ) Hand, Complete (Dyc8lqy) (10/16/16 ) Tetanus/Diphtheria Tox Adult (Tetanus/Di (10/16/16 03:00) Acetamin-Hydrocod 325-7.5 Mg ([place] 7.5 (10/16/16 07:45) Labs Laboratory Tests Test 10/16/16 03:40 White Blood Count 4.8 TH/MM3 Red Blood Count 3.13 MIL/MM3 Hemoglobin 11.4 GM/DL Hematocrit 33.6 % Mean Corpuscular Volume 107.3 FL Mean Corpuscular Hemoglobin 36.4 PG Mean Corpuscular Hemoglobin Concent 34.0 % Red Cell Distribution Width 16.6 % Platelet Count 219 TH/MM3 Mean Platelet Volume 8.0 FL Neutrophils (%) (Auto) 54.6 % Lymphocytes (%) (Auto) 28.0 % Monocytes (%) (Auto) 13.1 % Eosinophils (%) (Auto) 2.9 % Basophils (%) (Auto) 1.4 % Neutrophils # (Auto) 2.6 TH/MM3 Lymphocytes # (Auto) 1.4 TH/MM3 Monocytes # (Auto) 0.6 TH/MM3 Eosinophils # (Auto) 0.1 TH/MM3 Basophils # (Auto) 0.1 TH/MM3 CBC Comment DIFF FINAL Differential Comment Prothrombin Time 10.8 SEC Prothromb Time International Ratio 1.0 RATIO Activated Partial Thromboplast Time 27.6 SEC Blood Urea Nitrogen 6 MG/DL Creatinine 0.51 MG/DL Random Glucose 92 MG/DL Calcium Level 8.4 MG/DL Sodium Level 137 MEQ/L Potassium Level 3.9 MEQ/L Chloride Level 100 MEQ/L Carbon Dioxide Level 31.4 MEQ/L Anion Gap 6 MEQ/L Estimat Glomerular Filtration Rate 117 ML/MIN MDM Medical Decision Making Medical Screen Exam Complete: Yes Emergency Medical Condition: Yes Medical Record Reviewed: Yes Interpretation(s) Last Impressions Pelvis X-Ray 10/16/16251 Signed Impressions: Service Date/Time: Sunday, October 16, 2016 03:17 - CONCLUSION: 1. Postsurgical change as above. Osteopenia. No acute fracture is seen. Tyler Judd MD Head CT 10/16/16251 Signed Impressions: Service Date/Time: Sunday, October 16, 2016 03:49 - CONCLUSION: 1. No acute intracranial abnormalities. Tyler Judd MD Cervical Spine CT 10/16/16251 Signed Impressions: Service Date/Time: Sunday, October 16, 2016 03:49 - CONCLUSION: 1. No acute fracture. Moderate degenerative disc disease and facet arthropathy. Tyler Judd MD Ribs X-Ray 10/16/16 0000 Signed Impressions: Service Date/Time: Sunday, October 16, 2016 03:18 - CONCLUSION: 1. No acute left-sided rib fractures. Chronic consolidation left lung base. Tyler Judd MD Hand X-Ray 10/16/16 0000 Signed Impressions: Service Date/Time: Sunday, October 16, 2016 03:12 - CONCLUSION: 1. No acute bony abnormality. Soft tissue swelling on dorsum of hand. Tyler Judd MD CBC & BMP Diagram 10/16/16 03:40 Calcium Level 8.4 L Vital Signs Date Time Temp Pulse Resp B/P (MAP) Pulse Ox O2 Delivery O2 Flow Rate FiO2 10/16/16 06:30 60 18 128/74 (92) 94 Room Air 10/16/16 05:30 56 18 131/56 (81) 96 Room Air 10/16/16 04:13 58 18 150/61 (90) 98 Nasal Cannula 2.00 10/16/16 02:25 Nasal Cannula 2.00 10/16/16 02:23 98 10/16/16 02:20 98.1 66 16 163/70 (101) 97 Differential Diagnosis Mechanical fall, minor closed head injury, ICH, forehead contusion, rib fracture , pneumothorax, pelvic contusion, electrolyte disturbance, arrhythmia, laceration, fractured hand Narrative Course IV access obtained specimens collected and sent for resulting imaging studies ordered Hand skin tear repaired with Steri-Strips Chest x-ray/left rib x-ray reveals no pneumothorax no infiltrate and no displaced rib fracture old right rib fracture-healed CT brain noncontrast reveals no acute injury cranial abnormality no skull fracture; cervical spine no acute bony abnormality Lab values grossly normal range; left hand x-ray no fracture Patient resting comfortably awaiting transportation back to home Patient daughter has arrived to take patient home and notes that patient has been without pain medication since last medicated at home daughter requesting dose of medication prior to discharge Diagnosis Primary Impression: Minor head injury Referrals: Primary Care Physician call for appointment Patient Instructions: Narcotic given in the ED, General Instructions Additional Instructions: Increase fluid hydration Follow-up with primary managing physician Continue chronic medications as presently prescribed Take acetaminophen/Tylenol as needed for fever 100.4F or greater Return to the emergency department for any concerns or change condition Follow head injury precautions 24 hours Keep one site clean and dry Apply ice pack intermittently for next 12-24 hours to areas of soft tissue swelling Disposition: 01 DISCHARGE HOME Condition: Stable Sonja Hyatt MD Oct 16, 2016 05:53
[2016-10-16 06:30] VITALS: BP 128/74; PULSE 60; RESP 18; O2SAT 94
[2016-10-16] MEDS ORDERED: ACETAMINOPHEN/HYDROcodone 325 MG/7.5 MG TAB PO ONE (07:45)
== END 2016-10-16 08:00 | disposition home or self-care (01) ==
LOC: NEPC 02:14
DX: S00.83XA Contusion of other part of head, initial encounter (principal); S61.412A Laceration without foreign body of left hand, initial encounter; C34.90 Malignant neoplasm of unspecified part of unspecified bronchus or lung; W01.0XXA Fall on same level from slipping, tripping and stumbling without subsequent striking against object, initial encounter; Z23 Encounter for immunization; Z72.0 Tobacco use
CPT/HCPCS: 70450; 71101; 72125; 72170; 73130; 80048; 85025; 85610; 85730; 86850; 86900; 86901; 90471; 90714

== ENCOUNTER 2016-10-26 12:55 | Emergency (ER) | payer OTHER ==
[~2016-10-26] VITALS: Ht 157.5 cm; Wt 60.0 kg
[2016-10-26 12:55] VITALS: BP 125/70; PULSE 95; RESP 16; TEMP 98.3; O2SAT 96
--- NOTE | 2016-10-26 14:20 | PD ---
HPI Chief Complaint: Altered Mental Status Time Seen by Provider: 13:42 Travel History International Travel<30 days: No Contact w/Intl Traveler<30days: No Traveled to known affect area: No History of Present Illness HPI This 76-year-old woman with small cell lung CA who lives at home with her daughter was apparently found on the floor. History is obtained entirely from EMS report. I tried to call the daughter at the number listed but they did not connect to line. She is reportedly on hospice. Review of records shows multiple recent admissions for pain. We spoke with the hospice agency, [facility], who reportedly was trying to put her in a hospice care center this morning. They will consult on her and come to see her in the emergency department. History Past Medical History Narrative Medical Hypothyroidism COPD, on home oxygen Hypertension Diabetes CAD, history of [place] CVA Kidney stones Lung CA, on hospice Menopausal: Yes Social History Alcohol Use: No Tobacco Use: Yes Allergies-Medications (Allergen,Severity, Reaction): Coded Allergies: penicillin G (Unverified Allergy, Severe, throat swelling and rash, ) grass pollen (Unverified Allergy, Unknown, RUNNY NOSE, NASAL, 09/29/16) Reported Meds & Prescriptions Reported Meds & Active Scripts Active Gabapentin 100 Mg Cap 100 Mg PO TID [guaiFENesin ER] 600 MG Tabcr 600 Mg PO BID PRN Senna Plus 8.6-50 mg (Sennosides-Docusate Sodium) 1 Tab Tab 1 Tab PO BID PRN Depakote ER (Divalproex Sodium) 500 Mg Ragini 500 Mg PO DAILY Hydrocodone-Acetaminophen 10-325 mg Tab 1 Tab PO Q6H PRN Wheelchair (Device) 1 Mis Mis 1 Ea .ROUTE DIRECTED Acidophilus/l-Sporogenes (Lactobacillus Acidophilus) 1 Tab Tab 1 Tab PO TID Hydrochlorothiazide 25 Mg Tab 50 Mg PO DAILY 30 Days Oyster Shell Calcium/Vitamin D (Calcium Carbonate-Cholecalciferol) 250-125 Mg- Unit Tab 250 Mg PO TID 30 Days Coreg (Carvedilol) 3.125 Mg Tab 3.125 Mg PO Q12HR 30 Days Atorvastatin (Atorvastatin Calcium) 80 Mg Tab 80 Mg PO HS HOLD THIS MEDICATION. RESTART AFTER COMPLETION OF FLUCONAZOLE THERAPY Walker with Front Wheels (Device) 1 Mis Mis 1 Ea .ROUTE DIRECTED Zofran Odt (Ondansetron Odt) 4 Mg Tab 4 Mg SL Q6HR PRN Reported Ipratropium Neb (Ipratropium [place]) 0.5 Mg/2.5 Ml Amp 0.5 Mg NEB Q6HR NEB Iron (Ferrous Gluconate) 240 Mg Tablet Unknown Dose PO DAILY Multi Vitamin Daily (Multiple Vitamin) 1 Tab Tab 1 Tab PO DAILY Vitamin D (Ergocalciferol (Vitamin D2)) 400 Unit Tablet Vitamin E (Vitamin E Mixed) 100 Unit Tablet Unknown Dose PO DAILY B12 (Cyanocobalamin) 1,000 Mcg Tab Unknown Dose PO DAILY B6 Natural (Pyridoxine HCl) 100 Mg Tab Unknown Dose PO DAILY Fish Oil ([place]-3 Fatty Acids) 300 Mg Capsule Unknown Dose PO DAILY Magnesium (Magnesium Oxide) 400 Mg Tablet Unknown Dose PO DAILY Seroquel (Quetiapine Fumarate) 100 Mg Tab 100 Mg PO HS Primidone 50 Mg Tab 250 Mg PO TID Xanax (Alprazolam) 0.25 Mg Tab 0.25 Mg PO Q6H PRN Vitamin D3 (Cholecalciferol) 1,000 Unit Tab 1,000 Units PO DAILY Lisinopril 40 Mg Tab 40 Mg PO DAILY Levothyroxine (Levothyroxine Sodium) 100 Mcg Tab 100 Mcg PO DAILY Amlodipine (Amlodipine Besylate) 10 Mg Tab 10 Mg PO DAILY Donepezil 10 Mg Tab 10 Mg PO DAILY Amitriptyline (Amitriptyline HCl) 10 Mg Tab 10 Mg PO BID Omeprazole 20 Mg Tab 20 Mg PO DAILY Review of Systems Except as stated in HPI: all other systems reviewed are Neg Physical Exam Narrative GENERAL: Well-appearing 76-year-old woman, frail and debilitated, chronically ill-appearing. SKIN: Focused skin assessment warm/dry. Multiple skin tears with old bandages. NECK: Trachea midline. No JVD. CARDIOVASCULAR: Regular rate and rhythm. No murmur appreciated. RESPIRATORY: No accessory muscle use. Clear to auscultation. Breath sounds equal bilaterally. GASTROINTESTINAL: Abdomen soft, non-tender, nondistended. Hepatic and splenic margins not palpable. MUSCULOSKELETAL: No obvious deformities. No edema. NEUROLOGICAL: Awake and alert. No obvious cranial nerve deficits. Motor grossly within normal limits. Normal speech. Data Data Last Documented VS Vital Signs Date Time Temp Pulse Resp B/P (MAP) Pulse Ox O2 Delivery O2 Flow Rate FiO2 10/26/16 12:55 98.3 95 16 125/70 (88) 96 Orders Orders Chest, Single Ap (10/26/16 ) Pelvis, Ap Only (Routine) (10/26/16 ) Hospice Consult (10/26/16 14:05) MDM Medical Decision Making Medical Screen Exam Complete: Yes Emergency Medical Condition: Yes Differential Diagnosis Generalized debility, weakness, fall, other Narrative Course Medical decision making 76-year-old woman, on hospice, with weakness to be found on the ground. Patient seen in the ambulance hallway for initial evaluation. No obvious new injuries. She is covered in skin tear from previous cuts. We consulted hospice who is on her way to come see her. I tried to call her daughter, Leona Saldivar, , but did not connect to a working number. Ray Frederick MD Oct 26, 2016 14:20
--- NOTE | 2016-10-26 15:48 | RADRPT ---
EXAM DATE/TIME: 10/26/2016 15:31 [facility] COMPARISON: PELVIS AP ONLY, October 26, 2016, 15:34. CHEST SINGLE AP, September 29, 2016, 17:24. INDICATIONS : Chest pain, patient fell. MEDICAL HISTORY : Carcinoma, lung. Hypertension. Chronic obstructive pulmonary, seizures. SURGICAL HISTORY : Appendectomy. Cholecystectomy. Hysterectomy ENCOUNTER: Initial ACUITY: 1 day PAIN SCORE: 0/10 LOCATION: Bilateral chest FINDINGS: A single view of the chest demonstrates the lungs to be symmetrically aerated without evidence of mas s, infiltrate or effusion. The cardiomediastinal contours are unremarkable. Osseous structures are intact. The patient is mildly rotated to the left. The right-sided implantable port catheter remains in place. There are atherosclerotic changes in the aorta. CONCLUSION: No acute disease. Louis Heaton MD on October 26, 2016 at 15:46 Board Certified Radiologist. This report was verified electronically.
--- NOTE | 2016-10-26 16:01 | RADRPT ---
EXAM DATE/TIME: 10/26/2016 15:34 [facility] COMPARISON: PELVIS AP ONLY, October 16, 2016, 3:17. INDICATIONS : Pelvic pain after fall. MEDICAL HISTORY : Carcinoma, lung. Hypertension. Chronic obstructive pulmonary, seizures. SURGICAL HISTORY : Appendectomy. Cholecystectomy. Hysterectomy, ENCOUNTER: Initial ACUITY: 1 day PAIN SCORE: 0/10 LOCATION: Bilateral pelvis. FINDINGS: Cement is again noted in the expected regions of the sacrum bilaterally. Hardware is also noted with in the proximal femurs bilaterally. There is no acute fracture or dislocation of the bony pelvis. D egenerative changes are again noted within the lower lumbar spine. CONCLUSION: No significant change compared to 10/16/16. Darwni Dumont MD on October 26, 2016 at 15:56 Board Certified Radiologist. This report was verified electronically.
--- NOTE | 2016-10-26 17:34 | PD ---
Data Data Last Documented VS Vital Signs Date Time Temp Pulse Resp B/P (MAP) Pulse Ox O2 Delivery O2 Flow Rate FiO2 10/26/16 12:55 98.3 95 16 125/70 (88) 96 Orders Orders Chest, Single Ap (10/26/16 ) Pelvis, Ap Only (Routine) (10/26/16 ) Hospice Consult (10/26/16 14:05) MDM Supervised Visit with OLYA: No Narrative Course 76-year-old woman, on hospice, unable to hold the daughter either us or hospice. Hospice states that his common for her. Patient is hospice center appropriate. She'll be discharged to the hospice center. Diagnosis Primary Impression: Metastatic lung cancer (metastasis from lung to other site) Patient Instructions: General Instructions Disposition: 51 HOSPICE/MED FACILITY Condition: Stable Ray Frederick MD Oct 26, 2016 17:34
== END 2016-10-26 19:40 | disposition hospice, inpatient (51) ==
LOC: NEDAMB 12:55
DX: C34.90 Malignant neoplasm of unspecified part of unspecified bronchus or lung (principal); R53.1 Weakness; E03.9 Hypothyroidism, unspecified; J44.9 Chronic obstructive pulmonary disease, unspecified; I10 Essential (primary) hypertension; E11.9 Type 2 diabetes mellitus without complications; I25.10 Atherosclerotic heart disease of native coronary artery without angina pectoris; I25.2 Old myocardial infarction; Z86.73 Personal history of transient ischemic attack (TIA), and cerebral infarction without residual deficits
CPT/HCPCS: 71010; 72170; 99284